=== PATIENT | female | born 1955 | race Caucasian/White ===

== ENCOUNTER → 2021-12-11 10:19 | Outpatient (CLI) | payer OTHER, SELFPAY ==
[2021-12-11 11:05] LABS: Hematocrit 38.5 % (36-46); Hemoglobin 13.2 g/dL (12.0-16.0); Mean Corpuscular HGB Conc 34.4 % (30-36); Mean Corpuscular Hemoglobin 27.2 PG (26-34); Mean Corpuscular Volume 79.2 fL (80-100); Platelet Count 220 X10^3/uL (150-400); Red Blood Cell Count 4.85 X10^6/uL (4.0-5.2); Red Cell Distribution Width 14.5 % (11.6-14.8); White Blood Cell Count 5.6 X10^3/uL (4.5-11.0)
[2021-12-11 11:22] LABS: Erythrocyte Sedimentation Rate 13 MM/HR (0-20)
[2021-12-11 11:47] LABS: Alanine Aminotransferase 16 IU/L (<35); Albumin 4.8 g/dL (3.5-5.0); Albumin Globulin Ratio 1.7 (1.0-2.8); Alkaline Phosphatase 93 U/L (38-126); Aspartate Aminotransferase 23 IU/L (14-36); BUN Creatinine Ratio 25.8 (6-22); Bilirubin Total 0.6 mg/dL (0.2-1.3); Blood Urea Nitrogen 17 mg/dL (7-17); C-Reactive Protein Quant < 0.5 mg/dL (<1.0); Calcium 9.4 mg/dL (8.4-10.2); Carbon Dioxide 24 mmol/L (22-32); Chloride 107 mmol/L (98-107); Cholesterol 285 mg/dL (140-199); Estimated Glomerular Filt Rate > 60 mL/min (>60); Globulin 2.9 g/dL (1.7-4.1); Glucose 119 mg/dL (80-110); HDL Cholesterol 71 mg/dL (40-60); HEMOLYSIS < 15 (0-50); LDL Cholesterol Calculated 194 mg/dL (<100); Sodium 141 mmol/L (137-145); Total Protein 7.7 g/dL (6.3-8.2); Triglycerides 100 mg/dL (35-150)
[2021-12-11 12:17] LABS: TSH w/ Reflex to FT4 1.55 uIU/mL (0.47-4.68)
== END ==
PROVIDERS: PCP Internal Medicine; Referring Provider Internal Medicine; Visit Provider Internal Medicine
DX: I10 Essential (primary) hypertension (principal); M79.7 Fibromyalgia
CPT/HCPCS: 36415; 80053; 80061; 84443; 85027; 85651; 86140

== ENCOUNTER → 2022-05-08 09:54 | Outpatient (CLI) | payer MEDICARE, SELFPAY ==
--- NOTE | 2022-05-08 09:58 | DI.RAD.S_ITS ---
PROCEDURE: XR HIP W PEL IF DONE RT 2V INDICATIONS: right hip pain TECHNIQUE: 2 views of the hip were acquired. COMPARISON: None. FINDINGS: Bones: Severe right and moderate left arthrosis. Lumbosacral spondylosis. There is flattening of the right femoral head. Soft tissues: No suspicious soft tissue calcifications or masses. IMPRESSION: Severe right and moderate left hip arthrosis. Flattening of the femoral head can be seen with degeneration and/or osteonecrosis. Lumbosacral degenerative changes are present. Dictated by: Mark Brower M.D. on 05/08/2022 at 16:57 Approved by: Mark Brower M.D. on 05/08/2022 at 16:57
== END ==
PROVIDERS: PCP Internal Medicine; Referring Provider Internal Medicine; Visit Provider Internal Medicine
DX: M76.30 Iliotibial band syndrome, unspecified leg; M16.0 Bilateral primary osteoarthritis of hip; M47.817 Spondylosis without myelopathy or radiculopathy, lumbosacral region; M25.551 Pain in right hip
CPT/HCPCS: 73502

== ENCOUNTER → 2022-06-20 12:02 | Outpatient (CLI) | payer OTHER, SELFPAY ==
[2022-06-20 12:46] LABS: Appearance Urine UA CLEAR; Bilirubin Urine UA NEGATIVE (NEGATIVE); Color Urine UA YELLOW; Glucose Urine UA NEGATIVE (Negative); Ketones Urine UA TRACE (NEGATIVE); Leukocyte Esterase Urine UA NEGATIVE (NEGATIVE); Nitrite Urine UA NEGATIVE (Negative); Occult Blood Urine UA 3+ (Negative); Protein Urine UA 2+ (Negative); Specific Gravity Urine UA 1.025 (1.000-1.035); Urobilinogen Urine UA 0.2 E.U./dL (0.2)
[2022-06-20 13:04] LABS: RBC Urine 10-30/HPF (0-5/HPF); WBC Urine 5-10/HPF (0-5/HPF)
[2022-06-20 13:05] LABS: Bacteria Urine None Seen; Culture Indicated Urine Cult Not Indicated; Mucus Urine 1+ (Negative); Squamous Epithelial Cell Urine 1-5 /HPF (0-5/HPF)
[2022-06-20 13:34] LABS: Add Manual Diff / Slide Review NO; Basophils Absolute Auto 100 /uL (0-100); Basophils Percent Auto 0.7 % (0-2); Eosinophils Absolute Auto 100 /uL (0-450); Hematocrit 41.9 % (36-46); Hemoglobin 14.5 g/dL (12.0-16.0); Lymphocytes Absolute Auto 1800 /uL (1100-4500); Lymphocytes Percent Auto 22.9 % (25-40); Mean Corpuscular HGB Conc 34.7 % (30-36); Mean Corpuscular Hemoglobin 28.3 PG (26-34); Mean Corpuscular Volume 81.5 fL (80-100); Monocytes Absolute Auto 800 /uL (0-900); Monocytes Percent Auto 9.4 % (3-14); Neutrophils Absolute Auto 5300 /uL (1500-7000); Platelet Count 257 X10^3/uL (150-400); Red Blood Cell Count 5.13 X10^6/uL (4.0-5.2); Red Cell Distribution Width 13.9 % (11.6-14.8)
[2022-06-20 14:04] LABS: Prothrombin Time 11.2 SECONDS (10.1-12.7)
[2022-06-20 14:06] LABS: PTT Partial Thromboplastin Tim 48 SECONDS (26-36)
[2022-06-20 14:14] LABS: BUN Creatinine Ratio 27.7 (6-22); Blood Urea Nitrogen 18 mg/dL (7-17); Calcium 9.5 mg/dL (8.4-10.2); Carbon Dioxide 18 mmol/L (22-32); Chloride 105 mmol/L (98-107); Estimated Glomerular Filt Rate > 60 mL/min (>60); Glucose 137 mg/dL (80-110); HEMOLYSIS < 15 (0-50); Potassium 3.8 mmol/L (3.4-5.1); Sodium 140 mmol/L (137-145)
== END ==
PROVIDERS: PCP Internal Medicine; Referring Provider Internal Medicine; Visit Provider Internal Medicine
DX: Z01.812 Encounter for preprocedural laboratory examination (principal); Z51.81 Encounter for therapeutic drug level monitoring; R73.9 Hyperglycemia, unspecified; N39.0 Urinary tract infection, site not specified
CPT/HCPCS: 36415; 80048; 81001; 83036; 85025; 85610; 85730

== ENCOUNTER → 2022-07-02 11:37 | Outpatient (CLI) | payer OTHER, SELFPAY ==
[2022-07-02 12:23] LABS: Appearance Urine UA CLEAR; Bilirubin Urine UA NEGATIVE (NEGATIVE); Color Urine UA YELLOW; Glucose Urine UA NEGATIVE (Negative); Ketones Urine UA NEGATIVE (NEGATIVE); Leukocyte Esterase Urine UA TRACE (NEGATIVE); Nitrite Urine UA NEGATIVE (Negative); Occult Blood Urine UA 3+ (Negative); Protein Urine UA TRACE (Negative); Specific Gravity Urine UA <=1.005 (1.000-1.035); Urobilinogen Urine UA 0.2 E.U./dL (0.2)
[2022-07-02 12:40] LABS: Bacteria Urine Moderate (10-30); Culture Indicated Urine Specimen Cultured; RBC Urine 10-30/HPF (0-5/HPF); Squamous Epithelial Cell Urine 1-5 /HPF (0-5/HPF); WBC Urine 5-10/HPF (0-5/HPF)
== END ==
PROVIDERS: PCP Internal Medicine; Referring Provider Internal Medicine; Visit Provider Internal Medicine
DX: R30.0 Dysuria (principal); R31.9 Hematuria, unspecified
CPT/HCPCS: 81001; 87086

== ENCOUNTER → 2022-09-11 08:42 | Outpatient (CLI) | payer OTHER, SELFPAY ==
--- NOTE | 2022-09-11 08:43 | DI.US.S_ITS ---
PROCEDURE: US PELVIC COMPLETE INDICATIONS: POSTMENOPAUSAL BLEEDING TECHNIQUE: Real-time scanning was performed of the pelvic organs, with image documentation. Additional endovaginal scanning was necessary due to incomplete visualization of the adnexal and endometrial structures by transabdominal scanning. COMPARISON: None. FINDINGS: Uterus: Uterus is anteverted and enlarged measuring 11.5 x 8.9 x 8.5 cm. Morphology is globular. The myometrium is slightly heterogeneous. The myometrium is thinned and the endometrium is diffusely thickened secondary to heterogeneous mildly hyperechoic masslike lesion measuring about 7.8 x 7.6 x 6.7 cm. There is increased vascular flow in this mass. The cervix is closed and there are tiny nabothian cysts present. Ovaries: The right ovary is not well seen. The left ovary measures 2.3 x 1.5 x 0.9 cm, with a calculated ovarian volume of 1.6 cc. There are few follicles in the left ovary. Other: There is a small amount of complex fluid layering dependently in the right adnexa. IMPRESSION: 1. Enlarged uterus with probable endometrial mass. Tissue sampling versus further imaging with pelvic MRI is recommended. 2. Nonvisualization of the right ovary. 3. Small amount of complex free fluid. We strive to produce accurate, complete, and clear reports of imaging services. To assist us in improving patient care, this report was composed using standard report templates and voice recognition software. Therefore, it may contain abnormal punctuation, insertions and/or omissions. Occasional wrong-word or sound-alike substitutions may occur. Though we review the report and make efforts to correct it, we do recommend that the report be read carefully in proper context to recognize any text inaccuracies. Dictated by: Madina Post M.D. on 09/11/2022 at 16:27 Approved by: Madina Post M.D. on 09/11/2022 at 16:34
== END ==
PROVIDERS: PCP Internal Medicine; Referring Provider Internal Medicine; Visit Provider Internal Medicine
DX: N93.9 Abnormal uterine and vaginal bleeding, unspecified (principal); N85.2 Hypertrophy of uterus
CPT/HCPCS: 76830; 76856

== ENCOUNTER → 2022-10-16 09:21 | Outpatient (CLI) | payer OTHER, SELFPAY ==
--- NOTE | 2022-10-16 | DI.CT.S_ITS ---
PROCEDURE: CT CHEST ABD PEL W CON INDICATIONS: Malignant neoplasm of endometrium TECHNIQUE: After the administration of oral and intravenous contrast, axial sections acquired from the supraclavicular neck to the pubic symphysis. Coronal and sagittal reformats were performed. For radiation dose reduction, the following was used: automated exposure control, adjustment of mA and/or kV according to patient size. COMPARISON: [facility], , US PELVIC COMPLETE, 09/11/2022, 9:10. FINDINGS: Image quality: Excellent. CHEST: Lower Neck: No enlarged lymph nodes. Thyroid: Within normal limits. Axillae: No enlarged lymph nodes. Chest Wall: Unremarkable. Lungs and Airways: No consolidation or suspicious nodules. Bibasilar atelectasis. Pleura: No pneumothorax or pleural effusions. Heart: Heart size is normal. No pericardial effusion. Thoracic Vessels: The aorta and pulmonary arteries demonstrate normal size. Mediastinum and Kendra: No enlarged lymph nodes. Esophagus: No wall thickening. Small hiatal hernia. ABDOMEN: Liver: Normal size. Mild hepatic steatosis. There is a vague hypodense area in the left hepatic lobe (segment 4) near the falciform ligament measuring 1.6 cm, most likely secondary to focal fat. Gallbladder: There are multiple gallstones. No gallbladder wall thickening or pericholecystic fluid. Biliary ducts: Unremarkable. Pancreas: Unremarkable. Spleen: Unremarkable. Adrenal Glands: Unremarkable. Kidneys and Ureters: There is a 1.3 cm left adrenal nodule. Stomach and Bowel: There is mild gastric wall thickening. The small bowel loops and colon are unremarkable. Peritoneum: Small omental nodules are present. For example, there is a 0.5 cm omental nodule in the left anterior abdomen (series 2, image 67). Small free intraperitoneal fluid is present. There are small foci of free air in the peritoneal cavity. Ventral Wall: No hernia. Abdominal Nodes: No retroperitoneal or mesenteric adenopathy by size criteria. Vessels: Aorta and inferior vena cava are normal in size. PELVIS: Pelvic Organs: Uterus is absent. There is a fluid collection in pelvis extending to the left adnexa measuring 5.7 x 4.8 x 9.0 cm, containing small foci of gas. There is a cystic structure in the right pelvic sidewall, measuring 3.3 x 2.2 cm, probably the right ovary. There is a trace amount of free fluid in pelvis. Bladder: Unremarkable. Pelvic Nodes: No enlarged lymph nodes. Miscellaneous: No inguinal hernias are seen. Bones: Moderate degenerative changes in thoracic and lumbar spine. IMPRESSION: 1. Postsurgical changes in pelvis consistent with hysterectomy. There is a 5.7 x 4.8 x 9.0 cm fluid collection in pelvis extending to the left adnexa, suspicious for developing abscess. A differential diagnosis is postoperative seroma. Recommend clinical correlation and imaging follow-up. 2. Pneumoperitoneum with small foci of free air, presumably related to recent surgery. 3. Small omental nodules are present. Recommend close imaging follow-up. 4. No CT findings to suggest lashon metastasis. 5. Cholelithiasis. 6. Mild gastric wall thickening suggesting gastritis. Recommend clinical correlation. 7. A 1.3 cm left adrenal nodule. Recommend adrenal protocol MRI or CT for follow-up evaluation. Dictated by: Darline Beard M.D. on 10/17/2022 at 9:50 Approved by: Darline Beard M.D. on 10/17/2022 at 10:05
== END ==
PROVIDERS: PCP Internal Medicine; Referring Provider Obstetrics & Gynecology; Visit Provider Obstetrics & Gynecology
DX: C54.1 Malignant neoplasm of endometrium (principal); K80.20 Calculus of gallbladder without cholecystitis without obstruction; E27.9 Disorder of adrenal gland, unspecified; K44.9 Diaphragmatic hernia without obstruction or gangrene; K76.0 Fatty (change of) liver, not elsewhere classified; Z90.710 Acquired absence of both cervix and uterus
CPT/HCPCS: 71260; 74177; Q9967

== ENCOUNTER 2022-11-18 09:28 | Day surgery (SDC) | payer OTHER, SELFPAY ==
[2022-11-14 13:06] VITALS: BMI 36.1
--- NOTE | 2022-11-18 | DI.RAD.S_ITS ---
PROCEDURE: XR CHEST 1V INDICATIONS: left SCV power port TECHNIQUE: One view of the chest was acquired. COMPARISON: None. FINDINGS: Surgical changes and devices: Status post left chest wall port placement Lungs and pleura: Lungs are clear. No pleural effusions or pneumothorax. Mediastinum: Mediastinal contours appear normal. Heart size is normal. Bones and chest wall: No suspicious bony lesions. Overlying soft tissues appear unremarkable. IMPRESSION: No acute cardiopulmonary abnormality. Dictated by: London Chacko M.D. on 11/18/2022 at 12:44 Approved by: London Chacko M.D. on 11/18/2022 at 12:44
[2022-11-18 10:18] VITALS: BMI 36.1
[2022-11-18 10:29] VITALS: BP 171/102; PULSE 112; RESP 24; TEMP 37.4; O2SAT 98
[2022-11-18] MEDS: LACTATED RINGERS 1,000 ML 42 ML IV (10:43)
--- NOTE | 2022-11-18 11:12 | PM.HP.1 ---
History of Present Illness History of Present Illness Date Patient Seen: 11/18/22 Time Patient Seen: 11:12 Chief complaint: Port-A-Cath Insertion Narrative: Endometrial cancer Power port needed. [facility] Medical History Chicken pox Chronic back pain Chronic, continuous use of opioids Endometrial mass Essential hypertension Fibroids Fibromyalgia IT band syndrome Measles Migraines Mumps Osteoarthritis of right hip Painful menstrual periods Vaginal bleeding Surgical History Anesthesia H/O total hysterectomy with bilateral salpingo-oophorectomy (BSO) (10/04/22) History of foot surgery (~2000) History of laparoscopy (~1991) History of neck surgery (~1997) Family History Father Cancer Family/Other No problems noted. 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 household members: family Smoking Status: Never smoker alcohol intake: current Meds Home Medications and Allergies Home Medications Medication Instructions Recorded Confirmed Type [id number] 250 2 tab PO Q4-6H PRN Headache, pain 12/10/21 11/18/22 History mg-250 mg-65 mg tablet (Excedrin Extra Strength) cimetidine 200 mg tablet 200 mg PO DAILY 12/10/21 11/18/22 History dimenhydrinate 25 mg chewable 50 mg PO DAILY PRN As directed 12/10/21 11/18/22 History tablet (Dramamine) loperamide 2 mg capsule 2 mg PO DAILY PRN As directed 12/10/21 11/18/22 History amlodipine 5 mg tablet 5 mg PO DAILY #90 tabs 04/24/22 11/18/22 Rx duloxetine 20 mg capsule,delayed 40 mg PO DAILY #60 caps 04/24/22 11/18/22 Rx release methocarbamol 500 mg tablet 500 mg PO TID #120 tabs 10/16/22 11/18/22 Rx ondansetron HCl 8 mg tablet 8 mg PO Q6HR PRN Nausea #30 tabs 11/12/22 11/18/22 Rx prochlorperazine maleate 10 mg 10 mg PO Q6H PRN Nausea #30 tabs 11/12/22 11/18/22 Rx tablet (Compazine) promethazine 25 mg tablet 25 mg PO Q4-6H PRN Nausea #30 tabs 11/12/22 11/18/22 Rx oxycodone 10 mg tablet 10 mg PO PRN PRN Pain, Moderate 11/18/22 11/18/22 History Allergies Allergy/AdvReac Type Severity Reaction Status Date / Time No Known Drug Allergies Allergy Verified 11/18/22 10:10 Review of Systems Review of Systems Narrative: hard knot in abd port site. Tender ROS: Yes All systems reviewed with the patient and are negative except as otherwise documented Exam Vital Signs (past 8 hours): - 11/18/22 10:29 Temperature 99.4 F Pulse Rate 112 H Respiratory Rate 24 Blood Pressure 171/102 H Pulse Oximetry 98 Oxygen Delivery Method Room Air Oxygen Delivery Method Room Air Const General: cooperative and comfortable Nutritional Appearance: average body habitus HENMT Head: normocephalic and atraumatic Ears: hearing grossly normal bilaterally Eyes Sclera: sclerae normal Neck Neck: trachea midline Resp Effort & Inspection: normal respiratory effort and able to speak in complete sentences Cardio Rate: tachycardic Rhythm: regular rhythm GI Palpation: soft Other: Possible incisional hernia supraumbilical, no infection. Could also be healing ridge. Skin General: turgor normal Neuro General: patient alert, patient awake and patient oriented x3 Cognition: normal cognition Psych Judgment: judgment good Assessment & Plan Assessment & Plan narrative: Power port placement left subclavian vein, possible right for chemo COVID-19 COVID-19 status: Negative Time Spent With Patient Time with patient: less than 30 minutes
[2022-11-18] MEDS: CEFAZOLIN 2 GM/100 ML PREMIX 100 ML IV (11:37)
--- NOTE | 2022-11-18 11:54 | SUR.OPER ---
Supine on padded OR bed, head on pillow, arms padded and tucked at sides, legs uncrossed, safety belt at thigh, tape over blanket over lower legs .
[2022-11-18] MEDS: BUPIVACAINE 0.25% (PF) 60 ML, EPINEPHrine 0.3 MG INJ (11:59)
[2022-11-18] MEDS: HEPARIN 5,000 UNIT, SODIUM CHLORIDE 0.9% 50 ML IV (12:00)
--- NOTE | 2022-11-18 12:15 | P.OP_ITS ---
Operative Date/Time/Diagnoses Date of procedure: 11/18/22 Time of procedure: 12:15 Pre-op diagnosis: Endometrial cancer Post-op diagnosis: same Procedure & Clinicians Procedure: PowerPort placement Same procedure as scheduled: Yes Indications: Endometrial cancer Surgeon: Ivanna Portillo Click Yes if Unassisted: Yes Anesthesia Type: General and Local Operative Notes Findings: Normal-appearing anatomy. Closure Type: primary Specimen(s): none sent Applied: implant(s) (Power port) Estimated Blood Loss (mL): 5 Blood products transfused: none Procedure in detail: Preop diagnosis: Endometrial cancer Postop diagnosis: Same Operative procedure: PowerPort placement left subclavian vein Surgeon: Lilia Portillo MD Findings: Normal-appearing anatomy. Good venous return. Procedure: Patient placed in a Trendelenburg position. Prepped and draped in a sterile fashion. Left subclavian vein was accessed and a J-wire was placed. Confirmation using fluoroscopy. I then created a small port site beneath the access point and installed a regular size port tunneling it briefly to the access point through which the pre cut catheter was placed. Postplacement fluoro confirmed ultimate placement in good position. No evidence of pneumothorax. Port was aspirated with good venous return and flushed with heparin solution. I then began closure with tacking the port to the chest wall in 2 positions using 2-0 Ethibond. Subcutaneous tissue was reapproximated with interrupted 3-0 Vicryl. Skin was closed with a running 3-0 absorbable barbed suture. Steri- Strips and sterile dressings were placed. Patient was awakened, extubated, taken to recovery room in stable condition. Needle, instrument, sponge counts were correct. Blood loss: 5 mL Specimen: None Complications: none Post-operative Condition: stable Disposition: PACU
[2022-11-18 12:19] VITALS: BP 116/77; PULSE 86; RESP 12; TEMP 36.8; O2SAT 93
[2022-11-18 12:24] VITALS: BP 140/93; PULSE 114; RESP 13; O2SAT 94
[2022-11-18 12:29] VITALS: BP 142/94; PULSE 109; RESP 14; O2SAT 96
[2022-11-18 12:52] VITALS: BP 141/91; PULSE 109; RESP 22; O2SAT 98
== END 2022-11-18 13:04 | disposition home or self-care (01) ==
PROVIDERS: PCP Internal Medicine; Referring Provider Surgery; Visit Provider Surgery
PROC: (CPT 36561; principal; 2022-11-18 10:45)
DX: C54.1 Malignant neoplasm of endometrium (principal)
CPT/HCPCS: 36561; 71045; 76000; C1788; J0171; J0690; J1100; J1170; J1644; J2250; J2405; J2704; J3010

== ENCOUNTER → 2022-12-18 09:59 | Outpatient (CLI) | payer OTHER, SELFPAY ==
--- NOTE | 2022-12-18 10:00 | DI.RAD.S_ITS ---
PROCEDURE: XR HIP W PEL IF DONE RT 2V INDICATIONS: hip pain TECHNIQUE: AP pelvis with lateral view(s) of the right hip(s). COMPARISON: [facility], CR, XR HIP W PEL IF DONE RT 2V, 05/08/2022, 10:10. FINDINGS: Bones: There are severe hypertrophic ossification involving the right femoroacetabular joint as seen previously. The femoral head is aspherical. There is been acetabular remodeling, subcortical sclerosis and cystic change. There is complete joint space loss and mild superior migration of the femoral head. Moderate diffuse joint space loss and subcortical lucency superiorly at the left femoroacetabular joint. Small left hip marginal spurs. Incidental note made of sclerotic bone lesions in the left iliac wing and right ilium above the acetabulum. Soft tissues: The visualized bowel gas pattern is normal. No suspicious soft tissue calcifications. IMPRESSION: 1. Advanced arthritic changes in both hips, quite severe in the right and moderate on the left, similar compared to prior radiograph. 2. Sclerotic bilateral iliac lesions, nonspecific and may be benign bone islands versus metastatic disease. Correlate clinically. Dictated by: Madina Post M.D. on 12/18/2022 at 13:02 Approved by: Madina Post M.D. on 12/18/2022 at 13:10
== END ==
PROVIDERS: PCP Internal Medicine; Referring Provider Internal Medicine; Visit Provider Internal Medicine
DX: C54.1 Malignant neoplasm of endometrium (principal); M16.51 Unilateral post-traumatic osteoarthritis, right hip; M89.9 Disorder of bone, unspecified
CPT/HCPCS: 73502

== ENCOUNTER 2023-03-05 11:34 | Emergency (ER) | payer OTHER, SELFPAY ==
[2023-03-05] VITALS (98 sets, daily range): BP systolic 105–198; BP diastolic 72–122; PULSE 83–127; RESP 12–46; TEMP 36.5; O2SAT 94–100; BMI 33.3
--- NOTE | 2023-03-05 11:49 | DI.RAD.S_ITS ---
PROCEDURE: XR CHEST 1V INDICATIONS: chest pain TECHNIQUE: One view of the chest was acquired. COMPARISON: [facility], CR, XR CHEST 1V, 11/18/2022, 12:26. FINDINGS: Surgical changes and devices: Left chest Port-A-Cath is seen with tip projecting over the superior vena cava. Lungs and pleura: Lungs are clear. No pleural effusions or pneumothorax. Mediastinum: Mediastinal contours appear normal. Heart size is normal. Bones and chest wall: No suspicious bony lesions. Overlying soft tissues appear unremarkable. IMPRESSION: No acute cardiopulmonary abnormality. Approved by: Alvarez Rubio M.D. on 03/05/2023 at 12:46
[2023-03-05 12:25] LABS: Alanine Aminotransferase 28 IU/L (<35); Albumin 4.4 g/dL (3.5-5.0); Albumin Globulin Ratio 1.5 (1.0-2.8); Alkaline Phosphatase 89 U/L (38-126); Aspartate Aminotransferase 49 IU/L (14-36); BUN Creatinine Ratio 23.9 (6-22); Bilirubin Total 0.4 mg/dL (0.2-1.3); Blood Urea Nitrogen 17 mg/dL (7-17); Carbon Dioxide 23 mmol/L (22-32); Chloride 97 mmol/L (98-107); Creatine Kinase 43 U/L (30-135); Estimated Glomerular Filt Rate > 60 mL/min (>60); Globulin 2.9 g/dL (1.7-4.1); Glucose 189 mg/dL (80-110); HEMOLYSIS < 15 (0-50); Lipase 228 U/L (23-300); Magnesium 1.9 mg/dL (1.6-2.3); Potassium 3.4 mmol/L (3.4-5.1); Sodium 133 mmol/L (137-145); Total Protein 7.3 g/dL (6.3-8.2)
[2023-03-05 12:37] LABS: Troponin I 0.051 ng/mL (0.01-0.034)
--- NOTE | 2023-03-05 13:39 | DI.CT.S_ITS ---
PROCEDURE: CT ABDOMEN PELVIS W CON INDICATIONS: IV contrast only/vomiting TECHNIQUE: After the administration of intravenous contrast, axial sections acquired from the lung bases to the pubic symphysis. Coronal and sagittal reformats were performed. For radiation dose reduction, the following was used: automated exposure control, adjustment of mA and/or kV according to patient size. COMPARISON: [facility], CT, CT CHEST ABD PEL W CON, 10/16/2022, 10:51. FINDINGS: Image quality: Excellent. Lung bases: Unremarkable. Heart: No significant findings. Miscellaneous: Small hiatal hernia. Distal esophageal wall thickening and edema suggests distal esophagitis. ABDOMEN: Liver: Very mild diffuse hepatic steatosis. No focal liver mass. Gallbladder: Multiple gallstones. Mildly prominent gallbladder wall. Gallbladder appearance is similar to the previous study. Biliary ducts: Unremarkable. Pancreas: Unremarkable. Spleen: Unremarkable. Adrenal Glands: Unremarkable. Kidneys and Ureters: Unremarkable. Stomach and Bowel: Duodenal C-loop edema suggest duodenitis. Stomach, small bowel loops, and colon are unremarkable. Peritoneum: No abnormal intraperitoneal fluid. No free air. Ventral Wall: No hernias. Abdominal Nodes: No retroperitoneal or mesenteric adenopathy by size criteria. Vessels: Aorta and inferior vena cava are normal in size. PELVIS: Uterus is surgically absent. Bladder: Unremarkable. Pelvic Nodes: No enlarged lymph nodes. Miscellaneous: No hernias are seen. Bones: Old mild compressions of T10, T11, and T12. End-stage degenerative arthritis of the right hip. IMPRESSION: 1. Small sliding hiatal hernia. Distal esophageal wall thickening and edema suggest distal esophagitis. 2. Duodenitis. 3. Gallstones. Question chronic cholecystitis. 4. No evidence of metastatic disease. 5. Chronic osteoporotic compressions. 6. End-stage degenerative arthritis of the right hip. Dictated by: Koffi Coleman M.D. on 03/05/2023 at 15:16 Approved by: Koffi Coleman M.D. on 03/05/2023 at 15:24
--- NOTE | 2023-03-05 13:39 | DI.CT.S_ITS ---
P the ROCEDURE: CT ANGIO CHEST PE PROTOCOL INDICATIONS: chest pain TECHNIQUE: After the administration of intravenous contrast, 2 mm thick sections acquired from the pulmonary apices to the posterior costophrenic angles. 3-dimensional maximum intensity projection (MIP) coronal and sagittal reformats were then acquired through the thorax. For radiation dose reduction, the following was used: automated exposure control, adjustment of mA and/or kV according to patient size. COMPARISON: None. FINDINGS: Image quality: Excellent. Pulmonary arteries: Pulmonary arteries are normal in size, and demonstrate no intraluminal filling defects to suggest central pulmonary embolism. Lungs and pleura: Lungs are clear. No pleural effusions or pneumothorax. Central and peripheral airways are patent. Mediastinum: Heart size is normal, without pericardial effusion. No mediastinal or hilar adenopathy. Mild aneurysmal dilatation of the ascending aorta, measuring 4.2 cm. Bovine arch anatomy incidentally noted. Esophagus is normal in caliber, with small hiatal hernia. Bones and chest wall: No suspicious bony lesions. Ribs and thoracic spine appear intact throughout. Thyroid gland is unremarkable. No axillary or supraclavicular adenopathy. Abdomen: Visualized upper abdominal solid organs appear normal in the early arterial phase of enhancement. IMPRESSION: 1. No acute pulmonary emboli. 2. No evidence acute pulmonary process. 3. Mild aneurysmal dilatation of the ascending aorta, measuring 4.2 cm. Dictated by: Koffi Coleman M.D. on 03/05/2023 at 14:59 Approved by: Koffi Coleman M.D. on 03/05/2023 at 15:09
--- NOTE | 2023-03-05 13:46 | ED.GENADULT ---
HPI - General Adult <Clarence Mitchell MD - Last Filed: 03/11/23 12:43> General Chief complaint: Hypertension Stated complaint: high BP/Cancer Care PT Time Seen by Provider: 03/05/23 13:24 Source: patient Mode of arrival: Wheelchair History of Present Illness HPI narrative: Patient is sent here from oncology office with Dr. Rodney, patient being treated for endometriosis cancer. Patient last chemotherapy was February 12 2023. Patient could not get her treatment this week. Blood pressure has been elevated however patient has not been able to eat or drink very much or take her medications because of vomiting. Denies any chest pain. Denies any sick contacts. Patient states still able to urinate. Not as much as she usually would. Patient is in no distress. Treatment for cancer started this year. Oncology office did give her lisinopril and Norvasc in the office. Today she is had a total of 10 mg of each. Patient states has had a lot of vomiting in the past 3 days. Related Data Home Medications Medication Instructions Recorded Confirmed arpscqp-vtajaacsxlavb-xehakofl 250 2 tab PO Q4-6H PRN Headache, pain 12/10/21 03/10/23 mg-250 mg-65 mg tablet (Excedrin Extra Strength) cimetidine 200 mg tablet 200 mg PO DAILY 12/10/21 03/10/23 dimenhydrinate 25 mg chewable 50 mg PO DAILY PRN As directed 12/10/21 03/10/23 tablet (Dramamine) loperamide 2 mg capsule 2 mg PO DAILY PRN As directed 12/10/21 03/10/23 amlodipine 5 mg tablet 10 mg PO DAILY 03/10/23 03/10/23 lisinopril 10 mg tablet 10 mg PO DAILY 03/10/23 03/10/23 Previous Rx's Medication Instructions Recorded ondansetron HCl 8 mg tablet 8 mg PO Q6HR PRN Nausea #30 tabs 11/19/22 promethazine 25 mg tablet 25 mg PO Q4-6H PRN Nausea #30 tabs 11/19/22 lidocaine-prilocaine 2.5 %-2.5 % 1 applic topical PRN PRN 11/21/22 topical cream Port/Catheter Care #30 grams duloxetine 20 mg capsule,delayed 40 mg PO DAILY #60 caps 11/26/22 release famotidine 20 mg tablet 20 mg PO BID PRN Heartburn #60 tabs 01/22/23 olanzapine 5 mg tablet 5 mg PO BEDTIME #30 tabs 01/22/23 prochlorperazine maleate 10 mg 10 mg PO Q6H PRN Nausea #30 tabs 02/03/23 tablet (Compazine) potassium chloride 10 mEq 40 meq PO DAILY hypokalemia #28 02/06/23 tablet,extended release (Klor-Con) tabs methocarbamol 500 mg tablet 500 mg PO TID #120 tabs 02/19/23 morphine 30 mg tablet,extended 30 mg PO BID #60 tabs 02/20/23 release morphine 30 mg tablet,extended 30 mg PO BID #60 tabs 02/20/23 release morphine 30 mg tablet,extended 30 mg PO BID #60 tabs 02/20/23 release oxycodone 20 mg tablet 20 mg PO BID PRN pain #60 tabs 02/20/23 oxycodone 20 mg tablet 20 mg PO BID PRN pain #60 tabs 02/20/23 oxycodone 20 mg tablet 20 mg PO BID PRN pain #60 tabs 02/20/23 ondansetron 4 mg disintegrating 4 mg PO Q6H PRN Nausea #30 tabs 03/04/23 tablet morphine 30 mg tablet,extended 30 mg PO Q8H PRN pain #15 tabs 03/06/23 release Allergies Allergy/AdvReac Type Severity Reaction Status Date / Time No Known Drug Allergies Allergy Verified 03/05/23 11:46 Review of Systems <Clarence Mitchell MD - Last Filed: 03/11/23 12:43> Review of Systems Narrative: GENERAL: negative chills, fatigue, malaise, fever, sweats. HEENT: negative sinus pain, ear pain, sore throat RESPIRATORY: negative dyspnea, cough CARDIOVASCULAR: negative chest pain, palpitations GASTROINTESTINAL: Positive nausea, vomiting, abdominal pain : negative dysuria, frequency, hematuria MUSCULOSKELETAL: negative muscle or bony pain SKIN: negative rash, skin lesions NEUROLOGIC: negative weakness, numbness ROS Unobtainable: All systems reviewed & are unremarkable except as noted in HPI and below Patient History <Clarence Mitchell MD - Last Filed: 03/11/23 12:43> Medical History Chicken pox Chronic back pain Chronic, continuous use of opioids Essential hypertension Fibroids Fibromyalgia GERD without esophagitis IT band syndrome Measles Migraines Mumps Osteoarthritis of right hip Painful menstrual periods Surgical History Anesthesia H/O total hysterectomy with bilateral salpingo-oophorectomy (BSO) (10/04/22) History of foot surgery (~2000) History of laparoscopy (~1991) History of neck surgery (~1997) Family History Father Cancer Family/Other No problems noted. 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 EYES: Pupils equal round ENT: Mucous membranes moist. NECK: Trachea midline. CARDIOVASCULAR: Tachycardia with Regular rate and rhythm without murmurs RESPIRATORY: Clear to auscultation. Breath sounds equal bilaterally. No wheezes, rales, or rhonchi. GASTROINTESTINAL: Abdomen soft, non-tender EXTREMITIES: No gross deformities. BACK: No flank tenderness. NEURO: AOx4. SKIN: Warm and dry PSYCH: Not anxious, is cooperative Initial Vital Signs Initial Vital Signs: Vital Signs Temperature 97.7 F 03/05/23 11:40 Pulse Rate 116 H 03/05/23 11:40 Respiratory Rate 16 03/05/23 11:40 Blood Pressure 181/117 H 03/05/23 11:40 Pulse Oximetry 98 03/05/23 11:40 Oxygen Delivery Method Room Air 03/05/23 11:40 <Kristal Horvath DO - Last Filed: 03/06/23 01:59> Initial Vital Signs Initial Vital Signs: Vital Signs Temperature 97.7 F 03/05/23 11:40 Pulse Rate 116 H 03/05/23 11:40 Respiratory Rate 16 03/05/23 11:40 Blood Pressure 181/117 H 03/05/23 11:40 Pulse Oximetry 98 03/05/23 11:40 Oxygen Delivery Method Room Air 03/05/23 11:40 Course <Clarence Mitchell MD - Last Filed: 03/11/23 12:43> Orders Ordered: Discontinued Medications Al Hydrox/Mg Hydrox/Simethicone (Mag Hydrox/Alum/Simeth 30 Ml Udc) 30 ml PO NOW ONE Stop: 03/05/23 16:24 Last Admin: 03/05/23 16:28 Dose: 30 ml Documented By: JOSE Amlodipine Besylate (Amlodipine 5 Mg Tablet) 10 mg PO NOW ONE Stop: 03/05/23 18:50 Last Admin: 03/05/23 18:55 Dose: 10 mg Documented By: JOSE Al Hydrox/Mg Hydrox/Simethicone 20 ml/ Lidocaine HCl 15 ml 0 ml PO NOW ONE Stop: 03/05/23 15:49 Last Admin: 03/05/23 16:30 Dose: Not Given Documented By: JOSE Heparin Sodium (Porcine) (Heparin 500 Unit/5 Ml Port Flush) 500 unit IV NOW ONE Stop: 03/06/23 00:06 Last Admin: 03/06/23 00:14 Dose: 500 unit Documented By: Hydralazine HCl (Hydralazine 20 Mg/Ml Vial) 10 mg IV NOW ONE Stop: 03/05/23 17:29 Last Admin: 03/05/23 17:31 Dose: 10 mg Documented By: JOSE Hydromorphone HCl (Hydromorphone 0.5 Mg Inj) 0.5 mg IV NOW ONE Stop: 03/05/23 19:58 Last Admin: 03/05/23 20:03 Dose: 0.5 mg Documented By: Hydromorphone HCl (Hydromorphone 0.5 Mg Inj) 0.5 mg IV NOW ONE Stop: 03/06/23 00:02 Last Admin: 03/06/23 00:07 Dose: 0.5 mg Documented By: Sodium Chloride (Normal Saline 0.9%) 1,000 mls @ 1,000 mls/hr IV BOLUS ONE Stop: 03/05/23 14:35 Last Infusion: 03/05/23 15:05 Dose: 0 mls/hr Documented By: Admin: 03/05/23 14:02 Dose: 1,000 mls/hr Documented By: JOSE(2) Sodium Chloride (Normal Saline 0.9%) 1,000 mls @ 1,000 mls/hr IV BOLUS ONE Stop: 03/05/23 17:34 Last Infusion: 03/05/23 18:58 Dose: 0 mls/hr Documented By: Admin: 03/05/23 17:12 Dose: 1,000 mls/hr Documented By: JOSE Labetalol HCl (Labetalol 20 Mg/4 Ml Syringe) 10 mg IV NOW ONE Stop: 03/05/23 16:40 Last Admin: 03/05/23 17:11 Dose: 10 mg Documented By: JOSE Lisinopril (Lisinopril 20 Mg Tablet) 20 mg PO NOW ONE Stop: 03/05/23 18:50 Last Admin: 03/05/23 18:55 Dose: 20 mg Documented By: JOSE Morphine Sulfate (Morphine Er 30 Mg Tablet) 30 mg PO BID KYREE Last Admin: 03/05/23 20:52 Dose: 30 mg Documented By: Admin: 03/05/23 14:45 Dose: 30 mg Documented By: JOSE Morphine Sulfate (Morphine 4 Mg/Ml Inj) 4 mg IV NOW ONE Stop: 03/05/23 15:52 Last Admin: 03/05/23 16:06 Dose: 4 mg Documented By: JOSE Ondansetron HCl (Ondansetron 4 Mg/2 Ml Inj) 4 mg IV NOW ONE Stop: 03/05/23 13:39 Last Admin: 03/05/23 14:02 Dose: 4 mg Documented By: JOSE(2) Ondansetron HCl (Ondansetron 4 Mg/2 Ml Inj) 4 mg IV NOW ONE Stop: 03/05/23 19:58 Last Admin: 03/05/23 20:03 Dose: 4 mg Documented By: Pantoprazole Sodium (Pantoprazole 40 Mg Vial) 40 mg IV NOW ONE Stop: 03/05/23 19:58 Last Admin: 03/05/23 20:03 Dose: 40 mg Documented By: Vital Signs Vital signs: Vital Signs - 8 hr 03/05/23 17:54 03/05/23 17:54 03/05/23 17:57 Pulse Rate 87 90 Respiratory Rate 18 20 Blood Pressure 169/101 H Pulse Oximetry 97 97 03/05/23 17:57 03/05/23 18:00 03/05/23 18:00 Pulse Rate 91 H Respiratory Rate 21 Blood Pressure 167/99 H 164/98 H Pulse Oximetry 97 03/05/23 18:03 03/05/23 18:03 03/05/23 18:06 Pulse Rate 90 90 Respiratory Rate 23 Blood Pressure 165/98 H Pulse Oximetry 97 97 03/05/23 18:06 03/05/23 18:09 03/05/23 18:09 Pulse Rate 91 H Respiratory Rate 23 Blood Pressure 166/102 H 170/101 H Pulse Oximetry 97 03/05/23 18:12 03/05/23 18:12 03/05/23 18:15 Pulse Rate 92 H 93 H Respiratory Rate 21 22 Blood Pressure 166/100 H Pulse Oximetry 96 96 03/05/23 18:15 03/05/23 18:18 03/05/23 18:18 Pulse Rate 93 H Respiratory Rate 23 Blood Pressure 165/96 H 160/95 H Pulse Oximetry 97 03/05/23 18:21 03/05/23 18:21 03/05/23 18:24 Pulse Rate 97 H 99 H Respiratory Rate 22 20 Blood Pressure 152/94 H Pulse Oximetry 96 96 03/05/23 18:24 03/05/23 18:27 03/05/23 18:27 Pulse Rate 97 H Respiratory Rate 18 Blood Pressure 171/103 H 170/107 H Pulse Oximetry 97 03/05/23 18:30 03/05/23 18:30 03/05/23 18:33 Pulse Rate 96 H 97 H Respiratory Rate 24 26 H Blood Pressure 165/99 H Pulse Oximetry 97 98 03/05/23 18:33 03/05/23 18:36 03/05/23 18:36 Pulse Rate 97 H Respiratory Rate 25 H Blood Pressure 162/103 H 157/99 H Pulse Oximetry 97 03/05/23 18:39 03/05/23 18:39 03/05/23 18:42 Pulse Rate 97 H Respiratory Rate 22 Blood Pressure 164/101 H 161/96 H Pulse Oximetry 98 03/05/23 18:42 03/05/23 18:49 03/05/23 18:50 Pulse Rate 99 H 99 H 99 H Respiratory Rate 24 Blood Pressure 167/101 H 167/100 H Pulse Oximetry 98 03/05/23 18:55 03/05/23 18:45 03/05/23 18:45 Pulse Rate 99 H 98 H Respiratory Rate 21 Blood Pressure 156/87 H 167/100 H Pulse Oximetry 97 03/05/23 18:53 03/05/23 18:53 03/05/23 18:55 Pulse Rate 104 H 105 H Respiratory Rate 24 22 Blood Pressure 163/99 H Pulse Oximetry 99 100 03/05/23 18:55 03/05/23 18:58 03/05/23 18:58 Pulse Rate 101 H Respiratory Rate Blood Pressure 146/87 H 167/97 H Pulse Oximetry 99 03/05/23 19:00 03/05/23 19:00 03/05/23 19:04 Pulse Rate 97 H 100 H Respiratory Rate 23 20 Blood Pressure 171/102 H Pulse Oximetry 99 99 03/05/23 19:04 03/05/23 19:06 03/05/23 19:06 Pulse Rate 97 H Respiratory Rate Blood Pressure 164/100 H 173/105 H Pulse Oximetry 99 03/05/23 19:09 03/05/23 19:09 03/05/23 19:12 Pulse Rate 96 H Respiratory Rate Blood Pressure 168/97 H 169/100 H Pulse Oximetry 99 03/05/23 19:12 03/05/23 19:15 03/05/23 19:15 Pulse Rate 96 H 98 H Respiratory Rate 20 Blood Pressure 154/98 H Pulse Oximetry 99 99 03/05/23 19:21 03/05/23 19:21 03/05/23 19:24 Pulse Rate 97 H 99 H Respiratory Rate 22 Blood Pressure 166/102 H Pulse Oximetry 99 98 03/05/23 19:24 03/05/23 19:27 03/05/23 19:27 Pulse Rate 99 H Respiratory Rate Blood Pressure 169/91 H 175/101 H Pulse Oximetry 99 03/05/23 19:30 03/05/23 19:30 03/05/23 19:33 Pulse Rate 98 H 99 H Respiratory Rate 29 H Blood Pressure 181/108 H Pulse Oximetry 99 100 03/05/23 19:33 03/05/23 19:36 03/05/23 19:36 Pulse Rate 100 H Respiratory Rate 26 H Blood Pressure 175/107 H 185/109 H Pulse Oximetry 99 03/05/23 19:39 03/05/23 19:39 03/05/23 19:42 Pulse Rate 101 H Respiratory Rate 33 H Blood Pressure 169/98 H 164/100 H Pulse Oximetry 98 03/05/23 19:42 03/05/23 19:45 03/05/23 19:45 Pulse Rate 101 H 102 H Respiratory Rate 31 H 24 Blood Pressure 174/103 H Pulse Oximetry 99 99 03/05/23 19:48 03/05/23 19:48 03/05/23 19:52 Pulse Rate 104 H 113 H Respiratory Rate 25 H 46 H Blood Pressure 170/100 H Pulse Oximetry 100 99 03/05/23 19:52 03/05/23 19:55 03/05/23 19:55 Pulse Rate 105 H Respiratory Rate 32 H Blood Pressure 153/92 H 158/97 H Pulse Oximetry 98 03/05/23 19:58 03/05/23 19:58 03/05/23 20:00 Pulse Rate 106 H Respiratory Rate 27 H Blood Pressure 181/106 H 181/110 H Pulse Oximetry 98 03/05/23 20:00 03/05/23 20:03 03/05/23 20:03 Pulse Rate 105 H 107 H Respiratory Rate 36 H 25 H Blood Pressure 195/112 H Pulse Oximetry 98 99 03/05/23 20:17 03/05/23 20:17 03/05/23 20:18 Pulse Rate 111 H 106 H Respiratory Rate 19 19 Blood Pressure 198/102 H Pulse Oximetry 98 97 03/05/23 20:18 03/05/23 20:24 03/05/23 20:24 Pulse Rate 110 H Respiratory Rate Blood Pressure 193/98 H 168/99 H Pulse Oximetry 98 03/05/23 20:27 03/05/23 20:27 03/05/23 20:30 Pulse Rate 108 H 108 H Respiratory Rate Blood Pressure 175/97 H Pulse Oximetry 98 98 03/05/23 20:31 03/05/23 20:31 03/05/23 20:33 Pulse Rate 109 H 107 H Respiratory Rate 21 Blood Pressure 154/99 H Pulse Oximetry 98 98 03/05/23 20:33 03/05/23 20:36 03/05/23 20:36 Pulse Rate 108 H Respiratory Rate Blood Pressure 153/94 H 163/99 H Pulse Oximetry 98 03/05/23 20:39 03/05/23 20:39 03/05/23 20:42 Pulse Rate 106 H 105 H Respiratory Rate 22 24 Blood Pressure 158/96 H Pulse Oximetry 98 98 03/05/23 20:42 03/05/23 20:45 03/05/23 20:45 Pulse Rate 102 H Respiratory Rate 18 Blood Pressure 159/97 H 154/96 H Pulse Oximetry 96 03/05/23 20:48 03/05/23 20:48 03/05/23 20:54 Pulse Rate 102 H 104 H Respiratory Rate 20 17 Blood Pressure 165/92 H Pulse Oximetry 97 97 03/05/23 20:54 03/05/23 21:00 03/05/23 21:00 Pulse Rate 104 H Respiratory Rate 18 Blood Pressure 159/95 H 161/96 H Pulse Oximetry 96 03/05/23 21:30 03/05/23 21:30 03/05/23 21:57 Pulse Rate 107 H Respiratory Rate 19 Blood Pressure 136/83 Pulse Oximetry 96 98 03/05/23 21:57 03/05/23 22:00 03/05/23 22:00 Pulse Rate 111 H Respiratory Rate Blood Pressure 138/81 133/79 Pulse Oximetry 96 03/05/23 22:30 03/05/23 22:30 03/05/23 23:00 Pulse Rate Respiratory Rate 20 Blood Pressure 145/85 H 120/74 Pulse Oximetry 97 03/05/23 23:00 03/05/23 23:28 03/05/23 23:28 Pulse Rate 115 H 116 H Respiratory Rate Blood Pressure 132/81 Pulse Oximetry 98 98 03/05/23 23:30 03/05/23 23:30 03/06/23 00:00 Pulse Rate 112 H 111 H Respiratory Rate 18 19 Blood Pressure 127/77 Pulse Oximetry 98 96 03/06/23 00:01 03/06/23 00:01 Pulse Rate 109 H Respiratory Rate 20 Blood Pressure 123/83 Pulse Oximetry 97 <Kristal Horvath, - Last Filed: 03/06/23 01:59> Orders Ordered: Discontinued Medications Al Hydrox/Mg Hydrox/Simethicone (Mag Hydrox/Alum/Simeth 30 Ml Udc) 30 ml PO NOW ONE Stop: 03/05/23 16:24 Last Admin: 03/05/23 16:28 Dose: 30 ml Documented By: JOSE Amlodipine Besylate (Amlodipine 5 Mg Tablet) 10 mg PO NOW ONE Stop: 03/05/23 18:50 Last Admin: 03/05/23 18:55 Dose: 10 mg Documented By: JOSE Al Hydrox/Mg Hydrox/Simethicone 20 ml/ Lidocaine HCl 15 ml 0 ml PO NOW ONE Stop: 03/05/23 15:49 Last Admin: 03/05/23 16:30 Dose: Not Given Documented By: JOSE Heparin Sodium (Porcine) (Heparin 500 Unit/5 Ml Port Flush) 500 unit IV NOW ONE Stop: 03/06/23 00:06 Last Admin: 03/06/23 00:14 Dose: 500 unit Documented By: Hydralazine HCl (Hydralazine 20 Mg/Ml Vial) 10 mg IV NOW ONE Stop: 03/05/23 17:29 Last Admin: 03/05/23 17:31 Dose: 10 mg Documented By: JOSE Hydromorphone HCl (Hydromorphone 0.5 Mg Inj) 0.5 mg IV NOW ONE Stop: 03/05/23 19:58 Last Admin: 03/05/23 20:03 Dose: 0.5 mg Documented By: Hydromorphone HCl (Hydromorphone 0.5 Mg Inj) 0.5 mg IV NOW ONE Stop: 03/06/23 00:02 Last Admin: 03/06/23 00:07 Dose: 0.5 mg Documented By: Sodium Chloride (Normal Saline 0.9%) 1,000 mls @ 1,000 mls/hr IV BOLUS ONE Stop: 03/05/23 14:35 Last Infusion: 03/05/23 15:05 Dose: 0 mls/hr Documented By: Admin: 03/05/23 14:02 Dose: 1,000 mls/hr Documented By: JOSE(2) Sodium Chloride (Normal Saline 0.9%) 1,000 mls @ 1,000 mls/hr IV BOLUS ONE Stop: 03/05/23 17:34 Last Infusion: 03/05/23 18:58 Dose: 0 mls/hr Documented By: Admin: 03/05/23 17:12 Dose: 1,000 mls/hr Documented By: JOSE Labetalol HCl (Labetalol 20 Mg/4 Ml Syringe) 10 mg IV NOW ONE Stop: 03/05/23 16:40 Last Admin: 03/05/23 17:11 Dose: 10 mg Documented By: JOSE Lisinopril (Lisinopril 20 Mg Tablet) 20 mg PO NOW ONE Stop: 03/05/23 18:50 Last Admin: 03/05/23 18:55 Dose: 20 mg Documented By: JOSE Morphine Sulfate (Morphine Er 30 Mg Tablet) 30 mg PO BID KYREE Last Admin: 03/05/23 20:52 Dose: 30 mg Documented By: Admin: 03/05/23 14:45 Dose: 30 mg Documented By: JOSE Morphine Sulfate (Morphine 4 Mg/Ml Inj) 4 mg IV NOW ONE Stop: 03/05/23 15:52 Last Admin: 03/05/23 16:06 Dose: 4 mg Documented By: JOSE Ondansetron HCl (Ondansetron 4 Mg/2 Ml Inj) 4 mg IV NOW ONE Stop: 03/05/23 13:39 Last Admin: 03/05/23 14:02 Dose: 4 mg Documented By: JOSE(2) Ondansetron HCl (Ondansetron 4 Mg/2 Ml Inj) 4 mg IV NOW ONE Stop: 03/05/23 19:58 Last Admin: 03/05/23 20:03 Dose: 4 mg Documented By: Pantoprazole Sodium (Pantoprazole 40 Mg Vial) 40 mg IV NOW ONE Stop: 03/05/23 19:58 Last Admin: 03/05/23 20:03 Dose: 40 mg Documented By: Vital Signs Vital signs: Vital Signs - 8 hr 03/05/23 17:54 03/05/23 17:54 03/05/23 17:57 Pulse Rate 87 90 Respiratory Rate 18 20 Blood Pressure 169/101 H Pulse Oximetry 97 97 03/05/23 17:57 03/05/23 18:00 03/05/23 18:00 Pulse Rate 91 H Respiratory Rate 21 Blood Pressure 167/99 H 164/98 H Pulse Oximetry 97 03/05/23 18:03 03/05/23 18:03 03/05/23 18:06 Pulse Rate 90 90 Respiratory Rate 21 23 Blood Pressure 165/98 H Pulse Oximetry 97 97 03/05/23 18:06 03/05/23 18:09 03/05/23 18:09 Pulse Rate 91 H Respiratory Rate 23 Blood Pressure 166/102 H 170/101 H Pulse Oximetry 97 03/05/23 18:12 03/05/23 18:12 03/05/23 18:15 Pulse Rate 92 H 93 H Respiratory Rate 21 22 Blood Pressure 166/100 H Pulse Oximetry 96 96 03/05/23 18:15 03/05/23 18:18 03/05/23 18:18 Pulse Rate 93 H Respiratory Rate 23 Blood Pressure 165/96 H 160/95 H Pulse Oximetry 97 03/05/23 18:21 03/05/23 18:21 03/05/23 18:24 Pulse Rate 97 H 99 H Respiratory Rate 22 20 Blood Pressure 152/94 H Pulse Oximetry 96 96 03/05/23 18:24 03/05/23 18:27 03/05/23 18:27 Pulse Rate 97 H Respiratory Rate 18 Blood Pressure 171/103 H 170/107 H Pulse Oximetry 97 03/05/23 18:30 03/05/23 18:30 03/05/23 18:33 Pulse Rate 96 H 97 H Respiratory Rate 24 26 H Blood Pressure 165/99 H Pulse Oximetry 97 98 03/05/23 18:33 03/05/23 18:36 03/05/23 18:36 Pulse Rate 97 H Respiratory Rate 25 H Blood Pressure 162/103 H 157/99 H Pulse Oximetry 97 03/05/23 18:39 03/05/23 18:39 03/05/23 18:42 Pulse Rate 97 H Respiratory Rate 22 Blood Pressure 164/101 H 161/96 H Pulse Oximetry 98 03/05/23 18:42 03/05/23 18:49 03/05/23 18:50 Pulse Rate 99 H 99 H 99 H Respiratory Rate 24 Blood Pressure 167/101 H 167/100 H Pulse Oximetry 98 03/05/23 18:55 03/05/23 18:45 03/05/23 18:45 Pulse Rate 99 H 98 H Respiratory Rate 21 Blood Pressure 156/87 H 167/100 H Pulse Oximetry 97 03/05/23 18:53 03/05/23 18:53 03/05/23 18:55 Pulse Rate 104 H 105 H Respiratory Rate 24 22 Blood Pressure 163/99 H Pulse Oximetry 99 100 03/05/23 18:55 03/05/23 18:58 03/05/23 18:58 Pulse Rate 101 H Respiratory Rate Blood Pressure 146/87 H 167/97 H Pulse Oximetry 99 03/05/23 19:00 03/05/23 19:00 03/05/23 19:04 Pulse Rate 97 H 100 H Respiratory Rate 23 20 Blood Pressure 171/102 H Pulse Oximetry 99 99 03/05/23 19:04 03/05/23 19:06 03/05/23 19:06 Pulse Rate 97 H Respiratory Rate Blood Pressure 164/100 H 173/105 H Pulse Oximetry 99 03/05/23 19:09 03/05/23 19:09 03/05/23 19:12 Pulse Rate 96 H Respiratory Rate Blood Pressure 168/97 H 169/100 H Pulse Oximetry 99 03/05/23 19:12 03/05/23 19:15 03/05/23 19:15 Pulse Rate 96 H 98 H Respiratory Rate 20 Blood Pressure 154/98 H Pulse Oximetry 99 99 03/05/23 19:21 03/05/23 19:21 03/05/23 19:24 Pulse Rate 97 H 99 H Respiratory Rate 22 Blood Pressure 166/102 H Pulse Oximetry 99 98 03/05/23 19:24 03/05/23 19:27 03/05/23 19:27 Pulse Rate 99 H Respiratory Rate Blood Pressure 169/91 H 175/101 H Pulse Oximetry 99 03/05/23 19:30 03/05/23 19:30 03/05/23 19:33 Pulse Rate 98 H 99 H Respiratory Rate 29 H Blood Pressure 181/108 H Pulse Oximetry 99 100 03/05/23 19:33 03/05/23 19:36 03/05/23 19:36 Pulse Rate 100 H Respiratory Rate 26 H Blood Pressure 175/107 H 185/109 H Pulse Oximetry 99 03/05/23 19:39 03/05/23 19:39 03/05/23 19:42 Pulse Rate 101 H Respiratory Rate 33 H Blood Pressure 169/98 H 164/100 H Pulse Oximetry 98 03/05/23 19:42 03/05/23 19:45 03/05/23 19:45 Pulse Rate 101 H 102 H Respiratory Rate 31 H 24 Blood Pressure 174/103 H Pulse Oximetry 99 99 03/05/23 19:48 03/05/23 19:48 03/05/23 19:52 Pulse Rate 104 H 113 H Respiratory Rate 25 H 46 H Blood Pressure 170/100 H Pulse Oximetry 100 99 03/05/23 19:52 03/05/23 19:55 03/05/23 19:55 Pulse Rate 105 H Respiratory Rate 32 H Blood Pressure 153/92 H 158/97 H Pulse Oximetry 98 03/05/23 19:58 03/05/23 19:58 03/05/23 20:00 Pulse Rate 106 H Respiratory Rate 27 H Blood Pressure 181/106 H 181/110 H Pulse Oximetry 98 03/05/23 20:00 03/05/23 20:03 03/05/23 20:03 Pulse Rate 105 H 107 H Respiratory Rate 36 H 25 H Blood Pressure 195/112 H Pulse Oximetry 98 99 03/05/23 20:17 03/05/23 20:17 03/05/23 20:18 Pulse Rate 111 H 106 H Respiratory Rate 19 19 Blood Pressure 198/102 H Pulse Oximetry 98 97 03/05/23 20:18 03/05/23 20:24 03/05/23 20:24 Pulse Rate 110 H Respiratory Rate Blood Pressure 193/98 H 168/99 H Pulse Oximetry 98 03/05/23 20:27 03/05/23 20:27 03/05/23 20:30 Pulse Rate 108 H 108 H Respiratory Rate Blood Pressure 175/97 H Pulse Oximetry 98 98 03/05/23 20:31 03/05/23 20:31 03/05/23 20:33 Pulse Rate 109 H 107 H Respiratory Rate 21 Blood Pressure 154/99 H Pulse Oximetry 98 98 03/05/23 20:33 03/05/23 20:36 03/05/23 20:36 Pulse Rate 108 H Respiratory Rate Blood Pressure 153/94 H 163/99 H Pulse Oximetry 98 03/05/23 20:39 03/05/23 20:39 03/05/23 20:42 Pulse Rate 106 H 105 H Respiratory Rate 22 24 Blood Pressure 158/96 H Pulse Oximetry 98 98 03/05/23 20:42 03/05/23 20:45 03/05/23 20:45 Pulse Rate 102 H Respiratory Rate 18 Blood Pressure 159/97 H 154/96 H Pulse Oximetry 96 03/05/23 20:48 03/05/23 20:48 03/05/23 20:54 Pulse Rate 102 H 104 H Respiratory Rate 20 17 Blood Pressure 165/92 H Pulse Oximetry 97 97 03/05/23 20:54 03/05/23 21:00 03/05/23 21:00 Pulse Rate 104 H Respiratory Rate 18 Blood Pressure 159/95 H 161/96 H Pulse Oximetry 96 03/05/23 21:30 03/05/23 21:30 03/05/23 21:57 Pulse Rate 107 H Respiratory Rate 19 Blood Pressure 136/83 Pulse Oximetry 96 98 03/05/23 21:57 03/05/23 22:00 03/05/23 22:00 Pulse Rate 111 H Respiratory Rate Blood Pressure 138/81 133/79 Pulse Oximetry 96 03/05/23 22:30 03/05/23 22:30 03/05/23 23:00 Pulse Rate Respiratory Rate 20 Blood Pressure 145/85 H 120/74 Pulse Oximetry 97 03/05/23 23:00 03/05/23 23:28 03/05/23 23:28 Pulse Rate 115 H 116 H Respiratory Rate Blood Pressure 132/81 Pulse Oximetry 98 98 03/05/23 23:30 03/05/23 23:30 03/06/23 00:00 Pulse Rate 112 H 111 H Respiratory Rate 18 19 Blood Pressure 127/77 Pulse Oximetry 98 96 03/06/23 00:01 03/06/23 00:01 Pulse Rate 109 H Respiratory Rate 20 Blood Pressure 123/83 Pulse Oximetry 97 Medical Decision Making <Clarence Mitchell MD - Last Filed: 03/11/23 12:43> Lab Data 03/05/23 08:30 Labs: Lab Results 03/05/23 03/05/23 03/05/23 Range/Units 08:30 14:06 14:21 Sodium 133 L (137-145) mmol/L Potassium 3.4 (3.4-5.1) mmol/L Chloride 97 L (98-107) mmol/L Carbon Dioxide 23 (22-32) mmol/L BUN 17 (7-17) mg/dL Creatinine 0.71 (0.52-1.04) mg/dL Estimated GFR > 60 (>60) mL/min BUN/Creatinine Ratio 23.9 H (6-22) Glucose 189 H (80-110) mg/dL Calcium 9.0 (8.4-10.2) mg/dL Magnesium 1.9 (1.6-2.3) mg/dL Total Bilirubin 0.4 (0.2-1.3) mg/dL AST 49 H (14-36) IU/L ALT 28 (<35) IU/L Alkaline Phosphatase 89 (38-126) U/L Total Creatine Kinase 43 (30-135) U/L Troponin I 0.051 H (0.01-0.034) ng/mL Total Protein 7.3 (6.3-8.2) g/dL Albumin 4.4 (3.5-5.0) g/dL Globulin 2.9 (1.7-4.1) g/dL Albumin/Globulin Ratio 1.5 (1.0-2.8) Lipase 228 (23-300) U/L Urine Color Yellow Urine Appearance Clear Urine pH 5.5 (4.5-8.0) Ur Specific [place] >=1.030 H (1.000-1.035) Urine Protein 3+ H (Negative) Urine Glucose (UA) Negative (Negative) g/dL Urine Ketones Negative (NEGATIVE) Urine Occult Blood Negative (Negative) Urine Nitrate Negative (Negative) Urine Bilirubin Negative (NEGATIVE) Urine Urobilinogen 1.0 (0.2) E.U./dL Ur Leukocyte Esterase Negative (NEGATIVE) Urine RBC 0-1/hpf (0-5/HPF) Urine WBC 0-1/hpf (0-5/HPF) Ur Squamous Epith Cells 0-1 /hpf (0-5/HPF) Urine Bacteria None seen (None) Hyaline Casts 0-1/lpf (None) Ur Culture Indicated? Cult not indicated Chlamy pneumoniae PCR Not detected (Not Detect) Adenovirus (PCR) Not detected (Not Detect) B. pertussis DNA (PCR) Not detected (Not Detecte) B.parapertussis DNA PCR Not detected (Not Detecte) Coronavirus OC43 (PCR) Not detected (Not Detect) Coronavirus HKU1 (PCR) Not detected (Not Detect) Coronavirus 229E (PCR) Not detected (Not Detect) SARS-CoV-2 (PCR) Not detected (Not Detecte) Coronavirus NL63 (PCR) Not detected (Not Detect) Human Metapneumovir PCR Not detected (Not Detect) Influenza Type A (PCR) Not detected (Not Detect) Influenza Type B (PCR) Not detected (Not Detect) M. pneumoniae (PCR) Not detected (Not Detect) Parainfluenza 1 (PCR) Not detected (Not Detect) Parainfluenza 2 (PCR) Not detected (Not Detect) Parainfluenza 3 (PCR) Not detected (Not Detect) Parainfluenza 4 (PCR) Not detected (Not Detect) RSV (PCR) Not detected (Not Detect) Entero/Rhino (PCR) Not detected (Not Detect) 03/05/23 03/05/23 03/05/23 Range/Units 16:53 20:12 22:55 Sodium (137-145) mmol/L Potassium (3.4-5.1) mmol/L Chloride (98-107) mmol/L Carbon Dioxide (22-32) mmol/L BUN (7-17) mg/dL Creatinine (0.52-1.04) mg/dL Estimated GFR (>60) mL/min BUN/Creatinine Ratio (6-22) Glucose (80-110) mg/dL Calcium (8.4-10.2) mg/dL Magnesium (1.6-2.3) mg/dL Total Bilirubin (0.2-1.3) mg/dL AST (14-36) IU/L ALT (<35) IU/L Alkaline Phosphatase (38-126) U/L Total Creatine Kinase 39 (30-135) U/L Troponin I 0.059 H 0.065 H 0.062 H (0.01-0.034) ng/mL Total Protein (6.3-8.2) g/dL Albumin (3.5-5.0) g/dL Globulin (1.7-4.1) g/dL Albumin/Globulin Ratio (1.0-2.8) Lipase (23-300) U/L Urine Color Urine Appearance Urine pH (4.5-8.0) Ur Specific Purdum (1.000-1.035) Urine Protein (Negative) Urine Glucose (UA) (Negative) g/dL Urine Ketones (NEGATIVE) Urine Occult Blood (Negative) Urine Nitrate (Negative) Urine Bilirubin (NEGATIVE) Urine Urobilinogen (0.2) E.U./dL Ur Leukocyte Esterase (NEGATIVE) Urine RBC (0-5/HPF) Urine WBC (0-5/HPF) Ur Squamous Epith Cells (0-5/HPF) Urine Bacteria (None) Hyaline Casts (None) Ur Culture Indicated? Chlamy pneumoniae PCR (Not Detect) Adenovirus (PCR) (Not Detect) B. pertussis DNA (PCR) (Not Detecte) B.parapertussis DNA PCR (Not Detecte) Coronavirus OC43 (PCR) (Not Detect) Coronavirus HKU1 (PCR) (Not Detect) Coronavirus 229E (PCR) (Not Detect) SARS-CoV-2 (PCR) (Not Detecte) Coronavirus NL63 (PCR) (Not Detect) Human Metapneumovir PCR (Not Detect) Influenza Type A (PCR) (Not Detect) Influenza Type B (PCR) (Not Detect) M. pneumoniae (PCR) (Not Detect) Parainfluenza 1 (PCR) (Not Detect) Parainfluenza 2 (PCR) (Not Detect) Parainfluenza 3 (PCR) (Not Detect) Parainfluenza 4 (PCR) (Not Detect) RSV (PCR) (Not Detect) Entero/Rhino (PCR) (Not Detect) Imaging Data Chest x-ray: Radiologist's Impression: [address] [address] XRay Report Signed Patient: Sheldon Duran MR#: [id number] : 1955 Acct:[id number] Age/Sex: 67 / F Date of Service: 03/05/23 Loc: ED Accession Number: [id number] ?? Procedure: XR chest 1V Ordering Provider: Clarence Mitchell MD PROCEDURE:? XR CHEST 1V ? INDICATIONS:? chest pain ? TECHNIQUE:? One view of the chest was acquired.? ? COMPARISON:? [facility], , XR CHEST 1V, 11/18/2022, 12:26. ? FINDINGS:? ? Surgical changes and devices:? Left chest Port-A-Cath is seen with tip projecting over the superior vena cava. ? Lungs and pleura:? Lungs are clear.? No pleural effusions or pneumothorax.? ? Mediastinum:? Mediastinal contours appear normal.? Heart size is normal.? ? Bones and chest wall:? No suspicious bony lesions.? Overlying soft tissues appear unremarkable.? ? IMPRESSION:? No acute cardiopulmonary abnormality. ? ? ? Approved by: Alvarez Rubio M.D. on 03/05/2023 at 12:46? CT chest: Radiologist's Impression: [address] [address] [address] Scan Report Addendum Patient: Sheldon Duran MR#: [id number] : 1955 Acct:[id number] Age/Sex: 67 / F Date of Service: 03/05/23 Loc: ED Accession Number: [id number] ?? Procedure: CT angio chest PE protocol Ordering Provider: Clarence Mitchell MD ADDENDUMCORRECTION Corrected on: 03/05/2023; ? ? P ROCEDURE:? CT ANGIO CHEST PE PROTOCOL ? INDICATIONS:? chest pain ? TECHNIQUE:? After the administration of intravenous contrast, 2 mm thick sections acquired from the pulmonary apices to the posterior costophrenic angles.? 3-dimensional maximum intensity projection (MIP) coronal and sagittal reformats were then acquired through the thorax.? For radiation dose reduction, the following was used:? automated exposure control, adjustment of mA and/or kV according to patient size.? ? COMPARISON:? [facility], CT, CT ABDOMEN PELVIS W CON, 03/05/2023, 14:09. ? FINDINGS:? Image quality:? Excellent.? ? Pulmonary arteries:? Pulmonary arteries are normal in size, and demonstrate no intraluminal filling defects to suggest central pulmonary embolism.? ? Lungs and pleura:? Lungs are clear.? No pleural effusions or pneumothorax.? Central and peripheral airways are patent.? ? Mediastinum:? Heart size is normal, without pericardial effusion.? No mediastinal or hilar adenopathy.? Mild aneurysmal dilatation of the ascending aorta, measuring 4.2 cm.? Bovine arch anatomy incidentally noted.? There is a small hiatal hernia.? There is thickening of the distal esophagus with question of wall edema, suggesting distal esophagitis. ? Bones and chest wall:? No suspicious bony lesions.? Ribs and thoracic spine appear intact throughout.? Thyroid gland is unremarkable.? No axillary or supraclavicular adenopathy.? ? Abdomen:? Visualized upper abdominal solid organs appear normal in the early arterial phase of enhancement.? ? IMPRESSION:? ? 1. No acute pulmonary emboli. ? 2. No evidence acute pulmonary process. ? 3. Mild aneurysmal dilatation of the ascending aorta, measuring 4.2 cm. ? 4. Small hiatal hernia. ? 5. Question distal esophagitis.? ? ? Dictated by: Koffi Coleman M.D. on 03/05/2023 at 14:59 ? ? Approved by: Koffi Coleman M.D. on 03/05/2023 at 15:09 ? ?Dictated by: Koffi Coleman M.D. on 03/05/2023 at 15:15 ? ? Approved by: Koffi Coleman M.D. on 03/05/2023 at 15:15 ? Addendum Dictated By: Koffi Coleman MD Addendum Signed By: Addendum Cosigned By: DD/ TD/TT: 03/05/23 P the ROCEDURE:? CT ANGIO CHEST PE PROTOCOL ? INDICATIONS:? chest pain ? TECHNIQUE:? After the administration of intravenous contrast, 2 mm thick sections acquired from the pulmonary apices to the posterior costophrenic angles.? 3-dimensional maximum intensity projection (MIP) coronal and sagittal reformats were then acquired through the thorax.? For radiation dose reduction, the following was used:? automated exposure control, adjustment of mA and/or kV according to patient size.? ? COMPARISON:? None. ? FINDINGS:? Image quality:? Excellent.? ? Pulmonary arteries:? Pulmonary arteries are normal in size, and demonstrate no intraluminal filling defects to suggest central pulmonary embolism.? ? Lungs and pleura:? Lungs are clear.? No pleural effusions or pneumothorax.? Central and peripheral airways are patent.? ? Mediastinum:? Heart size is normal, without pericardial effusion.? No mediastinal or hilar adenopathy.? Mild aneurysmal dilatation of the ascending aorta, measuring 4.2 cm.? Bovine arch anatomy incidentally noted.? Esophagus is normal in caliber, with small hiatal hernia.? ? Bones and chest wall:? No suspicious bony lesions.? Ribs and thoracic spine appear intact throughout.? Thyroid gland is unremarkable.? No axillary or supraclavicular adenopathy.? ? Abdomen:? Visualized upper abdominal solid organs appear normal in the early arterial phase of enhancement.? ? IMPRESSION:? ? 1. No acute pulmonary emboli. ? 2. No evidence acute pulmonary process. ? 3. Mild aneurysmal dilatation of the ascending aorta, measuring 4.2 cm. ? ? Dictated by: Koffi Coleman M.D. on 03/05/2023 at 14:59 ? ? Approved by: Koffi Coleman M.D. on 03/05/2023 at 15:09 ? CT scan - abdomen/pelvis: Radiologist's Impression: [address] [address] [address] Scan Report Signed Patient: Sheldon Duran MR#: [id number] : 1955 Acct:[id number] Age/Sex: 67 / F Date of Service: 03/05/23 Loc: ED Accession Number: [id number] ?? Procedure: CT abdomen pelvis w con Ordering Provider: Clarence Mitchell MD PROCEDURE:? CT ABDOMEN PELVIS W CON ? INDICATIONS:? IV contrast only/vomiting ? TECHNIQUE:? After the administration of intravenous contrast, axial sections acquired from the lung bases to the pubic symphysis.? Coronal and sagittal reformats were performed.? For radiation dose reduction, the following was used:? automated exposure control, adjustment of mA and/or kV according to patient size.? ? COMPARISON:? [facility], CT, CT CHEST ABD PEL W CON, 10/16/2022, 10:51. ? FINDINGS:? Image quality:? Excellent.? ? Lung bases:? Unremarkable. Heart:? No significant findings. Miscellaneous:? Small hiatal hernia.? Distal esophageal wall thickening and edema suggests distal esophagitis. ? ABDOMEN: Liver:? Very mild diffuse hepatic steatosis.? No focal liver mass. Gallbladder:? Multiple gallstones.? Mildly prominent gallbladder wall.? Gallbladder appearance is similar to the previous study.? ? Biliary ducts:? Unremarkable.? ? Pancreas:? Unremarkable.? ? Spleen:? Unremarkable.? ? Adrenal Glands:? Unremarkable.? ? Kidneys and Ureters:? Unremarkable.? ? ? Stomach and Bowel:? Duodenal C-loop edema suggest duodenitis.? Stomach, small bowel loops, and colon are unremarkable.? Peritoneum:? No abnormal intraperitoneal fluid.? No free air.? ? Ventral Wall: ? No hernias.? Abdominal Nodes:? No retroperitoneal or mesenteric adenopathy by size criteria.? Vessels:? Aorta and inferior vena cava are normal in size.? ? PELVIS: Uterus is surgically absent.? Bladder:? Unremarkable.? ? Pelvic Nodes: No enlarged lymph nodes.? Miscellaneous: No hernias are seen. ? ? ? Bones:? Old mild compressions of T10, T11, and T12.? End-stage degenerative arthritis of the right hip. ? ? IMPRESSION:? ? 1. Small sliding hiatal hernia.? Distal esophageal wall thickening and edema suggest distal esophagitis. ? 2. Duodenitis. ? 3. Gallstones.? Question chronic cholecystitis. ? 4. No evidence of metastatic disease. ? 5. Chronic osteoporotic compressions. ? 6. End-stage degenerative arthritis of the right hip.? ? ? Dictated by: Koffi Coleman M.D. on 03/05/2023 at 15:16 ? ? Approved by: Koffi Coleman M.D. on 03/05/2023 at 15:24 ? [facility] Narrative Medical decision making narrative: Patient is sent here from oncology office with Dr. Rodney, patient being treated for endometriosis cancer. Patient last chemotherapy was February 12 2023. Patient could not get her treatment this week. Blood pressure has been elevated however patient has not been able to eat or drink very much or take her medications because of vomiting. Denies any chest pain. Denies any sick contacts. Patient states still able to urinate. Not as much as she usually would. Patient is in no distress. Treatment for cancer started this year. Oncology office did give her lisinopril and Norvasc in the office. Today she is had a total of 10 mg of each. Patient states has had a lot of vomiting in the past 3 days. After history and exam CBC CMP viral swab EKG troponin CT chest abdomen pelvis [facility] CC: Complicating co-morbidities: Endometrial cancer Data collected from: Patient and oncology office staff Differential considered: Includes but not limited to sepsis viral syndrome PE gastroenteritis pneumonia UTI Exam documented above, pertinent findings include: Nontender abdomen blood pressure has improved Lab Test results independently reviewed as above. Pertinent findings: WBC 11.9 hemoglobin 12.5 sodium 133 potassium 3.4 chloride 97 bicarb 23 GFR greater than 60, troponin 0.051 , specific gravity greater than 1.030 Viral swab negative Independently reviewed EKG sinus tachycardia rate [address] elevation or depression Imaging studies independently reviewed: Chest x-ray no acute finding CT chest CT abdomen pelvis no acute finding Consultations: 6:[address] Lemus, cardiology, he does not recommend nicardipine drip. He recommends lisinopril to go up to 20 mg, Norvasc up to 10 mg, consider nitro paste for admission 1 in every 8 hours. 6:[address] Melendez, hospitalist, he would like to try blood pressure medication here before admitting. It is possible patient could be discharged home on new regimen as suggested by Cardiology. However, if blood pressure maintains above 180 then hospitalist group will admit Treatments: Normal saline Zofran labetalol hydralazine Re-evaluations: Updated patient results. She understands she may need to be admitted for blood pressure control. Discussion: Patient has had rebound hypertension with labetalol. Hydralazine does seem to work for a little while. But will rebound back up. Diagnosis: Hypertensive urgency March 05, 2023 at 6:50 p.m.. Svetlanannick: Sign out to Dr Horvath, may need to admit if blood pressure goes above 180. I have spoken with Dr. Melendez hospitalist, <Kristal Horvath DO - Last Filed: 03/06/23 01:59> Lab Data Labs: Lab Results 03/05/23 03/05/23 03/05/23 Range/Units 08:30 14:06 14:21 Sodium 133 L (137-145) mmol/L Potassium 3.4 (3.4-5.1) mmol/L Chloride 97 L (98-107) mmol/L Carbon Dioxide 23 (22-32) mmol/L BUN 17 (7-17) mg/dL Creatinine 0.71 (0.52-1.04) mg/dL Estimated GFR > 60 (>60) mL/min BUN/Creatinine Ratio 23.9 H (6-22) Glucose 189 H (80-110) mg/dL Calcium 9.0 (8.4-10.2) mg/dL Magnesium 1.9 (1.6-2.3) mg/dL Total Bilirubin 0.4 (0.2-1.3) mg/dL AST 49 H (14-36) IU/L ALT 28 (<35) IU/L Alkaline Phosphatase 89 (38-126) U/L Total Creatine Kinase 43 (30-135) U/L Troponin I 0.051 H (0.01-0.034) ng/mL Total Protein 7.3 (6.3-8.2) g/dL Albumin 4.4 (3.5-5.0) g/dL Globulin 2.9 (1.7-4.1) g/dL Albumin/Globulin Ratio 1.5 (1.0-2.8) Lipase 228 (23-300) U/L Urine Color Yellow Urine Appearance Clear Urine pH 5.5 (4.5-8.0) Ur Specific Purdum >=1.030 H (1.000-1.035) Urine Protein 3+ H (Negative) Urine Glucose (UA) Negative (Negative) g/dL Urine Ketones Negative (NEGATIVE) Urine Occult Blood Negative (Negative) Urine Nitrate Negative (Negative) Urine Bilirubin Negative (NEGATIVE) Urine Urobilinogen 1.0 (0.2) E.U./dL Ur Leukocyte Esterase Negative (NEGATIVE) Urine RBC 0-1/hpf (0-5/HPF) Urine WBC 0-1/hpf (0-5/HPF) Ur Squamous Epith Cells 0-1 /hpf (0-5/HPF) Urine Bacteria None seen (None) Hyaline Casts 0-1/lpf (None) Ur Culture Indicated? Cult not indicated Chlamy pneumoniae PCR Not detected (Not Detect) Adenovirus (PCR) Not detected (Not Detect) B. pertussis DNA (PCR) Not detected (Not Detecte) B.parapertussis DNA PCR Not detected (Not Detecte) Coronavirus OC43 (PCR) Not detected (Not Detect) Coronavirus HKU1 (PCR) Not detected (Not Detect) Coronavirus 229E (PCR) Not detected (Not Detect) SARS-CoV-2 (PCR) Not detected (Not Detecte) Coronavirus NL63 (PCR) Not detected (Not Detect) Human Metapneumovir PCR Not detected (Not Detect) Influenza Type A (PCR) Not detected (Not Detect) Influenza Type B (PCR) Not detected (Not Detect) M. pneumoniae (PCR) Not detected (Not Detect) Parainfluenza 1 (PCR) Not detected (Not Detect) Parainfluenza 2 (PCR) Not detected (Not Detect) Parainfluenza 3 (PCR) Not detected (Not Detect) Parainfluenza 4 (PCR) Not detected (Not Detect) RSV (PCR) Not detected (Not Detect) Entero/Rhino (PCR) Not detected (Not Detect) 03/05/23 03/05/23 03/05/23 Range/Units 16:53 20:12 22:55 Sodium (137-145) mmol/L Potassium (3.4-5.1) mmol/L Chloride (98-107) mmol/L Carbon Dioxide (22-32) mmol/L BUN (7-17) mg/dL Creatinine (0.52-1.04) mg/dL Estimated GFR (>60) mL/min BUN/Creatinine Ratio (6-22) Glucose (80-110) mg/dL Calcium (8.4-10.2) mg/dL Magnesium (1.6-2.3) mg/dL Total Bilirubin (0.2-1.3) mg/dL AST (14-36) IU/L ALT (<35) IU/L Alkaline Phosphatase (38-126) U/L Total Creatine Kinase 39 (30-135) U/L Troponin I 0.059 H 0.065 H 0.062 H (0.01-0.034) ng/mL Total Protein (6.3-8.2) g/dL Albumin (3.5-5.0) g/dL Globulin (1.7-4.1) g/dL Albumin/Globulin Ratio (1.0-2.8) Lipase (23-300) U/L Urine Color Urine Appearance Urine pH (4.5-8.0) Ur Specific Purdum (1.000-1.035) Urine Protein (Negative) Urine Glucose (UA) (Negative) g/dL Urine Ketones (NEGATIVE) Urine Occult Blood (Negative) Urine Nitrate (Negative) Urine Bilirubin (NEGATIVE) Urine Urobilinogen (0.2) E.U./dL Ur Leukocyte Esterase (NEGATIVE) Urine RBC (0-5/HPF) Urine WBC (0-5/HPF) Ur Squamous Epith Cells (0-5/HPF) Urine Bacteria (None) Hyaline Casts (None) Ur Culture Indicated? Chlamy pneumoniae PCR (Not Detect) Adenovirus (PCR) (Not Detect) B. pertussis DNA (PCR) (Not Detecte) B.parapertussis DNA PCR (Not Detecte) Coronavirus OC43 (PCR) (Not Detect) Coronavirus HKU1 (PCR) (Not Detect) Coronavirus 229E (PCR) (Not Detect) SARS-CoV-2 (PCR) (Not Detecte) Coronavirus NL63 (PCR) (Not Detect) Human Metapneumovir PCR (Not Detect) Influenza Type A (PCR) (Not Detect) Influenza Type B (PCR) (Not Detect) M. pneumoniae (PCR) (Not Detect) Parainfluenza 1 (PCR) (Not Detect) Parainfluenza 2 (PCR) (Not Detect) Parainfluenza 3 (PCR) (Not Detect) Parainfluenza 4 (PCR) (Not Detect) RSV (PCR) (Not Detect) Entero/Rhino (PCR) (Not Detect) MDM Narrative Medical decision making narrative: Patient is sent here from oncology office with Dr. Rodney, patient being treated for endometriosis cancer. Patient last chemotherapy was February 12 2023. Patient could not get her treatment this week. Blood pressure has been elevated however patient has not been able to eat or drink very much or take her medications because of vomiting. Denies any chest pain. Denies any sick contacts. Patient states still able to urinate. Not as much as she usually would. Patient is in no distress. Treatment for cancer started this year. Oncology office did give her lisinopril and Norvasc in the office. Today she is had a total of 10 mg of each. Patient states has had a lot of vomiting in the past 3 days. After history and exam CBC CMP viral swab EKG troponin CT chest abdomen pelvis [facility] CC: Complicating co-morbidities: Endometrial cancer Data collected from: Patient and oncology office staff Differential considered: Includes but not limited to sepsis viral syndrome PE gastroenteritis pneumonia UTI Exam documented above, pertinent findings include: Nontender abdomen blood pressure has improved Lab Test results independently reviewed as above. Pertinent findings: WBC 11.9 hemoglobin 12.5 sodium 133 potassium 3.4 chloride 97 bicarb 23 GFR greater than 60, troponin 0.051 , specific gravity greater than 1.030 Viral swab negative Independently reviewed EKG sinus tachycardia rate [address] elevation or depression Imaging studies independently reviewed: Chest x-ray no acute finding CT chest CT abdomen pelvis no acute finding Consultations: 6:[address] Lemus, cardiology, he does not recommend nicardipine drip. He recommends lisinopril to go up to 20 mg, Norvasc up to 10 mg, consider nitro paste for admission 1 in every 8 hours. 6:[address] Melendez, hospitalist, he would like to try blood pressure medication here before admitting. It is possible patient could be discharged home on new regimen as suggested by Cardiology. However, if blood pressure maintains above 180 then hospitalist group will admit Treatments: Normal saline Zofran labetalol hydralazine Re-evaluations: Updated patient results. She understands she may need to be admitted for blood pressure control. Discussion: Patient has had rebound hypertension with labetalol. Hydralazine does seem to work for a little while. But will rebound back up. Diagnosis: Hypertensive urgency March 05, 2023 at 6:50 p.m.. Meirick: Sign out to Dr Horvath, may need to admit if blood pressure goes above 180. I have spoken with Dr. Melendez hospitalist, -I have seen evaluated patient myself. Initially had elevated blood pressure with indeterminate troponin. Cardiology was previously consulted recommend no nicardipine drip just p.o. meds and possibly nitro paste. I have consulted the night hospitalist who states does not recommend admission, recommends going home. Stating that her blood pressure will be elevated while she is on Avastin and it needs to be controlled. Patient likely has hypertension secondary to Avastin and inability to take her blood pressure meds due to nausea vomiting. She is now been able to take her medication. Troponin actually increased to 0.065 and then decreased to 0.062. Thought to be due to high blood pressure. She is feeling better she is gotten her pain medication. Blood pressure has been very stable since about 2100. Blood pressure has been 30s to 140s. She did get some pain medication for her chronic ongoing back pain. She really isn't having symptoms although she did have a little bit of chest pain but quickly went away. No headache or shortness of breath. She was sent here from Oncology for an elevated blood pressure. At this time patient would like to go home I think this is reasonable home. I discussed with her that she probably does need an outpatient echocardiogram. And I strongly encouraged her that if she should have any symptoms at all then she is return to the ED. suggested that she monitor her blood pressure at home and return if it is persistently elevated. She is been up to the restroom multiple times she is not having any symptoms. She does not see Oncology and till Friday which is 4 days away she is almost out of her morphine. Definitely reasonable to refill it so she does not go through withdrawal and kit pain can be controlled. She also had a CT angio of her chest which did not show any pulmonary emboli or dissection. Discharge Plan Departure Patient Disposition: Home Clinical Impression: Hypertensive urgency Instructions: DI for High Blood Pressure Activity Restrictions/Additional Instructions: *You have been diagnosed with hypertension *What to do: Please monitor your blood pressure twice a day record it and discuss with your doctors. I think this is related to your medication. You may still require an echocardiogram of your heart. If you are having any chest pain shortness of breath or any symptoms please return to the ER *Continue to take medications as directed Morphine 30 mg 3 times a day *Follow up with your primary care provider in 2-3 days or call [phone] Follow-up with oncology *Return to ER if you should have headache chest pain shortness of breath blood pressure greater than 190/105 for longer than 2 hours or any new, worsening or concerning symptoms CONTROLLED SUBSTANCE DISCHARGE (Narcotoic/benzodiazepine/Flexeril/Phenergan) 1. You have been prescribed narcotic medications, it does have acetaminophen/Tylenol/paracetamol in it, DO NOT TAKE MORE THAN 4,00mg in 24 hours of Tylenol. TRAMADOL DOES NOT CONTAIN TYLENOL 2. Please understand that we cannot provide further refills of narcotics, benzodiazepines or controlled substances through the ED and her pain management will need to be through your provider. 3. While on these medications you cannot drive or operate heavy machinery. 4. You cannot sign legal documents or perform any duties such as this. 5. As long as you're taking opiate pain medications he should also be taking a stool softener such as Colace, Dulcolax, MiraLAX or prune juice, to help avoid constipation. Prescriptions: New morphine 30 mg tablet extended release 30 mg PO Q8H PRN (Reason: pain) Qty: 15 0RF No Action promethazine 25 mg tablet 25 mg PO Q4-6H PRN (Reason: Nausea) Qty: 30 1RF ondansetron HCl 8 mg tablet 8 mg PO Q6HR PRN (Reason: Nausea) Qty: 30 1RF duloxetine 20 mg capsule,delayed release(DR/EC) 40 mg PO DAILY Qty: 60 5RF prochlorperazine maleate [Compazine] 10 mg tablet 10 mg PO Q6H PRN (Reason: Nausea) Qty: 30 1RF methocarbamol 500 mg tablet 500 mg PO TID Qty: 120 3RF Rx Instructions: 1-2 tablets three times daily as needed for spasms/pain cimetidine 200 mg tablet 200 mg PO DAILY Excedrin Extra Strength 250-250-65 mg tablet 2 tab PO Q4-6H PRN (Reason: Headache, pain) loperamide 2 mg capsule 2 mg PO DAILY PRN (Reason: As directed) Dramamine 25 mg tablet,chewable 50 mg PO DAILY PRN (Reason: As directed) morphine 30 mg tablet extended release 30 mg PO BID Qty: 60 0RF morphine 30 mg tablet extended release 30 mg PO BID Qty: 60 0RF morphine 30 mg tablet extended release 30 mg PO BID Qty: 60 0RF oxycodone 20 mg tablet 20 mg PO BID PRN (Reason: pain) Qty: 60 0RF oxycodone 20 mg tablet 20 mg PO BID PRN (Reason: pain) Qty: 60 0RF oxycodone 20 mg tablet 20 mg PO BID PRN (Reason: pain) Qty: 60 0RF lidocaine-prilocaine 2.5-2.5 % Cream 1 applic topical PRN PRN (Reason: Port/Catheter Care) Qty: 30 1RF Rx Instructions: apply to the skin over the port at least 2 hours before planned use of the port. Cover the cream with a small piece of plastic wrap and leave in place until the port is accessed famotidine 20 mg Tablet 20 mg PO BID PRN (Reason: Heartburn) Qty: 60 5RF olanzapine 5 mg Tablet 5 mg PO BEDTIME Qty: 30 5RF potassium chloride [Klor-Con 10] 10 mEq Tablet Extended Release 40 meq PO DAILY Qty: 28 0RF ondansetron 4 mg Tablet,Disintegrating 4 mg PO Q6H PRN (Reason: Nausea) Qty: 30 3RF lisinopril 10 mg Tablet 10 mg PO DAILY amlodipine 5 mg tablet 10 mg PO DAILY Referrals: Jose G Medina MD [Physician] - Mo Moseley MD [Primary Care Provider] - Stand Alone Forms: Patient Portal/API
[2023-03-05] MEDS: SODIUM CHLORIDE 0.9% 1,000 ML 1000 ML IV ×2 (14:02→17:12)
[2023-03-05] MEDS: ONDANSETRON 4 MG/2 ML INJ IV ×2 (14:02→20:03)
[2023-03-05 14:26] LABS: Appearance Urine UA CLEAR; Bilirubin Urine UA NEGATIVE (NEGATIVE); Color Urine UA YELLOW; Glucose Urine UA NEGATIVE (Negative); Ketones Urine UA NEGATIVE (NEGATIVE); Leukocyte Esterase Urine UA NEGATIVE (NEGATIVE); Nitrite Urine UA NEGATIVE (Negative); Occult Blood Urine UA NEGATIVE (Negative); Protein Urine UA 3+ (Negative); Specific Gravity Urine UA >=1.030 (1.000-1.035)
[2023-03-05 14:33] LABS: pH Urine UA 5.5 (4.5-8.0)
[2023-03-05 14:34] LABS: Bacteria Urine None Seen; Culture Indicated Urine Cult Not Indicated; Hyaline Casts Urine 0-1/LPF; RBC Urine 0-1/HPF (0-5/HPF); Squamous Epithelial Cell Urine 0-1 /HPF (0-5/HPF); WBC Urine 0-1/HPF (0-5/HPF)
[2023-03-05] MEDS: MORPHINE ER 30 MG TABLET PO ×2 (14:45→20:52)
[2023-03-05 16:02] LABS: Adenovirus Not Detected (Not Detect); B. parapertussis Not Detected (Not Detecte); Bordetella pertussis Not Detected (Not Detecte); Chlamydophila pneumoniae Not Detected (Not Detect); Coronavirus 229E Not Detected (Not Detect); Coronavirus HKU1 Not Detected (Not Detect); Coronavirus NL 63 Not Detected (Not Detect); Coronavirus OC43 Not Detected (Not Detect); Human Metapneumovirus Not Detected (Not Detect); Human Rhinovirus/Enterovirus Not Detected (Not Detect); Influenza A Not Detected (Not Detect); Influenza B Not Detected (Not Detect); Mycoplasma pneumoniae Not Detected (Not Detect); Parainfluenza Virus 1 Not Detected (Not Detect); Parainfluenza Virus 2 Not Detected (Not Detect); Parainfluenza Virus 3 Not Detected (Not Detect); Parainfluenza Virus 4 Not Detected (Not Detect); Respiratory Syncytial Virus Not Detected (Not Detect); SARS- CoV-2 Not Detected (Not Detecte)
[2023-03-05] MEDS: MORPHINE 4 MG/ML INJ IV (16:06)
[2023-03-05] MEDS: MAG HYDROX/ALUM/SIMETH 30 ML UDC PO (16:28)
[2023-03-05] MEDS: LABETALOL 20 MG/4 ML SYRINGE 10 MG IV (17:11)
[2023-03-05 17:17] LABS: Creatine Kinase 39 U/L (30-135)
[2023-03-05 17:30] LABS: Troponin I 0.059 ng/mL (0.01-0.034)
[2023-03-05] MEDS: HYDRALAZINE 20 MG/ML VIAL 10 MG IV (17:31)
[2023-03-05] MEDS: AMLODIPINE 5 MG TABLET 10 MG PO (18:55)
[2023-03-05] MEDS: lisinopriL 20 MG TABLET PO (18:55)
--- NOTE | 2023-03-05 19:16 | PC.NURSE ---
Friend at the bedside. Offered a meal to the patient and she stated her appetite in minimal. She prefers applesauce and Popsicles at this time. Pt struggles with appetite due to chemo tx.
[2023-03-05] MEDS: PANTOPRAZOLE 40 MG VIAL IV (20:03)
[2023-03-05] MEDS: HYDROMORPHONE 0.5 MG INJ IV (20:03)
[2023-03-05 21:00] LABS: Troponin I 0.065 ng/mL (0.01-0.034)
[2023-03-05 23:25] LABS: Troponin I 0.062 ng/mL (0.01-0.034)
[2023-03-06] VITALS: PULSE 111; RESP 19; O2SAT 96
[2023-03-06 00:01] VITALS: BP 123/83; PULSE 109; RESP 20; O2SAT 97
[2023-03-06] MEDS: HYDROMORPHONE 0.5 MG INJ IV (00:07)
== END 2023-03-06 00:18 | disposition home or self-care (01) ==
PROVIDERS: Emergency Medicine; Emergency Provider Emergency Medicine; PCP Internal Medicine
DX: I16.0 Hypertensive urgency (principal); R07.9 Chest pain, unspecified; Z20.822 Contact with and (suspected) exposure to COVID-19; C54.1 Malignant neoplasm of endometrium; C78.6 Secondary malignant neoplasm of retroperitoneum and peritoneum
CPT/HCPCS: 36415; 36591; 71045; 71275; 74177; 80053; 81001; 82550; 83690; 83735; 84484; 85007; 85025; 87633; 93005; 96361; 96374; 96375; 96376; 99284; C9113; J0360; J1170; J1642; J2270; J2405; Q9967

== ENCOUNTER 2023-08-06 15:31 | Emergency (ER) | payer OTHER, SELFPAY ==
[2023-08-06] VITALS (13 sets, daily range): BP systolic 106–134; BP diastolic 57–70; PULSE 74–103; RESP 15–24; TEMP 36.7; O2SAT 91–96; BMI 33.3
[2023-08-06 16:02] LABS: Add Manual Diff / Slide Review NO; Basophils Absolute Auto 100 /uL (0-100); Basophils Percent Auto 0.7 % (0-2); Eosinophils Absolute Auto 500 /uL (0-450); Eosinophils Percent Auto 6.3 % (2-4); Hemoglobin 11.2 g/dL (12.0-16.0); Lymphocytes Absolute Auto 1900 /uL (1100-4500); Lymphocytes Percent Auto 22.7 % (25-40); Mean Corpuscular HGB Conc 33.8 % (30-36); Mean Corpuscular Hemoglobin 28.5 PG (26-34); Mean Corpuscular Volume 84.1 fL (80-100); Monocytes Absolute Auto 1200 /uL (0-900); Monocytes Percent Auto 14.4 % (3-14); Neutrophils Absolute Auto 4800 /uL (1500-7000); Neutrophils Percent Auto 55.9 % (50-75); Platelet Count 197 X10^3/uL (150-400); Red Blood Cell Count 3.93 X10^6/uL (4.0-5.2); White Blood Cell Count 8.6 X10^3/uL (4.5-11.0)
[2023-08-06 16:09] LABS: Prothrombin Time 11.7 SECONDS (9.4-12.5)
[2023-08-06 16:13] LABS: Lactate (Lactic Acid) 0.9 mmol/L (0.7-2.1)
[2023-08-06 16:14] LABS: Alanine Aminotransferase 15 IU/L (<35); Albumin 4.3 g/dL (3.5-5.0); Albumin Globulin Ratio 1.5 (1.0-2.8); Alkaline Phosphatase 91 U/L (38-126); Aspartate Aminotransferase 22 IU/L (14-36); BUN Creatinine Ratio 27.2 (6-22); Bilirubin Total 0.8 mg/dL (0.2-1.3); Blood Urea Nitrogen 41 mg/dL (7-17); Calcium 9.6 mg/dL (8.4-10.2); Carbon Dioxide 26 mmol/L (22-32); Chloride 101 mmol/L (98-107); Creatine Kinase 21 U/L (30-135); Estimated Glomerular Filt Rate 38 mL/min (>60); Globulin 2.9 g/dL (1.7-4.1); Glucose 123 mg/dL (80-110); HEMOLYSIS < 15 (0-50); Potassium 5.2 mmol/L (3.4-5.1); Sodium 137 mmol/L (137-145); Total Protein 7.2 g/dL (6.3-8.2)
[2023-08-06 16:26] LABS: NT-proBNP (BNP-Adult 18+) 46 pg/mL (<125); Troponin I < 0.012 ng/mL (0.01-0.034)
[2023-08-06 16:31] LABS: Procalcitonin 0.09 ng/mL (<0.5)
[2023-08-06 16:52] LABS: Adenovirus Not Detected (Not Detect); B. parapertussis Not Detected (Not Detecte); Bordetella pertussis Not Detected (Not Detect); Chlamydophila pneumoniae Not Detected (Not Detect); Coronavirus 229E Not Detected (Not Detect); Coronavirus HKU1 Not Detected (Not Detect); Coronavirus NL 63 Not Detected (Not Detect); Coronavirus OC43 Not Detected (Not Detect); Human Metapneumovirus Not Detected (Not Detect); Human Rhinovirus/Enterovirus Not Detected (Not Detect); Influenza A Not Detected (Not Detect); Influenza B Not Detected (Not Detect); Mycoplasma pneumoniae Not Detected (Not Detect); Parainfluenza Virus 1 Not Detected (Not Detect); Parainfluenza Virus 2 Not Detected (Not Detect); Parainfluenza Virus 3 Not Detected (Not Detect); Parainfluenza Virus 4 Not Detected (Not Detect); Respiratory Syncytial Virus Not Detected (Not Detect); SARS- CoV-2 Not Detected (Not Detecte)
--- NOTE | 2023-08-06 18:40 | ED.GENADULT ---
HPI - General Adult General Chief complaint: Weakness Stated complaint: Generalized Weakness Time Seen by Provider: 08/06/23 15:38 Source: patient and family Mode of arrival: Wheelchair Limitations: no limitations History of Present Illness HPI narrative: Patient is a 68-year-old female. Does have history of endometrial cancer. She has no longer receiving chemotherapy but does get ?infusions? every 3 weeks. Her last infusion was approximately 2 weeks ago. Her next infusion is actually delayed somewhat until the middle of August. Over the past several weeks she has had intermittent episodes which she describes as ?shaking? this causes her to become somewhat weak. She is generalized fatigue. She denies chest pain, shortness of breath, fevers, abdominal pain, urinary symptoms or change in any nausea. No change in bowel habits. Skin rashes. She talked with her primary doctor about the symptoms and was advised to come to the emergency department for further evaluation. Related Data Home Medications Medication Instructions Recorded Confirmed [id number] 250 2 tab PO Q4-6H PRN Headache, pain 12/10/21 07/30/23 mg-250 mg-65 mg tablet (Excedrin Extra Strength) cimetidine 200 mg tablet 200 mg PO DAILY 12/10/21 07/30/23 dimenhydrinate 25 mg chewable 50 mg PO DAILY PRN As directed 12/10/21 07/30/23 tablet (Dramamine) loperamide 2 mg capsule 2 mg PO DAILY PRN As directed 12/10/21 07/30/23 omeprazole 40 mg capsule,delayed 40 mg PO DAILY 07/08/23 07/30/23 release Previous Rx's Medication Instructions Recorded promethazine 25 mg tablet 25 mg PO Q4-6H PRN Nausea #30 tabs 11/19/22 lidocaine-prilocaine 2.5 %-2.5 % 1 applic topical PRN PRN 11/21/22 topical cream Port/Catheter Care #30 grams famotidine 20 mg tablet 20 mg PO BID PRN Heartburn #60 tabs 01/22/23 prochlorperazine maleate 10 mg 10 mg PO Q6H PRN Nausea #30 tabs 02/03/23 tablet (Compazine) potassium chloride 10 mEq 40 meq (4 x 10 mEq) PO DAILY 02/06/23 tablet,extended release (Klor-Con) hypokalemia #28 tabs amlodipine 10 mg tablet 10 mg PO DAILY #90 tabs 03/17/23 lisinopril 10 mg tablet 10 mg PO DAILY #90 tabs 03/17/23 gabapentin 600 mg tablet 900 mg (1.5 x 600 mg) PO TID #135 05/06/23 tabs morphine 30 mg tablet,extended 30 mg PO Q8H #90 tabs 05/06/23 release olanzapine 5 mg tablet 5 mg PO BEDTIME #30 tabs 05/06/23 oxycodone 20 mg tablet 20 mg PO TID PRN pain #90 tabs 05/06/23 duloxetine 20 mg capsule,delayed 40 mg (2 x 20 mg) PO DAILY #60 caps 06/24/23 release morphine 30 mg tablet,extended 30 mg PO TID #90 tabs 07/08/23 release morphine 30 mg tablet,extended 30 mg PO TID #90 tabs 07/08/23 release oxycodone 20 mg tablet 20 mg PO TID PRN pain #90 tabs 07/08/23 oxycodone 20 mg tablet 20 mg PO TID PRN pain #90 tabs 07/08/23 baclofen 10 mg tablet 10 mg PO TID PRN muscle spasm #90 07/30/23 tabs Allergies Allergy/AdvReac Type Severity Reaction Status Date / Time No Known Drug Allergies Allergy Verified 07/30/23 08:13 Review of Systems Review of Systems ROS Unobtainable: All systems reviewed & are unremarkable except as noted in HPI and below Patient History Medical History GERD without esophagitis Chronic, continuous use of opioids Osteoarthritis of right hip Essential hypertension IT band syndrome Painful menstrual periods Fibroids Migraines Fibromyalgia Chronic back pain Mumps Measles Chicken pox Surgical History H/O total hysterectomy with bilateral salpingo-oophorectomy (BSO) (10/04/22) Anesthesia History of laparoscopy (~1991) History of foot surgery (~2000) History of neck surgery (~1997) Family History Father Cancer Family/Other No problems noted. 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 household members: family Smoking Status: Never smoker alcohol intake: current Smoking Status: Never smoker alcohol intake frequency: holidays/special occasions only Substance Use Type: marijuana Exam Initial Vital Signs Initial Vital Signs: Vital Signs Pulse Rate 103 H 08/06/23 15:34 Pulse Oximetry 93 08/06/23 15:34 Const General: cooperative, comfortable and No ill appearing HENMT Head: normal to inspection and normocephalic Resp Effort & Inspection: normal respiratory effort Auscultation: clear to auscultation bilaterally Cardio Rate: regular rate Rhythm: regular rhythm GI Inspection: normal to inspection and non-distended Palpation: soft Skin General: no rashes or lesions noted Neuro General: patient alert, patient awake and moves all extremities Extrem General: normal to inspection and capillary refill normal Course Orders Ordered: ED Orders 08/06/23 15:38 EKG-12 Lead Stat 08/06/23 15:45 Complete Blood Count AUTO DIFF Stat Comprehensive Metabolic Panel Stat Lactate (Lactic Acid) Stat NT-proBNP (BNP-Adult 18+) Stat Procalcitonin Stat Prothrombin Time INR Stat Respiratory Panel (Film Array) Stat Troponin & CK Cardiac Panel Stat 08/06/23 16:25 Blood Culture Stat 08/06/23 18:26 Troponin & CK Cardiac Panel Stat 08/06/23 20:10 Urinalysis and Microscopic Stat Urine Culture Stat Vital Signs Vital signs: Vital Signs - 8 hr 08/06/23 15:34 08/06/23 15:36 08/06/23 15:36 Temperature Pulse Rate 103 H 98 H Respiratory Rate 15 Blood Pressure 134/62 Pulse Oximetry 93 92 Oxygen Delivery Method 08/06/23 15:38 08/06/23 16:00 08/06/23 16:30 Temperature 98.1 F Pulse Rate 98 H 87 83 Respiratory Rate 16 17 Blood Pressure 134/62 Pulse Oximetry 94 92 92 Oxygen Delivery Method Room Air 08/06/23 17:00 08/06/23 17:30 08/06/23 18:00 Temperature Pulse Rate 77 75 75 Respiratory Rate 24 15 15 Blood Pressure Pulse Oximetry 92 96 Oxygen Delivery Method 08/06/23 18:30 08/06/23 18:49 08/06/23 18:49 Temperature Pulse Rate 74 93 H Respiratory Rate 18 23 Blood Pressure 120/70 Pulse Oximetry 91 95 Oxygen Delivery Method 08/06/23 19:00 08/06/23 19:00 08/06/23 19:30 Temperature Pulse Rate 79 76 Respiratory Rate 16 18 Blood Pressure 109/62 Pulse Oximetry 95 93 Oxygen Delivery Method 08/06/23 19:30 08/06/23 20:00 08/06/23 20:00 Temperature Pulse Rate 79 75 Respiratory Rate 18 18 Blood Pressure 125/69 106/57 L Pulse Oximetry 93 95 Oxygen Delivery Method Medical Decision Making Medical Records Medical records reviewed: Yes I reviewed the patient's medical records. Lab Data Lab results reviewed: Yes I reviewed the patient's lab results. 08/06/23 15:45 08/06/23 15:45 Labs: Lab Results 08/06/23 08/06/23 08/06/23 Range/Units 15:45 18:26 20:10 WBC 8.6 (4.5-11.0) X10^3/uL RBC 3.93 L (4.0-5.2) X10^6/uL Hgb 11.2 L (12.0-16.0) g/dL Hct 33.0 L (36-46) % MCV 84.1 (80-100) fL MCH 28.5 (26-34) PG MCHC 33.8 (30-36) % RDW 16.0 H (11.6-14.8) % Plt Count 197 (150-400) X10^3/uL Neut % (Auto) 55.9 (50-75) % Lymph % (Auto) 22.7 L (25-40) % [place] % (Auto) 14.4 H (3-14) % Eos % (Auto) 6.3 H (2-4) % Baso % (Auto) 0.7 (0-2) % Neut # (Auto) 4800 (7560-7074) /uL Lymph # (Auto) 1900 (5634-2235) /uL [place] # (Auto) 1200 H (0-900) /uL Eos # (Auto) 500 H (0-450) /uL Baso # (Auto) 100 (0-100) /uL PT 11.7 (9.4-12.5) SECONDS INR 1.0 (0.9-1.3) Sodium 137 (137-145) mmol/L Potassium 5.2 H (3.4-5.1) mmol/L Chloride 101 (98-107) mmol/L Carbon Dioxide 26 (22-32) mmol/L BUN 41 H (7-17) mg/dL Creatinine 1.51 H (0.52-1.04) mg/dL Estimated GFR 38 L (>60) mL/min BUN/Creatinine Ratio 27.2 H (6-22) Glucose 123 H (80-110) mg/dL Lactate 0.9 (0.7-2.1) mmol/L Calcium 9.6 (8.4-10.2) mg/dL Total Bilirubin 0.8 (0.2-1.3) mg/dL AST 22 (14-36) IU/L ALT 15 (<35) IU/L Alkaline Phosphatase 91 (38-126) U/L Total Creatine Kinase 21 L < 20 L (30-135) U/L Troponin I < 0.012 < 0.012 (0.01-0.034) ng/mL NT-Pro-B Natriuret Pep 46 (<125) pg/mL Total Protein 7.2 (6.3-8.2) g/dL Albumin 4.3 (3.5-5.0) g/dL Globulin 2.9 (1.7-4.1) g/dL Albumin/Globulin Ratio 1.5 (1.0-2.8) Procalcitonin 0.09 (<0.5) ng/mL Urine Color Yellow Urine Appearance Clear Urine pH 5.0 (4.5-8.0) Ur Specific [place] 1.025 (1.000-1.035) Urine Protein Negative (Negative) Urine Glucose (UA) Negative (Negative) g/dL Urine Ketones Negative (NEGATIVE) Urine Occult Blood Negative (Negative) Urine Nitrate Negative (Negative) Urine Bilirubin Negative (NEGATIVE) Urine Urobilinogen 0.2 (0.2) E.U./dL Ur Leukocyte Esterase 2+ H (NEGATIVE) Urine RBC 0-1/hpf (0-5/HPF) Urine WBC 10-30/hpf H (0-5/HPF) Ur Squamous Epith Cells 1-5 /hpf (0-5/HPF) Urine Bacteria Few (2-10) H (None) Ur Culture Indicated? Specimen cultured Chlamy pneumoniae PCR Not detected (Not Detect) Adenovirus (PCR) Not detected (Not Detect) B.parapertussis DNA PCR Not detected (Not Detecte) Coronavirus OC43 (PCR) Not detected (Not Detect) Coronavirus HKU1 (PCR) Not detected (Not Detect) Coronavirus 229E (PCR) Not detected (Not Detect) SARS-CoV-2 (PCR) Not detected (Not Detecte) Coronavirus NL63 (PCR) Not detected (Not Detect) Human Metapneumovir PCR Not detected (Not Detect) Influenza Type A (PCR) Not detected (Not Detect) Influenza Type B (PCR) Not detected (Not Detect) M. pneumoniae (PCR) Not detected (Not Detect) Parainfluenza 1 (PCR) Not detected (Not Detect) Parainfluenza 2 (PCR) Not detected (Not Detect) Parainfluenza 3 (PCR) Not detected (Not Detect) Parainfluenza 4 (PCR) Not detected (Not Detect) RSV (PCR) Not detected (Not Detect) Entero/Rhino (PCR) Not detected (Not Detect) Urine Dip Bedside Urine Glucose Negative Bedside Urine Bilirubin - Negative Bedside Urine Ketone - Negative Urine Specific [place] 1.03 Bedside Urine Occult Blood - Negative Bedside Urine pH 5.5 Bedside Urine Protein - Negative Bedside Urine Urobilinogen - Negative Bedside Urine Nitrite - Negative Bedside Urine Leukocytes + 70 Esterase Point of care testing: Urine Dip Bedside Urine Glucose Negative Bedside Urine Bilirubin - Negative Bedside Urine Ketone - Negative Urine Specific [place] 1.03 Bedside Urine Occult Blood - Negative Bedside Urine pH 5.5 Bedside Urine Protein - Negative Bedside Urine Urobilinogen - Negative Bedside Urine Nitrite - Negative Bedside Urine Leukocytes + 70 Esterase ECG Data Attestation: I personally reviewed and interpreted this ECG as follows: Interpretation: Sinus rhythm Ventricular rate 91 Normal axis Normal QRS Normal QTC No ST T wave changes MDM Narrative Medical decision making narrative: Patient does not have a source of infection. She is afebrile. Not tachycardic. Labs unremarkable. EKGs unremarkable. Clinically does not have pneumonia. Does not have a cough. Clear lung exam. Patient is not neutropenic. Skin rashes. No abdominal pain. I do not have a specific etiology for the patient's occasional shaking. Obviously there is concern in someone who has an oncologic process about an infection although I do not see any source of that today. There was no indication for broad-spectrum antibiotics. No indication for admission to the hospital. Will discharge patient home with instructions to contact both her primary doctor and also her oncologist tomorrow for a follow-up. She was given return precautions. She expressed understanding and agreement. Discharge Plan Departure Patient Disposition: Home Clinical Impression: Shakes Activity Restrictions/Additional Instructions: Be sure that you continue to take all of your medications as directed. I would recommend that tomorrow you contact your oncology office for a follow-up. Return to the emergency department for new symptoms. Prescriptions: No Action promethazine 25 mg tablet 25 mg PO Q4-6H PRN (Reason: Nausea) Qty: 30 1RF prochlorperazine maleate [Compazine] 10 mg tablet 10 mg PO Q6H PRN (Reason: Nausea) Qty: 30 1RF duloxetine 20 mg capsule,delayed release(DR/EC) 40 mg PO DAILY Qty: 60 5RF lisinopril 10 mg tablet 10 mg PO DAILY Qty: 90 3RF amlodipine 10 mg tablet 10 mg PO DAILY Qty: 90 3RF gabapentin 600 mg tablet 900 mg PO TID Qty: 135 5RF olanzapine 5 mg tablet 5 mg PO BEDTIME Qty: 30 5RF morphine 30 mg tablet extended release 30 mg PO Q8H Qty: 90 0RF oxycodone 20 mg tablet 20 mg PO TID PRN (Reason: pain) Qty: 90 0RF cimetidine 200 mg tablet 200 mg PO DAILY Excedrin Extra Strength 250-250-65 mg tablet 2 tab PO Q4-6H PRN (Reason: Headache, pain) loperamide 2 mg capsule 2 mg PO DAILY PRN (Reason: As directed) Dramamine 25 mg tablet,chewable 50 mg PO DAILY PRN (Reason: As directed) omeprazole 40 mg capsule,delayed release(DR/EC) 40 mg PO DAILY morphine 30 mg tablet extended release 30 mg PO TID Qty: 90 0RF morphine 30 mg tablet extended release 30 mg PO TID Qty: 90 0RF oxycodone 20 mg tablet 20 mg PO TID PRN (Reason: pain) Qty: 90 0RF oxycodone 20 mg tablet 20 mg PO TID PRN (Reason: pain) Qty: 90 0RF baclofen 10 mg tablet 10 mg PO TID PRN (Reason: muscle spasm) Qty: 90 5RF lidocaine-prilocaine 2.5-2.5 % Cream 1 applic topical PRN PRN (Reason: Port/Catheter Care) Qty: 30 1RF Rx Instructions: apply to the skin over the port at least 2 hours before planned use of the port. Cover the cream with a small piece of plastic wrap and leave in place until the port is accessed famotidine 20 mg Tablet 20 mg PO BID PRN (Reason: Heartburn) Qty: 60 5RF potassium chloride [Klor-Con 10] 10 mEq Tablet Extended Release 40 meq PO DAILY Qty: 28 0RF Referrals: Mo Moseley MD [Primary Care Provider] - Stand Alone Forms: Patient Portal/API
[2023-08-06 18:46] LABS: Creatine Kinase < 20 U/L (30-135)
[2023-08-06 18:59] LABS: Troponin I < 0.012 ng/mL (0.01-0.034)
[2023-08-06 20:14] LABS: Appearance Urine UA CLEAR; Bilirubin Urine UA NEGATIVE (NEGATIVE); Color Urine UA YELLOW; Glucose Urine UA NEGATIVE (Negative); Ketones Urine UA NEGATIVE (NEGATIVE); Leukocyte Esterase Urine UA 2+ (NEGATIVE); Nitrite Urine UA NEGATIVE (Negative); Occult Blood Urine UA NEGATIVE (Negative); Protein Urine UA NEGATIVE (Negative); Specific Gravity Urine UA 1.025 (1.000-1.035); Urobilinogen Urine UA 0.2 E.U./dL (0.2)
[2023-08-06 20:21] LABS: RBC Urine 0-1/HPF (0-5/HPF); WBC Urine 10-30/HPF (0-5/HPF)
[2023-08-06 20:22] LABS: Bacteria Urine Few (2-10); Culture Indicated Urine Specimen Cultured; Squamous Epithelial Cell Urine 1-5 /HPF (0-5/HPF)
== END 2023-08-06 20:33 | disposition home or self-care (01) ==
PROVIDERS: Emergency Medicine; Emergency Provider Emergency Medicine; PCP Internal Medicine
DX: R25.1 Tremor, unspecified (principal); R07.9 Chest pain, unspecified; Z79.899 Other long term (current) drug therapy; Z20.822 Contact with and (suspected) exposure to COVID-19
CPT/HCPCS: 36415; 80053; 81001; 81003; 82550; 83605; 83880; 84145; 84484; 85025; 85610; 87040; 87086; 87633; 93005; 99283; 99284

== ENCOUNTER 2023-08-08 18:43 | Emergency (ER) | payer OTHER, SELFPAY ==
[2023-08-08] VITALS (13 sets, daily range): BP systolic 88–132; BP diastolic 50–80; PULSE 62–88; RESP 18; TEMP 36.6; O2SAT 92–98; BMI 33.3
--- NOTE | 2023-08-08 19:10 | PC.NURSE ---
patient to have hip surgery, dx with cancer and no surgery done. she cannot get out of bed and son is unable to help her at home. possible [employer] consult.
--- NOTE | 2023-08-08 20:32 | ED.EXTPRO ---
HPI - Extremity Problem <Hung Gupta DO - Last Filed: 08/13/23 07:07> General Chief complaint: Extremity Problem,Nontraumatic Stated complaint: leg pain Time Seen by Provider: 08/08/23 20:23 Source: patient and family Mode of arrival: EMS Limitations: no limitations History of Present Illness HPI Narrative: Patient is a 68-year-old female. She is a active history of endometrial cancer. She is getting immunotherapy. She is being followed by Oncology. I evaluated her here in the emergency department several days ago for some twitching/tremors that she was having. She was sent from her primary doctor's office for evaluation of this. Her subsequent evaluation during that time revealed no specific abnormality. No signs of fevers. No signs of infection. Patient was discharged home. She returns to the emergency department today with her son who is her oracle software engineer. Her tremors have worsened. It has gotten to the point now where she can barely lift her arms without them shaking. She can not stand because of weakness, fatigue, pain and tremors in her legs. She uses a cane at home. Sometimes uses a walker but the house a small and it was difficult to get around. She has having a difficult time even getting up to go the bathroom or feeding herself. She denies any fevers. No chest pain. No shortness of breath. No abdominal pain. No change in her medications. No headache. No vision changes. Related Data Home Medications Medication Instructions Recorded Confirmed piezntv-ypkiiggoenade-kvxddvim 250 2 tab PO Q4-6H PRN Headache, pain 12/10/21 07/30/23 mg-250 mg-65 mg tablet (Excedrin Extra Strength) cimetidine 200 mg tablet 200 mg PO DAILY 12/10/21 08/08/23 (Heartburn Relief (cimetidine)) loperamide 2 mg capsule 2 mg PO DAILY PRN As directed 12/10/21 08/08/23 omeprazole 40 mg capsule,delayed 40 mg PO DAILY 07/08/23 07/30/23 release Previous Rx's Medication Instructions Recorded promethazine 25 mg tablet 25 mg PO Q4-6H PRN Nausea #30 tabs 11/19/22 lidocaine-prilocaine 2.5 %-2.5 % 1 applic topical PRN PRN 11/21/22 topical cream Port/Catheter Care #30 grams prochlorperazine maleate 10 mg 10 mg PO Q6H PRN Nausea #30 tabs 02/03/23 tablet (Compazine) amlodipine 10 mg tablet 10 mg PO DAILY #90 tabs 03/17/23 lisinopril 10 mg tablet 10 mg PO DAILY #90 tabs 03/17/23 gabapentin 600 mg tablet 900 mg (1.5 x 600 mg) PO TID #135 05/06/23 tabs olanzapine 5 mg tablet 5 mg PO BEDTIME #30 tabs 05/06/23 duloxetine 20 mg capsule,delayed 40 mg (2 x 20 mg) PO DAILY #60 caps 06/24/23 release morphine 30 mg tablet,extended 30 mg PO TID #90 tabs 07/08/23 release oxycodone 20 mg tablet 20 mg PO TID PRN pain #90 tabs 07/08/23 baclofen 10 mg tablet 10 mg PO TID PRN muscle spasm #90 07/30/23 tabs ondansetron 4 mg disintegrating 4 mg PO Q8H PRN nausea and 08/09/23 tablet vomiting #10 tabs sulfamethoxazole 800 1 tab PO BID #14 tabs 08/09/23 mg-trimethoprim 160 mg tablet (Bactrim DS) Allergies Allergy/AdvReac Type Severity Reaction Status Date / Time No Known Drug Allergies Allergy Verified 08/08/23 19:02 Review of Systems <Hung Gupta DO - Last Filed: 08/13/23 07:07> Review of Systems ROS Unobtainable: All systems reviewed & are unremarkable except as noted in HPI and below Patient History <Hung Gupta DO - Last Filed: 08/13/23 07:07> Medical History GERD without esophagitis Chronic, continuous use of opioids Osteoarthritis of right hip Essential hypertension IT band syndrome Painful menstrual periods Fibroids Migraines Fibromyalgia Chronic back pain Mumps Measles Chicken pox Surgical History H/O total hysterectomy with bilateral salpingo-oophorectomy (BSO) (10/04/22) Anesthesia History of laparoscopy (~1991) History of foot surgery (~2000) History of neck surgery (~1997) Family History Father Cancer Family/Other No problems noted. 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 household members: children Smoking Status: Never smoker alcohol intake: current Smoking Status: Never smoker alcohol intake frequency: holidays/special occasions only Substance Use Type: marijuana Exam <Hung Gupta DO - Last Filed: 08/13/23 07:07> Initial Vital Signs Initial Vital Signs: Vital Signs Temperature 97.8 F 08/08/23 18:58 Pulse Rate 88 08/08/23 18:58 Respiratory Rate 18 08/08/23 18:58 Blood Pressure 132/80 08/08/23 18:58 Oxygen Delivery Method Room Air 08/08/23 18:58 Const General: cooperative, comfortable and No ill appearing HENMT Head: normal to inspection and normocephalic Resp Effort & Inspection: normal respiratory effort Auscultation: clear to auscultation bilaterally Cardio Rate: regular rate Rhythm: regular rhythm GI Inspection: normal to inspection and non-distended Skin General: no rashes or lesions noted Neuro Other: She was alert and oriented x3. GCS of 15. Speech is unremarkable. Sensory is unremarkable. When she lifts her hands she has tremors to the point where she can hardly keep them still. Potentially the right is worse than the left but it is on both sides. Patient has a very difficult time even lifting her legs up off the bed but she can do it and just like her arms the shake. Extrem General: normal to inspection <Raul Turner MD - Last Filed: 08/09/23 16:09> Initial Vital Signs Initial Vital Signs: Vital Signs Temperature 97.8 F 08/08/23 18:58 Pulse Rate 88 08/08/23 18:58 Respiratory Rate 18 08/08/23 18:58 Blood Pressure 132/80 08/08/23 18:58 Oxygen Delivery Method Room Air 08/08/23 18:58 Scores <Hung Gupta DO - Last Filed: 08/13/23 07:07> GCS Isaura coma scale eye opening: Spontaneous Isaura coma scale verbal response: Orientated Isaura coma scale motor response: Obey commands Isaura coma scale total score: 15 <Raul Turner MD - Last Filed: 08/09/23 16:09> GCS Isaura coma scale total score: 15 Course <Hung Gupta DO - Last Filed: 08/13/23 07:07> Orders Ordered: Discontinued Medications Baclofen (Baclofen 10 Mg Tablet) 10 mg PO NOW ONE Stop: 08/08/23 23:27 Last Admin: 08/08/23 23:41 Dose: 10 mg Documented By: TC Baclofen (Baclofen 10 Mg Tablet) 10 mg PO TID PRN PRN Reason: muscle spasms Last Admin: 08/09/23 15:23 Dose: 10 mg Documented By: ES Gabapentin (Gabapentin 300 Mg Capsule) 900 mg PO NOW ONE Stop: 08/08/23 23:27 Last Admin: 08/08/23 23:41 Dose: 900 mg Documented By: TC Gabapentin (Gabapentin 300 Mg Capsule) 900 mg PO NOW ONE Stop: 08/09/23 14:59 Last Admin: 08/09/23 15:23 Dose: 900 mg Documented By: ES Sodium Chloride (Normal Saline 0.9%) 1,000 mls @ 125 mls/hr IV CONT [facility] Last Infusion: 08/09/23 15:47 Dose: Infused Documented By: Admin: 08/09/23 07:40 Dose: 125 mls/hr Documented By: Infusion: 08/09/23 05:32 Dose: Infused Documented By: Admin: 08/08/23 21:32 Dose: 125 mls/hr Documented By: ANUEL Morphine Sulfate (Morphine Er 30 Mg Tablet) 30 mg PO Q8HR [facility] Last Admin: 08/09/23 07:40 Dose: Not Given Documented By: AMV Morphine Sulfate (Morphine Er 15 Mg Tablet) 30 mg PO Q8H [facility] Last Admin: 08/09/23 07:39 Dose: 30 mg Documented By: Admin: 08/09/23 00:15 Dose: Not Given Documented By: SUNNY Morphine Sulfate (Morphine Er 15 Mg Tablet) 30 mg PO 0700,1500,2300 [facility] Last Admin: 08/09/23 14:42 Dose: 30 mg Documented By: ES Ondansetron HCl (Ondansetron 4 Mg/2 Ml Inj) 4 mg IV NOW ONE Stop: 08/09/23 11:12 Last Admin: 08/09/23 11:16 Dose: 4 mg Documented By: AMV Oxycodone HCl (Oxycodone Er 20 Mg Tab) 20 mg PO 0300,1100,1900 [facility] Last Admin: 08/09/23 11:17 Dose: 20 mg Documented By: AMV Trimethoprim/Sulfamethoxazole (Trimeth/Sulfa 160/800 (Ds) Tablet) 1 tab PO NOW ONE Stop: 08/09/23 16:04 Last Admin: 08/09/23 16:13 Dose: 1 tab Documented By: ES Vital Signs Vital signs: Vital Signs - 8 hr 08/09/23 15:09 08/09/23 15:09 Pulse Rate 80 Blood Pressure 127/67 Pulse Oximetry 94 <Raul Turner MD - Last Filed: 08/09/23 16:09> Orders Ordered: Discontinued Medications Baclofen (Baclofen 10 Mg Tablet) 10 mg PO NOW ONE Stop: 08/08/23 23:27 Last Admin: 08/08/23 23:41 Dose: 10 mg Documented By: TC Baclofen (Baclofen 10 Mg Tablet) 10 mg PO TID PRN PRN Reason: muscle spasms Last Admin: 08/09/23 15:23 Dose: 10 mg Documented By: ES Gabapentin (Gabapentin 300 Mg Capsule) 900 mg PO NOW ONE Stop: 08/08/23 23:27 Last Admin: 08/08/23 23:41 Dose: 900 mg Documented By: TC Gabapentin (Gabapentin 300 Mg Capsule) 900 mg PO NOW ONE Stop: 08/09/23 14:59 Last Admin: 08/09/23 15:23 Dose: 900 mg Documented By: ES Sodium Chloride (Normal Saline 0.9%) 1,000 mls @ 125 mls/hr IV CONT [facility] Last Infusion: 08/09/23 15:47 Dose: Infused Documented By: Admin: 08/09/23 07:40 Dose: 125 mls/hr Documented By: Infusion: 08/09/23 05:32 Dose: Infused Documented By: Admin: 08/08/23 21:32 Dose: 125 mls/hr Documented By: TC Morphine Sulfate (Morphine Er 30 Mg Tablet) 30 mg PO Q8HR [facility] Last Admin: 08/09/23 07:40 Dose: Not Given Documented By: AMV Morphine Sulfate (Morphine Er 15 Mg Tablet) 30 mg PO Q8H [facility] Last Admin: 08/09/23 07:39 Dose: 30 mg Documented By: Admin: 08/09/23 00:15 Dose: Not Given Documented By: SUNNY Morphine Sulfate (Morphine Er 15 Mg Tablet) 30 mg PO 0700,1500,2300 [facility] Last Admin: 08/09/23 14:42 Dose: 30 mg Documented By: MAGDALENA Ondansetron HCl (Ondansetron 4 Mg/2 Ml Inj) 4 mg IV NOW ONE Stop: 08/09/23 11:12 Last Admin: 08/09/23 11:16 Dose: 4 mg Documented By: AMV Oxycodone HCl (Oxycodone Er 20 Mg Tab) 20 mg PO 0300,1100,1900 [facility] Last Admin: 08/09/23 11:17 Dose: 20 mg Documented By: AMV Trimethoprim/Sulfamethoxazole (Trimeth/Sulfa 160/800 (Ds) Tablet) 1 tab PO NOW ONE Stop: 08/09/23 16:04 Last Admin: 08/09/23 16:13 Dose: 1 tab Documented By: MAGDALENA Vital Signs Vital signs: Vital Signs - 8 hr 08/09/23 15:09 08/09/23 15:09 Pulse Rate 80 Blood Pressure 127/67 Pulse Oximetry 94 MDM - Extremity (Nontraumatic) <Hung Gupta, - Last Filed: 08/13/23 07:07> Lab Data 08/08/23 21:25 08/09/23 15:14 Labs: Lab Results 08/08/23 08/09/23 Range/Units 21:25 15:14 WBC 7.5 (4.5-11.0) X10^3/uL RBC 3.61 L (4.0-5.2) X10^6/uL Hgb 10.4 L (12.0-16.0) g/dL Hct 30.3 L (36-46) % MCV 83.7 (80-100) fL MCH 28.7 (26-34) PG MCHC 34.3 (30-36) % RDW 15.4 H (11.6-14.8) % Plt Count 179 (150-400) X10^3/uL Neut % (Auto) 71.1 (50-75) % Lymph % (Auto) 14.5 L (25-40) % Norton % (Auto) 8.3 (3-14) % Eos % (Auto) 5.5 H (2-4) % Baso % (Auto) 0.6 (0-2) % Neut # (Auto) 5300 (4803-9691) /uL Lymph # (Auto) 1100 (3092-0021) /uL Norton # (Auto) 600 (0-900) /uL Eos # (Auto) 400 (0-450) /uL Baso # (Auto) 0 (0-100) /uL Sodium 137 139 (137-145) mmol/L Potassium 5.4 H 5.2 H (3.4-5.1) mmol/L Chloride 104 108 H (98-107) mmol/L Carbon Dioxide 24 25 (22-32) mmol/L BUN 43 H 23 H (7-17) mg/dL Creatinine 1.22 H 0.84 (0.52-1.04) mg/dL Estimated GFR 49 L > 60 (>60) mL/min BUN/Creatinine Ratio 35.2 H 27.4 H (6-22) Glucose 122 H 112 H (80-110) mg/dL Calcium 9.4 9.1 (8.4-10.2) mg/dL Urine Dip Bedside Urine Glucose Negative Bedside Urine Bilirubin - Negative Bedside Urine Ketone - Negative Urine Specific Willcox 1.015 Bedside Urine Occult Blood - Negative Bedside Urine pH 6.0 Bedside Urine Protein - Negative Bedside Urine Urobilinogen - Negative Bedside Urine Nitrite - Negative Bedside Urine Leukocytes ++ [address] scan - head: Radiologist's Impression: PROCEDURE: CT HEAD/BRAIN W CON INDICATIONS: hx of endometrial CA with uncontrolled tremors TECHNIQUE: 4.5 mm thick angled axial sections acquired from the foramen magnum to the vertex after the administration of intravenous contrast, with coronal and sagittal reformats. For radiation dose reduction, the following was used: automated exposure control, adjustment of mA and/or kV according to patient size. COMPARISON: None available at time of dictation. FINDINGS: Image quality: Diagnostic CSF Spaces: Basal cisterns are patent. No extra-axial fluid collections. Ventricles are normal in size and shape. Brain: No midline shift. No intracranial bleeds or masses. No abnormal intracranial enhancement. Melo-white interface appears normal. Skull and face: Calvarium and visualized facial bones appear intact, without suspicious lesions. Sinuses: Visualized sinuses and mastoids are clear. IMPRESSION: No acute intracranial abnormality. MDM Narrative Medical decision making narrative: Patient appears well today however she obviously is having worsening tremors since she was here a couple days ago. No changes in her medications. No fevers. Her labs are unremarkable. I do not feel that these tremors are rigors. I did discuss the case with her oncologist. She is getting Avastin infusions. He stated that I have asked and can cause issues with tremors but that is when the patient has elevated blood pressure. He states that you treat the blood pressure normally the symptoms go away. Today she has not hypertensive. He felt that the tremors from I have asked in his probably unlikely. He did recommend a CT scan with contrast of her head to evaluate for potential metastasis. She has no known brain metastasis. He stated that if the CT scan was unremarkable she most likely would benefit from an MRI. I also broached the subject with the family about what we would do with the MRI was unremarkable. They do not have home health set up. Social work consult placed. Physical therapy consult placed. Care turned over to day provider to follow-up on MRI and disposition. <Raul Turner MD - Last Filed: 08/09/23 16:09> Lab Data Labs: Lab Results 08/08/23 08/09/23 Range/Units 21:25 15:14 WBC 7.5 (4.5-11.0) X10^3/uL RBC 3.61 L (4.0-5.2) X10^6/uL Hgb 10.4 L (12.0-16.0) g/dL Hct 30.3 L (36-46) % MCV 83.7 (80-100) fL MCH 28.7 (26-34) PG MCHC 34.3 (30-36) % RDW 15.4 H (11.6-14.8) % Plt Count 179 (150-400) X10^3/uL Neut % (Auto) 71.1 (50-75) % Lymph % (Auto) 14.5 L (25-40) % Norton % (Auto) 8.3 (3-14) % Eos % (Auto) 5.5 H (2-4) % Baso % (Auto) 0.6 (0-2) % Neut # (Auto) 5300 (8922-8470) /uL Lymph # (Auto) 1100 (7640-8199) /uL Norton # (Auto) 600 (0-900) /uL Eos # (Auto) 400 (0-450) /uL Baso # (Auto) 0 (0-100) /uL Sodium 137 139 (137-145) mmol/L Potassium 5.4 H 5.2 H (3.4-5.1) mmol/L Chloride 104 108 H (98-107) mmol/L Carbon Dioxide 24 25 (22-32) mmol/L BUN 43 H 23 H (7-17) mg/dL Creatinine 1.22 H 0.84 (0.52-1.04) mg/dL Estimated GFR 49 L > 60 (>60) mL/min BUN/Creatinine Ratio 35.2 H 27.4 H (6-22) Glucose 122 H 112 H (80-110) mg/dL Calcium 9.4 9.1 (8.4-10.2) mg/dL Urine Dip Bedside Urine Glucose Negative Bedside Urine Bilirubin - Negative Bedside Urine Ketone - Negative Urine Specific Willcox 1.015 Bedside Urine Occult Blood - Negative Bedside Urine pH 6.0 Bedside Urine Protein - Negative Bedside Urine Urobilinogen - Negative Bedside Urine Nitrite - Negative Bedside Urine Leukocytes ++ 125 Esterase MDM Narrative Medical decision making narrative: Patient appears well today however she obviously is having worsening tremors since she was here a couple days ago. No changes in her medications. No fevers. Her labs are unremarkable. I do not feel that these tremors are rigors. I did discuss the case with her oncologist. She is getting Avastin infusions. He stated that I have asked and can cause issues with tremors but that is when the patient has elevated blood pressure. He states that you treat the blood pressure normally the symptoms go away. Today she has not hypertensive. He felt that the tremors from I have asked in his probably unlikely. He did recommend a CT scan with contrast of her head to evaluate for potential metastasis. She has no known brain metastasis. He stated that if the CT scan was unremarkable she most likely would benefit from an MRI. I also broached the subject with the family about what we would do with the MRI was unremarkable. They do not have home health set up. Social work consult placed. Physical therapy consult placed. Care turned over to day provider to follow-up on MRI and disposition. Dr. Turner dictation, care is transferred to tn at 7:30 a.m. pending MRI study. I reviewed the chart reviewed vitals reviewed lab results reviewed the CT scan, my finding is consistent. Throughout the day patient has been uneventful, tremulous since improved, DC finally reported around 3:00 p.m., I was able to reassess the patient at 3:50 p.m., I have disclosed to her that MRI of the brain is negative, there is no evidence of metastasis. Patient does see Dr. Medina every 3 weeks. I have asked her to interact with her oncologist or primary care doctor for a referral to Neurology for this tremulous that has been recurring. The doctor reviewed the chart including CT scan of the brain MRA of the brain, and potential to recommendation. She describes that her son is ill with viral illness at home, unfortunately is no indication to admit her for at this time, we will try to arrange transportation to send her home and ask her to follow with her primary care doctor. General wire precaution and prevention of fall disclosed and discussed She is otherwise stable at time of discharge, Discharge Plan Departure Patient Disposition: Home Clinical Impression: Tremor, History of endometrial cancer, Acute UTI, Nausea & vomiting Instructions: DI for Urinary Tract Infection (UTI), DI for Nausea -- Adult, DI for Benign Essential Tremor Prescriptions: New sulfamethoxazole-trimethoprim [Bactrim DS] 800-160 mg tablet 1 tab PO BID Qty: 14 0RF ondansetron 4 mg tablet,disintegrating 4 mg PO Q8H PRN (Reason: nausea and vomiting) Qty: 10 0RF No Action promethazine 25 mg tablet 25 mg PO Q4-6H PRN (Reason: Nausea) Qty: 30 1RF prochlorperazine maleate [Compazine] 10 mg tablet 10 mg PO Q6H PRN (Reason: Nausea) Qty: 30 1RF duloxetine 20 mg capsule,delayed release(DR/EC) 40 mg PO DAILY Qty: 60 5RF lisinopril 10 mg tablet 10 mg PO DAILY Qty: 90 3RF amlodipine 10 mg tablet 10 mg PO DAILY Qty: 90 3RF gabapentin 600 mg tablet 900 mg PO TID Qty: 135 5RF Rx Instructions: take with 1 300 mg tab olanzapine 5 mg tablet 5 mg PO BEDTIME Qty: 30 5RF cimetidine [Heartburn Relief (cimetidine)] 200 mg tablet 200 mg PO DAILY Excedrin Extra Strength 250-250-65 mg tablet 2 tab PO Q4-6H PRN (Reason: Headache, pain) loperamide 2 mg capsule 2 mg PO DAILY PRN (Reason: As directed) omeprazole 40 mg capsule,delayed release(DR/EC) 40 mg PO DAILY morphine 30 mg tablet extended release 30 mg PO TID Qty: 90 0RF oxycodone 20 mg tablet 20 mg PO TID PRN (Reason: pain) Qty: 90 0RF baclofen 10 mg tablet 10 mg PO TID PRN (Reason: muscle spasm) Qty: 90 5RF lidocaine-prilocaine 2.5-2.5 % Cream 1 applic topical PRN PRN (Reason: Port/Catheter Care) Qty: 30 1RF Rx Instructions: apply to the skin over the port at least 2 hours before planned use of the port. Cover the cream with a small piece of plastic wrap and leave in place until the port is accessed Referrals: Mo Moseley MD [Primary Care Provider] - Stand Alone Forms: Patient Portal/API
--- NOTE | 2023-08-08 21:07 | DI.CT.S_ITS ---
PROCEDURE: CT HEAD/BRAIN W CON INDICATIONS: hx of endometrial CA with uncontrolled tremors TECHNIQUE: 4.5 mm thick angled axial sections acquired from the foramen magnum to the vertex after the administration of intravenous contrast, with coronal and sagittal reformats. For radiation dose reduction, the following was used: automated exposure control, adjustment of mA and/or kV according to patient size. COMPARISON: None available at time of dictation. FINDINGS: Image quality: Diagnostic CSF Spaces: Basal cisterns are patent. No extra-axial fluid collections. Ventricles are normal in size and shape. Brain: No midline shift. No intracranial bleeds or masses. No abnormal intracranial enhancement. Melo-white interface appears normal. Skull and face: Calvarium and visualized facial bones appear intact, without suspicious lesions. Sinuses: Visualized sinuses and mastoids are clear. IMPRESSION: No acute intracranial abnormality. Approved by: Cinthya Jose M.D. on 08/08/2023 at 22:22
[2023-08-08] MEDS: SODIUM CHLORIDE 0.9% 1,000 ML 125 ML IV (21:32)
[2023-08-08 21:33] LABS: Add Manual Diff / Slide Review NO; Basophils Absolute Auto 0 /uL (0-100); Basophils Percent Auto 0.6 % (0-2); Eosinophils Absolute Auto 400 /uL (0-450); Eosinophils Percent Auto 5.5 % (2-4); Hematocrit 30.3 % (36-46); Hemoglobin 10.4 g/dL (12.0-16.0); Lymphocytes Absolute Auto 1100 /uL (1100-4500); Lymphocytes Percent Auto 14.5 % (25-40); Mean Corpuscular HGB Conc 34.3 % (30-36); Mean Corpuscular Hemoglobin 28.7 PG (26-34); Mean Corpuscular Volume 83.7 fL (80-100); Monocytes Absolute Auto 600 /uL (0-900); Monocytes Percent Auto 8.3 % (3-14); Neutrophils Absolute Auto 5300 /uL (1500-7000); Neutrophils Percent Auto 71.1 % (50-75); Platelet Count 179 X10^3/uL (150-400); Red Blood Cell Count 3.61 X10^6/uL (4.0-5.2); Red Cell Distribution Width 15.4 % (11.6-14.8); White Blood Cell Count 7.5 X10^3/uL (4.5-11.0)
[2023-08-08 21:44] LABS: BUN Creatinine Ratio 35.2 (6-22); Blood Urea Nitrogen 43 mg/dL (7-17); Calcium 9.4 mg/dL (8.4-10.2); Carbon Dioxide 24 mmol/L (22-32); Chloride 104 mmol/L (98-107); Estimated Glomerular Filt Rate 49 mL/min (>60); Glucose 122 mg/dL (80-110); HEMOLYSIS < 15 (0-50); Potassium 5.4 mmol/L (3.4-5.1); Sodium 137 mmol/L (137-145)
[2023-08-08] MEDS: GABAPENTIN 300 MG CAPSULE 900 MG PO (23:41)
[2023-08-08] MEDS: BACLOFEN 10 MG TABLET PO (23:41)
--- NOTE | 2023-08-08 23:52 | DI.MRI.S_ITS ---
PROCEDURE: MR HEAD/BRAIN WO/W CON INDICATIONS: History of endometrial cancer with uncontrolled tremors TECHNIQUE: Noncontrast axial T1 spin echo, axial T2 fast spin echo, sagittal and axial FLAIR, coronal T2 fast spin echo, axial gradient echo, axial diffusion and ADC through the brain. After the administration of contrast, axial and coronal and sagittal 3D VIBE or T1 spin echo with fat saturation through the brain. COMPARISON: None. FINDINGS: Image quality: Excellent. CSF Spaces: Basal cisterns are patent. No extra-axial fluid collections. Ventricles are normal in size and shape. Brain: No midline shift. No intracranial bleeds or masses. No abnormal intracranial enhancement. The brainstem appears normal. Diffusion-weighted images demonstrate no acute infarct. No chronic ischemic insults. Normal intravascular flow voids are present. Skull and face: Calvarial marrow is normal in signal. Orbits appear normal. Sinuses: Sinuses and mastoids appear clear. IMPRESSION: Normal MRI of the brain. No evidence of intracranial metastasis. Dictated by: London Chacko M.D. on 08/09/2023 at 9:10 Approved by: London Chacko M.D. on 08/09/2023 at 9:14
[2023-08-09] VITALS (19 sets, daily range): BP systolic 85–127; BP diastolic 50–67; PULSE 57–91; O2SAT 90–97
--- NOTE | 2023-08-09 02:51 | PC.NURSE ---
TRANSPORTATION EQUIPMENT PAINTER note: [id number] Patient was moved to a hospital bed for comfort during overnight stay.
--- NOTE | 2023-08-09 05:15 | PC.NURSE ---
BEHAVIOR INTERVENTIONIST note: 0513 Placed Purewick with continuous suctioning on patient. Patient was provided with bill care. Patient refused to change unsoiled briefs states she doesn't feel like it needs to be changed at the moment.
[2023-08-09] MEDS: MORPHINE ER 15 MG TABLET 30 MG PO ×2 (07:39→14:42)
[2023-08-09] MEDS: SODIUM CHLORIDE 0.9% 1,000 ML 125 ML IV (07:40)
--- NOTE | 2023-08-09 07:45 | PT.IIE ---
Surgical History (Last Reviewed 07/30/23 @ 05:41 by Mo Moseley MD) Anesthesia H/O total hysterectomy with bilateral salpingo-oophorectomy (BSO) (10/04/22) History of foot surgery (~2000) History of laparoscopy (~1991) History of neck surgery (~1997) Medical History (Last Reviewed 08/09/23 @ 03:01 by Hung Gupta DO) Chicken pox Chronic back pain Chronic, continuous use of opioids Essential hypertension Fibroids Fibromyalgia GERD without esophagitis IT band syndrome Measles Migraines Mumps Osteoarthritis of right hip Painful menstrual periods Physical Therapy Inpatient Evaluation/Re-Eval M1 PT/OT-IP Prior Functional Status Start: 08/09/23 06:59 Freq: Status: Active Protocol: Document 08/09/23 07:00 MB (Rec: 08/09/23 07:44 MB [id number]) Medical Review Prior Functional Status Medical History Reviewed Yes Communication Unsure baseline diet. Pt states she has trouble talking . She does answer questions and has some delayed verbalizations/word processing /finding challenge on eval Mobility and Gait Pt states she gait trains with a cane with her son's assistance. Activities of Daily Living and IADL's Cannot get into her tub and has been performing sponge baths. It appears that her son must be with her when she gait trains Social History Household Members children Living Arrangements House Number of Floors (Floors) One Floor Number of Stairs To Enter/Railing? 18 steps with left rail to enter Home Environment Standard Height Toilet Home Equipment Front Wheel Walker,Four Wheel Walker,Straight Cane,Grab Bars Near Toilet Employment Status Unknown M2 PT-IP Current Condition Start: 08/09/23 06:59 Freq: Status: Active Protocol: Document 08/09/23 07:00 MB (Rec: 08/09/23 07:44 MB [id number]) Physical Therapy Current Condition Current Condition Evaluation Date 08/09/23 Treatment Diagnosis Weakness in setting of endometrial CA and need for right hip replacement M3 PT-IP Subjective Start: 08/09/23 06:59 Freq: Status: Active Protocol: Document 08/09/23 07:00 MB (Rec: 08/09/23 07:44 MB [id number]) Subjective Physical Therapy Visit Type Type Initial Evaluation Visit Start Time 07:00 Visit Stop Time 07:25 Total Visit Minutes 25 Number of 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 Pt with concerns about urinary continence throughout PT assessment. Pt with wicking stick. Therapy Pain Assessment Location Right hip Intensity 5 Scale Used Zhu-Gallo (Faces) Description Chronic Pain Behaviors Crying,Facial Grimacing, Guarding,Holding Area,Moaning, Restlessness Pain Management Techniques Distraction,Modification of Treatment,Re-positioning M4 PT-IP Mobility and Gait Start: 08/09/23 06:59 Freq: Status: Active Protocol: Document 08/09/23 07:00 MB (Rec: 08/09/23 07:44 MB [id number]) PT-Bed Mobility Assessment Rolling Level of Assist Maximal Assistance,1 Person Assistance Supine to Sit Supine to Sit Total Assistance,1 Person Assistance,Head of Bed Elevated,Bedrails Sit to Supine Sit to Supine Total Assistance,1 Person Assistance Scooting Scooting to Edge of Bed Dependent PT-Transfer Assessment Comments Mobility Comments Pt with globalized shaking that is more noticeable with movement and is in all limbs. She remains conscious and has has delayed verbalizations and does not appear to be having a seizure cognitively but that is the way her limbs appear to be moving: seizure-like. Pt with dysmetria most noted in left hand with finger to nose testing, left pronator drift with B shoulder flexion and elbow extension and both LEs have dysmetric movement when asked to perform DF and toe extension for MMT. No spontaneous nystagmus. Pt cannot clearly report if she has vision changes and she does report some dizziness with opening her eyes (no head movement). Returned to supine d/t inability to tolerate sitting/profoundly weak and requiring heavy assistance. PT-Balance Assessment Sitting Balance and Reactions Static Sitting Balance Ability Poor Dynamic Sitting Balance Ability Poor M5 PT-IP Objective Assessments Start: 08/09/23 06:59 Freq: Status: Active Protocol: Document 08/09/23 07:00 MB (Rec: 08/09/23 07:44 MB [id number]) Orientation Orientation/Cognition Level of Alertness Confusional State Orientation Name,Age,Birthday,Year,Place, Situation Language Function Ability Word Finding Difficulties Safety Awareness Decreased Safety Awareness Memory Description No Deficits Noted Gross Range of Motion Upper Extremity ROM Assessment Within Functional Limits Lower Extremity ROM Assessment Right Impaired Impairments Limited right hip movement in the bed and pt reports right hip pain Strength Lower Extremity Strength Assessment Bilaterally Impaired Comments Strength Comments Pt is unable to follow commands well for MMT any limb and this is partially d/t shaking of limbs and with LEs, she reports pain in the right hip. B DF and great toe extension is weak Coordination Assessment Gross Coordination Gross Coordination Impaired Assessment Finger to Nose Test Moderate Impairment Sensation Assessment Sensation Gross Sensation Right LE Impaired,Left LE Impaired Sensation Description Tingling Comments Sensation Comments Pt reports tingling in B toes M7 PT-IP Assessment and Plan Start: 08/09/23 06:59 Freq: Status: Active Protocol: Document 08/09/23 07:00 MB (Rec: 08/09/23 07:44 MB [id number]) PT Summary Assessment and Plan Potential Rehabilitation Potential Poor Status of Condition at Evaluation Unstable Summary Impairments Pain,ROM,Strength,Balance, Coordination,Cognition,Bed Mobility,Transfers,Gait, Activity Tolerance Progress Towards Goals Slow Progress due to Medical Issues,Slow Progress due to Activity Tolerance Assessment Summary Pt is a pleasant 68 y/o female who has been progressively weak in setting of endometrial CA and need for right hip replacement. This is a second ED visit recently d/t similar issues. She is profoundly weak on the PT assessment in all limbs and core and given global presentation, PT is concerned about metabolic or central involvement of brain or spinal cord. She is unable to assist with or tolerate full sitting position with PT and requires extensive assistance. She has left pronator drift and dysmetria LUE with testing and B LEs are also dysmetric in movement. If a central involvement is occurring, it is likely brain and/or cervical area per functional assessment today. Nsg reports pt to have a brain MRI and that will be helpful to determine her plan. At this time, she is total lift for mobility and will not be able to be managed in her home by son unless with 24 hour care and mechanical lift. She has 18 steps to enter home. Goals Bed Mobility Goal Contact Guard Assistance Transfer Goal Contact Guard Assistance,Front Wheeled Walker Gait Goal Contact Guard Assistance,Front Wheel Walker Gait Distance 50 Other Goals If appropriate, pt will ascend and descend 18 steps with rail and no more than CGA to allow home entrance. Advanced to LRAD Days to Meet Goals 10 Frequency of Treatment Frequency Of Treatment Once a Day Treatment Plan Physical Therapy Treatment Plan Bed Mobility Training,Transfer Training,Gait Training, Therapeutic Exercise,Balance Retraining,Post Op Education Weight Bearing Status Weight Bearing Status Weight Bear as Tolerated Recommendations To Nursing Amount of Assist Needed Mechanical Lift Discharge Recommendations Other Discharge Recommendations SNF vs hospice consult Transportation Needs at Discharge Stretcher/Ambulance
[2023-08-09] MEDS: ONDANSETRON 4 MG/2 ML INJ IV (11:16)
[2023-08-09] MEDS: OXYCODONE ER 20 MG TAB PO (11:17)
--- NOTE | 2023-08-09 12:43 | PC.NURSE ---
LD TEACHER visited patient; she will contact the patient's son to discuss signing up for Medicaid
--- NOTE | 2023-08-09 14:19 | CM.SWNOTE ---
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 Hx of endometrial cancer w/ mets in active tx with immunotherapy. Precipitating Event(s) Last few weeks of progressively worsening tremors/weakness with no known etiology despite this being her second visit to the ED for same issues. Her son is primary cg and is expressing feeling overwhelmed and burning out in providing for her care needs. Patient Strengths Very positive-focused, self- aware, loving family and friends. Current Behavioral Health Provider(s) N/A Include Facility, Provider, Ph. # Psych. Hx Mental Health and Chemical N/A Dependency Family Hx of Behavioral Abuse N/A Psychiatric Hospitalizations (date(s)/ N/A location) Psychosocial information & Support Pt's son Mickey lives with her Systems in an apartment here in [place]. She has a female friend who provides a lot of support, errands, and transportation to medical appointments. Orientation (Person/Place/Time) Oriented but confusional. Stated Mood Calm Affect (Congruent with Mood?) yes Thought Content - Specify/Describe Normal Obsessions, Delusions, Hallucinations Thought Processes (Ahrgqrx-Thbzsiwl-Ango Difficult to track in Bnnyhmis-Kntfkbmj-Zrwbxkykta- conversation, delayed mental Ujfqhboheayakp-Yojsdgl-Ksvfmyowycnz- processing. Thought Blocking) Speech (Bbmqqo-Wtuk-Xbnbeok-Rapid-Soft- normal Loud-Pressured) Motor (Inojbv-Pqfgoarxy-Xphf-Other) normal Insight (Padw-Ryss-Kzxf/Limited) Fair Judgement (Uykw-Usyz-Jgsb/Limited) Good Impulse Control (Adequate-Impaired) adequate Memory (Mhqcrjmev-Zobyuy-Ehkicr, Deficits Impaired-Intact) Concentration (Intact-Impaired) Impaired Attention (Intact-Impaired) Intact Behavior (Appropriate-Inappropriate) Appropriate Suicidal Ideation (Plan) No Homicidal Ideation (Plan) No Intervention This PRODUCTION LINE WELDER completed a Medicaid and [employer] application and faxed to [facility] to initiate the process of obtaining a [facility] cg for additional hours in the home in order to provide pt's son more respite time away from pt. Called her son and explained the process, and left the original application in her room with her for her records. RA Plan Pt/son will follow-up with required documents in order to complete the process for Medicaid in-home care.
[2023-08-09] MEDS: BACLOFEN 10 MG TABLET PO (15:23)
[2023-08-09] MEDS: GABAPENTIN 300 MG CAPSULE 900 MG PO (15:23)
[2023-08-09 15:36] LABS: BUN Creatinine Ratio 27.4 (6-22); Blood Urea Nitrogen 23 mg/dL (7-17); Calcium 9.1 mg/dL (8.4-10.2); Carbon Dioxide 25 mmol/L (22-32); Chloride 108 mmol/L (98-107); Estimated Glomerular Filt Rate > 60 mL/min (>60); Glucose 112 mg/dL (80-110); HEMOLYSIS < 15 (0-50); Potassium 5.2 mmol/L (3.4-5.1); Sodium 139 mmol/L (137-145)
[2023-08-09] MEDS: TRIMETH/SULFA 160/800 (DS) TABLET 1 TAB PO (16:13)
== END 2023-08-09 16:49 | disposition home or self-care (01) ==
PROVIDERS: Emergency Medicine; Emergency Provider Emergency Medicine Emergency Medical Services; PCP Internal Medicine
DX: R25.1 Tremor, unspecified (principal); N39.0 Urinary tract infection, site not specified; R11.2 Nausea with vomiting, unspecified; C54.1 Malignant neoplasm of endometrium
CPT/HCPCS: 70460; 70553; 80048; 81003; 85025; 96361; 96374; 97163; 99284; J2405; Q9967

== ENCOUNTER → 2023-08-19 11:21 | Outpatient (CLI) | payer OTHER, SELFPAY ==
--- NOTE | 2023-08-19 11:25 | DI.CT.S_ITS ---
PROCEDURE: CT CHEST ABD PEL W CON INDICATIONS: Malignant neoplasm of corpus uteri TECHNIQUE: After the administration of intravenous contrast, 5 mm thick sections acquired from the lung apices to the symphysis. 5 mm coronal and sagittal reformats were performed, with additional 7 mm MIP reformats through the lungs. For radiation dose reduction, the following was used: automated exposure control, adjustment of mA and/or kV according to patient size. COMPARISON: [facility], CT, CT CHEST ABD PEL W CON, 10/16/2022, 10:51. FINDINGS: Image quality: Excellent. CHEST: Lower Neck: No enlarged lymph nodes. Thyroid: No thyroid nodules which require sonographic follow up, per consensus guidelines. Axillae: No enlarged lymph nodes. Chest Wall: Left chest wall port tip terminates in the low SVC. Lungs and Pleura: No pneumothorax or pleural effusions. Stable 3-4 mm triangular shaped nodule in the right middle lobe (series 5, image 178). Heart: Heart size is normal. No pericardial effusion. Thoracic Vessels: The aorta and pulmonary arteries demonstrate normal size. Mediastinum and Kendra: No enlarged lymph nodes. Esophagus: No wall thickening. Small hiatal hernia. Intraluminal contrast within the distal esophagus, suggestive of reflux. ABDOMEN: Liver: No solid mass. Gallbladder: Cholelithiasis without wall thickening. Biliary ducts: No biliary dilation. Pancreas: No ductal dilation. Spleen: Size is within normal limits. Adrenal Glands: No adrenal nodules. Kidneys and Ureters: No hydronephrosis. No solid mass. No complex renal cystic lesion which requires follow up. lobulation. Stomach and Bowel: Normal colonic caliber, without significant wall thickening. Peritoneum: Small volume ascites.. A few sub 4 mm solid nodules within the omentum. Ventral Wall: No hernia. Abdominal Nodes: No retroperitoneal or mesenteric adenopathy by size criteria. Vessels: Aorta and inferior vena cava are normal in size. PELVIS: Pelvic Organs: Hysterectomy and bilateral salpingo oophorectomy. No evidence of local recurrence in the surgical bed. Bladder: Unremarkable. Pelvic Nodes: Borderline enlarged right common iliac chain node measures 9 mm short axis, unchanged from prior (series 2, image 87). Miscellaneous: No inguinal hernias are seen. Bones: Severe right hip osteoarthritis, with bony deformity. Degenerative disc disease. IMPRESSION: Hysterectomy and bilateral salpingo oophorectomy, without evidence of local recurrence in the surgical bed. Similar sub 4 mm omental nodularity. Given lack of interval growth, findings could represent small vessels. Close attention on follow-up. Stable prominent right common iliac chain node measuring 9 mm short axis, unchanged from prior. Dictated by: Jaskaran Cheney M.D. on 08/19/2023 at 15:37 Approved by: Jaskaran Cheney M.D. on 08/19/2023 at 15:48
== END ==
PROVIDERS: PCP Internal Medicine; Referring Provider Internal Medicine Hematology & Oncology; Visit Provider Internal Medicine Hematology & Oncology
DX: C54.9 Malignant neoplasm of corpus uteri, unspecified (principal); Z90.710 Acquired absence of both cervix and uterus; Z90.722 Acquired absence of ovaries, bilateral
CPT/HCPCS: 71260; 74177

== ENCOUNTER 2023-10-02 22:49 | Inpatient (IN) | payer OTHER, SELFPAY ==
[2023-10-02 22:54] VITALS: BP 143/76; PULSE 111; PULSE 113; RESP 22; RESP 23; TEMP 36.9; O2SAT 94; BMI 33.3
[2023-10-02 23:00] VITALS: BP 124/78; PULSE 108; RESP 23; O2SAT 93
--- NOTE | 2023-10-02 23:27 | ED.WEAKNESS ---
HPI - Weakness General Chief complaint: Weakness Stated complaint: gen weak, concerns UTI Time Seen by Provider: 10/02/23 23:04 Source: EMS Mode of arrival: EMS History of Present Illness HPI Narrative: 68-year-old female with history of endometrial cancer on try weekly chemotherapy presents by EMS from home for 2-3 days of generalized weakness and shakes. Patient states that she gets the shakes when she gets a urinary tract infection. Tonight her son became concerned and decided to call 911. Patient reports a burning with urination and urinary frequency. She also states that it seems to be harder than usual to produce urine. Patient also reports right hip pain, but states that this is chronic pain. She had a planned hip replacement, however it was canceled when her cancer was found. Related Data Home Medications Medication Instructions Recorded Confirmed hpyblnz-ecgolfpcmrnop-hohkulhk 250 2 tab PO Q4-6H PRN Headache, pain 12/10/21 10/02/23 mg-250 mg-65 mg tablet (Excedrin Extra Strength) cimetidine 200 mg tablet 200 mg PO DAILY 12/10/21 10/02/23 (Heartburn Relief (cimetidine)) loperamide 2 mg capsule 2 mg PO DAILY PRN As directed 12/10/21 10/02/23 omeprazole 40 mg capsule,delayed 40 mg PO DAILY 07/08/23 10/02/23 release Previous Rx's Medication Instructions Recorded promethazine 25 mg tablet 25 mg PO Q4-6H PRN Nausea #30 tabs 11/19/22 lidocaine-prilocaine 2.5 %-2.5 % 1 applic topical PRN PRN 11/21/22 topical cream Port/Catheter Care #30 grams prochlorperazine maleate 10 mg 10 mg PO Q6H PRN Nausea #30 tabs 02/03/23 tablet (Compazine) amlodipine 10 mg tablet 10 mg PO DAILY #90 tabs 03/17/23 lisinopril 10 mg tablet 10 mg PO DAILY #90 tabs 03/17/23 gabapentin 600 mg tablet 900 mg (1.5 x 600 mg) PO TID #135 05/06/23 tabs baclofen 10 mg tablet 10 mg PO TID PRN muscle spasm #90 07/30/23 tabs ondansetron 4 mg disintegrating 4 mg PO Q8H PRN nausea and 08/09/23 tablet vomiting #10 tabs morphine 30 mg tablet,extended 30 mg PO TID #90 tabs 08/29/23 release oxycodone 20 mg tablet 20 mg PO TID PRN pain #90 tabs 08/29/23 duloxetine 60 mg capsule,delayed 60 mg PO DAILY #90 caps 09/19/23 release (Cymbalta) olanzapine 5 mg tablet 5 mg PO BEDTIME #30 tabs 09/29/23 sulfamethoxazole 800 1 tab PO Q12H #14 tabs 10/03/23 mg-trimethoprim 160 mg tablet Allergies Allergy/AdvReac Type Severity Reaction Status Date / Time No Known Drug Allergies Allergy Verified 10/02/23 22:56 Review of Systems Review of Systems Narrative: Negative except as noted above Patient History Medical History GERD without esophagitis Chronic, continuous use of opioids Osteoarthritis of right hip Essential hypertension IT band syndrome Painful menstrual periods Fibroids Migraines Fibromyalgia Chronic back pain Mumps Measles Chicken pox Surgical History H/O total hysterectomy with bilateral salpingo-oophorectomy (BSO) (10/04/22) Anesthesia History of laparoscopy (~1991) History of foot surgery (~2000) History of neck surgery (~1997) Family History Father Cancer Family/Other No problems noted. 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 household members: children Smoking Status: Never smoker alcohol intake: current Smoking Status: Never smoker alcohol intake frequency: holidays/special occasions only Substance Use Type: marijuana Exam Initial Vital Signs Initial Vital Signs: Vital Signs Temperature 98.4 F 10/02/23 22:54 Pulse Rate 111 H 10/02/23 22:54 Respiratory Rate 22 10/02/23 22:54 Blood Pressure 143/76 H 10/02/23 22:54 Pulse Oximetry 94 10/02/23 22:54 Oxygen Delivery Method Room Air 10/02/23 22:54 Const: Awake, alert, appears chronically unwell Cardiac: regular rate, regular rhythm RESP: unlabored, clear bilaterally, no wheezing GI: Atraumatic, soft, nontender Skin: Warm, Dry, intact, no rashes Neuro: AO x3, CN II-XII grossly intact, moves all extremities, generalized coarse tremor of upper and lower extremities Course Orders Ordered: ED Orders 10/02/23 23:00 CBC Auto Diff [Complete Blood Count AUTO DIFF] Stat CMP [Comprehensive Metabolic Panel] Stat 10/02/23 23:22 UA Complete [Urinalysis and Microscopic] Stat 10/02/23 23:55 CT abdomen pelvis wo con Stat 10/03/23 00:30 Urinalysis and Microscopic Stat Urine Culture Stat 10/03/23 01:55 BMP [Basic Metabolic Panel] Stat 10/03/23 02:27 CT head/brain wo con Stat Chest [XR chest 1V] Stat 10/03/23 02:40 Ammonia (NH3) Stat 10/03/23 03:57 BNP [NT-proBNP (BNP-Adult 18+)] Stat Troponin & CK Cardiac Panel Stat 10/03/23 04:00 Respiratory Panel (Film Array) Stat Discontinued Medications Albuterol/Ipratropium (Albuterol/Ipratropium 3 Ml Ampul) 9 ml INH NOW ONE Stop: 10/03/23 03:58 Last Admin: 10/03/23 04:18 Dose: 9 ml Sodium Chloride (Normal Saline 0.9%) 1,000 mls @ 1,000 mls/hr IV BOLUS ONE Stop: 10/03/23 00:54 Last Infusion: 10/03/23 01:05 Dose: Infused Documented By: Admin: 10/03/23 00:17 Dose: 1,000 mls/hr Documented By: CHERELLE Sodium Chloride (Normal Saline 0.9%) 1,000 mls @ 1,000 mls/hr IV BOLUS ONE Stop: 10/03/23 01:58 Last Infusion: 10/03/23 01:59 Dose: Infused Documented By: Admin: 10/03/23 01:05 Dose: 1,000 mls/hr Documented By: CHERELLE Sodium Chloride (Normal Saline 0.9%) 1,000 mls @ 1,000 mls/hr IV BOLUS ONE Stop: 10/03/23 03:26 Last Admin: 10/03/23 02:30 Dose: 1,000 mls/hr Documented By: CHERELLE Oxycodone HCl (Oxycodone Ir 5 Mg Tablet) 20 mg PO NOW ONE Stop: 10/03/23 01:59 Last Admin: 10/03/23 02:03 Dose: 20 mg Documented By: CHERELLE Vital Signs Vital signs: Vital Signs - 8 hr 10/02/23 22:54 10/02/23 22:54 10/02/23 23:00 Temperature 98.4 F Pulse Rate 111 H 113 H Respiratory Rate 22 23 Blood Pressure 143/76 H 124/78 Pulse Oximetry 94 94 Oxygen Delivery Method Room Air Oxygen Flow Rate 10/02/23 23:00 10/02/23 23:30 10/03/23 00:00 Temperature Pulse Rate 108 H 107 H 100 H Respiratory Rate 23 22 26 H Blood Pressure Pulse Oximetry 93 94 91 Oxygen Delivery Method Room Air Room Air Oxygen Flow Rate 10/03/23 00:16 10/03/23 00:16 10/03/23 00:30 Temperature Pulse Rate 102 H Respiratory Rate 22 Blood Pressure 142/70 H 124/60 Pulse Oximetry 93 Oxygen Delivery Method Room Air Oxygen Flow Rate 10/03/23 00:30 10/03/23 01:00 10/03/23 01:00 Temperature Pulse Rate 101 H 89 Respiratory Rate 29 H 17 Blood Pressure 121/65 Pulse Oximetry 93 96 Oxygen Delivery Method Room Air Oxygen Flow Rate 10/03/23 01:30 10/03/23 01:30 10/03/23 02:00 Temperature Pulse Rate 86 85 Respiratory Rate 25 H 23 Blood Pressure 125/70 Pulse Oximetry 93 92 Oxygen Delivery Method Room Air Room Air Oxygen Flow Rate 10/03/23 02:00 10/03/23 02:30 10/03/23 02:30 Temperature Pulse Rate 88 Respiratory Rate 27 H Blood Pressure 135/84 135/73 Pulse Oximetry 90 L Oxygen Delivery Method Room Air Oxygen Flow Rate 10/03/23 03:04 10/03/23 03:07 10/03/23 03:09 Temperature Pulse Rate 109 H 102 H 101 H Respiratory Rate 20 21 Blood Pressure Pulse Oximetry 94 94 92 Oxygen Delivery Method Room Air Oxygen Flow Rate 10/03/23 03:09 10/03/23 03:30 10/03/23 03:30 Temperature Pulse Rate 92 H Respiratory Rate 19 Blood Pressure 127/71 113/60 Pulse Oximetry 90 L Oxygen Delivery Method Oxygen Flow Rate 10/03/23 04:00 10/03/23 04:00 10/03/23 04:00 Temperature Pulse Rate 92 H Respiratory Rate 20 Blood Pressure 118/65 Pulse Oximetry 90 L 88 L Oxygen Delivery Method Room Air Room Air Oxygen Flow Rate 10/03/23 04:30 10/03/23 04:30 10/03/23 05:00 Temperature Pulse Rate 93 H Respiratory Rate 21 Blood Pressure 121/64 109/57 L Pulse Oximetry 99 Oxygen Delivery Method Aerosol Mask Oxygen Flow Rate 10/03/23 05:00 10/03/23 05:16 10/03/23 05:19 Temperature Pulse Rate 93 H Respiratory Rate 15 Blood Pressure Pulse Oximetry 91 88 L 88 L Oxygen Delivery Method Room Air Room Air Room Air Oxygen Flow Rate 10/03/23 05:19 Temperature Pulse Rate Respiratory Rate Blood Pressure Pulse Oximetry 94 Oxygen Delivery Method Nasal Cannula Oxygen Flow Rate 2 MDM - Weakness Differential Diagnosis Differential diagnosis: Likely anemia, hypoglycemia and hypothyroidism Lab Data 10/02/23 23:00 10/03/23 01:55 Labs: Lab Results 10/02/23 10/02/23 10/03/23 Range/Units 23:00 23:22 00:30 WBC 11.4 H (4.5-11.0) X10^3/uL RBC 4.00 (4.0-5.2) X10^6/uL Hgb 11.0 L (12.0-16.0) g/dL Hct 33.7 L (36-46) % MCV 84.2 (80-100) fL MCH 27.5 (26-34) PG MCHC 32.7 (30-36) % RDW 14.9 H (11.6-14.8) % Plt Count 274 (150-400) X10^3/uL Neut % (Auto) 63.0 (50-75) % Lymph % (Auto) 19.2 L (25-40) % [place] % (Auto) 11.4 (3-14) % Eos % (Auto) 6.0 H (2-4) % Baso % (Auto) 0.4 (0-2) % Neut # (Auto) 7200 H (2570-6448) /uL Lymph # (Auto) 2200 (6198-2784) /uL [place] # (Auto) 1300 H (0-900) /uL Eos # (Auto) 700 H (0-450) /uL Baso # (Auto) 0 (0-100) /uL Sodium 137 (137-145) mmol/L Potassium 4.7 (3.4-5.1) mmol/L Chloride 100 (98-107) mmol/L Carbon Dioxide 22 (22-32) mmol/L BUN 49 H (7-17) mg/dL Creatinine 2.27 H (0.52-1.04) mg/dL Estimated GFR 23 L (>60) mL/min BUN/Creatinine Ratio 21.6 (6-22) Glucose 130 H (80-110) mg/dL Calcium 9.2 (8.4-10.2) mg/dL Total Bilirubin 0.6 (0.2-1.3) mg/dL AST 29 (14-36) IU/L ALT 16 (<35) IU/L Alkaline Phosphatase 78 (38-126) U/L Ammonia (9-30) umol/L Total Creatine Kinase (30-135) U/L Troponin I (0.01-0.034) ng/mL NT-Pro-B Natriuret Pep (<125) pg/mL Total Protein 7.3 (6.3-8.2) g/dL Albumin 4.2 (3.5-5.0) g/dL Globulin 3.1 (1.7-4.1) g/dL Albumin/Globulin Ratio 1.4 (1.0-2.8) Urine Color Yellow Yellow Urine Appearance Slightly cloudy Sl cloudy Urine pH 5.0 5.0 (4.5-8.0) Ur Specific [place] 1.015 1.025 (1.000-1.035) Urine Protein Negative Negative (Negative) Urine Glucose (UA) Negative Negative (Negative) g/dL Urine Ketones Negative Negative (NEGATIVE) Urine Occult Blood Negative Negative (Negative) Urine Nitrate Negative Negative (Negative) Urine Bilirubin Negative Negative (NEGATIVE) Urine Urobilinogen 0.2 0.2 (0.2) E.U./dL Ur Leukocyte Esterase Negative Trace H (NEGATIVE) Urine RBC None seen None seen (0-5/HPF) Urine WBC None seen 0-1/hpf (0-5/HPF) Ur Squamous Epith Cells 5-10 /hpf H 0-1 /hpf (0-5/HPF) Amorphous Sediment 1+ Urine Bacteria Occasional (0-1) Occasional (0-1) (None) Ur Culture Indicated? Cult not indicated Specimen cultured Vol Urine Centrifuged 10ml (spun) 10ml (spun) Chlamy pneumoniae PCR (Not Detect) Adenovirus (PCR) (Not Detect) B.parapertussis DNA PCR (Not Detecte) Coronavirus OC43 (PCR) (Not Detect) Coronavirus HKU1 (PCR) (Not Detect) Coronavirus 229E (PCR) (Not Detect) SARS-CoV-2 (PCR) (Not Detecte) Coronavirus NL63 (PCR) (Not Detect) Human Metapneumovir PCR (Not Detect) Influenza Type A (PCR) (Not Detect) Influenza Type B (PCR) (Not Detect) M. pneumoniae (PCR) (Not Detect) Parainfluenza 1 (PCR) (Not Detect) Parainfluenza 2 (PCR) (Not Detect) Parainfluenza 3 (PCR) (Not Detect) Parainfluenza 4 (PCR) (Not Detect) RSV (PCR) (Not Detect) Entero/Rhino (PCR) (Not Detect) 10/03/23 10/03/23 10/03/23 Range/Units 01:29 01:55 02:40 WBC (4.5-11.0) X10^3/uL RBC (4.0-5.2) X10^6/uL Hgb (12.0-16.0) g/dL Hct (36-46) % MCV (80-100) fL MCH (26-34) PG MCHC (30-36) % RDW (11.6-14.8) % Plt Count (150-400) X10^3/uL Neut % (Auto) (50-75) % Lymph % (Auto) (25-40) % [place] % (Auto) (3-14) % Eos % (Auto) (2-4) % Baso % (Auto) (0-2) % Neut # (Auto) (5163-2208) /uL Lymph # (Auto) (5156-5012) /uL [place] # (Auto) (0-900) /uL Eos # (Auto) (0-450) /uL Baso # (Auto) (0-100) /uL Sodium 136 L (137-145) mmol/L Potassium 4.8 (3.4-5.1) mmol/L Chloride 104 (98-107) mmol/L Carbon Dioxide 23 (22-32) mmol/L BUN 45 H (7-17) mg/dL Creatinine 1.85 H (0.52-1.04) mg/dL Estimated GFR 30 L (>60) mL/min BUN/Creatinine Ratio 24.3 H (6-22) Glucose 113 H (80-110) mg/dL Calcium 8.1 L (8.4-10.2) mg/dL Total Bilirubin (0.2-1.3) mg/dL AST (14-36) IU/L ALT (<35) IU/L Alkaline Phosphatase (38-126) U/L Ammonia < 9 L (9-30) umol/L Total Creatine Kinase 29 L (30-135) U/L Troponin I < 0.012 (0.01-0.034) ng/mL NT-Pro-B Natriuret Pep 106 (<125) pg/mL Total Protein (6.3-8.2) g/dL Albumin (3.5-5.0) g/dL Globulin (1.7-4.1) g/dL Albumin/Globulin Ratio (1.0-2.8) Urine Color Urine Appearance Urine pH (4.5-8.0) Ur Specific [place] (1.000-1.035) Urine Protein (Negative) Urine Glucose (UA) (Negative) g/dL Urine Ketones (NEGATIVE) Urine Occult Blood (Negative) Urine Nitrate (Negative) Urine Bilirubin (NEGATIVE) Urine Urobilinogen (0.2) E.U./dL Ur Leukocyte Esterase (NEGATIVE) Urine RBC (0-5/HPF) Urine WBC (0-5/HPF) Ur Squamous Epith Cells (0-5/HPF) Amorphous Sediment Urine Bacteria (None) Ur Culture Indicated? Vol Urine Centrifuged Chlamy pneumoniae PCR (Not Detect) Adenovirus (PCR) (Not Detect) B.parapertussis DNA PCR (Not Detecte) Coronavirus OC43 (PCR) (Not Detect) Coronavirus HKU1 (PCR) (Not Detect) Coronavirus 229E (PCR) (Not Detect) SARS-CoV-2 (PCR) (Not Detecte) Coronavirus NL63 (PCR) (Not Detect) Human Metapneumovir PCR (Not Detect) Influenza Type A (PCR) (Not Detect) Influenza Type B (PCR) (Not Detect) M. pneumoniae (PCR) (Not Detect) Parainfluenza 1 (PCR) (Not Detect) Parainfluenza 2 (PCR) (Not Detect) Parainfluenza 3 (PCR) (Not Detect) Parainfluenza 4 (PCR) (Not Detect) RSV (PCR) (Not Detect) Entero/Rhino (PCR) (Not Detect) 10/03/23 Range/Units 04:20 WBC (4.5-11.0) X10^3/uL RBC (4.0-5.2) X10^6/uL Hgb (12.0-16.0) g/dL Hct (36-46) % MCV (80-100) fL MCH (26-34) PG MCHC (30-36) % RDW (11.6-14.8) % Plt Count (150-400) X10^3/uL Neut % (Auto) (50-75) % Lymph % (Auto) (25-40) % [place] % (Auto) (3-14) % Eos % (Auto) (2-4) % Baso % (Auto) (0-2) % Neut # (Auto) (5849-2660) /uL Lymph # (Auto) (0162-9033) /uL [place] # (Auto) (0-900) /uL Eos # (Auto) (0-450) /uL Baso # (Auto) (0-100) /uL Sodium (137-145) mmol/L Potassium (3.4-5.1) mmol/L Chloride (98-107) mmol/L Carbon Dioxide (22-32) mmol/L BUN (7-17) mg/dL Creatinine (0.52-1.04) mg/dL Estimated GFR (>60) mL/min BUN/Creatinine Ratio (6-22) Glucose (80-110) mg/dL Calcium (8.4-10.2) mg/dL Total Bilirubin (0.2-1.3) mg/dL AST (14-36) IU/L ALT (<35) IU/L Alkaline Phosphatase (38-126) U/L Ammonia (9-30) umol/L Total Creatine Kinase (30-135) U/L Troponin I (0.01-0.034) ng/mL NT-Pro-B Natriuret Pep (<125) pg/mL Total Protein (6.3-8.2) g/dL Albumin (3.5-5.0) g/dL Globulin (1.7-4.1) g/dL Albumin/Globulin Ratio (1.0-2.8) Urine Color Urine Appearance Urine pH (4.5-8.0) Ur Specific [place] (1.000-1.035) Urine Protein (Negative) Urine Glucose (UA) (Negative) g/dL Urine Ketones (NEGATIVE) Urine Occult Blood (Negative) Urine Nitrate (Negative) Urine Bilirubin (NEGATIVE) Urine Urobilinogen (0.2) E.U./dL Ur Leukocyte Esterase (NEGATIVE) Urine RBC (0-5/HPF) Urine WBC (0-5/HPF) Ur Squamous Epith Cells (0-5/HPF) Amorphous Sediment Urine Bacteria (None) Ur Culture Indicated? Vol Urine Centrifuged Chlamy pneumoniae PCR Not detected (Not Detect) Adenovirus (PCR) Not detected (Not Detect) B.parapertussis DNA PCR Not detected (Not Detecte) Coronavirus OC43 (PCR) Not detected (Not Detect) Coronavirus HKU1 (PCR) Not detected (Not Detect) Coronavirus 229E (PCR) Not detected (Not Detect) SARS-CoV-2 (PCR) Not detected (Not Detecte) Coronavirus NL63 (PCR) Not detected (Not Detect) Human Metapneumovir PCR Not detected (Not Detect) Influenza Type A (PCR) Not detected (Not Detect) Influenza Type B (PCR) Not detected (Not Detect) M. pneumoniae (PCR) Not detected (Not Detect) Parainfluenza 1 (PCR) Not detected (Not Detect) Parainfluenza 2 (PCR) Not detected (Not Detect) Parainfluenza 3 (PCR) Not detected (Not Detect) Parainfluenza 4 (PCR) Not detected (Not Detect) RSV (PCR) Not detected (Not Detect) Entero/Rhino (PCR) Not detected (Not Detect) Urine Dip Bedside Urine Glucose Negative Bedside Urine Bilirubin - Negative Bedside Urine Ketone - Negative Urine Specific [place] 1.015 Bedside Urine Occult Blood - Negative Bedside Urine pH 5.0 Bedside Urine Protein - Negative Bedside Urine Urobilinogen - Negative Bedside Urine Nitrite - Negative Bedside Urine Leukocytes +++ 500 Esterase MDM Narrative Medical decision making narrative: Patient with known history endometrial cancer presenting with generalized weakness, dysuria, urinary frequency. Patient states she feels it is ?harder? for her to urinate than usual and these are symptoms of a urinary tract infection. She does appear to have coarse tremor in all extremities, but no focal neurologic deficit. Laboratory work shows WBCs 11.4, sodium 137, potassium 4.7, BUN 49, creatinine 2.27. Patient does appear to have issues with her creatinine in the past, however in July of 2023 patient's creatinine was 1-1.5. Dip of urine was positive for leukocyte esterase, however when sent to lab the sample showed only trace leukocyte esterase and occasional bacteria. Negative for nitrate or leukocyte esterase. Since patient has history of endometrial cancer and is stating that it was harder for her to urinate more frequently we will order a CT of the abdomen and pelvis to assess for any obstructive causes of HAL. CT of the abdomen and pelvis negative for obstructive findings. She appears to have worsening peritoneal carcinomatosis and ascites, worse from previous CT. No obstructive lesions or hydronephrosis to explain patient's symptoms. Patient reassessed, resting comfortably. She now is stating that she is hallucinating and has been hallucinating since she arrived to the emergency department, which she never previously told either myself or any nursing staff. Also now reporting a nonproductive cough for weeks, worse now. Creatinine improved after IV fluids. CT noncontrast of the brain negative for acute findings. Chest x-ray report read as possible linear opacities in the left lung base that could be atelectasis or scarring versus developing infiltrate. Previous CT of the abdomen and pelvis visualized the lower lung bases and they were clear. Patient reassessed, while sitting upright in bed with good waveform patient's saturations 88%. She states she is now wheezing and there is a wheeze present on the posterior aspects of her chest. She denies history of COPD or congestive heart failure. She does not appear to be grossly volume overloaded. Troponin, BNP, respiratory panel ordered along with DuoNebs. Respiratory panel negative. Troponin undetectable, BNP 106, ammonia undetectable. Respiratory panel negative for common viruses. Patient reassessed, she was sleeping, but when she awakes she still has coughing, wheezing, shakiness. Oxygen saturations remained between 88-90% on room air. We will admit for further treatment. Discharge Plan Departure Patient Disposition: Admitted As Inpatient Clinical Impression: Benykiness, Endometrial cancer, FIGO stage IVB, Generalized weakness Activity Restrictions/Additional Instructions: Your kidney function today was elevated, however it began to go back to normal after rehydrating you with IV fluids. Your urine today was cloudy, and there is some bacteria, making this indeterminate for infection. With your past medical history as a precaution I will send a prescription for antibiotics to your pharmacy. Please follow up with your oncologist concerning your kidney function and your further chemotherapy treatments. Prescriptions: New sulfamethoxazole-trimethoprim 800-160 mg tablet 1 tab PO Q12H Qty: 14 0RF No Action promethazine 25 mg tablet 25 mg PO Q4-6H PRN (Reason: Nausea) Qty: 30 1RF prochlorperazine maleate [Compazine] 10 mg tablet 10 mg PO Q6H PRN (Reason: Nausea) Qty: 30 1RF morphine 30 mg tablet extended release 30 mg PO TID Qty: 90 0RF oxycodone 20 mg tablet 20 mg PO TID PRN (Reason: pain) Qty: 90 0RF duloxetine [Cymbalta] 60 mg capsule,delayed release(DR/EC) 60 mg PO DAILY Qty: 90 1RF olanzapine 5 mg tablet 5 mg PO BEDTIME Qty: 30 5RF lisinopril 10 mg tablet 10 mg PO DAILY Qty: 90 3RF amlodipine 10 mg tablet 10 mg PO DAILY Qty: 90 3RF gabapentin 600 mg tablet 900 mg PO TID Qty: 135 5RF Rx Instructions: take with 1 300 mg tab cimetidine [Heartburn Relief (cimetidine)] 200 mg tablet 200 mg PO DAILY Excedrin Extra Strength 250-250-65 mg tablet 2 tab PO Q4-6H PRN (Reason: Headache, pain) loperamide 2 mg capsule 2 mg PO DAILY PRN (Reason: As directed) omeprazole 40 mg capsule,delayed release(DR/EC) 40 mg PO DAILY baclofen 10 mg tablet 10 mg PO TID PRN (Reason: muscle spasm) Qty: 90 5RF lidocaine-prilocaine 2.5-2.5 % Cream 1 applic topical PRN PRN (Reason: Port/Catheter Care) Qty: 30 1RF Rx Instructions: apply to the skin over the port at least 2 hours before planned use of the port. Cover the cream with a small piece of plastic wrap and leave in place until the port is accessed ondansetron 4 mg tablet,disintegrating 4 mg PO Q8H PRN (Reason: nausea and vomiting) Qty: 10 0RF Referrals: Mo Moseley MD [Primary Care Provider] - Admit Date/Time: 10/03/23 05:30 Admit Provider: Nolan Villarreal
[2023-10-02 23:30] VITALS: PULSE 107; RESP 22; O2SAT 94
[2023-10-02 23:30] LABS: Add Manual Diff / Slide Review NO; Basophils Absolute Auto 0 /uL (0-100); Basophils Percent Auto 0.4 % (0-2); Eosinophils Absolute Auto 700 /uL (0-450); Hematocrit 33.7 % (36-46); Lymphocytes Absolute Auto 2200 /uL (1100-4500); Lymphocytes Percent Auto 19.2 % (25-40); Mean Corpuscular HGB Conc 32.7 % (30-36); Mean Corpuscular Hemoglobin 27.5 PG (26-34); Mean Corpuscular Volume 84.2 fL (80-100); Monocytes Absolute Auto 1300 /uL (0-900); Monocytes Percent Auto 11.4 % (3-14); Neutrophils Absolute Auto 7200 /uL (1500-7000); Platelet Count 274 X10^3/uL (150-400); Red Cell Distribution Width 14.9 % (11.6-14.8); White Blood Cell Count 11.4 X10^3/uL (4.5-11.0)
[2023-10-02 23:42] LABS: Alanine Aminotransferase 16 IU/L (<35); Albumin 4.2 g/dL (3.5-5.0); Albumin Globulin Ratio 1.4 (1.0-2.8); Alkaline Phosphatase 78 U/L (38-126); Aspartate Aminotransferase 29 IU/L (14-36); BUN Creatinine Ratio 21.6 (6-22); Bilirubin Total 0.6 mg/dL (0.2-1.3); Blood Urea Nitrogen 49 mg/dL (7-17); Calcium 9.2 mg/dL (8.4-10.2); Carbon Dioxide 22 mmol/L (22-32); Chloride 100 mmol/L (98-107); Estimated Glomerular Filt Rate 23 mL/min (>60); Globulin 3.1 g/dL (1.7-4.1); Glucose 130 mg/dL (80-110); HEMOLYSIS 18 (0-50); Potassium 4.7 mmol/L (3.4-5.1); Sodium 137 mmol/L (137-145); Total Protein 7.3 g/dL (6.3-8.2)
[2023-10-02 23:45] LABS: Appearance Urine UA Slightly Cloudy; Color Urine UA Yellow; Glucose Urine UA NEGATIVE (Negative); Protein Urine UA NEGATIVE (Negative); Specific Gravity Urine UA 1.015 (1.000-1.035)
[2023-10-02 23:46] LABS: Bilirubin Urine UA NEGATIVE (NEGATIVE); Ketones Urine UA NEGATIVE (NEGATIVE); Leukocyte Esterase Urine UA NEGATIVE (NEGATIVE); Nitrite Urine UA NEGATIVE (Negative); Occult Blood Urine UA NEGATIVE (Negative); Urine Volume 10mL (spun); Urobilinogen Urine UA 0.2 E.U./dL (0.2)
[2023-10-02 23:48] LABS: Amorphous Sediment Urine 1+; Bacteria Urine Occasional (0-1); Culture Indicated Urine Cult Not Indicated; RBC Urine None Seen (0-5/HPF); Squamous Epithelial Cell Urine 5-10 /HPF (0-5/HPF); WBC Urine None Seen (0-5/HPF)
--- NOTE | 2023-10-02 23:55 | DI.CT.S_ITS ---
PROCEDURE: CT ABDOMEN PELVIS WO CON INDICATIONS: PELVIC PAIN, NEW RENAL FAILURE TECHNIQUE: Axial sections were acquired from the lung bases to the pubic symphysis. Coronal and sagittal reformats were performed. For radiation dose reduction, the following was used: automated exposure control, adjustment of mA and/or kV according to patient size. COMPARISON: [facility], CT, CT CHEST ABD PEL W CON, 08/19/2023, 12:39. FINDINGS: Image quality: Diagnostic. Lower Chest: Lung bases are clear. Small hiatal hernia. Heart size is normal. URINARY: Right Kidney: No stones or hydronephrosis. Right Ureter: No hydroureter. Left Kidney: No stones or hydronephrosis. Left Ureter: No hydroureter. Bladder: Normal wall thickness. No stones. ABDOMEN: Liver: No contour-deforming solid mass. Gallbladder: Redemonstration of cholelithiasis without wall thickening. Biliary ducts: No biliary dilation. Pancreas: No ductal dilation. Spleen: Size is within normal limits. Adrenal Glands: No adrenal nodules. Stomach and Bowel: Normal colonic caliber, without significant wall thickening. Mild gastric distension. No evidence for bowel obstruction. Peritoneum: Interval development of moderate amount of scattered ascites predominantly in the perihepatic and lower pelvic regions. There are faint, subtle slightly hyperdense nodular densities projecting over the posterior aspect of the peritoneum of the right lower pelvis. Interval development of omental nodularity/omental caking. Ventral Wall: No hernia. Abdominal Nodes: No enlarged retroperitoneal or mesenteric lymph nodes. Vessels: Aorta and inferior vena cava are normal in size. Atherosclerosis PELVIS: Pelvic Organs: Status post hysterectomy and bilateral oophorectomy. Pelvic Nodes: Stable right common iliac chain node (56/series 2). Miscellaneous: No inguinal hernias are seen. Bones: No aggressive osseous lesions. Stable appearance of severe right hip osteoarthritis. Multilevel spondylosis of the imaged spine. No acute compression fractures. IMPRESSION: 1. Interval development of peritoneal carcinomatosis of the lower abdomen and pelvis with new scattered ascites concerning for metastatic disease. There also subtle nodular densities involving the posterior peritoneum of the right lower pelvis. 2. Otherwise, no acute abnormalities identified in the abdomen or pelvis. No evidence for urolithiasis or obstructive uropathy. 3. Redemonstration of cholelithiasis without wall thickening. Recommend clinical correlation. Consider further evaluation with right upper quadrant ultrasound. 4. Status post hysterectomy and bilateral oophorectomy. Stable right common iliac chain lymph node. Dictated by: Richard Mojica M.D. on 10/03/2023 at 0:26 Approved by: Richard Mojica M.D. on 10/03/2023 at 0:40
[2023-10-03] VITALS (23 sets, daily range): BP systolic 108–143; BP diastolic 57–84; PULSE 83–109; RESP 14–29; TEMP 36.5–37.4; O2SAT 88–99; BMI 33.3
[2023-10-03] MEDS: SODIUM CHLORIDE 0.9% 1,000 ML 1000 ML IV ×3 (00:17→02:30)
[2023-10-03 00:40] LABS: Appearance Urine UA SL CLOUDY; Bilirubin Urine UA NEGATIVE (NEGATIVE); Color Urine UA YELLOW; Glucose Urine UA NEGATIVE (Negative); Ketones Urine UA NEGATIVE (NEGATIVE); Leukocyte Esterase Urine UA TRACE (NEGATIVE); Nitrite Urine UA NEGATIVE (Negative); Occult Blood Urine UA NEGATIVE (Negative); Protein Urine UA NEGATIVE (Negative); Specific Gravity Urine UA 1.025 (1.000-1.035); Urobilinogen Urine UA 0.2 E.U./dL (0.2)
[2023-10-03 00:47] LABS: Bacteria Urine Occasional (0-1); RBC Urine None Seen (0-5/HPF); Squamous Epithelial Cell Urine 0-1 /HPF (0-5/HPF); Urine Volume 10mL (spun); WBC Urine 0-1/HPF (0-5/HPF)
[2023-10-03 00:48] LABS: Culture Indicated Urine Specimen Cultured
[2023-10-03] MEDS: OXYCODONE IR 5 MG TABLET 20 MG PO (02:03)
[2023-10-03 02:18] LABS: BUN Creatinine Ratio 24.3 (6-22); Blood Urea Nitrogen 45 mg/dL (7-17); Calcium 8.1 mg/dL (8.4-10.2); Carbon Dioxide 23 mmol/L (22-32); Chloride 104 mmol/L (98-107); Estimated Glomerular Filt Rate 30 mL/min (>60); Glucose 113 mg/dL (80-110); HEMOLYSIS < 15 (0-50); Potassium 4.8 mmol/L (3.4-5.1); Sodium 136 mmol/L (137-145)
--- NOTE | 2023-10-03 02:27 | DI.RAD.S_ITS ---
PROCEDURE: XR CHEST 1V INDICATIONS: GEN WEAKNESS, HALLUCINATING TECHNIQUE: One view of the chest was acquired. COMPARISON: [facility], CR, XR CHEST 1V, 03/05/2023, 12:06. FINDINGS: Surgical changes and devices: A Port-A-Cath is noted with the tip projecting to the area of SVC.. Lungs and pleura: There is left hemidiaphragm elevation. Left basilar infiltrate or atelectasis. No pleural effusions or pneumothorax. Mediastinum: Mediastinal contours appear normal. Heart size is normal. Bones and chest wall: No suspicious bony lesions. Overlying soft tissues appear unremarkable. IMPRESSION: Left basilar infiltrate or atelectasis. Dictated by: Darline Beard M.D. on 10/03/2023 at 7:48 Approved by: Darline Beard M.D. on 10/03/2023 at 7:49
--- NOTE | 2023-10-03 02:27 | DI.CT.S_ITS ---
PROCEDURE: CT HEAD/BRAIN WO CON INDICATIONS: GEN WEAKNESS, HALLUCINATING TECHNIQUE: Noncontrast 4.5 mm thick angled axial sections acquired from the foramen magnum to the vertex, with coronal and sagittal reformats. For radiation dose reduction, the following was used: automated exposure control, adjustment of mA and/or kV according to patient size. COMPARISON: [facility], CT, CT HEAD/BRAIN W CON, 08/08/2023, 21:14. [facility], MR, MR HEAD/BRAIN WO/W CON, 08/09/2023, 7:42. FINDINGS: Image quality: Diagnostic. CSF spaces: Basal cisterns are patent. No extra-axial fluid collections. Ventricles are normal in size and shape. Brain: No midline shift. No intracranial masses or hemorrhage. Melo-white matter interface is normal. Skull and face: Calvarium and visualized facial bones are intact, without suspicious lesions. Sinuses: Visualized sinuses and mastoids are clear. IMPRESSION: No acute intracranial pathology. No significant discrepancy with the digital account coordinator radiology preliminary report. Dictated by: Darline Beard M.D. on 10/03/2023 at 7:30 Approved by: Darline Beard M.D. on 10/03/2023 at 7:31
[2023-10-03 03:01] LABS: Ammonia (NH3) < 9 umol/L (9-30)
[2023-10-03 04:13] LABS: Creatine Kinase 29 U/L (30-135)
[2023-10-03] MEDS: ALBUTEROL/IPRATROPIUM 3 ML AMPUL 9 ML INH (04:18)
[2023-10-03 04:25] LABS: NT-proBNP (BNP-Adult 18+) 106 pg/mL (<125); Troponin I < 0.012 ng/mL (0.01-0.034)
[2023-10-03 05:23] LABS: Adenovirus Not Detected (Not Detect); B. parapertussis Not Detected (Not Detecte); Bordetella pertussis Not Detected (Not Detect); Chlamydophila pneumoniae Not Detected (Not Detect); Coronavirus 229E Not Detected (Not Detect); Coronavirus HKU1 Not Detected (Not Detect); Coronavirus NL 63 Not Detected (Not Detect); Coronavirus OC43 Not Detected (Not Detect); Human Metapneumovirus Not Detected (Not Detect); Human Rhinovirus/Enterovirus Not Detected (Not Detect); Influenza A Not Detected (Not Detect); Influenza B Not Detected (Not Detect); Mycoplasma pneumoniae Not Detected (Not Detect); Parainfluenza Virus 1 Not Detected (Not Detect); Parainfluenza Virus 2 Not Detected (Not Detect); Parainfluenza Virus 3 Not Detected (Not Detect); Parainfluenza Virus 4 Not Detected (Not Detect); Respiratory Syncytial Virus Not Detected (Not Detect); SARS- CoV-2 Not Detected (Not Detecte)
--- NOTE | 2023-10-03 06:47 | P.HP_ITS ---
History of Present Illness History of Present Illness Date Patient Seen: 10/03/23 Time Patient Seen: 08:40 Chief complaint: gen weak, concerns UTI Narrative: 68 years old female with a past medical history of endometrial cancer stage IVb status post surgery currently on chemotherapy, hypertension, GERD, depression, anxiety and multiple other medical issues presented to emergency room for progressive weakness with generalized body shake. Initially son was concerned the patient had urinary infection since she had a similar symptoms previously. Patient did not report a burning sensation with urinary urgency and was harder than usual to produce urine. Also had active wheezing with shortness of breath and cough that is usually nonproductive but chronic. Not sure if she had a fever. Has a history of chronic nausea with vomiting especially worse with the chemotherapy and also has had episodes of diarrhea nonbloody. Denies any chest pain palpitation dizziness or loss of consciousness. On arrival in the ED, was noted to be tachycardic with a heart rate rate in the 110s and blood pressure was on the low normal side. Labs showed a creatinine of 2.27 initially with a BUN of 49 following which patient received fluid boluses and subsequent labs showed a creatinine of 1.85 with a BUN of 45, WBC of 11.4 with. Virus panel was negative. Urine analysis was negative for leukocyte esterase and nitrites. CT abdomen and pelvis showed worsening peritoneal carcinomatosis with ascites. Chest x-ray shows possible atelectasis versus scarring or developing infiltrate. BNP was 106. Patient was saturating persistently at 88 to 90% on room air following which nebulizers were initiated in addition to the IV fluids and patient was admitted for further evaluation FORMERLY [facility], [facility] Medical History GERD without esophagitis Chronic, continuous use of opioids Osteoarthritis of right hip Essential hypertension IT band syndrome Painful menstrual periods Fibroids Migraines Fibromyalgia Chronic back pain Mumps Measles Chicken pox Surgical History H/O total hysterectomy with bilateral salpingo-oophorectomy (BSO) (10/04/22) Anesthesia History of laparoscopy (~1991) History of foot surgery (~2000) History of neck surgery (~1997) Family History Father Cancer Family/Other No problems noted. 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 household members: children Smoking Status: Never smoker alcohol intake: current Meds Home Medications and Allergies Home Medications Medication Instructions Recorded Confirmed Type nppafab-qphjnpeokgdpt-yonjrxya 250 2 tab PO Q4-6H PRN Headache, pain 12/10/21 10/03/23 History mg-250 mg-65 mg tablet (Excedrin Extra Strength) cimetidine 200 mg tablet 200 mg PO DAILY 12/10/21 10/03/23 History (Heartburn Relief (cimetidine)) loperamide 2 mg capsule 2 mg PO DAILY PRN As directed 12/10/21 10/03/23 History promethazine 25 mg tablet 25 mg PO Q4-6H PRN Nausea #30 tabs 11/19/22 10/03/23 Rx lidocaine-prilocaine 2.5 %-2.5 % 1 applic topical PRN PRN 11/21/22 10/03/23 Rx topical cream Port/Catheter Care #30 grams prochlorperazine maleate 10 mg 10 mg PO Q6H PRN Nausea #30 tabs 02/03/23 10/03/23 Rx tablet (Compazine) amlodipine 10 mg tablet 10 mg PO DAILY #90 tabs 03/17/23 10/03/23 Rx lisinopril 10 mg tablet 10 mg PO DAILY #90 tabs 03/17/23 10/03/23 Rx gabapentin 600 mg tablet 900 mg (1.5 x 600 mg) PO TID #135 05/06/23 10/03/23 Rx tabs omeprazole 40 mg capsule,delayed 40 mg PO DAILY 07/08/23 10/03/23 History release baclofen 10 mg tablet 10 mg PO TID PRN muscle spasm #90 07/30/23 10/03/23 Rx tabs ondansetron 4 mg disintegrating 4 mg PO Q8H PRN nausea and 08/09/23 10/03/23 Rx tablet vomiting #10 tabs morphine 30 mg tablet,extended 30 mg PO TID #90 tabs 08/29/23 10/03/23 Rx release oxycodone 20 mg tablet 20 mg PO TID PRN pain #90 tabs 08/29/23 10/03/23 Rx duloxetine 60 mg capsule,delayed 60 mg PO DAILY #90 caps 09/19/23 10/03/23 Rx release (Cymbalta) olanzapine 5 mg tablet 5 mg PO BEDTIME #30 tabs 09/29/23 10/03/23 Rx Allergies Allergy/AdvReac Type Severity Reaction Status Date / Time No Known Drug Allergies Allergy Verified 10/02/23 22:56 Review of Systems Review of Systems Narrative: A 12 point review of system is negative unless otherwise stated in the history of present illness Exam Vital Signs (past 8 hours): - 10/02/23 22:54 10/02/23 22:54 10/02/23 23:00 Temperature 98.4 F Pulse Rate 111 H 113 H Respiratory Rate 22 23 Blood Pressure 143/76 H 124/78 Pulse Oximetry 94 94 Oxygen Delivery Method Room Air Oxygen Flow Rate 10/02/23 23:00 10/02/23 23:30 10/03/23 00:00 Temperature Pulse Rate 108 H 107 H 100 H Respiratory Rate 23 22 26 H Blood Pressure Pulse Oximetry 93 94 91 Oxygen Delivery Method Room Air Room Air Oxygen Flow Rate 10/03/23 00:16 10/03/23 00:16 10/03/23 00:30 Temperature Pulse Rate 102 H Respiratory Rate 22 Blood Pressure 142/70 H 124/60 Pulse Oximetry 93 Oxygen Delivery Method Room Air Oxygen Flow Rate 10/03/23 00:30 10/03/23 01:00 10/03/23 01:00 Temperature Pulse Rate 101 H 89 Respiratory Rate 29 H 17 Blood Pressure 121/65 Pulse Oximetry 93 96 Oxygen Delivery Method Room Air Oxygen Flow Rate 10/03/23 01:30 10/03/23 01:30 10/03/23 02:00 Temperature Pulse Rate 86 85 Respiratory Rate 25 H 23 Blood Pressure 125/70 Pulse Oximetry 93 92 Oxygen Delivery Method Room Air Room Air Oxygen Flow Rate 10/03/23 02:00 10/03/23 02:30 10/03/23 02:30 Temperature Pulse Rate 88 Respiratory Rate 27 H Blood Pressure 135/84 135/73 Pulse Oximetry 90 L Oxygen Delivery Method Room Air Oxygen Flow Rate 10/03/23 03:04 10/03/23 03:07 10/03/23 03:09 Temperature Pulse Rate 109 H 102 H 101 H Respiratory Rate 20 21 Blood Pressure Pulse Oximetry 94 94 92 Oxygen Delivery Method Room Air Oxygen Flow Rate 10/03/23 03:09 10/03/23 03:30 10/03/23 03:30 Temperature Pulse Rate 92 H Respiratory Rate 19 Blood Pressure 127/71 113/60 Pulse Oximetry 90 L Oxygen Delivery Method Oxygen Flow Rate 10/03/23 04:00 10/03/23 04:00 10/03/23 04:00 Temperature Pulse Rate 92 H Respiratory Rate 20 Blood Pressure 118/65 Pulse Oximetry 90 L 88 L Oxygen Delivery Method Room Air Room Air Oxygen Flow Rate 10/03/23 04:30 10/03/23 04:30 10/03/23 05:00 Temperature Pulse Rate 93 H Respiratory Rate 21 Blood Pressure 121/64 109/57 L Pulse Oximetry 99 Oxygen Delivery Method Aerosol Mask Oxygen Flow Rate 10/03/23 05:00 10/03/23 05:16 10/03/23 05:19 Temperature Pulse Rate 93 H Respiratory Rate 15 Blood Pressure Pulse Oximetry 91 88 L 88 L Oxygen Delivery Method Room Air Room Air Room Air Oxygen Flow Rate 10/03/23 05:19 10/03/23 05:30 10/03/23 05:30 Temperature Pulse Rate 94 H Respiratory Rate 27 H Blood Pressure 108/58 L Pulse Oximetry 94 95 Oxygen Delivery Method Nasal Cannula Nasal Cannula Oxygen Flow Rate 2 2 10/03/23 06:15 Temperature 99.3 F Pulse Rate 107 H Respiratory Rate 18 Blood Pressure 143/77 H Pulse Oximetry 95 Oxygen Delivery Method Oxygen Flow Rate 2 Oxygen Delivery Method Nasal Cannula Oxygen Flow Rate 2 Narrative Exam Narrative: Patient is awake alert and does appear to be anxious. Air entry decreased at the right lung base Abdomen is slightly distended and firm but not tender Objective Labs 10/02/23 23:00 10/03/23 01:55 Labs: Laboratory Results - last 24 hr 10/02/23 10/02/23 10/03/23 23:00 23:22 00:30 WBC 11.4 H RBC 4.00 Hgb 11.0 L Hct 33.7 L MCV 84.2 MCH 27.5 MCHC 32.7 RDW 14.9 H Plt Count 274 Neut % (Auto) 63.0 Lymph % (Auto) 19.2 L [place] % (Auto) 11.4 Eos % (Auto) 6.0 H Baso % (Auto) 0.4 Neut # (Auto) 7200 H Lymph # (Auto) 2200 [place] # (Auto) 1300 H Eos # (Auto) 700 H Baso # (Auto) 0 Sodium 137 Potassium 4.7 Chloride 100 Carbon Dioxide 22 BUN 49 H Creatinine 2.27 H Estimated GFR 23 L BUN/Creatinine Ratio 21.6 Glucose 130 H Calcium 9.2 Total Bilirubin 0.6 AST 29 ALT 16 Alkaline Phosphatase 78 Ammonia Total Creatine Kinase Troponin I NT-Pro-B Natriuret Pep Total Protein 7.3 Albumin 4.2 Globulin 3.1 Albumin/Globulin Ratio 1.4 Urine Color Yellow Yellow Urine Appearance Slightly cloudy Sl cloudy Urine pH 5.0 5.0 Ur Specific [place] 1.015 1.025 Urine Protein Negative Negative Urine Glucose (UA) Negative Negative Urine Ketones Negative Negative Urine Occult Blood Negative Negative Urine Nitrate Negative Negative Urine Bilirubin Negative Negative Urine Urobilinogen 0.2 0.2 Ur Leukocyte Esterase Negative Trace H Urine RBC None seen None seen Urine WBC None seen 0-1/hpf Ur Squamous Epith Cells 5-10 /hpf H 0-1 /hpf Amorphous Sediment 1+ Urine Bacteria Occasional (0-1) Occasional (0-1) Ur Culture Indicated? Cult not indicated Specimen cultured Vol Urine Centrifuged 10ml (spun) 10ml (spun) Chlamy pneumoniae PCR Adenovirus (PCR) B.parapertussis DNA PCR Coronavirus OC43 (PCR) Coronavirus HKU1 (PCR) Coronavirus 229E (PCR) SARS-CoV-2 (PCR) Coronavirus NL63 (PCR) Human Metapneumovir PCR Influenza Type A (PCR) Influenza Type B (PCR) M. pneumoniae (PCR) Parainfluenza 1 (PCR) Parainfluenza 2 (PCR) Parainfluenza 3 (PCR) Parainfluenza 4 (PCR) RSV (PCR) Entero/Rhino (PCR) 10/03/23 10/03/23 10/03/23 01:29 01:55 02:40 WBC RBC Hgb Hct MCV MCH MCHC RDW Plt Count Neut % (Auto) Lymph % (Auto) [place] % (Auto) Eos % (Auto) Baso % (Auto) Neut # (Auto) Lymph # (Auto) [place] # (Auto) Eos # (Auto) Baso # (Auto) Sodium 136 L Potassium 4.8 Chloride 104 Carbon Dioxide 23 BUN 45 H Creatinine 1.85 H Estimated GFR 30 L BUN/Creatinine Ratio 24.3 H Glucose 113 H Calcium 8.1 L Total Bilirubin AST ALT Alkaline Phosphatase Ammonia < 9 L Total Creatine Kinase 29 L Troponin I < 0.012 NT-Pro-B Natriuret Pep 106 Total Protein Albumin Globulin Albumin/Globulin Ratio Urine Color Urine Appearance Urine pH Ur Specific [place] Urine Protein Urine Glucose (UA) Urine Ketones Urine Occult Blood Urine Nitrate Urine Bilirubin Urine Urobilinogen Ur Leukocyte Esterase Urine RBC Urine WBC Ur Squamous Epith Cells Amorphous Sediment Urine Bacteria Ur Culture Indicated? Vol Urine Centrifuged Chlamy pneumoniae PCR Adenovirus (PCR) B.parapertussis DNA PCR Coronavirus OC43 (PCR) Coronavirus HKU1 (PCR) Coronavirus 229E (PCR) SARS-CoV-2 (PCR) Coronavirus NL63 (PCR) Human Metapneumovir PCR Influenza Type A (PCR) Influenza Type B (PCR) M. pneumoniae (PCR) Parainfluenza 1 (PCR) Parainfluenza 2 (PCR) Parainfluenza 3 (PCR) Parainfluenza 4 (PCR) RSV (PCR) Entero/Rhino (PCR) 10/03/23 04:20 WBC RBC Hgb Hct MCV MCH MCHC RDW Plt Count Neut % (Auto) Lymph % (Auto) [place] % (Auto) Eos % (Auto) Baso % (Auto) Neut # (Auto) Lymph # (Auto) [place] # (Auto) Eos # (Auto) Baso # (Auto) Sodium Potassium Chloride Carbon Dioxide BUN Creatinine Estimated GFR BUN/Creatinine Ratio Glucose Calcium Total Bilirubin AST ALT Alkaline Phosphatase Ammonia Total Creatine Kinase Troponin I NT-Pro-B Natriuret Pep Total Protein Albumin Globulin Albumin/Globulin Ratio Urine Color Urine Appearance Urine pH Ur Specific [place] Urine Protein Urine Glucose (UA) Urine Ketones Urine Occult Blood Urine Nitrate Urine Bilirubin Urine Urobilinogen Ur Leukocyte Esterase Urine RBC Urine WBC Ur Squamous Epith Cells Amorphous Sediment Urine Bacteria Ur Culture Indicated? Vol Urine Centrifuged Chlamy pneumoniae PCR Not detected Adenovirus (PCR) Not detected B.parapertussis DNA PCR Not detected Coronavirus OC43 (PCR) Not detected Coronavirus HKU1 (PCR) Not detected Coronavirus 229E (PCR) Not detected SARS-CoV-2 (PCR) Not detected Coronavirus NL63 (PCR) Not detected Human Metapneumovir PCR Not detected Influenza Type A (PCR) Not detected Influenza Type B (PCR) Not detected M. pneumoniae (PCR) Not detected Parainfluenza 1 (PCR) Not detected Parainfluenza 2 (PCR) Not detected Parainfluenza 3 (PCR) Not detected Parainfluenza 4 (PCR) Not detected RSV (PCR) Not detected Entero/Rhino (PCR) Not detected Assessment & Plan Assessment & Plan narrative: 68 years old female with a past medical history of endometrial cancer stage IVb status post surgery currently on chemotherapy, hypertension, GERD, depression, anxiety and multiple other medical issues presented to emergency room for progressive weakness with generalized body shake. Initially son was concerned the patient had urinary infection since she had a similar symptoms previously. Patient did not report a burning sensation with urinary urgency and was harder than usual to produce urine. Also had active wheezing with shortness of breath and cough that is usually nonproductive but chronic. Not sure if she had a fever. Has a history of chronic nausea with vomiting especially worse with the chemotherapy and also has had episodes of diarrhea nonbloody. Denies any chest pain palpitation dizziness or loss of consciousness. On arrival in the ED, was noted to be tachycardic with a heart rate rate in the 110s and blood pressure was on the low normal side. Labs showed a creatinine of 2.27 initially with a BUN of 49 following which patient received fluid boluses and subsequent labs showed a creatinine of 1.85 with a BUN of 45, WBC of 11.4 with. Virus panel was negative. Urine analysis was negative for leukocyte esterase and nitrites. CT abdomen and pelvis showed worsening peritoneal carcinomatosis with ascites. Chest x-ray shows possible atelectasis versus scarring or developing infiltrate. BNP was 106. Patient was saturating persistently at 88 to 90% on room air following which nebulizers were initiated in addition to the IV fluids and patient was admitted for further evaluation 1. Acute kidney injury likely appears more of a volume depletion/prerenal in the setting of poor p.o. intake/nausea vomiting and intermittent episodes of diarrhea with the chemo and the use of RUTHIE inhibitors/NSAIDs in the home medication list. For now IV normal saline to continue at 100 mL/h while watching the renal function closely. Hold home RUTHIE inhibitors and avoid hypotension/NSAIDs. Trend renal function closely 2. Shortness of breath with wheezing. Appears more of an acute bronchitis and will treat conservatively with oxygen supplementation and nebulizers. No history of smoking but she did grow up family with her dad and siblings smoking and she had exposure as secondhand smoking 3. Endometrial cancer stage IVb with cancer pain. Resume the home morphine/oxycodone/baclofen 4. GERD resume the home cimetidine 5. Depression resume the home Cymbalta 6. Neuropathy resume the home Neurontin 7. DVT prophylaxis will be with renally adjusted Lovenox 8 nausea with vomiting Zofran as needed 9. Chronic arthritis of the hip. Continue the home pain medications and consult physical therapy Plan of care discussed with the patient and the care team at the bedside CODE STATUS discussed and she has requested full code Patient will be admitted under inpatient status. Given the acute renal failure with chronic kidney disease/hypoxemia needing oxygen supplementation/IV fluids and other intervention, patient meets criteria for inpatient with expected length of stay greater than 2 midnights Patient was evaluated with the help of video communication device. Time spent is 20 minutes. Location of the provider is [facility]
--- NOTE | 2023-10-03 07:28 | PM.HP.1 ---
History of Present Illness History of Present Illness Chief complaint: gen weak, concerns UTI Narrative: From Night Doctor: 68 years old female with a past medical history of endometrial cancer stage IVb status post surgery currently on chemotherapy, hypertension, GERD, depression, anxiety and multiple other medical issues presented to emergency room for progressive weakness with generalized body shake. Initially son was concerned the patient had urinary infection since she had a similar symptoms previously. Patient did not report a burning sensation with urinary urgency and was harder than usual to produce urine. Also had active wheezing with shortness of breath and cough that is usually nonproductive but chronic. Not sure if she had a fever. Has a history of chronic nausea with vomiting especially worse with the chemotherapy and also has had episodes of diarrhea nonbloody. Denies any chest pain palpitation dizziness or loss of consciousness. On arrival in the ED, was noted to be tachycardic with a heart rate rate in the 110s and blood pressure was on the low normal side. Labs showed a creatinine of 2.27 initially with a BUN of 49 following which patient received fluid boluses and subsequent labs showed a creatinine of 1.85 with a BUN of 45, WBC of 11.4 with. Virus panel was negative. Urine analysis was negative for leukocyte esterase and nitrites. CT abdomen and pelvis showed worsening peritoneal carcinomatosis with ascites. Chest x-ray shows possible atelectasis versus scarring or developing infiltrate. BNP was 106. Patient was saturating persistently at 88 to 90% on room air following which nebulizers were initiated in addition to the IV fluids and patient was admitted for further evaluation [facility] Medical History GERD without esophagitis Chronic, continuous use of opioids Osteoarthritis of right hip Essential hypertension IT band syndrome Painful menstrual periods Fibroids Migraines Fibromyalgia Chronic back pain Mumps Measles Chicken pox Surgical History H/O total hysterectomy with bilateral salpingo-oophorectomy (BSO) (10/04/22) Anesthesia History of laparoscopy (~1991) History of foot surgery (~2000) History of neck surgery (~1997) Family History Father Cancer Family/Other No problems noted. 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 household members: children Smoking Status: Never smoker alcohol intake: current Meds Home Medications and Allergies Home Medications Medication Instructions Recorded Confirmed Type hocmcyo-vocjplwdjecnz-[id number] 250 2 tab PO Q4-6H PRN Headache, pain 12/10/21 10/03/23 History mg-250 mg-65 mg tablet (Excedrin Extra Strength) cimetidine 200 mg tablet 200 mg PO DAILY 12/10/21 10/03/23 History (Heartburn Relief (cimetidine)) loperamide 2 mg capsule 2 mg PO DAILY PRN As directed 12/10/21 10/03/23 History promethazine 25 mg tablet 25 mg PO Q4-6H PRN Nausea #30 tabs 11/19/22 10/03/23 Rx lidocaine-prilocaine 2.5 %-2.5 % 1 applic topical PRN PRN 11/21/22 10/03/23 Rx topical cream Port/Catheter Care #30 grams prochlorperazine maleate 10 mg 10 mg PO Q6H PRN Nausea #30 tabs 02/03/23 10/03/23 Rx tablet (Compazine) amlodipine 10 mg tablet 10 mg PO DAILY #90 tabs 03/17/23 10/03/23 Rx lisinopril 10 mg tablet 10 mg PO DAILY #90 tabs 03/17/23 10/03/23 Rx gabapentin 600 mg tablet 900 mg (1.5 x 600 mg) PO TID #135 05/06/23 10/03/23 Rx tabs omeprazole 40 mg capsule,delayed 40 mg PO DAILY 07/08/23 10/03/23 History release baclofen 10 mg tablet 10 mg PO TID PRN muscle spasm #90 07/30/23 10/03/23 Rx tabs ondansetron 4 mg disintegrating 4 mg PO Q8H PRN nausea and 08/09/23 10/03/23 Rx tablet vomiting #10 tabs morphine 30 mg tablet,extended 30 mg PO TID #90 tabs 08/29/23 10/03/23 Rx release oxycodone 20 mg tablet 20 mg PO TID PRN pain #90 tabs 08/29/23 10/03/23 Rx duloxetine 60 mg capsule,delayed 60 mg PO DAILY #90 caps 09/19/23 10/03/23 Rx release (Cymbalta) olanzapine 5 mg tablet 5 mg PO BEDTIME #30 tabs 09/29/23 10/03/23 Rx Allergies Allergy/AdvReac Type Severity Reaction Status Date / Time No Known Drug Allergies Allergy Verified 10/02/23 22:56 Review of Systems Review of Systems Narrative: All else reviewed and otherwise unremarkable except as noted in the history and physical. Exam Vital Signs (past 8 hours): - 10/02/23 23:30 10/03/23 00:00 10/03/23 00:16 Temperature Pulse Rate 107 H 100 H 102 H Respiratory Rate 22 26 H 22 Blood Pressure Pulse Oximetry 94 91 93 Oxygen Delivery Method Room Air Room Air Oxygen Flow Rate 10/03/23 00:16 10/03/23 00:30 10/03/23 00:30 Temperature Pulse Rate 101 H Respiratory Rate 29 H Blood Pressure 142/70 H 124/60 Pulse Oximetry 93 Oxygen Delivery Method Oxygen Flow Rate 10/03/23 01:00 10/03/23 01:00 10/03/23 01:30 Temperature Pulse Rate 89 86 Respiratory Rate 17 25 H Blood Pressure 121/65 Pulse Oximetry 96 93 Oxygen Delivery Method Room Air Room Air Oxygen Flow Rate 10/03/23 01:30 10/03/23 02:00 10/03/23 02:00 Temperature Pulse Rate 85 Respiratory Rate 23 Blood Pressure 125/70 135/84 Pulse Oximetry 92 Oxygen Delivery Method Room Air Oxygen Flow Rate 10/03/23 02:30 10/03/23 02:30 10/03/23 03:04 Temperature Pulse Rate 88 109 H Respiratory Rate 27 H Blood Pressure 135/73 Pulse Oximetry 90 L 94 Oxygen Delivery Method Room Air Oxygen Flow Rate 10/03/23 03:07 10/03/23 03:09 10/03/23 03:09 Temperature Pulse Rate 102 H 101 H Respiratory Rate 20 21 Blood Pressure 127/71 Pulse Oximetry 94 92 Oxygen Delivery Method Room Air Oxygen Flow Rate 10/03/23 03:30 10/03/23 03:30 10/03/23 04:00 Temperature Pulse Rate 92 H Respiratory Rate 19 Blood Pressure 113/60 118/65 Pulse Oximetry 90 L Oxygen Delivery Method Oxygen Flow Rate 10/03/23 04:00 10/03/23 04:00 10/03/23 04:30 Temperature Pulse Rate 92 H Respiratory Rate 20 Blood Pressure 121/64 Pulse Oximetry 90 L 88 L Oxygen Delivery Method Room Air Room Air Oxygen Flow Rate 10/03/23 04:30 10/03/23 05:00 10/03/23 05:00 Temperature Pulse Rate 93 H 93 H Respiratory Rate 21 15 Blood Pressure 109/57 L Pulse Oximetry 99 91 Oxygen Delivery Method Aerosol Mask Room Air Oxygen Flow Rate 10/03/23 05:16 10/03/23 05:19 10/03/23 05:19 Temperature Pulse Rate Respiratory Rate Blood Pressure Pulse Oximetry 88 L 88 L 94 Oxygen Delivery Method Room Air Room Air Nasal Cannula Oxygen Flow Rate 2 10/03/23 05:30 10/03/23 05:30 10/03/23 06:15 Temperature 99.3 F Pulse Rate 94 H 107 H Respiratory Rate 27 H 18 Blood Pressure 108/58 L 143/77 H Pulse Oximetry 95 95 Oxygen Delivery Method Nasal Cannula Oxygen Flow Rate 2 2 Oxygen Delivery Method Nasal Cannula Oxygen Flow Rate 2 Narrative Exam Narrative: Somnolent, no distress. Normocephalic skull, no facial droop. Neck is supple, midline trachea. Lungs are clear, no wheezing. Heart is regular. Abdomen is soft, nontender. Extremities are free of edema. No skin rash or lesions. No joint defromities Objective Imaging Chest x-ray: My impression: Chest x-ray appears to be consistent with pulmonary edema by my read. CT scan - head: Radiologist's impression: Labs 10/02/23 23:00 10/03/23 01:55 Labs: Laboratory Results - last 24 hr 10/02/23 10/02/23 10/03/23 23:00 23:22 00:30 WBC 11.4 H RBC 4.00 Hgb 11.0 L Hct 33.7 L MCV 84.2 MCH 27.5 MCHC 32.7 RDW 14.9 H Plt Count 274 Neut % (Auto) 63.0 Lymph % (Auto) 19.2 L Cecil % (Auto) 11.4 Eos % (Auto) 6.0 H Baso % (Auto) 0.4 Neut # (Auto) 7200 H Lymph # (Auto) 2200 Cecil # (Auto) 1300 H Eos # (Auto) 700 H Baso # (Auto) 0 Sodium 137 Potassium 4.7 Chloride 100 Carbon Dioxide 22 BUN 49 H Creatinine 2.27 H Estimated GFR 23 L BUN/Creatinine Ratio 21.6 Glucose 130 H Calcium 9.2 Total Bilirubin 0.6 AST 29 ALT 16 Alkaline Phosphatase 78 Ammonia Total Creatine Kinase Troponin I NT-Pro-B Natriuret Pep Total Protein 7.3 Albumin 4.2 Globulin 3.1 Albumin/Globulin Ratio 1.4 Urine Color Yellow Yellow Urine Appearance Slightly cloudy Sl cloudy Urine pH 5.0 5.0 Ur Specific Issue 1.015 1.025 Urine Protein Negative Negative Urine Glucose (UA) Negative Negative Urine Ketones Negative Negative Urine Occult Blood Negative Negative Urine Nitrate Negative Negative Urine Bilirubin Negative Negative Urine Urobilinogen 0.2 0.2 Ur Leukocyte Esterase Negative Trace H Urine RBC None seen None seen Urine WBC None seen 0-1/hpf Ur Squamous Epith Cells 5-10 /hpf H 0-1 /hpf Amorphous Sediment 1+ Urine Bacteria Occasional (0-1) Occasional (0-1) Ur Culture Indicated? Cult not indicated Specimen cultured Vol Urine Centrifuged 10ml (spun) 10ml (spun) Chlamy pneumoniae PCR Adenovirus (PCR) B.parapertussis DNA PCR Coronavirus OC43 (PCR) Coronavirus HKU1 (PCR) Coronavirus 229E (PCR) SARS-CoV-2 (PCR) Coronavirus NL63 (PCR) Human Metapneumovir PCR Influenza Type A (PCR) Influenza Type B (PCR) M. pneumoniae (PCR) Parainfluenza 1 (PCR) Parainfluenza 2 (PCR) Parainfluenza 3 (PCR) Parainfluenza 4 (PCR) RSV (PCR) Entero/Rhino (PCR) 10/03/23 10/03/23 10/03/23 01:29 01:55 02:40 WBC RBC Hgb Hct MCV MCH MCHC RDW Plt Count Neut % (Auto) Lymph % (Auto) Cecil % (Auto) Eos % (Auto) Baso % (Auto) Neut # (Auto) Lymph # (Auto) Cecil # (Auto) Eos # (Auto) Baso # (Auto) Sodium 136 L Potassium 4.8 Chloride 104 Carbon Dioxide 23 BUN 45 H Creatinine 1.85 H Estimated GFR 30 L BUN/Creatinine Ratio 24.3 H Glucose 113 H Calcium 8.1 L Total Bilirubin AST ALT Alkaline Phosphatase Ammonia < 9 L Total Creatine Kinase 29 L Troponin I < 0.012 NT-Pro-B Natriuret Pep 106 Total Protein Albumin Globulin Albumin/Globulin Ratio Urine Color Urine Appearance Urine pH Ur Specific Issue Urine Protein Urine Glucose (UA) Urine Ketones Urine Occult Blood Urine Nitrate Urine Bilirubin Urine Urobilinogen Ur Leukocyte Esterase Urine RBC Urine WBC Ur Squamous Epith Cells Amorphous Sediment Urine Bacteria Ur Culture Indicated? Vol Urine Centrifuged Chlamy pneumoniae PCR Adenovirus (PCR) B.parapertussis DNA PCR Coronavirus OC43 (PCR) Coronavirus HKU1 (PCR) Coronavirus 229E (PCR) SARS-CoV-2 (PCR) Coronavirus NL63 (PCR) Human Metapneumovir PCR Influenza Type A (PCR) Influenza Type B (PCR) M. pneumoniae (PCR) Parainfluenza 1 (PCR) Parainfluenza 2 (PCR) Parainfluenza 3 (PCR) Parainfluenza 4 (PCR) RSV (PCR) Entero/Rhino (PCR) 10/03/23 04:20 WBC RBC Hgb Hct MCV MCH MCHC RDW Plt Count Neut % (Auto) Lymph % (Auto) Cecil % (Auto) Eos % (Auto) Baso % (Auto) Neut # (Auto) Lymph # (Auto) Cecil # (Auto) Eos # (Auto) Baso # (Auto) Sodium Potassium Chloride Carbon Dioxide BUN Creatinine Estimated GFR BUN/Creatinine Ratio Glucose Calcium Total Bilirubin AST ALT Alkaline Phosphatase Ammonia Total Creatine Kinase Troponin I NT-Pro-B Natriuret Pep Total Protein Albumin Globulin Albumin/Globulin Ratio Urine Color Urine Appearance Urine pH Ur Specific Issue Urine Protein Urine Glucose (UA) Urine Ketones Urine Occult Blood Urine Nitrate Urine Bilirubin Urine Urobilinogen Ur Leukocyte Esterase Urine RBC Urine WBC Ur Squamous Epith Cells Amorphous Sediment Urine Bacteria Ur Culture Indicated? Vol Urine Centrifuged Chlamy pneumoniae PCR Not detected Adenovirus (PCR) Not detected B.parapertussis DNA PCR Not detected Coronavirus OC43 (PCR) Not detected Coronavirus HKU1 (PCR) Not detected Coronavirus 229E (PCR) Not detected SARS-CoV-2 (PCR) Not detected Coronavirus NL63 (PCR) Not detected Human Metapneumovir PCR Not detected Influenza Type A (PCR) Not detected Influenza Type B (PCR) Not detected M. pneumoniae (PCR) Not detected Parainfluenza 1 (PCR) Not detected Parainfluenza 2 (PCR) Not detected Parainfluenza 3 (PCR) Not detected Parainfluenza 4 (PCR) Not detected RSV (PCR) Not detected Entero/Rhino (PCR) Not detected Assessment & Plan Assessment & Plan narrative: 1. Acute kidney injury, present on admission and active. - appears more of a volume depletion/prerenal in the setting of poor p.o. intake/nausea vomiting and intermittent episodes of diarrhea with the chemo and the use of RUTHIE inhibitors/NSAIDs in the home medication list. - continue IV normal saline to continue at 100 mL/h and monitor the renal function closely. Hold home RUTHIE inhibitors and avoid hypotension/NSAIDs. 2. Dyspnea with wheezing. Appears more of an acute bronchitis and will treat conservatively with oxygen supplementation and nebulizers. No history of smoking but she did grow up family with her dad and siblings smoking and she had exposure as secondhand smoking -ECHO to assess LVEF (chemotherapy). 3. Endometrial cancer stage IVb with cancer pain. Present on admission and active. - Resume the home morphine/oxycodone/baclofen 4. GERD, present on admission and stable. - resume the home cimetidine 5. Depression, present on admission and stable. - resume the home Cymbalta 6. Neuropathy, present on admission and stable. - resume the home Neurontin 7. Nausea with vomiting, present on admission and active. - Zofran as needed 8. Chronic arthritis of the hip. present on admission and stable. - Continue the home pain medications and consult physical therapy Plan of care discussed with the patient and the care team at the bedside CODE STATUS discussed and she has requested full code Patient will be admitted under inpatient status. Given the acute renal failure with chronic kidney disease/hypoxemia needing oxygen supplementation/IV fluids and other intervention, patient meets criteria for inpatient with expected length of stay greater than 2 midnights Time Spent With Patient Time with patient: 30 to 49 minutes with 50% spent counseling/coordinating care Quality MIPS - Admit I confirm the patient?s Advance Care Plan is present, Code status is documented, Surrogate decision maker is in patient?s record [If Yes, STOP here]: Yes MIPS - Meds 'Current medications' to include all prescriptions, [id number] products, herbals, cannabis/cannabidiol products, and vitamin/mineral/dietary (nutritional) supplements. I have utilized all available resources to obtain, update, or review the patient?s current medications. [If Yes, STOP here]: Yes
[2023-10-03] MEDS: ONDANSETRON 4 MG/2 ML INJ IV (07:42)
[2023-10-03] MEDS: PANTOPRAZOLE DR 40 MG TABLET PO (07:42)
[2023-10-03] MEDS: BACLOFEN 10 MG TABLET PO ×2 (07:42→14:28)
[2023-10-03] MEDS: OXYCODONE IR 10 MG TABLET 20 MG PO ×3 (07:42→22:45)
[2023-10-03] MEDS: GABAPENTIN 300 MG CAPSULE 900 MG PO ×3 (08:19→20:11)
[2023-10-03] MEDS: DULOXETINE 30 MG CAPSULE 60 MG PO (08:19)
[2023-10-03] MEDS: FAMOTIDINE 20 MG TABLET PO (08:20)
[2023-10-03] MEDS: ENOXAPARIN 40 MG/0.4 ML SYRINGE 30 MG SUBCUT (08:20)
[2023-10-03] MEDS: MORPHINE ER 15 MG TABLET 30 MG PO ×3 (08:20→20:11)
--- NOTE | 2023-10-03 12:36 | CM.DANOTE ---
Initial DCP Assessment Note Pt is a 68 yo female, resident of [place], PMH includes endometrial cancer stage IVb status post surgery currently on chemotherapy, presents with weakness and body shakes, admitted for management of HAL - suspected to be related to volume depletion/poor intake w/N/V etc due to chemo PCP: Mo Moseley Payer: Darrel CASTLE Reviewed chart, met w/patient, introduced self and role. Patient lives in an apt in [place] with her son Mickey. Son provides assist with all higher ADLs including cooking, cleaning, chores and provides SBA when patient walks to the BR w/walker. Patient does not have home oxygen. Son available 03/03 to patient. Patient reports not having a car currently as the battery just went . Patient denies hx of HH or SNF. Patient plans to return home w/son to assist. Discussed DPOA and patient requests ppk in order to designate her son. Plan: Discharge home w/son anticipated. Returning to room to provide DPOA ppk, will ask patient if she would consider HH services. Also curious where patient has her cancer care. CLAY Ordoñez Discharge Planning/Care Management CM Discharge Assessment Start: 10/03/23 12:30 Freq: Status: Active Protocol: Document 10/03/23 12:30 AGUSTIN (Rec: 10/03/23 12:36 AGUSTIN [id number]) Discharge Planning Assessment Assigned Launch Leader CLAY Yin DPJOSEY/Assigned Designee Name gibran Schuster Contact Information [phone] Advance Directives? No History Provided By Patient,Medical Record Prior Living Arrangements Apartment/Condo Comment Prior note states: 18 stairs to get into apartment, stays all the time unless going to appointments and then needs lot of help Household Members children Type of transporation used prior to Relies on Others admit Comment Patient and son do not have a car available, battery is Independent with ADL's No Is patient alert and oriented? Yes Needs Assistance With Grooming,Meal Prep,Managing Medications,Home Chores / Shopping Patient/Family Preference Home with Home Health Barriers to Discharge No Comment Son provides all assist and can resume care once patient is discharged home. patient may be a good candidate for HH if agreeable and HH agency will accept her Darrel CASTLE Discharge Plan Home with Home Health Transportation Arrangement Son Referrals Initiated Other Additional Comment Will plan to discuss HH with patient Whiteboard Updated in Patient Room with Yes name and ext. # of Launch Leader
[2023-10-03] MEDS: cefTRIAXone 1,000 MG in SODIUM CHLORIDE 0.9% 100 ML 200 MG IV (18:34)
[2023-10-03] MEDS: OLANZapine 2.5 MG TABLET 5 MG PO (20:11)
[2023-10-04] VITALS (7 sets, daily range): BP systolic 109–139; BP diastolic 69–85; PULSE 75–86; RESP 16–20; TEMP 36.2–36.8; O2SAT 94–98
[2023-10-04] MEDS: OXYCODONE IR 10 MG TABLET 20 MG PO ×2 (04:42→20:52)
[2023-10-04] MEDS: PANTOPRAZOLE DR 40 MG TABLET PO (05:13)
[2023-10-04] MEDS: ONDANSETRON 4 MG ODT PO (06:02)
--- NOTE | 2023-10-04 07:26 | PM.PN.1 ---
Subjective Subjective Interval history: She feels better today, less tremor. Her abdomen is feeling full and distended. No dyspnea. Exam Vital Signs (past 8 hours): - 10/04/23 00:05 10/04/23 04:50 Temperature 97.1 F L 97.9 F Pulse Rate 77 77 Respiratory Rate 20 20 Blood Pressure 117/71 139/76 Pulse Oximetry 95 95 Oxygen Flow Rate 1 1 Fraction of Inspired Oxygen 24 Oxygen Delivery Method Nasal Cannula Oxygen Flow Rate 1 Narrative Exam Narrative: NAD, fluent speech. Lungs are clear, normal effort. Heart is regular with a systolic murmur 3/6. Abdomen is distended and somewhat full, ascites. Extremities are free of edema. Objective Imaging CT scan - abdomen: Radiologist's impression: 1. Interval development of peritoneal carcinomatosis of the lower abdomen and pelvis with new scattered ascites concerning for metastatic disease. There also subtle nodular densities involving the posterior peritoneum of the right lower pelvis. 2. Otherwise, no acute abnormalities identified in the abdomen or pelvis. No evidence for urolithiasis or obstructive uropathy. 3. Redemonstration of cholelithiasis without wall thickening. Recommend clinical correlation. Consider further evaluation with right upper quadrant ultrasound. 4. Status post hysterectomy and bilateral oophorectomy. Stable right common iliac chain lymph node. Labs 10/02/23 23:00 10/03/23 01:55 PFSH Medical History GERD without esophagitis Chronic, continuous use of opioids Osteoarthritis of right hip Essential hypertension IT band syndrome Painful menstrual periods Fibroids Migraines Fibromyalgia Chronic back pain Mumps Measles Chicken pox Surgical History H/O total hysterectomy with bilateral salpingo-oophorectomy (BSO) (10/04/22) Anesthesia History of laparoscopy (~1991) History of foot surgery (~2000) History of neck surgery (~1997) Family History Father Cancer Family/Other No problems noted. 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 Acute kidney injury, present on admission and active, slight improvement. - appears more of a volume depletion/prerenal in the setting of poor p.o. intake/nausea vomiting and intermittent episodes of diarrhea with the chemo and the use of RUTHIE inhibitors/NSAIDs in the home medication list. - continue IV normal saline to continue at 100 mL/h and monitor the renal function closely. Hold home RUTHIE inhibitors and avoid hypotension/NSAIDs. - stopped Bactrim, will check Urine eos. 2. Dyspnea with wheezing. Present on admission and improving. -Appears more of an acute bronchitis and will treat conservatively with oxygen supplementation and nebulizers. No history of smoking but she did grow up family with her dad and siblings smoking and she had exposure as secondhand smoking -ECHO to assess LVEF (chemotherapy). 3. Endometrial cancer stage IVb with cancer painand peritoneal carcinomatosis and ascites. Present on admission and active. - Resume the home morphine/oxycodone/baclofen - Sent electronic message to her oncologist, Dr. Medina to have him review CT and get his recs. 4. GERD, present on admission and stable. - resume the home cimetidine 5. Depression, present on admission and stable. - resume the home Cymbalta 6. Neuropathy, present on admission and stable. - resume the home Neurontin 7. Nausea with vomiting, present on admission and active. - Zofran as needed 8. Chronic arthritis of the hip. present on admission and stable. - Continue the home pain medications and consult physical therapy 9. Probable malignant ascites, present on admission and active. 10. UTI, present on admission and active. - continue Ceftriaxone IV. Time Spent With Patient Time with patient: 30 to 49 minutes with 50% spent counseling/coordinating care
[2023-10-04] MEDS: GABAPENTIN 300 MG CAPSULE 900 MG PO ×3 (08:23→20:15)
[2023-10-04] MEDS: MORPHINE ER 15 MG TABLET 30 MG PO ×3 (08:24→20:15)
[2023-10-04] MEDS: DOCUSATE 100 MG CAPSULE PO (08:24)
[2023-10-04] MEDS: FAMOTIDINE 20 MG TABLET PO (08:24)
[2023-10-04] MEDS: DULOXETINE 30 MG CAPSULE 60 MG PO (08:24)
[2023-10-04] MEDS: ENOXAPARIN 40 MG/0.4 ML SYRINGE SUBCUT (08:25)
[2023-10-04] MEDS: guaiFENesin Solution 100 MG/5 ML UDC PO ×3 (11:07→20:14)
--- NOTE | 2023-10-04 12:06 | CM.DPC ---
DCP Cont: Per MD, pt making some progress but CT scan showed signs of recurrent or worsening CA and send imaging to pt's Oncologist Dr. Medina for review towards recommendations for the patient. Pt also has scheduled infusion for early this coming week and will determine Oncologist's recommendations for that as well. Plan: SW to follow closely for Oncologist recommendations from CT scan and scheduled infusion towards determining any discharge planning needs besides pt's preference of d/c home with son assist and support. SW to r/o any HH needs. CLAY Landis
[2023-10-04] MEDS: POLYVINYL ALCOHOL DROPS 1 DROPS EYE-BOTH (13:26)
[2023-10-04] MEDS: BENZONATATE 100 MG CAPSULE PO ×2 (13:27→22:01)
[2023-10-04] MEDS: cefTRIAXone 1,000 MG in SODIUM CHLORIDE 0.9% 100 ML 200 MG IV (18:30)
[2023-10-04] MEDS: OLANZapine 2.5 MG TABLET 5 MG PO (20:15)
[2023-10-05 00:14] VITALS: BP 112/76; PULSE 82; RESP 22; TEMP 36.4; O2SAT 96
[2023-10-05] MEDS: guaiFENesin Solution 100 MG/5 ML UDC PO ×2 (00:14→08:42)
[2023-10-05 04:35] VITALS: BP 107/67; PULSE 77; RESP 20; TEMP 36.8; O2SAT 94
[2023-10-05] MEDS: OXYCODONE IR 10 MG TABLET 20 MG PO ×2 (05:02→13:16)
[2023-10-05] MEDS: PANTOPRAZOLE DR 40 MG TABLET PO (05:02)
[2023-10-05 08:00] VITALS: BP 118/68; PULSE 80; RESP 16; TEMP 36.3; O2SAT 97
[2023-10-05] MEDS: FAMOTIDINE 20 MG TABLET PO (08:41)
[2023-10-05] MEDS: DOCUSATE 100 MG CAPSULE PO (08:41)
[2023-10-05] MEDS: GABAPENTIN 300 MG CAPSULE 900 MG PO (08:41)
[2023-10-05] MEDS: DULOXETINE 30 MG CAPSULE 60 MG PO (08:41)
[2023-10-05] MEDS: MORPHINE ER 15 MG TABLET 30 MG PO (08:41)
[2023-10-05] MEDS: ENOXAPARIN 40 MG/0.4 ML SYRINGE SUBCUT (08:42)
[2023-10-05] MEDS: ONDANSETRON 4 MG ODT PO (09:19)
--- NOTE | 2023-10-05 09:28 | PT.OIE ---
Current Diagnoses Acute kidney failure, unspecified (10/03/23) Past Medical History (Last Reviewed 10/03/23 @ 15:44 by Zurdo Mcknight MD) Chicken pox Chronic back pain Chronic, continuous use of opioids Essential hypertension Fibroids Fibromyalgia GERD without esophagitis IT band syndrome Measles Migraines Mumps Osteoarthritis of right hip Painful menstrual periods Past Surgical History (Last Reviewed 10/03/23 @ 15:44 by Zurdo Mcknight MD) Anesthesia H/O total hysterectomy with bilateral salpingo-oophorectomy (BSO) (10/04/22) History of foot surgery (~2000) History of laparoscopy (~1991) History of neck surgery (~1997) Visit Care Team Role Provider Type Mo Moseley MD Primary Care Provider Physician Specialty: Internal Medicine Address: [address] [place] [address] Email: [email or web address] Helen Calhoun MD Emergency Provider Physician Referring Provider Specialty: Emergency Medicine Address: [address] [place] [address], [facility] Email: [email or web address] Nolan Villarreal MD Admit Provider Physician Attending Provider Specialty: Internal Medicine Address: [address] [place] [address], [facility] Fax: Email:
[2023-10-05] MEDS: polyethylene glycoL 3350 17 GM POWD.PACK PO (11:43)
[2023-10-05] MEDS: SENNOSIDES 8.6 MG TABLET PO (11:43)
[2023-10-05] MEDS: BACLOFEN 10 MG TABLET PO (11:45)
[2023-10-05 12:00] VITALS: BP 103/56; PULSE 85; RESP 16; TEMP 36.1; O2SAT 95
--- NOTE | 2023-10-05 13:12 | P.DS_ITS ---
History of Present Illness History of Present Illness Chief complaint: gen weak, concerns UTI Narrative: From Night Doctor: 68 years old female with a past medical history of endometrial cancer stage IVb status post surgery currently on chemotherapy, hypertension, GERD, depression, anxiety and multiple other medical issues presented to emergency room for progressive weakness with generalized body shake. Initially son was concerned the patient had urinary infection since she had a similar symptoms previously. Patient did not report a burning sensation with urinary urgency and was harder than usual to produce urine. Also had active wheezing with shortness of breath and cough that is usually nonproductive but chronic. Not sure if she had a fever. Has a history of chronic nausea with vomiting especially worse with the chemotherapy and also has had episodes of diarrhea nonbloody. Denies any chest pain palpitation dizziness or loss of consciousness. On arrival in the ED, was noted to be tachycardic with a heart rate rate in the 110s and blood pressure was on the low normal side. Labs showed a creatinine of 2.27 initially with a BUN of 49 following which patient received fluid boluses and subsequent labs showed a creatinine of 1.85 with a BUN of 45, WBC of 11.4 with. Virus panel was negative. Urine analysis was negative for leukocyte esterase and nitrites. CT abdomen and pelvis showed worsening peritoneal carcinomatosis with ascites. Chest x-ray shows possible atelectasis versus scarring or developing infiltrate. BNP was 106. Patient was saturating persistently at 88 to 90% on room air following which nebulizers were initiated in addition to the IV fluids and patient was admitted for further evaluation Discharge Providers Provider Date of admission: 10/03/23 05:30 Discharge Date: 10/05/23 Primary care physician: Mo Moseley MD Consults: 10/04/23 13:12 Consult to Physical Therapy Evaluate & Treat Comment: Physician Instructions: Evaluate and Treat Discharge provider: Zurdo Mcknight MD Summary Hospital Course Discharge Diagnosis: 1. Acute kidney injury, present on admission and active, slight improvement. - appears more of a volume depletion/prerenal in the setting of poor p.o. intake/nausea vomiting and intermittent episodes of diarrhea with the chemo and the use of RUTHIE inhibitors/NSAIDs in the home medication list. - continue IV normal saline to continue at 100 mL/h and monitor the renal function closely. Hold home RUTHIE inhibitors and avoid hypotension/NSAIDs. - stopped Bactrim, will check Urine eos. 2. Dyspnea with wheezing. Present on admission and improving. -Appears more of an acute bronchitis and will treat conservatively with oxygen supplementation and nebulizers. No history of smoking but she did grow up family with her dad and siblings smoking and she had exposure as secondhand smoking -ECHO to assess LVEF (chemotherapy). 3. Endometrial cancer stage IVb with cancer painand peritoneal carcinomatosis and ascites. Present on admission and active. - Resume the home morphine/oxycodone/baclofen - Sent electronic message to her oncologist, Dr. Medina to have him review CT and get his recs. 4. GERD, present on admission and stable. - resume the home cimetidine 5. Depression, present on admission and stable. - resume the home Cymbalta 6. Neuropathy, present on admission and stable. - resume the home Neurontin 7. Nausea with vomiting, present on admission and active. - Zofran as needed 8. Chronic arthritis of the hip. present on admission and stable. - Continue the home pain medications and consult physical therapy 9. Probable malignant ascites, present on admission and active. 10. UTI, present on admission and active. - continue Ceftriaxone IV. Hospital Course: She was admitted with abdominal pain and possible UTI. Her Bactrim was stopped because of possible HAL. She was treated with ceftriaxone and did improve. Her tremors resolved. She did have abdominal distention and CT indicated ascites which might be malignant, as well as peritoneal carcinomatosis. This information was shared with Oncology at [facility], she has an appointment with him on the morning following discharge. Images will be sent to the [facility] PACs. The patient will be discharged with cephalexin q.i.d. for 4 additional days. She lives with her son, they were both comfortable with her discharge home with her current physical capacity. They feel she is improved with resolution of her tremors and weakness. She was also constipated with no bowel movement for about 1 week was given a bowel program prior to discharge. Status at Discharge Cognitive/behavioral status at discharge: oriented Functional status at discharge: independent ambulation Time Spent with Patient Time spent: Greater than 30 minutes Exam Vital Signs (past 8 hours): - 10/05/23 08:00 10/05/23 08:45 Temperature 97.3 F L Pulse Rate 80 Respiratory Rate 16 Blood Pressure 118/68 Pulse Oximetry 97 Oxygen Delivery Method Nasal Cannula Oxygen Flow Rate 0 Fraction of Inspired Oxygen 24 SaO2/FiO2 Ratio 391 Oxygen Delivery Method Nasal Cannula Oxygen Flow Rate 0 Narrative Exam Narrative: NAD, alert and oriented. Fluent speech. Lungs are clear, normal rate and effort. Heart is regular, no murmur gallop or rub. Abdomen is soft, distended. Some tenderness. Extremities are free of edema. Objective Labs 10/02/23 23:00 10/03/23 01:55 [facility] Medical History GERD without esophagitis Chronic, continuous use of opioids Osteoarthritis of right hip Essential hypertension IT band syndrome Painful menstrual periods Fibroids Migraines Fibromyalgia Chronic back pain Mumps Measles Chicken pox Surgical History H/O total hysterectomy with bilateral salpingo-oophorectomy (BSO) (10/04/22) Anesthesia History of laparoscopy (~1991) History of foot surgery (~2000) History of neck surgery (~1997) Family History Father Cancer Family/Other No problems noted. 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 Acute kidney injury, present on admission and active, slight improvement. - appeared more of a volume depletion/prerenal in the setting of poor p.o. intake/nausea vomiting and intermittent episodes of diarrhea with the chemo and the use of RUTHIE inhibitors/NSAIDs in the home medication list. - continued IV normal saline to continue at 100 mL/h and monitor the renal function closely. Hold home RUTHIE inhibitors and avoid hypotension/NSAIDs. - stopped Bactrim 2. Dyspnea with wheezing. Present on admission and improving. -Appears more of an acute bronchitis and will treat conservatively with oxygen supplementation and nebulizers. No history of smoking but she did grow up family with her dad and siblings smoking and she had exposure as secondhand smoking. [place] with antitussives. 3. Endometrial cancer stage IVb with cancer painand peritoneal carcinomatosis and ascites. Present on admission and active. - Resume the home morphine/oxycodone/baclofen - Sent electronic message to her oncologist, Dr. Medina to have him review CT and get his recs. 4. GERD, present on admission and stable. - resumed the home cimetidine 5. Depression, present on admission and stable. - resumed the home Cymbalta 6. Neuropathy, present on admission and stable. - resumed the home Neurontin 7. Nausea with vomiting, present on admission and active. - Zofran as needed 8. Chronic arthritis of the hip. present on admission and stable. - Continue the home pain medications and consult physical therapy 9. Probable malignant ascites, present on admission and active. 10. UTI, present on admission and active. - given Ceftriaxone IV. Plan of Treatment: The patient was discharged with cephalexin to start tomorrow for several more days. Bactrim was stopped because of possible HAL. Electronic communication with shared with oncologist, she will see Dr. Medina tomorrow. We will push CT 2 [facility] PACs. The concern is that the CT shows evidence of malignant ascites and peritoneal carcinomatosis. Discharge Plan Discharge Plan Patient Disposition: Home Provider Discharge Comment: Stable for discharge. Will see her oncologist tomorrow AM (Dr. Medina, [facility]). Discharge orders & Medications Prescriptions: New benzonatate 100 mg Capsule 100 mg PO TID PRN (Reason: Cough) Qty: 20 0RF cephalexin 500 mg capsule 500 mg PO QID Qty: 20 0RF Continued promethazine 25 mg tablet 25 mg PO Q4-6H PRN (Reason: Nausea) Qty: 30 1RF prochlorperazine maleate [Compazine] 10 mg tablet 10 mg PO Q6H PRN (Reason: Nausea) Qty: 30 1RF morphine 30 mg tablet extended release 30 mg PO TID Qty: 90 0RF oxycodone 20 mg tablet 20 mg PO TID PRN (Reason: pain) Qty: 90 0RF duloxetine [Cymbalta] 60 mg capsule,delayed release(DR/EC) 60 mg PO DAILY Qty: 90 1RF olanzapine 5 mg tablet 5 mg PO BEDTIME Qty: 30 5RF lisinopril 10 mg tablet 10 mg PO DAILY Qty: 90 3RF amlodipine 10 mg tablet 10 mg PO DAILY Qty: 90 3RF gabapentin 600 mg tablet 900 mg PO TID Qty: 135 5RF Rx Instructions: take with 1 300 mg tab cimetidine [Heartburn Relief (cimetidine)] 200 mg tablet 200 mg PO DAILY Excedrin Extra Strength 250-250-65 mg tablet 2 tab PO Q4-6H PRN (Reason: Headache, pain) loperamide 2 mg capsule 2 mg PO DAILY PRN (Reason: As directed) omeprazole 40 mg capsule,delayed release(DR/EC) 40 mg PO DAILY baclofen 10 mg tablet 10 mg PO TID PRN (Reason: muscle spasm) Qty: 90 5RF lidocaine-prilocaine 2.5-2.5 % Cream 1 applic topical PRN PRN (Reason: Port/Catheter Care) Qty: 30 1RF Rx Instructions: apply to the skin over the port at least 2 hours before planned use of the port. Cover the cream with a small piece of plastic wrap and leave in place until the port is accessed ondansetron 4 mg tablet,disintegrating 4 mg PO Q8H PRN (Reason: nausea and vomiting) Qty: 10 0RF Medication counseling provided by Pharmacist: No Follow up/Referrals: Mo Moseley MD [Primary Care Provider] - Activity Restrictions/Additional Instructions: Your kidney function today was elevated, however it began to go back to normal after rehydrating you with IV fluids. Your urine today was cloudy, and there is some bacteria, making this indeterminate for infection. With your past medical history as a precaution I will send a prescription for antibiotics to your pharmacy. Please follow up with your oncologist concerning your kidney function and your further chemotherapy treatments. Discharge Health Status Multidrug resistant organism: No MDRO Diet/Activity/Treatments Diet: Diet as Tolerated Skin/Wound/Dressing Care Report to your healthcare provider any signs of infection, such as:: chills, fever, night sweats and increased pain Visit Report/Discharge Packet Stand Alone Forms: Patient Portal/API Discharge Data Primary Care Provider: Mo Moseley V Quality MIPS - DC The patient has a history of heart transplant or Left Ventricular Assist Device (LVAD). If yes, STOP here.: No The patient has current or prior documentation of left ventricular ejection fraction (LVEF) less than or equal to 40%, or moderate or severely depressed left ventricular systolic function.: No
[2023-10-05] MEDS: BISACODYL 10 MG SUPP PR (13:16)
--- NOTE | 2023-10-05 13:41 | CM.DPC ---
DCP Discharge Home Per MD, pt medically stable to d/c home today after consulting with pt's Oncologist Dr. Medina and deemed improved and pt preference is to d/c today and to make her already scheduled Onc appointment tomorrow with Dr. Medina. Per PT, pt was able to ambulate and recommending home with outpt PT as pt declines HH and not homebound but still too fatigued to practice stairs as pt has 18 steps to enter but discussion about possible options at d/c of staying with a friend/family or hotel etc.. and pt confirms she is agreeable with d/c home today with her supportive son and to complete her Onc appointment tomorrow. Plan: Patient to d/c home today via son POV and outpt f/u tomorrow with her Oncologist Dr. Medina as planned. CLAY Landis
--- NOTE | 2023-10-05 15:22 | PC.NURSE ---
Pt discharged home at 1500, escorted off floor in wheelchair accompanied by son and hospital staff. IV removed, tele d/c'd, discharge teaching completed including new medications, follow up appointments and worsening symptoms. Questions answered and concerns addressed. Patient left the floor with all belongings.
== END 2023-10-05 15:15 | disposition home or self-care (01) | DRG 683 ==
LOC: ED 10-03 04:17 → AC 10-03 05:30
PROVIDERS: Admitting Provider Internal Medicine; Emergency Provider Emergency Medicine; PCP Internal Medicine; Referring Provider Emergency Medicine; Visit Provider Internal Medicine
DX: N17.9 Acute kidney failure, unspecified (principal); C78.6 Secondary malignant neoplasm of retroperitoneum and peritoneum; N39.0 Urinary tract infection, site not specified; R18.0 Malignant ascites; C54.1 Malignant neoplasm of endometrium; G89.3 Neoplasm related pain (acute) (chronic); K21.9 Gastro-esophageal reflux disease without esophagitis; F32.A Depression, unspecified; G62.9 Polyneuropathy, unspecified; R11.2 Nausea with vomiting, unspecified; J20.9 Acute bronchitis, unspecified; M16.11 Unilateral primary osteoarthritis, right hip; Z77.22 Contact with and (suspected) exposure to environmental tobacco smoke (acute) (chronic)
CPT/HCPCS: 36415; 70450; 71045; 74176; 80048; 80053; 81001; 81003; 82140; 82550; 83880; 84484; 85025; 87086; 87633; 94640; 94762; 97161; 99285; A9270; J0696; J1650; J2405

== ENCOUNTER 2023-10-12 10:50 | Inpatient (IN) | payer OTHER, SELFPAY ==
[2023-10-03 06:36] VITALS: BMI 33.3
[2023-10-12] VITALS (45 sets, daily range): BP systolic 99–163; BP diastolic 55–86; PULSE 66–115; RESP 15–27; TEMP 36.8–37.4; O2SAT 89–98; BMI 33.3
--- NOTE | 2023-10-12 10:58 | ED.GENADULT ---
HPI - General Adult General Chief complaint: Weakness Stated complaint: Weakness Time Seen by Provider: 10/12/23 10:58 History of Present Illness HPI narrative: 68-year-old female with history of endometrial cancer with malignant ascites, chronic opiate use, hypertension, fibromyalgia, migraines presents with weakness. Patient and her son report that since discharge from the hospital she has been doing overall okay, though still intermittently weak. Today, she had an episode of generalized weakness and some was having difficulty getting her to stand. This is improving, though she still feels tired and shaky. She feels like her heart rate is fast. No head or neck or chest or flank pain. She has generalized abdominal discomfort that she states is overall unchanged in the last few days, with gradually worsening distention in the setting of report of malignant ascites. She has not currently on chemotherapy but she states since her cancer is worsening, further treatment is being discussed. She denies any fevers or chills. No shortness of breath. No cough, rhinorrhea. She has myalgias. No dysuria, hematuria, urinary frequency. She has nausea without vomiting. She is having bowel movements but reduced, with no red or black. No trauma or falls or loss of consciousness. She finished her Keflex that was recently prescribed yesterday. Per chart review, she was recently admitted with weakness, body shakes, diagnosed with HAL, possible bronchitis, following outpatient with Dr. Medina for her cancer. She also had UTI treated with ceftriaxone, initially with Bactrim though after HAL this was stopped. CT was concerning for peritoneal carcinomatosis per notes. Oncology at [facility] was updated with this. She was given Keflex q.i.d. on discharge for 4 further days. Per review, recent urine culture with mixed Gram-positive cristobal. Related Data Home Medications Medication Instructions Recorded Confirmed [id number] 250 2 tab PO Q4-6H PRN Headache, pain 12/10/21 10/09/23 mg-250 mg-65 mg tablet (Excedrin Extra Strength) cimetidine 200 mg tablet 200 mg PO DAILY 12/10/21 10/09/23 (Heartburn Relief (cimetidine)) loperamide 2 mg capsule 2 mg PO DAILY PRN As directed 12/10/21 10/09/23 omeprazole 40 mg capsule,delayed 40 mg PO DAILY 07/08/23 10/09/23 release Previous Rx's Medication Instructions Recorded promethazine 25 mg tablet 25 mg PO Q4-6H PRN Nausea #30 tabs 11/19/22 lidocaine-prilocaine 2.5 %-2.5 % 1 applic topical PRN PRN 11/21/22 topical cream Port/Catheter Care #30 grams prochlorperazine maleate 10 mg 10 mg PO Q6H PRN Nausea #30 tabs 02/03/23 tablet (Compazine) amlodipine 10 mg tablet 10 mg PO DAILY #90 tabs 03/17/23 lisinopril 10 mg tablet 10 mg PO DAILY #90 tabs 03/17/23 gabapentin 600 mg tablet 900 mg (1.5 x 600 mg) PO TID #135 05/06/23 tabs baclofen 10 mg tablet 10 mg PO TID PRN muscle spasm #90 07/30/23 tabs ondansetron 4 mg disintegrating 4 mg PO Q8H PRN nausea and 08/09/23 tablet vomiting #10 tabs duloxetine 60 mg capsule,delayed 60 mg PO DAILY #90 caps 09/19/23 release (Cymbalta) olanzapine 5 mg tablet 5 mg PO BEDTIME #30 tabs 09/29/23 benzonatate 100 mg capsule 100 mg PO TID PRN Cough #20 caps 10/05/23 cephalexin 500 mg capsule 500 mg PO QID #20 caps 10/05/23 morphine 30 mg tablet,extended 30 mg PO TID #90 tabs 10/09/23 release oxycodone 20 mg tablet 20 mg PO TID PRN pain #90 tabs 10/09/23 Allergies Allergy/AdvReac Type Severity Reaction Status Date / Time No Known Drug Allergies Allergy Verified 10/09/23 11:21 Review of Systems Review of Systems Narrative: Constitutional: no fever, no chills Eyes: no visual disturbance, no discharge Ears, Nose, Mouth, Throat: no rhinorrhea, no sore throat Cardiovascular: no chest pain, +feels heart beating fast Respiratory: no cough, no shortness of breath Gastrointestinal: + abdominal pain, no vomiting, no diarrhea Genitourinary: no dysuria, no hematuria Musculoskeletal: no back pain, no neck stiffness Skin: no rash, no wound Neurological: no focal weakness, no focal numbness Patient History Medical History (Updated 10/12/23 @ 19:15 by Kenneth Martinez MD) Malignant ascites GERD without esophagitis Chronic, continuous use of opioids Osteoarthritis of right hip Essential hypertension IT band syndrome Painful menstrual periods Fibroids Migraines Fibromyalgia Chronic back pain Mumps Measles Chicken pox Surgical History H/O total hysterectomy with bilateral salpingo-oophorectomy (BSO) (10/04/22) Anesthesia History of laparoscopy (~1991) History of foot surgery (~2000) History of neck surgery (~1997) Family History Father Cancer Family/Other No problems noted. 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 household members: children Smoking Status: Never smoker alcohol intake: current Smoking Status: Never smoker alcohol intake frequency: holidays/special occasions only Substance Use Type: marijuana Exam Narrative Exam Narrative: Const: no acute distress, non toxic though chronically ill appearing; calm, conversant, pleasant Eyes: PERRLA, EOMI ENT: mucous membranes moist Neck: supple, non-tender Resp: no respiratory distress, clear to auscultation bilaterally Card: regular tachycardia to 110s, no murmurs Abd: distended and mildly tender diffusely, without focality, with negative Teran's sign, no rigidity or rebound or guarding Back: no T or L spine tenderness, no CVA tenderness bilaterally Extrem: no deformities, 1+ pitting edema bilateral lower niece, 2+ distal pulses all extremities Neuro: ANOx4, climbing guide grossly intact, grossly intact sensation and strength all extremities Skin: no rash, warm and dry POCUS by myself of abdomen shows possible trace ascites, nowhere near sufficient for diagnostic or therapeutic paracentesis. Initial Vital Signs Initial Vital Signs: Vital Signs Pulse Rate 113 H 10/12/23 10:57 Respiratory Rate 20 10/12/23 10:57 Pulse Oximetry 95 10/12/23 10:57 Course Course Course Narrative: This patient with known underlying malignancy and suspected malignant ascites presents with weakness, tachycardia, in the setting of recent admission with possible bronchitis, antibiotic treatment. I have considered a very broad differential including but not limited to sepsis, pneumonia, UTI, intra-abdominal infection such as diverticulitis, abscess, appendicitis, bowel obstruction, intravascular volume depletion, electrolyte derangements, deconditioning, medication side effect, among others. My bedside ultrasound as above would argue against SBP, with minimal ascites at most. I am obtaining blood cultures, CBC, CMP, lactate, EKG, troponin, urinalysis, viral swab, chest x-ray, CT abdomen and pelvis with contrast. I am giving fluids, oxycodone, Zofran and will closely reassess. Son and patient agree with plan. EKG shows sinus tachycardia without acute ischemia or immediately concerning interval prolongation. Note morphology overall similar to August 06, 2023 EKG. CBC with neutrophilic leukocytosis mildly increased from prior, anemia mildly worsened from though overall similar to prior, no thrombocytopenia. Troponin reassuring. Chemistry with worsening hyponatremia now 128, renal function improved from prior, no LFT elevation. Lactate reassuring. I am giving additional 500 mL normal saline for total 1 L then will repeat chemistry. This may be due to poor p.o. intake. INR reassuring. Viral swab negative. CXR radiology read below, which I agree with on my independent review: FINDINGS: Surgical changes and devices: Left-sided Port-A-Cath in place. Lungs and pleura: Lungs are clear. No pleural effusions or pneumothorax. Mediastinum: Mediastinal contours appear normal. Heart size is normal. Bones and chest wall: No suspicious bony lesions. Overlying soft tissues appear unremarkable. IMPRESSION: No acute cardiopulmonary abnormality is seen. Approved by: Neil Harris M.D. on 10/12/2023 at 13:[address] below, which I agree with on my independent review: FINDINGS: Lower thorax: The lung bases are clear. Heart size normal. Small hiatal hernia. Liver: Normal in size and attenuation. No contour deformity present. Biliary system: No calcified cholelithiasis or pericholecystic inflammation. No intra or extrahepatic bile duct dilatation. Pancreas: Unremarkable without mass or inflammation evident. Spleen: Normal in size and density. Adrenals: Normal morphology and density. Reproductive system: Hysterectomy. Urinary system: Normal renal size and attenuation. No renal calculi, hydronephrosis, or solid mass present. Urinary bladder unremarkable. Gastrointestinal system: Moderate fecal debris in the right colon without obstruction. Appendix: No findings to suggest acute appendicitis. Peritoneal spaces: Increasing peritoneal nodularity, omental caking and ascites compared to the most recent CT 10/03/2023. Vasculature: The IVC, aorta and iliac vasculature are unremarkable. Abdominal wall: Minimal nodularity in a small periumbilical ventral hernia measures to 1.2 cm, similar to the prior Musculoskeletal: Normal bone mineralization. Degenerative disc disease and arthropathy noted in lower lumbar spine. No lytic or blastic lesion. Stable T12 compression fracture No acute fractures. IMPRESSION: 1. Worsening peritoneal carcinomatosis shows increasing peritoneal/omental nodular studding and ascites 2. Moderate fecal debris in the right colon. No obstruction Approved by: Neil Harris M.D. on 10/12/2023 at 13:04 GI cocktail given for mild epigastric burning; no other new symptoms. This does not appear cardiac in nature. Probable ulcer to L buttock present, does not appear acutely infected; it is about the size of a susana, stage 2 to 3, without acute surrounding erythema. Repeat BMP: Mild improvement in hyponatremia; mild hyperkalemia now present; creatinine stable. Jain placed with 1400mL urine removed. UA sent. Urine retention present. Urine without clear infection. However patient increasingly hypoxic, requiring HFNC now. She does appear stable on this, not in respiratory distress. Due to unclear etiology of this, I have pain D-dimer which was very elevated. This may be from her underlying malignancy, but PE needs to be ruled out as this is a life-threatening diagnosis. I am obtaining CT angio chest to further assess. This is a 2nd contrast load, however I feel importance of accurate diagnostics outweighs risk of contrast associated nephropathy. I spoke with patient and son who consents to this. Study ordered. Radiology review of CTA below, which I agree with on my independent review: FINDINGS: Cardiovascular and Mediastinum: Heart size is normal. No evidence of thoracic aortic aneurysm. Pulmonary vasculature is unremarkable without filling defect. Moderate hiatal hernia with wall thickening, slightly increased from the prior exam Thyroid gland unremarkable. Lungs and Pleural Spaces: The lung cheung are clear without nodule, infiltrate or interstitial prominence. Pleural spaces show no effusion or pneumothorax. Lymph Nodes: No mediastinal, hilar or axillary adenopathy. Musculoskeletal: No evidence of rib fracture. Thoracic spine unremarkable. Chest wall and sternum intact. No lytic or blastic lesions. Left-sided Port-A-Cath in place Upper abdomen: Moderate abdominal ascites and peritoneal studding IMPRESSION: 1. No evidence of pulmonary embolism, aortic dissection or aneurysm. 2. Moderate hiatal hernia with wall thickening may reflect distal esophagitis/gastritis 3. Upper abdominal ascites and peritoneal/omental studding. Please refer to concurrent CT abdomen and pelvis report Approved by: Neil Harris M.D. on 10/12/2023 at 17:38 Patient is too weak to ambulate. I suspect this may be from deconditioning, hyponatremia. Requesting hospitalist consult for admission. Patient remains stable on HFNC. Signed out to Dr. Gupta awaiting hospital admit. Broad spectrum abx added. Orders Ordered: ED Orders 10/12/23 11:17 CT abdomen pelvis w con Stat XR chest 1V Stat 10/12/23 11:40 CBC Auto Diff [Complete Blood Count AUTO DIFF] Stat CMP [Comprehensive Metabolic Panel] Stat Lactate (Lactic Acid) Stat Prothrombin Time INR Stat Troponin I Stat 10/12/23 12:04 EKG-12 Lead Stat 10/12/23 12:07 Covid-19 + FLU A/B + RSV - PCR Stat 10/12/23 12:13 Blood Culture Stat 10/12/23 15:05 BMP [Basic Metabolic Panel] Stat 10/12/23 15:12 Consult to [employer] - [employer] Stat 10/12/23 15:56 Urinalysis and Microscopic Stat 10/12/23 16:08 Consult to Home Health Stat 10/12/23 16:31 D Dimer Stat 10/12/23 17:30 CT angio chest PE protocol Stat Sodium Chloride (Normal Saline 0.9%) 1,000 mls @ 1,000 mls/hr IV BOLUS PRN PRN Reason: Fluid replacement Last Infusion: 10/12/23 14:42 Dose: Infused Documented By: Admin: 10/12/23 11:57 Dose: 1,000 mls/hr Documented By: JOSE Ondansetron HCl (Ondansetron 4 Mg/2 Ml Inj) 4 mg IV Q2HR PRN PRN Reason: Nausea And Vomiting Last Admin: 10/12/23 11:57 Dose: 4 mg Documented By: JOSE Discontinued Medications Al Hydrox/Mg Hydrox/Simethicone 20 ml/ Lidocaine HCl 15 ml 0 ml PO NOW ONE Stop: 10/12/23 14:40 Last Admin: 10/12/23 14:55 Dose: 35 ml Documented By: JOSE Oxycodone HCl (Oxycodone Ir 5 Mg Tablet) 5 mg PO NOW ONE Stop: 10/12/23 11:18 Last Admin: 10/12/23 11:56 Dose: 5 mg Documented By: JOSE Oxycodone HCl (Oxycodone Ir 5 Mg Tablet) 15 mg PO NOW ONE Stop: 10/12/23 12:22 Last Admin: 10/12/23 12:40 Dose: 15 mg Documented By: JOSE Vital Signs Vital signs: Vital Signs - 8 hr 10/12/23 11:30 10/12/23 11:30 10/12/23 12:00 Temperature Pulse Rate 101 H Respiratory Rate 24 Blood Pressure 131/74 125/72 Pulse Oximetry 94 Oxygen Delivery Method Oxygen Flow Rate 10/12/23 12:00 10/12/23 12:35 10/12/23 12:36 Temperature Pulse Rate 104 H 103 H Respiratory Rate 26 H 16 Blood Pressure 127/78 Pulse Oximetry 93 91 Oxygen Delivery Method Oxygen Flow Rate 10/12/23 12:36 10/12/23 13:00 10/12/23 13:17 Temperature Pulse Rate 102 H 95 H 93 H Respiratory Rate 20 16 17 Blood Pressure Pulse Oximetry 94 91 89 L Oxygen Delivery Method Oxygen Flow Rate 10/12/23 13:17 10/12/23 13:30 10/12/23 13:30 Temperature Pulse Rate 90 Respiratory Rate 18 Blood Pressure 117/68 119/68 Pulse Oximetry 92 91 Oxygen Delivery Method Nasal Cannula Nasal Cannula Oxygen Flow Rate 2 2 10/12/23 14:00 10/12/23 14:00 10/12/23 14:30 Temperature Pulse Rate 92 H Respiratory Rate 21 Blood Pressure 109/63 138/83 Pulse Oximetry 91 Oxygen Delivery Method Nasal Cannula Oxygen Flow Rate 2 10/12/23 14:30 10/12/23 15:00 10/12/23 15:00 Temperature Pulse Rate 115 H 105 H Respiratory Rate 27 H Blood Pressure 131/72 Pulse Oximetry 95 94 Oxygen Delivery Method Nasal Cannula Oximask Oxygen Flow Rate 3 4 10/12/23 15:19 10/12/23 15:30 10/12/23 15:30 Temperature 99.3 F Pulse Rate 88 Respiratory Rate Blood Pressure 111/59 L Pulse Oximetry 94 Oxygen Delivery Method Oximask Oxygen Flow Rate 4 10/12/23 15:57 10/12/23 15:57 10/12/23 16:00 Temperature Pulse Rate 100 H Respiratory Rate Blood Pressure 123/63 129/63 Pulse Oximetry 94 Oxygen Delivery Method Oximask Oxygen Flow Rate 4 10/12/23 16:00 10/12/23 16:10 10/12/23 16:10 Temperature Pulse Rate 95 H 98 H Respiratory Rate Blood Pressure 118/67 Pulse Oximetry 94 89 L Oxygen Delivery Method Oximask Oximask Oxygen Flow Rate 6 6 10/12/23 16:15 10/12/23 16:20 10/12/23 16:20 Temperature Pulse Rate 98 H Respiratory Rate Blood Pressure 120/69 Pulse Oximetry 90 L 93 Oxygen Delivery Method Oximask Oximask Oxygen Flow Rate 7 7 10/12/23 16:30 10/12/23 16:30 10/12/23 16:40 Temperature Pulse Rate 92 H 103 H Respiratory Rate Blood Pressure 117/68 Pulse Oximetry 91 91 Oxygen Delivery Method Heated High Flow Heated High Flow Oxygen Flow Rate 10/12/23 16:40 10/12/23 16:43 10/12/23 16:50 Temperature Pulse Rate 100 H 99 H Respiratory Rate 20 Blood Pressure 150/72 H 117/68 Pulse Oximetry 93 92 Oxygen Delivery Method Heated High Flow Oxygen Flow Rate 10/12/23 16:50 10/12/23 17:00 10/12/23 17:00 Temperature Pulse Rate 97 H Respiratory Rate Blood Pressure 144/73 H 134/66 Pulse Oximetry 91 Oxygen Delivery Method Oxygen Flow Rate 10/12/23 17:10 10/12/23 17:10 10/12/23 17:20 Temperature Pulse Rate 94 H 96 H Respiratory Rate Blood Pressure 139/66 Pulse Oximetry 92 91 Oxygen Delivery Method Oxygen Flow Rate 10/12/23 17:20 10/12/23 17:30 10/12/23 17:30 Temperature Pulse Rate 97 H Respiratory Rate Blood Pressure 121/69 126/69 Pulse Oximetry 92 Oxygen Delivery Method Heated High Flow Oxygen Flow Rate 10/12/23 17:55 10/12/23 17:55 10/12/23 18:00 Temperature Pulse Rate 99 H 93 H Respiratory Rate 15 19 Blood Pressure 117/64 Pulse Oximetry 98 94 Oxygen Delivery Method Heated High Flow Heated High Flow Oxygen Flow Rate 10/12/23 18:00 10/12/23 18:10 10/12/23 18:10 Temperature Pulse Rate 95 H Respiratory Rate 20 Blood Pressure 106/61 112/71 Pulse Oximetry 93 Oxygen Delivery Method Heated High Flow Oxygen Flow Rate 10/12/23 18:30 10/12/23 18:30 10/12/23 18:45 Temperature Pulse Rate 96 H 88 Respiratory Rate 24 18 Blood Pressure 124/69 Pulse Oximetry 92 94 Oxygen Delivery Method Heated High Flow Heated High Flow Oxygen Flow Rate 10/12/23 18:45 10/12/23 18:50 10/12/23 19:00 Temperature Pulse Rate 96 H Respiratory Rate 24 Blood Pressure 114/64 124/69 110/59 L Pulse Oximetry 92 Oxygen Delivery Method Oxygen Flow Rate 10/12/23 19:00 Temperature Pulse Rate 85 Respiratory Rate 21 Blood Pressure Pulse Oximetry 94 Oxygen Delivery Method Heated High Flow Oxygen Flow Rate Medical Decision Making Lab Data 10/12/23 11:40 10/12/23 15:05 Labs: Lab Results 10/12/23 10/12/23 10/12/23 Range/Units 11:40 12:07 15:05 WBC 12.3 H (4.5-11.0) X10^3/uL RBC 3.80 L (4.0-5.2) X10^6/uL Hgb 10.2 L (12.0-16.0) g/dL Hct 30.6 L (36-46) % MCV 80.7 D (80-100) fL MCH 26.8 (26-34) PG MCHC 33.2 (30-36) % RDW 14.6 (11.6-14.8) % Plt Count 253 (150-400) X10^3/uL Neut % (Auto) 71.7 (50-75) % Lymph % (Auto) 11.0 L (25-40) % Rice % (Auto) 13.9 (3-14) % Eos % (Auto) 3.0 (2-4) % Baso % (Auto) 0.4 (0-2) % Neut # (Auto) 8800 H (3335-8852) /uL Lymph # (Auto) 1400 (1456-4743) /uL Rice # (Auto) 1700 H (0-900) /uL Eos # (Auto) 400 (0-450) /uL Baso # (Auto) 100 (0-100) /uL PT 11.7 (9.4-12.5) SECONDS INR 1.0 (0.9-1.3) D-Dimer (<500) ng/ml Sodium 128 L 129 L (137-145) mmol/L Potassium 4.9 5.2 H (3.4-5.1) mmol/L Chloride 98 99 (98-107) mmol/L Carbon Dioxide 20 L 20 L (22-32) mmol/L BUN 26 H 24 H (7-17) mg/dL Creatinine 1.48 H 1.42 H (0.52-1.04) mg/dL Estimated GFR 39 L 41 L (>60) mL/min BUN/Creatinine Ratio 17.6 16.9 (6-22) Glucose 135 H 108 (80-110) mg/dL Lactate 1.0 (0.7-2.1) mmol/L Calcium 9.4 9.2 (8.4-10.2) mg/dL Total Bilirubin 0.6 (0.2-1.3) mg/dL AST 29 (14-36) IU/L ALT 14 (<35) IU/L Alkaline Phosphatase 86 (38-126) U/L Troponin I < 0.012 (0.01-0.034) ng/mL Total Protein 7.1 (6.3-8.2) g/dL Albumin 3.8 (3.5-5.0) g/dL Globulin 3.3 (1.7-4.1) g/dL Albumin/Globulin Ratio 1.2 (1.0-2.8) Urine Color Urine Appearance Urine pH (4.5-8.0) Ur Specific [place] (1.000-1.035) Urine Protein (Negative) Urine Glucose (UA) (Negative) g/dL Urine Ketones (NEGATIVE) Urine Occult Blood (Negative) Urine Nitrate (Negative) Urine Bilirubin (NEGATIVE) Urine Urobilinogen (0.2) E.U./dL Ur Leukocyte Esterase (NEGATIVE) Urine RBC (0-5/HPF) Urine WBC (0-5/HPF) Ur Squamous Epith Cells (0-5/HPF) Urine Bacteria (None) Ur Culture Indicated? Vol Urine Centrifuged SARS-CoV-2 (PCR) Negative (Negative) Influenza A (RT-PCR) Flu a negative (NEGATIVE) Influenza B (RT-PCR) Flu b negative (NEGATIVE) RSV (PCR) Negative (Negative) 10/12/23 10/12/23 Range/Units 15:56 16:31 WBC (4.5-11.0) X10^3/uL RBC (4.0-5.2) X10^6/uL Hgb (12.0-16.0) g/dL Hct (36-46) % MCV (80-100) fL MCH (26-34) PG MCHC (30-36) % RDW (11.6-14.8) % Plt Count (150-400) X10^3/uL Neut % (Auto) (50-75) % Lymph % (Auto) (25-40) % Rice % (Auto) (3-14) % Eos % (Auto) (2-4) % Baso % (Auto) (0-2) % Neut # (Auto) (0296-9473) /uL Lymph # (Auto) (8160-2224) /uL Rice # (Auto) (0-900) /uL Eos # (Auto) (0-450) /uL Baso # (Auto) (0-100) /uL PT (9.4-12.5) SECONDS INR (0.9-1.3) D-Dimer 34927 H (<500) ng/ml Sodium (137-145) mmol/L Potassium (3.4-5.1) mmol/L Chloride (98-107) mmol/L Carbon Dioxide (22-32) mmol/L BUN (7-17) mg/dL Creatinine (0.52-1.04) mg/dL Estimated GFR (>60) mL/min BUN/Creatinine Ratio (6-22) Glucose (80-110) mg/dL Lactate (0.7-2.1) mmol/L Calcium (8.4-10.2) mg/dL Total Bilirubin (0.2-1.3) mg/dL AST (14-36) IU/L ALT (<35) IU/L Alkaline Phosphatase (38-126) U/L Troponin I (0.01-0.034) ng/mL Total Protein (6.3-8.2) g/dL Albumin (3.5-5.0) g/dL Globulin (1.7-4.1) g/dL Albumin/Globulin Ratio (1.0-2.8) Urine Color Yellow Urine Appearance Clear Urine pH 5.5 (4.5-8.0) Ur Specific [place] 1.015 (1.000-1.035) Urine Protein Negative (Negative) Urine Glucose (UA) Negative (Negative) g/dL Urine Ketones Negative (NEGATIVE) Urine Occult Blood Negative (Negative) Urine Nitrate Negative (Negative) Urine Bilirubin Negative (NEGATIVE) Urine Urobilinogen 0.2 (0.2) E.U./dL Ur Leukocyte Esterase Negative (NEGATIVE) Urine RBC None seen (0-5/HPF) Urine WBC None seen (0-5/HPF) Ur Squamous Epith Cells None seen (0-5/HPF) Urine Bacteria None seen (None) Ur Culture Indicated? Cult not indicated Vol Urine Centrifuged 10ml (spun) SARS-CoV-2 (PCR) (Negative) Influenza A (RT-PCR) (NEGATIVE) Influenza B (RT-PCR) (NEGATIVE) RSV (PCR) (Negative) Discharge Plan Departure Clinical Impression: Weakness, Acute hyponatremia, Breath shortness Prescriptions: No Action promethazine 25 mg tablet 25 mg PO Q4-6H PRN (Reason: Nausea) Qty: 30 1RF prochlorperazine maleate [Compazine] 10 mg tablet 10 mg PO Q6H PRN (Reason: Nausea) Qty: 30 1RF duloxetine [Cymbalta] 60 mg capsule,delayed release(DR/EC) 60 mg PO DAILY Qty: 90 1RF olanzapine 5 mg tablet 5 mg PO BEDTIME Qty: 30 5RF lisinopril 10 mg tablet 10 mg PO DAILY Qty: 90 3RF amlodipine 10 mg tablet 10 mg PO DAILY Qty: 90 3RF gabapentin 600 mg tablet 900 mg PO TID Qty: 135 5RF Rx Instructions: take with 1 300 mg tab oxycodone 20 mg tablet 20 mg PO TID PRN (Reason: pain) Qty: 90 0RF morphine 30 mg tablet extended release 30 mg PO TID Qty: 90 0RF cimetidine [Heartburn Relief (cimetidine)] 200 mg tablet 200 mg PO DAILY Excedrin Extra Strength 250-250-65 mg tablet 2 tab PO Q4-6H PRN (Reason: Headache, pain) loperamide 2 mg capsule 2 mg PO DAILY PRN (Reason: As directed) omeprazole 40 mg capsule,delayed release(DR/EC) 40 mg PO DAILY baclofen 10 mg tablet 10 mg PO TID PRN (Reason: muscle spasm) Qty: 90 5RF lidocaine-prilocaine 2.5-2.5 % Cream 1 applic topical PRN PRN (Reason: Port/Catheter Care) Qty: 30 1RF Rx Instructions: apply to the skin over the port at least 2 hours before planned use of the port. Cover the cream with a small piece of plastic wrap and leave in place until the port is accessed ondansetron 4 mg tablet,disintegrating 4 mg PO Q8H PRN (Reason: nausea and vomiting) Qty: 10 0RF benzonatate 100 mg Capsule 100 mg PO TID PRN (Reason: Cough) Qty: 20 0RF cephalexin 500 mg capsule 500 mg PO QID Qty: 20 0RF Referrals: Mo Moseley MD [Primary Care Provider] -
--- NOTE | 2023-10-12 11:17 | DI.CT.S_ITS ---
PROCEDURE: CT ABDOMEN PELVIS W CON INDICATIONS: 68-year-old female with abdominal pain, primary endometrial carcinoma, and peritoneal carcinomatosis TECHNIQUE: After the administration of intravenous contrast, axial sections acquired from the lung bases to the pubic symphysis. Coronal and sagittal reformats were performed. For radiation dose reduction, the following was used: automated exposure control, adjustment of mA and/or kV according to patient size. COMPARISON: [facility], CT, CT ABDOMEN PELVIS WO CON, 10/03/2023, 0:07. [facility], CT, CT CHEST ABD PEL W CON, 08/19/2023, 12:39. [facility], CT, CT ABDOMEN PELVIS W CON, 03/05/2023, 14:09. FINDINGS: Lower thorax: The lung bases are clear. Heart size normal. Small hiatal hernia. Liver: Normal in size and attenuation. No contour deformity present. Biliary system: No calcified cholelithiasis or pericholecystic inflammation. No intra or extrahepatic bile duct dilatation. Pancreas: Unremarkable without mass or inflammation evident. Spleen: Normal in size and density. Adrenals: Normal morphology and density. Reproductive system: Hysterectomy. Urinary system: Normal renal size and attenuation. No renal calculi, hydronephrosis, or solid mass present. Urinary bladder unremarkable. Gastrointestinal system: Moderate fecal debris in the right colon without obstruction. Appendix: No findings to suggest acute appendicitis. Peritoneal spaces: Increasing peritoneal nodularity, omental caking and ascites compared to the most recent CT 10/03/2023. Vasculature: The IVC, aorta and iliac vasculature are unremarkable. Abdominal wall: Minimal nodularity in a small periumbilical ventral hernia measures to 1.2 cm, similar to the prior Musculoskeletal: Normal bone mineralization. Degenerative disc disease and arthropathy noted in lower lumbar spine. No lytic or blastic lesion. Stable T12 compression fracture No acute fractures. IMPRESSION: 1. Worsening peritoneal carcinomatosis shows increasing peritoneal/omental nodular studding and ascites 2. Moderate fecal debris in the right colon. No obstruction Approved by: Neil Harris M.D. on 10/12/2023 at 13:04
--- NOTE | 2023-10-12 11:17 | DI.RAD.S_ITS ---
PROCEDURE: XR CHEST 1V INDICATIONS: weakness TECHNIQUE: One view of the chest was acquired. COMPARISON: [facility], CR, XR CHEST 1V, 10/03/2023, 2:30. FINDINGS: Surgical changes and devices: Left-sided Port-A-Cath in place. Lungs and pleura: Lungs are clear. No pleural effusions or pneumothorax. Mediastinum: Mediastinal contours appear normal. Heart size is normal. Bones and chest wall: No suspicious bony lesions. Overlying soft tissues appear unremarkable. IMPRESSION: No acute cardiopulmonary abnormality is seen. Approved by: Neil Harris M.D. on 10/12/2023 at 13:32
[2023-10-12] MEDS: OXYCODONE IR 5 MG TABLET PO (11:56)
[2023-10-12] MEDS: SODIUM CHLORIDE 0.9% 1,000 ML 1000 ML IV (11:57)
[2023-10-12] MEDS: ONDANSETRON 4 MG/2 ML INJ IV (11:57)
[2023-10-12 11:58] LABS: Add Manual Diff / Slide Review NO; Basophils Absolute Auto 100 /uL (0-100); Basophils Percent Auto 0.4 % (0-2); Eosinophils Absolute Auto 400 /uL (0-450); Hematocrit 30.6 % (36-46); Hemoglobin 10.2 g/dL (12.0-16.0); Lymphocytes Absolute Auto 1400 /uL (1100-4500); Mean Corpuscular HGB Conc 33.2 % (30-36); Mean Corpuscular Hemoglobin 26.8 PG (26-34); Mean Corpuscular Volume 80.7 fL (80-100); Monocytes Absolute Auto 1700 /uL (0-900); Monocytes Percent Auto 13.9 % (3-14); Neutrophils Absolute Auto 8800 /uL (1500-7000); Neutrophils Percent Auto 71.7 % (50-75); Platelet Count 253 X10^3/uL (150-400); Red Cell Distribution Width 14.6 % (11.6-14.8); White Blood Cell Count 12.3 X10^3/uL (4.5-11.0)
[2023-10-12 12:00] LABS: Alanine Aminotransferase 14 IU/L (<35); Albumin 3.8 g/dL (3.5-5.0); Albumin Globulin Ratio 1.2 (1.0-2.8); Alkaline Phosphatase 86 U/L (38-126); Aspartate Aminotransferase 29 IU/L (14-36); BUN Creatinine Ratio 17.6 (6-22); Bilirubin Total 0.6 mg/dL (0.2-1.3); Blood Urea Nitrogen 26 mg/dL (7-17); Calcium 9.4 mg/dL (8.4-10.2); Carbon Dioxide 20 mmol/L (22-32); Chloride 98 mmol/L (98-107); Estimated Glomerular Filt Rate 39 mL/min (>60); Globulin 3.3 g/dL (1.7-4.1); Glucose 135 mg/dL (80-110); HEMOLYSIS < 15 (0-50); Potassium 4.9 mmol/L (3.4-5.1); Sodium 128 mmol/L (137-145); Total Protein 7.1 g/dL (6.3-8.2)
[2023-10-12 12:11] LABS: Troponin I < 0.012 ng/mL (0.01-0.034)
[2023-10-12 12:22] LABS: Prothrombin Time 11.7 SECONDS (9.4-12.5)
[2023-10-12] MEDS: OXYCODONE IR 5 MG TABLET 15 MG PO (12:40)
[2023-10-12 13:02] LABS: Influenza A - CEPHEID Flu A NEGATIVE (NEGATIVE); Influenza B - CEPHEID Flu B NEGATIVE (NEGATIVE); Respiratory Syncytial Virus Negative (Negative)
[2023-10-12 13:03] LABS: COVID-19 CEPHEID 4-PLEX PCR Negative (Negative)
--- NOTE | 2023-10-12 13:27 | PC.NURSE ---
Pt placed on 2L, O2 sat 88-89 RA. Currently 92% on 2L with ear probe. Physician advised.
--- NOTE | 2023-10-12 14:12 | PC.NURSE ---
This RN attempted to place an in and out cath for this patient urinary sample and was unsuccessful due to material. This RN stopped and had care staff perform modified bed bath and will reattempt.
--- NOTE | 2023-10-12 14:46 | PC.NURSE ---
During Marielena-care there was a noted pressure injury just outside the cleft of the left buttock. It is the circumference of a nickel with scant drainage and with some slough noted. Depth of 0.5cm. Provider notified. Area irrigated with normal saline and then dried. Afterwards area covered with adhesive foam dressing.
[2023-10-12] MEDS: MAG HYDROX/ALUMINUM/SIMETH SUS 20 ML, LIDOCAINE VISCOUS 2% 15 ML PO (14:55)
[2023-10-12 15:28] LABS: BUN Creatinine Ratio 16.9 (6-22); Blood Urea Nitrogen 24 mg/dL (7-17); Calcium 9.2 mg/dL (8.4-10.2); Carbon Dioxide 20 mmol/L (22-32); Chloride 99 mmol/L (98-107); Estimated Glomerular Filt Rate 41 mL/min (>60); Glucose 108 mg/dL (80-110); HEMOLYSIS < 15 (0-50); Potassium 5.2 mmol/L (3.4-5.1); Sodium 129 mmol/L (137-145)
[2023-10-12 16:03] LABS: Appearance Urine UA CLEAR; Bilirubin Urine UA NEGATIVE (NEGATIVE); Color Urine UA YELLOW; Glucose Urine UA NEGATIVE (Negative); Ketones Urine UA NEGATIVE (NEGATIVE); Leukocyte Esterase Urine UA NEGATIVE (NEGATIVE); Nitrite Urine UA NEGATIVE (Negative); Occult Blood Urine UA NEGATIVE (Negative); Protein Urine UA NEGATIVE (Negative); Specific Gravity Urine UA 1.015 (1.000-1.035); Urobilinogen Urine UA 0.2 E.U./dL (0.2)
[2023-10-12 16:13] LABS: pH Urine UA 5.5 (4.5-8.0)
[2023-10-12 16:15] LABS: Bacteria Urine None Seen; Culture Indicated Urine Cult Not Indicated; RBC Urine None Seen (0-5/HPF); Squamous Epithelial Cell Urine None Seen (0-5/HPF); Urine Volume 10mL (spun); WBC Urine None Seen (0-5/HPF)
--- NOTE | 2023-10-12 16:25 | CM.DPNOTE ---
DCP Note BOATSWAINS MATE received call from ED RN asking for assistance arranging HH for pt. BOATSWAINS MATE reviewed EMR. INS: [employer]. Pt here for weakness/body shakes. PMH of cancer that has been progressing in making her weaker overtime. Per chart review, pt was admitted here 10/03/23-10/05/23, pt was talked to about HH and denied HH at the time. Per previous DCP assessment, son assists with all highter ADLs (cooking, cleaning, chores, and ambulation assistance). Pt does not use oxygen at baseline. Pt lives in [place] with son Mickey (p [phone]). Pt may or may not be admitted- POC unclear at this time. BOATSWAINS MATE met briefly with pt and son in room/outside of room. Confirms interested in HH. Preference is [facility]. Preference is for RN/PT/OT/ALUMINIZER/BOATSWAINS MATE. They both report understanding that if unable to arrange HH during this admission, can arrange HH with PCP. Pt reports [facility]/any HH agency can call son for scheduling. BOATSWAINS MATE gave pt son a copy of [facility] brochure. Report understanding that potential barrier could be pt's insurance. ED doc signed f2f, BOATSWAINS MATE placed HH consult order. BOATSWAINS MATE advised RN on specific language that is helpful for the ED doc to include in DC information for wound care HH to follow pt. BOATSWAINS MATE called [facility] intake- no answer. BOATSWAINS MATE emailed Aziza at [facility] and asked her to please review pt, attached F2F and facesheet in email. Acceptance pending. Plan: either dc home with [facility] to follow pending acceptance for RN/PT/OT/ALUMINIZER/BOATSWAINS MATE or pt will be admitted to the floor and CM team will follow tomorrow. CM team will continue to follow as needed. CLAY Godinez
--- NOTE | 2023-10-12 16:45 | PC.NURSE ---
Pt O2 drops quickly to 87-88%, slow to return to 90%+ with increased O2 flow. RN monitoring/managing O2 sats continuously for past 2 hrs. RT called at 1500 for oximask, RT called at 1615 for eval and treat, placed on high flow for O2 stabilization and comfort. Physician aware. D-dimer ordered.
[2023-10-12 16:53] LABS: D Dimer 15938 ng/ml (<500)
--- NOTE | 2023-10-12 17:30 | DI.CT.S_ITS ---
PROCEDURE: CT ANGIO CHEST PE PROTOCOL INDICATIONS: rule out PE; hypoxia, cancer, elevated d-dimer TECHNIQUE: After the administration of intravenous contrast, 2 mm thick sections acquired from the pulmonary apices to the posterior costophrenic angles. MIP reformats of the arterial vasculature were utilized. For radiation dose reduction, the following was used: automated exposure control, adjustment of mA and/or kV according to patient size. COMPARISON: [facility], CT, CT ANGIO CHEST PE PROTOCOL, 03/05/2023, 14:09. FINDINGS: Cardiovascular and Mediastinum: Heart size is normal. No evidence of thoracic aortic aneurysm. Pulmonary vasculature is unremarkable without filling defect. Moderate hiatal hernia with wall thickening, slightly increased from the prior exam Thyroid gland unremarkable. Lungs and Pleural Spaces: The lung cheung are clear without nodule, infiltrate or interstitial prominence. Pleural spaces show no effusion or pneumothorax. Lymph Nodes: No mediastinal, hilar or axillary adenopathy. Musculoskeletal: No evidence of rib fracture. Thoracic spine unremarkable. Chest wall and sternum intact. No lytic or blastic lesions. Left-sided Port-A-Cath in place Upper abdomen: Moderate abdominal ascites and peritoneal studding IMPRESSION: 1. No evidence of pulmonary embolism, aortic dissection or aneurysm. 2. Moderate hiatal hernia with wall thickening may reflect distal esophagitis/gastritis 3. Upper abdominal ascites and peritoneal/omental studding. Please refer to concurrent CT abdomen and pelvis report Approved by: Neil Harris M.D. on 10/12/2023 at 17:38
--- NOTE | 2023-10-12 18:45 | PC.NURSE ---
Note for CLAY Jackson: family friend daja here in ED today to support pt and son. Daja states pt's apartment is filthy and the pt's hygiene is very poor. Family lives on 2nd floor of apartment building with stairs, no elevator. Pt is unable to navigate the staircase due to weakness and therefore she is missing her doctors appointments and oncology infusion appointments. The son does not drive and the pt can no longer drive. Daja is the only person in the local area that is able to assist them with driving to and from appointments, grocery shopping, running errands, etc. Daja has a sick and is having less time available to support the patient and the patient's son. Daja would like to be included in the CLAIMS TECHNICIAN conversion with patient and son tomorrow (Friday) as she is their only support person. Daja can be reached at [phone]. Daja drove the son home tonight and is driving the son back to the hospital tomorrow morning.
[2023-10-12] MEDS: OXYCODONE ER 20 MG TAB PO (19:25)
[2023-10-12] MEDS: PIPERACILLIN/TAZO 4.5 GM in SODIUM CHLORIDE 0.9% 100 ML IV (19:26)
--- NOTE | 2023-10-12 19:26 | PC.NURSE ---
pt awake and alert moved to hospital bed for comfort, c/o pain in hip pt medicated as ordered SR up and call light in reach
[2023-10-12 20:00] LABS: NT-proBNP (BNP-Adult 18+) 167 pg/mL (<125)
[2023-10-13] VITALS (8 sets, daily range): BP systolic 108–125; BP diastolic 63–82; PULSE 77–107; RESP 17–24; TEMP 36.4–37.1; O2SAT 92–99
--- NOTE | 2023-10-13 03:19 | P.HP_ITS ---
History of Present Illness History of Present Illness Date Patient Seen: 10/12/23 Time Patient Seen: 21:30 Chief complaint: Weakness Narrative: 68 years old female with a past medical history of endometrial cancer stage IVb status post surgery currently on chemotherapy, hypertension, depression, anxiety, GERD, chronic opiate use, fibromyalgia, migraine, recent hospitalization for acute kidney injury/dehydration with UTI and multiple other medical issues now was brought to the emergency room for generalized weakness and feeling shaky with dyspnea on exertion. Also has generalized abdominal discomfort with a slightly worsening distention in the setting of malignant ascites. Denies any shortness of breath cough wheezing headache but does have generalized body ache. Has had constipation episodes. No dysuria. She had recently completed antibiotic course for urinary tract infection. In the ED, noted to be tachycardic with a heart rate in the 100s and respiration in the mid 20s at times. Patient was noted to be persistently hypoxemic and also noted to be hyponatremic. Chest x-ray shows no acute process. Abdominal CT shows worsening peritoneal carcinomatosis with moderate fecal debris's in the right colon. CT angio of the chest shows no evidence of pulmonary embolism dissection. Urine analysis is negative for leukocyte esterase. Patient was admitted for persistent hypoxemia with generalized weakness [facility] Medical History (Updated 10/12/23 @ 19:36 by Hung Gupta DO) Malignant ascites GERD without esophagitis Chronic, continuous use of opioids Osteoarthritis of right hip Essential hypertension IT band syndrome Painful menstrual periods Fibroids Migraines Fibromyalgia Chronic back pain Mumps Measles Chicken pox Surgical History H/O total hysterectomy with bilateral salpingo-oophorectomy (BSO) (10/04/22) Anesthesia History of laparoscopy (~1991) History of foot surgery (~2000) History of neck surgery (~1997) Family History Father Cancer Family/Other No problems noted. 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 household members: children Smoking Status: Never smoker alcohol intake: current Meds Home Medications and Allergies Home Medications Medication Instructions Recorded Confirmed Type lhomuyw-[id number]-[id number] 250 2 tab PO Q4-6H PRN Headache, pain 12/10/21 10/12/23 History mg-250 mg-65 mg tablet (Excedrin Extra Strength) loperamide 2 mg capsule 2 mg PO DAILY PRN As directed 12/10/21 10/12/23 History promethazine 25 mg tablet 25 mg PO Q4-6H PRN Nausea #30 tabs 11/19/22 10/12/23 Rx lidocaine-prilocaine 2.5 %-2.5 % 1 applic topical PRN PRN 11/21/22 10/12/23 Rx topical cream Port/Catheter Care #30 grams prochlorperazine maleate 10 mg 10 mg PO Q6H PRN Nausea #30 tabs 02/03/23 10/12/23 Rx tablet (Compazine) amlodipine 10 mg tablet 10 mg PO DAILY #90 tabs 03/17/23 10/12/23 Rx lisinopril 10 mg tablet 10 mg PO DAILY #90 tabs 03/17/23 10/12/23 Rx gabapentin 600 mg tablet 900 mg (1.5 x 600 mg) PO TID #135 05/06/23 10/12/23 Rx tabs baclofen 10 mg tablet 10 mg PO TID PRN muscle spasm #90 07/30/23 10/12/23 Rx tabs ondansetron 4 mg disintegrating 4 mg PO Q8H PRN nausea and 08/09/23 10/12/23 Rx tablet vomiting #10 tabs duloxetine 60 mg capsule,delayed 60 mg PO DAILY #90 caps 09/19/23 10/12/23 Rx release (Cymbalta) olanzapine 5 mg tablet 5 mg PO BEDTIME #30 tabs 09/29/23 10/12/23 Rx benzonatate 100 mg capsule 100 mg PO TID PRN Cough #20 caps 10/05/23 10/12/23 Rx cephalexin 500 mg capsule 500 mg PO QID #20 caps 10/05/23 10/12/23 Rx morphine 30 mg tablet,extended 30 mg PO TID #90 tabs 10/09/23 10/12/23 Rx release omeprazole 40 mg capsule,delayed 40 mg PO DAILY 10/12/23 10/12/23 History release oxycodone 20 mg tablet 20 mg PO 3XD PRN pain 10/13/23 10/13/23 History Allergies Allergy/AdvReac Type Severity Reaction Status Date / Time No Known Drug Allergies Allergy Verified 10/09/23 11:21 Review of Systems Review of Systems Narrative: A 12 point review of system is negative unless otherwise stated in the history of present illness Exam Vital Signs (past 8 hours): - 10/12/23 19:30 10/12/23 19:30 10/12/23 19:43 Temperature 99 F Pulse Rate 78 Respiratory Rate Blood Pressure 129/84 Pulse Oximetry 91 Oxygen Delivery Method Heated High Flow Oxygen Flow Rate Fraction of Inspired Oxygen 10/12/23 19:46 10/12/23 19:46 10/12/23 20:00 Temperature Pulse Rate 81 Respiratory Rate Blood Pressure 117/56 L 103/62 Pulse Oximetry 95 Oxygen Delivery Method Oxygen Flow Rate Fraction of Inspired Oxygen 10/12/23 20:00 10/12/23 20:15 10/12/23 20:15 Temperature Pulse Rate 83 84 Respiratory Rate Blood Pressure 99/57 L Pulse Oximetry 95 94 Oxygen Delivery Method Oxygen Flow Rate Fraction of Inspired Oxygen 10/12/23 20:15 10/12/23 20:30 10/12/23 20:30 Temperature Pulse Rate 78 Respiratory Rate Blood Pressure 100/55 L Pulse Oximetry 95 Oxygen Delivery Method High Flow Nasal Cannula Oxygen Flow Rate Fraction of Inspired Oxygen 10/12/23 21:08 10/12/23 21:09 10/12/23 22:21 Temperature 98.2 F 98.2 F Pulse Rate 91 H 89 91 H Respiratory Rate 20 20 16 Blood Pressure 125/64 125/64 Pulse Oximetry 98 97 98 Oxygen Delivery Method High Flow Nasal Cannula Oxygen Flow Rate 35 35 35 Fraction of Inspired Oxygen 48 48 Fraction of Inspired Oxygen 48 SaO2/FiO2 Ratio 202 Oxygen Delivery Method High Flow Nasal Cannula Oxygen Flow Rate 35 Narrative Exam Narrative: Air entry equal bilaterally no wheezes no crackles Soft minimal tenderness in the epigastric region Objective Labs 10/12/23 11:40 10/12/23 15:05 Labs: Laboratory Results - last 24 hr 10/12/23 10/12/23 10/12/23 11:40 12:07 15:05 WBC 12.3 H RBC 3.80 L Hgb 10.2 L Hct 30.6 L MCV 80.7 D MCH 26.8 MCHC 33.2 RDW 14.6 Plt Count 253 Neut % (Auto) 71.7 Lymph % (Auto) 11.0 L Wheeler % (Auto) 13.9 Eos % (Auto) 3.0 Baso % (Auto) 0.4 Neut # (Auto) 8800 H Lymph # (Auto) 1400 Wheeler # (Auto) 1700 H Eos # (Auto) 400 Baso # (Auto) 100 PT 11.7 INR 1.0 D-Dimer Sodium 128 L 129 L Potassium 4.9 5.2 H Chloride 98 99 Carbon Dioxide 20 L 20 L BUN 26 H 24 H Creatinine 1.48 H 1.42 H Estimated GFR 39 L 41 L BUN/Creatinine Ratio 17.6 16.9 Glucose 135 H 108 Lactate 1.0 Calcium 9.4 9.2 Total Bilirubin 0.6 AST 29 ALT 14 Alkaline Phosphatase 86 Troponin I < 0.012 NT-Pro-B Natriuret Pep 167 H Total Protein 7.1 Albumin 3.8 Globulin 3.3 Albumin/Globulin Ratio 1.2 Urine Color Urine Appearance Urine pH Ur Specific [place] Urine Protein Urine Glucose (UA) Urine Ketones Urine Occult Blood Urine Nitrate Urine Bilirubin Urine Urobilinogen Ur Leukocyte Esterase Urine RBC Urine WBC Ur Squamous Epith Cells Urine Bacteria Ur Culture Indicated? Vol Urine Centrifuged SARS-CoV-2 (PCR) Negative Influenza A (RT-PCR) Flu a negative Influenza B (RT-PCR) Flu b negative RSV (PCR) Negative 10/12/23 10/12/23 15:56 16:31 WBC RBC Hgb Hct MCV MCH MCHC RDW Plt Count Neut % (Auto) Lymph % (Auto) Wheeler % (Auto) Eos % (Auto) Baso % (Auto) Neut # (Auto) Lymph # (Auto) Wheeler # (Auto) Eos # (Auto) Baso # (Auto) PT INR D-Dimer 84309 H Sodium Potassium Chloride Carbon Dioxide BUN Creatinine Estimated GFR BUN/Creatinine Ratio Glucose Lactate Calcium Total Bilirubin AST ALT Alkaline Phosphatase Troponin I NT-Pro-B Natriuret Pep Total Protein Albumin Globulin Albumin/Globulin Ratio Urine Color Yellow Urine Appearance Clear Urine pH 5.5 Ur Specific [place] 1.015 Urine Protein Negative Urine Glucose (UA) Negative Urine Ketones Negative Urine Occult Blood Negative Urine Nitrate Negative Urine Bilirubin Negative Urine Urobilinogen 0.2 Ur Leukocyte Esterase Negative Urine RBC None seen Urine WBC None seen Ur Squamous Epith Cells None seen Urine Bacteria None seen Ur Culture Indicated? Cult not indicated Vol Urine Centrifuged 10ml (spun) SARS-CoV-2 (PCR) Influenza A (RT-PCR) Influenza B (RT-PCR) RSV (PCR) Assessment & Plan Assessment & Plan narrative: 68 years old female with a past medical history of endometrial cancer stage IVb status post surgery currently on chemotherapy, hypertension, depression, anxiety, GERD, chronic opiate use, fibromyalgia, migraine, recent hospitalization for acute kidney injury/dehydration with UTI and multiple other medical issues now was brought to the emergency room for generalized weakness and feeling shaky with dyspnea on exertion. Also has generalized abdominal discomfort with a slightly worsening distention in the setting of malignant ascites. Denies any shortness of breath cough wheezing headache but does have generalized body ache. Has had constipation episodes. No dysuria. She had recently completed antibiotic course for urinary tract infection. In the ED, noted to be tachycardic with a heart rate in the 100s and respiration in the mid 20s at times. Patient was noted to be persistently hypoxemic and also noted to be hyponatremic. Chest x-ray shows no acute process. Abdominal CT shows worsening peritoneal carcinomatosis with moderate fecal debris's in the right colon. CT angio of the chest shows no evidence of pulmonary embolism dissection. Urine analysis is negative for leukocyte esterase. Patient was admitted for persistent hypoxemia with generalized weakness 1 hypoxemia persistent. Patient during recent hospitalization had acute bronchitis with wheezing and I am not sure if there was an element of acute bronchitis with exposure to secondhand smoking while growing up. Oxygen supplementation with nebulizers for now. CT chest is negative for pulm embolism. Treatment is conservative and monitor closely. 2. Generalized weakness with gait instability and the patient with endometrial cancer that appears to be progressing. Likely multifactorial due to an underlying cancer etiology that is progressive 3. Endometrial cancer stage IVb with cancer pain. Resume the home morphine/oxycodone and baclofen 4 GERD resume the home medication 5 neuropathy resume the home Neurontin 6 abdominal discomfort likely secondary to underlying constipation. Initiate a bowel regimen especially while on narcotic pain medications 7 tachycardia sinus. Treat the reversible factors including hypoxemia and trend for now DVT prophylaxis will be with Lovenox For now patient is a full code. She will be admitted under observation status Plan of care discussed with the care team. Patient was evaluated with the help of video communication device and time spent is 15 minutes. Location of provider is [facility]
[2023-10-13] MEDS: OXYCODONE IR 10 MG TABLET 20 MG PO ×2 (03:33→11:04)
[2023-10-13] MEDS: BACLOFEN 10 MG TABLET PO (03:39)
[2023-10-13 05:27] LABS: Add Manual Diff / Slide Review NO; Basophils Absolute Auto 100 /uL (0-100); Basophils Percent Auto 0.6 % (0-2); Eosinophils Absolute Auto 200 /uL (0-450); Eosinophils Percent Auto 2.2 % (2-4); Hematocrit 27.9 % (36-46); Hemoglobin 9.5 g/dL (12.0-16.0); Lymphocytes Absolute Auto 700 /uL (1100-4500); Lymphocytes Percent Auto 7.5 % (25-40); Mean Corpuscular HGB Conc 34.1 % (30-36); Mean Corpuscular Hemoglobin 27.4 PG (26-34); Mean Corpuscular Volume 80.4 fL (80-100); Monocytes Absolute Auto 1500 /uL (0-900); Monocytes Percent Auto 15.6 % (3-14); Neutrophils Absolute Auto 7300 /uL (1500-7000); Neutrophils Percent Auto 74.1 % (50-75); Platelet Count 240 X10^3/uL (150-400); Red Blood Cell Count 3.47 X10^6/uL (4.0-5.2); Red Cell Distribution Width 14.6 % (11.6-14.8); White Blood Cell Count 9.8 X10^3/uL (4.5-11.0)
[2023-10-13] MEDS: ONDANSETRON 4 MG ODT PO (05:28)
[2023-10-13 05:30] LABS: Alanine Aminotransferase 13 IU/L (<35); Albumin Globulin Ratio 1.1 (1.0-2.8); Alkaline Phosphatase 64 U/L (38-126); Aspartate Aminotransferase 28 IU/L (14-36); BUN Creatinine Ratio 17.9 (6-22); Bilirubin Total 0.4 mg/dL (0.2-1.3); Blood Urea Nitrogen 20 mg/dL (7-17); Calcium 8.7 mg/dL (8.4-10.2); Carbon Dioxide 25 mmol/L (22-32); Chloride 101 mmol/L (98-107); Estimated Glomerular Filt Rate 54 mL/min (>60); Globulin 2.8 g/dL (1.7-4.1); Glucose 102 mg/dL (80-110); HEMOLYSIS < 15 (0-50); Sodium 129 mmol/L (137-145); Total Protein 5.8 g/dL (6.3-8.2)
[2023-10-13 05:31] LABS: Lactate (Lactic Acid) 0.6 mmol/L (0.7-2.1); Potassium 5.5 mmol/L (3.4-5.1)
--- NOTE | 2023-10-13 05:53 | PC.WOUNDPHOT ---
Pressure injury to left side of buttocks
--- NOTE | 2023-10-13 07:27 | P.PN_ITS ---
Subjective Subjective Interval history: Patient weaned from HFNC to 2L NC. Explained to her that her CT scan results show progression of cancer. She is ok that if no more chemo options remain for her, then she would pursue hospice. Exam Vital Signs (past 8 hours): - 10/13/23 03:57 10/13/23 03:58 Temperature 97.7 F Pulse Rate 87 79 Respiratory Rate 18 22 Blood Pressure 115/68 115/68 Pulse Oximetry 99 96 Oxygen Flow Rate 35 Fraction of Inspired Oxygen 49 Fraction of Inspired Oxygen 49 SaO2/FiO2 Ratio 202 Oxygen Delivery Method High Flow Nasal Cannula Oxygen Flow Rate 35 Narrative Exam Narrative: GEN: ill-appearing HEENT: moist mucous membranes, PERRL NECK: trachea midline, no JVD CV: regular rate and rhythm, no murmurs PULM: clear bilaterally ABD: soft, tender in epigastric region, nondistended, no organomegaly EXT: warm and well perfused with no edema NEURO: awake, alert, oriented, no focal deficits Objective Labs 10/13/23 05:00 10/13/23 12:20 Labs: Laboratory Results - last 24 hr 10/12/23 10/12/23 10/12/23 11:40 12:07 15:05 WBC 12.3 H RBC 3.80 L Hgb 10.2 L Hct 30.6 L MCV 80.7 D MCH 26.8 MCHC 33.2 RDW 14.6 Plt Count 253 Neut % (Auto) 71.7 Lymph % (Auto) 11.0 L Wheeler % (Auto) 13.9 Eos % (Auto) 3.0 Baso % (Auto) 0.4 Neut # (Auto) 8800 H Lymph # (Auto) 1400 Wheeler # (Auto) 1700 H Eos # (Auto) 400 Baso # (Auto) 100 PT 11.7 INR 1.0 D-Dimer Sodium 128 L 129 L Potassium 4.9 5.2 H Chloride 98 99 Carbon Dioxide 20 L 20 L BUN 26 H 24 H Creatinine 1.48 H 1.42 H Estimated GFR 39 L 41 L BUN/Creatinine Ratio 17.6 16.9 Glucose 135 H 108 Lactate 1.0 Calcium 9.4 9.2 Total Bilirubin 0.6 AST 29 ALT 14 Alkaline Phosphatase 86 Troponin I < 0.012 NT-Pro-B Natriuret Pep 167 H Total Protein 7.1 Albumin 3.8 Globulin 3.3 Albumin/Globulin Ratio 1.2 Urine Color Urine Appearance Urine pH Ur Specific Malden Urine Protein Urine Glucose (UA) Urine Ketones Urine Occult Blood Urine Nitrate Urine Bilirubin Urine Urobilinogen Ur Leukocyte Esterase Urine RBC Urine WBC Ur Squamous Epith Cells Urine Bacteria Ur Culture Indicated? Vol Urine Centrifuged SARS-CoV-2 (PCR) Negative Influenza A (RT-PCR) Flu a negative Influenza B (RT-PCR) Flu b negative RSV (PCR) Negative 10/12/23 10/12/23 10/13/23 15:56 16:31 05:00 WBC 9.8 RBC 3.47 L Hgb 9.5 L Hct 27.9 L MCV 80.4 MCH 27.4 MCHC 34.1 RDW 14.6 Plt Count 240 Neut % (Auto) 74.1 Lymph % (Auto) 7.5 L Wheeler % (Auto) 15.6 H Eos % (Auto) 2.2 Baso % (Auto) 0.6 Neut # (Auto) 7300 H Lymph # (Auto) 700 L Wheeler # (Auto) 1500 H Eos # (Auto) 200 Baso # (Auto) 100 PT INR D-Dimer 56039 H Sodium 129 L Potassium 5.5 H Chloride 101 Carbon Dioxide 25 BUN 20 H Creatinine 1.12 H Estimated GFR 54 L BUN/Creatinine Ratio 17.9 Glucose 102 Lactate 0.6 L Calcium 8.7 Total Bilirubin 0.4 AST 28 ALT 13 Alkaline Phosphatase 64 Troponin I NT-Pro-B Natriuret Pep Total Protein 5.8 L Albumin 3.0 L Globulin 2.8 Albumin/Globulin Ratio 1.1 Urine Color Yellow Urine Appearance Clear Urine pH 5.5 Ur Specific Malden 1.015 Urine Protein Negative Urine Glucose (UA) Negative Urine Ketones Negative Urine Occult Blood Negative Urine Nitrate Negative Urine Bilirubin Negative Urine Urobilinogen 0.2 Ur Leukocyte Esterase Negative Urine RBC None seen Urine WBC None seen Ur Squamous Epith Cells None seen Urine Bacteria None seen Ur Culture Indicated? Cult not indicated Vol Urine Centrifuged 10ml (spun) SARS-CoV-2 (PCR) Influenza A (RT-PCR) Influenza B (RT-PCR) RSV (PCR) [facility] Medical History (Updated 10/12/23 @ 19:36 by Hung Gupta DO) Malignant ascites GERD without esophagitis Chronic, continuous use of opioids Osteoarthritis of right hip Essential hypertension IT band syndrome Painful menstrual periods Fibroids Migraines Fibromyalgia Chronic back pain Mumps Measles Chicken pox Surgical History H/O total hysterectomy with bilateral salpingo-oophorectomy (BSO) (10/04/22) Anesthesia History of laparoscopy (~1991) History of foot surgery (~2000) History of neck surgery (~1997) Family History Father Cancer Family/Other No problems noted. 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 Acute hypoxic resp failure. Patient during recent hospitalization had acute bronchitis with wheezing and I am not sure if there was an element of acute bronchitis with exposure to secondhand smoking while growing up. Oxygen supplementation with nebulizers for now. CT chest is negative for pulm embolism. Treatment is conservative and monitor closely. -weaned to 2L Oxymask 2. Generalized weakness with gait instability and the patient with endometrial cancer that appears to be progressing. Likely multifactorial due to an underlying cancer etiology that is progressive 3. Endometrial cancer stage IVb with cancer pain. Resume the home morphine/oxycodone and baclofen. Oxy and dilaudid PRN. Will try to speak with her oncologist Dr. Medina to gauge her treatment options. Abd US without ascites. 4 GERD resume the home medication 5 neuropathy resume the home Neurontin 6 abdominal discomfort likely secondary to underlying constipation. Initiate a bowel regimen especially while on narcotic pain medications. Enema attempted on 10/12 without BM. Lactulose added. 7 tachycardia sinus. Treat the reversible factors including hypoxemia and trend for now DVT prophylaxis will be with Lovenox For now patient is a full code. Dispo: 2 days pending improvement in hypoxia and abd pain.
--- NOTE | 2023-10-13 07:37 | DI.US.S_ITS ---
PROCEDURE: US ABDOMEN LIMITED INDICATIONS: assess if enough fluid to tap and corrine spot if so TECHNIQUE: Real-time scanning was performed of the abdominal for ascites, with image documentation. COMPARISON: [facility], CT, CT ABDOMEN PELVIS W CON, 10/12/2023, 12:22. FINDINGS: Lower abdominal quadrants are evaluated for ascites. There is scant ascites visualized. No pocket for paracentesis identified. IMPRESSION: No pocket for paracentesis identified in the lower abdomen. Dictated by: Sharan Arias M.D. on 10/13/2023 at 8:32 Approved by: Sharan Arias M.D. on 10/13/2023 at 8:33
[2023-10-13] MEDS: PANTOPRAZOLE DR 40 MG TABLET PO (08:15)
[2023-10-13] MEDS: SENNOSIDES 8.6 MG TABLET 17.2 MG PO (08:15)
[2023-10-13] MEDS: polyethylene glycoL 3350 17 GM POWD.PACK PO (08:15)
[2023-10-13] MEDS: DULOXETINE 30 MG CAPSULE 60 MG PO (08:16)
[2023-10-13] MEDS: GABAPENTIN 600 MG TABLET 900 MG PO ×2 (08:16→15:21)
[2023-10-13] MEDS: MORPHINE ER 15 MG TABLET 30 MG PO ×2 (08:16→15:24)
[2023-10-13] MEDS: ENOXAPARIN 40 MG/0.4 ML SYRINGE SUBCUT (08:16)
[2023-10-13] MEDS: SODIUM ZIRCONIUM CYCLOSILICATE 10 GM POWD.PACK PO ×2 (08:24→15:25)
[2023-10-13] MEDS: SODIUM CHLORIDE 0.9% 1,000 ML 100 ML IV (08:37)
[2023-10-13] MEDS: SODIUM CHLORIDE 0.9% FLUSH 10 ML IV (08:45)
[2023-10-13 09:23] LABS: Acinetobacter calcoa-baumannii Not Detected (Not Detect); Bacteroides fragilis Not Detected (Not Detect); Candida albicans Not Detected (Not Detect); Candida auris Not Detected (Not Detect); Candida glabrata Not Detected (Not Detect); Candida krusei Not Detected (Not Detect); Candida parapsilosis Not Detected (Not Detect); Candida tropicalis Not Detected (Not Detect); Cryptococcus neoformans/gatti Not Detected (Not Detect); Enterobacter cloacae complex Not Detected (Not Detect); Enterobacterales Not Detected (Not Detect); Enterococcus faecalis Not Detected (Not Detect); Enterococcus faecium Not Detected (Not Detect); Haemophilus influenzae Not Detected (Not Detect); Klebsiella aerogenes Not Detected (Not Detect); Listeria monocytogenes Not Detected (Not Detect); Neisseria meningitidis Not Detected (Not Detect); Proteus species Not Detected (Not Detect); Pseudomonas aeruginosa Not Detected (Not Detect); Salmonella species Not Detected (Not Detect); Serratia marcescens Not Detected (Not Detect); Staphylococcus epidermidis Detected (Not Detect); Staphylococcus lugdunensis Not Detected (Not Detect); Staphylococcus species Detected (Not Detect); Stenotrophomonas maltophilia Not Detected (Not Detect); Streptococcus agalactiae (Gr B Not Detected (Not Detect); Streptococcus pneumonia Not Detected (Not Detect); Streptococcus pyogenes (Gr A) Not Detected (Not Detect); Streptococcus species Not Detected (Not Detect); mecA/C Resistance Detected (Not Detect)
[2023-10-13] MEDS: HYDROMORPHONE 0.5 MG INJ IV (10:06)
[2023-10-13] MEDS: MAGNESIUM HYDROXIDE 30 ML UDC PO (11:04)
--- NOTE | 2023-10-13 11:15 | PT.IIE ---
Current Diagnoses Hypoxemia (10/12/23) Surgical History (Last Reviewed 10/09/23 @ 05:37 by Mo Moseley MD) Anesthesia H/O total hysterectomy with bilateral salpingo-oophorectomy (BSO) (10/04/22) History of foot surgery (~2000) History of laparoscopy (~1991) History of neck surgery (~1997) Medical History (Last Updated 10/09/23 @ 11:51 by Mo Moseley MD) Chicken pox Chronic back pain Chronic, continuous use of opioids Essential hypertension Fibroids Fibromyalgia GERD without esophagitis IT band syndrome Malignant ascites Measles Migraines Mumps Osteoarthritis of right hip Painful menstrual periods Physical Therapy Inpatient Evaluation/Re-Eval M1 PT/OT-IP Prior Functional Status Start: 10/13/23 11:04 Freq: NEEDED Status: Active Protocol: Document 10/13/23 11:04 SAK (Rec: 10/13/23 11:14 SAK [id number]) Medical Review Prior Functional Status Medical History Reviewed Yes Communication A and O x 4 Mobility and Gait gait with assist of son and use of cane, FWW, or 4WW Activities of Daily Living and IADL's Assist from son Social History Household Members children Living Arrangements Apartment/Condo Number of Stairs To Enter/Railing? 18, 1 railing Home Environment High Toilet Home Equipment Front Wheel Walker,Four Wheel Walker,Straight Cane,Raised Toilet Seat w/Armrests M2 PT-IP Current Condition Start: 10/13/23 11:04 Freq: NEEDED Status: Active Protocol: Document 10/13/23 11:04 SAK (Rec: 10/13/23 11:14 SAK [id number]) Physical Therapy Current Condition Current Condition Evaluation Date 10/13/23 M3 PT-IP Subjective Start: 10/13/23 11:04 Freq: NEEDED Status: Active Protocol: Document 10/13/23 11:04 SAK (Rec: 10/13/23 11:14 SAK [id number]) Subjective Physical Therapy Visit Type Visit Start Time 11:39 Visit Stop Time 11:06 Physical Therapy Visit Comments Patient Comments Patient uncomfortable, hasn't had a BM in about a week. My hip is bone on bone. States she doesn't think she can get up Patient Goals improve strength to allow her to discharge home Therapy Pain Assessment Pain When Pain Assessed At Rest Pain Present Pain Present Pain Reported Location Left buttock Intensity 8 Scale Used Numeric (0 - 10) Description Sharp Abdomen Intensity 8 Scale Used Numeric (0 - 10) Description Sharp Pain Management Techniques Re-positioning,Timing of Activity with Medications Right hip Intensity 8 Scale Used Numeric (0 - 10) Description Sharp Pain Management Techniques Re-positioning,Timing of Activity with Medications M4 PT-IP Mobility and Gait Start: 10/13/23 11:04 Freq: NEEDED Status: Active Protocol: Document 10/13/23 11:04 MARCELLO (Rec: 10/13/23 11:14 [facility] [id number]) PT-Bed Mobility Assessment Rolling Type of Rolling Roll to Right Level of Assist Maximal Assistance Supine to Sit Supine to Sit Maximum Assistance,2 Person Assistance Sit to Supine Sit to Supine Moderate Assistance,2 Person Assistance Scooting Scooting to Edge of Bed Maximum Assistance Scooting Up and Down in Bed Maximum Assistance PT-Transfer Assessment Comments Mobility Comments Sat at edge of bed 5 min with mod assist due to tendency to lean backward, pulse inc to 122, O2 sats variable, mostly above 90 Gait Assessment Comments Gait Comments unable to stand Stair Climbing Assessment Comments Stair Climbing Comments NA PT-Balance Assessment Sitting Balance and Reactions Static Sitting Balance Ability Poor Dynamic Sitting Balance Ability Poor M5 PT-IP Objective Assessments Start: 10/13/23 11:04 Freq: NEEDED Status: Active Protocol: Document 10/13/23 11:04 MARCELLO (Rec: 10/13/23 11:14 [facility] [id number]) Orientation Orientation/Cognition Level of Alertness Alert Orientation Name,Place,Situation Language Function Ability No Deficits Noted Safety Awareness Understands Safety Issues Memory Description No Deficits Noted Gross Range of Motion Upper Extremity ROM Assessment Within Functional Limits Lower Extremity ROM Assessment Within Functional Limits Strength Comments Strength Comments Not tested Sensation Assessment Sensation Gross Sensation WNL M7 PT-IP Assessment and Plan Start: 10/13/23 11:04 Freq: NEEDED Status: Active Protocol: Document 10/13/23 11:04 MARCELLO (Rec: 10/13/23 11:14 [facility] [id number]) PT Summary Assessment and Plan Potential Rehabilitation Potential Good Status of Condition at Evaluation Evolving Summary Impairments Pain,Strength,Bed Mobility, Transfers,Gait,Activity Tolerance Assessment Summary Patient admitted to hospital with weakness after recent discharge home from the hospital. Patient unable to stand or walk at home. Now on oxygen, c/o abdominal and right hip pain. Hasn't had a bowel movement in over 1 week per her report. Patient reluctant to try PT but willing to try to sit at edge of bed with PT and nursing assist. Required mod assist of 2 to move from supine to sit, mod assist of 1-2 to maintain seated balance for 5 min, mod assist of 2 to return to supine, and max of 2 to scoot her up in bed. Will benefit from PT to help her improve her bed mobility, transfers, gait, and functional strength. Goals Bed Mobility Goal Contact Guard Assistance Transfer Goal Minimal Assistance Gait Goal Minimal Assistance Days to Meet Goals 5 Frequency of Treatment Frequency Of Treatment Once a Day Treatment Plan Physical Therapy Treatment Plan Bed Mobility Training,Transfer Training,Gait Training, Therapeutic Exercise,Balance Retraining,Neuromuscular Re-ed Other Recommendations and Next Treatment Attempt stand as tolerated, Focus may need mechanical standing equipment. Weight Bearing Status Weight Bearing Status Full Weight Bearing Recommendations To Nursing Amount of Assist Needed 2 Person Assist,Mechanical Lift Discharge Recommendations PT Discharge Recommendations Home with 03/03 Assist Available,Home Health,SNF Rehab,Home vs SNF
--- NOTE | 2023-10-13 12:54 | CM.DANOTE ---
Addendum entered by CLAY Godinez 10/13/23 15:05: DRYWALL STRIPPER emailed signed transit form to Saleem. Saleem/ECHO at [facility] will cancel appt for tomorrow in hopes to reschedule appt sooner in month. Appreciative of updates on dcp to help coordinate f/u appt. Plan: DCP pending. Anticipate home with son/friend. Follow closely for more comprehensive DCP/resources. DERIK Original Note: DCP Assessment Note Pt is a 68yo F here with a PMH of endometrial cancer getting chemo at [facility]. Pt was recently here 10/03/23-10/05/23 for HAL and UTI. Pt dc'd home with son support- denied HH and other resources from our CM team. PCP [facility] Oncologist Adam. Payer [employer] Medicare and self pay DRYWALL STRIPPER reviewed EMR. This DRYWALL STRIPPER met with pt briefly in ED yesterday. Pt admitted for weakness/hyponatremia. Per chart review, friend Daja assists with transport for pt to appointments but pt missing a lot of appointments. Friend concerned about second level apartment and pt unable to navigate stairs. Per chart review, pt on high flow oxygen. Pt unable to mobilize with PT today- rec Home with assist vs SNF. [facility]- [facility] accept pt due to need and [employer] rate. [facility]- spoke with saira. Agreed to review- acceptance pending. JAVIER Harrison kindly agreed to send clinicals for review for RN/PT/OT/COORDINATOR OF GENETIC SERVICES/DRYWALL STRIPPER. DRYWALL STRIPPER spoke with Saleem, medical social consultant from [facility] oncology. Reports have not worked with pt before for social work needs but pt has an appt with [employer] tomorrow sugar mill worker and he was going to meet with her then. Reports he would work on getting her set up with transport and other needs in the home. Saleem emailed [facility] transit form for pt to get to appointments. DRYWALL STRIPPER entered room and introduced self and role. Pt accompanied by friend Daja and son at bedside. Reports she cannot go home due to not being able to navigate stairs into apt. DRYWALL STRIPPER updated them on MANUELA Kidd reviewing. DRYWALL STRIPPER updated pt on SNF placement- would not be able to continue chemo treatment/infusions while at SNF and barriers to get accepting facility with insurance. Pt and family report understanding. Pt reports wanting hip surg but needing to be off chemo meds for two months prior to being able to operate. Pt signed para transit form. Son/pt interested in meals on wheels. Plan: POC pending. unclear if attempt to dc home later today to make onc appt 3/5 or keep pt overnight. Friend daja would provide transport if pt able to ambulate later in day. [facility] acceptance pending. CM team will continue to follow closely CLAY Godinez Discharge Planning/Care Management CM Discharge Assessment Start: 10/13/23 12:53 Freq: Status: Active Protocol: Document 10/13/23 12:53 SL (Rec: 10/13/23 12:54 [id number]) Discharge Planning Assessment Assigned Wash Operator CLAY Oviedo DPOA/Assigned Designee Name gibran Arevalo Contact Information [phone] Advance Directives? No History Provided By Patient,Medical Record Prior Living Arrangements Apartment/Condo Household Members children Type of transporation used prior to Relies on Others admit Independent with ADL's No Is patient alert and oriented? Yes Needs Assistance With Meal Prep,Home Chores / Shopping DME Already Rented / Owned FWW / Walker Patient/Family Preference Home with Home Health Comment Son provides all assist and can resume care once patient is discharged home. patient may be a good candidate for if agreeable and HH agency will accept her [employer] MCR. Discharge Plan Home with Home Health Transportation Arrangement friend Daja If patient plan is home with home health Yes : Has signed face to face form been completed? SNF/HH Preference [facility] reviewing Whiteboard Updated in Patient Room with Yes name and ext. # of Wash Operator Review Status In Process Next Review Type Continued Stay Review
[2023-10-13 12:58] LABS: BUN Creatinine Ratio 18.1 (6-22); Blood Urea Nitrogen 17 mg/dL (7-17); Calcium 8.7 mg/dL (8.4-10.2); Carbon Dioxide 24 mmol/L (22-32); Chloride 102 mmol/L (98-107); Estimated Glomerular Filt Rate > 60 mL/min (>60); Glucose 125 mg/dL (80-110); HEMOLYSIS < 15 (0-50); Potassium 5.7 mmol/L (3.4-5.1); Sodium 133 mmol/L (137-145)
[2023-10-13] MEDS: ONDANSETRON 4 MG/2 ML INJ IV ×3 (13:50→22:26)
[2023-10-13] MEDS: MINERAL OIL 1 EACH ENEMA PR (13:54)
[2023-10-13] MEDS: CALCIUM GLUCONATE 9.3 MEQ in SODIUM CHLORIDE 0.9% 50 ML 140 MEQ IV (14:00)
[2023-10-13] MEDS: DEXTROSE 10 % IN WATER 250 ML 50 ML IV (14:16)
[2023-10-13] MEDS: INSULIN REGULAR 100 UNIT/ML 3 ML VIAL 10 UNIT IV (15:06)
[2023-10-13] MEDS: DEXTROSE 50 % IN WATER 25 GM/50 ML SYRINGE IV (15:08)
[2023-10-13] MEDS: PROMETHAZINE 25 MG TABLET PO (16:14)
[2023-10-13] MEDS: HYDROMORPHONE 0.5 MG INJ 1 MG IV ×3 (16:17→22:26)
[2023-10-13 17:12] LABS: HEMOLYSIS < 15 (0-50); Potassium 5.3 mmol/L (3.4-5.1)
[2023-10-13] MEDS: OXYCODONE IR 10 MG TABLET 25 MG PO (18:33)
[2023-10-13] MEDS: METOCLOPRAMIDE 10 MG/2 ML INJ 5 MG IV (19:49)
[2023-10-14] MEDS: METOCLOPRAMIDE 10 MG/2 ML INJ 5 MG IV ×2 (01:35→10:13)
[2023-10-14] MEDS: HYDROMORPHONE 0.5 MG INJ 1 MG IV ×6 (01:36→22:25)
[2023-10-14] MEDS: SODIUM CHLORIDE 0.9% 1,000 ML 100 ML IV ×3 (04:22→21:06)
[2023-10-14] MEDS: ONDANSETRON 4 MG/2 ML INJ IV ×4 (04:39→23:55)
[2023-10-14 04:55] LABS: BUN Creatinine Ratio 14.3 (6-22); Blood Urea Nitrogen 12 mg/dL (7-17); Calcium 9.3 mg/dL (8.4-10.2); Carbon Dioxide 27 mmol/L (22-32); Chloride 102 mmol/L (98-107); Estimated Glomerular Filt Rate > 60 mL/min (>60); Glucose 119 mg/dL (80-110); HEMOLYSIS < 15 (0-50); Potassium 5.2 mmol/L (3.4-5.1); Sodium 135 mmol/L (137-145)
[2023-10-14 05:57] VITALS: BP 123/54; PULSE 78; RESP 16; TEMP 36.4; O2SAT 94
--- NOTE | 2023-10-14 07:00 | PC.NURSE ---
Pt c/o nausea and vomiting throughout the night. this nurse sugested pt that she might need an NGT which pt denied. Pt now NPO and on IVF NS 100. NO BM tonight, BT diminished and abdomen is hard and distended.
[2023-10-14 08:00] VITALS: BP 118/72; PULSE 90; RESP 18; TEMP 36.6; O2SAT 85
[2023-10-14] MEDS: SODIUM CHLORIDE 0.9% FLUSH 10 ML IV (10:11)
[2023-10-14] MEDS: MORPHINE ER 15 MG TABLET 30 MG PO ×3 (11:03→21:06)
[2023-10-14] MEDS: GABAPENTIN 600 MG TABLET 900 MG PO ×2 (11:05→21:05)
[2023-10-14] MEDS: DULOXETINE 30 MG CAPSULE 60 MG PO (11:05)
[2023-10-14] MEDS: PANTOPRAZOLE DR 40 MG TABLET PO (11:06)
[2023-10-14] MEDS: ENOXAPARIN 40 MG/0.4 ML SYRINGE SUBCUT (11:07)
[2023-10-14] MEDS: LACTULOSE 20 GM/30 ML SOLUTION PO (11:08)
[2023-10-14] MEDS: polyethylene glycoL 3350 17 GM POWD.PACK PO (11:08)
[2023-10-14] MEDS: SENNOSIDES 8.6 MG TABLET 17.2 MG PO ×2 (11:08→21:05)
[2023-10-14] MEDS: OXYCODONE IR 10 MG TABLET 25 MG PO ×2 (11:14→18:46)
--- NOTE | 2023-10-14 11:16 | PT-IP ANOTE ---
Pt on hold for PT today. per nurse, pt has been vomiting and not able to tolerate oral intake. per hospitalist, hold to day but check tomorrow. hospitalist plans to have a plan of care meeting with family on interventions and d/c plans.
--- NOTE | 2023-10-14 11:46 | PM.PN.1 ---
Subjective Subjective Interval history: Spoke with Dr. Medina oncologist who recommended goals of care discussion given chemo would only be palliative at this point. Son to arrive from [place] at 1830 on 10/14 so waiting for his arrival to do this. Patient passing gas, still having some NV. Pain in belly and hip improved with higher pain med doses. She understands that if she doesn't improve enough, she wouldn't be able to handle chemo and hospice would be appropriate. Exam Vital Signs (past 8 hours): - 10/14/23 05:57 10/14/23 07:00 10/14/23 08:00 Temperature 97.6 F 97.9 F Pulse Rate 78 90 Respiratory Rate 16 18 Blood Pressure 123/54 L 118/72 Pulse Oximetry 94 85 L Oxygen Delivery Method Oximask Oxygen Flow Rate 0 2 Fraction of Inspired Oxygen 28 SaO2/FiO2 Ratio 342 Oxygen Delivery Method Oximask Oxygen Flow Rate 2 Narrative Exam Narrative: GEN: ill-appearing HEENT: moist mucous membranes, PERRL NECK: trachea midline, no JVD CV: regular rate and rhythm, no murmurs PULM: clear bilaterally ABD: soft, diffuse tenderness, nondistended, no organomegaly EXT: warm and well perfused with no edema NEURO: awake, alert, oriented, no focal deficits Objective Labs 10/13/23 05:00 10/14/23 04:22 Labs: Laboratory Results - last 24 hr 10/13/23 10/13/23 10/14/23 12:20 16:55 04:22 Sodium 133 L 135 L Potassium 5.7 H 5.3 H 5.2 H Chloride 102 102 Carbon Dioxide 24 27 BUN 17 12 Creatinine 0.94 0.84 Estimated GFR > 60 > 60 BUN/Creatinine Ratio 18.1 14.3 Glucose 125 H 119 H Calcium 8.7 9.3 PFSH Medical History (Updated 10/12/23 @ 19:36 by Hung Gupta DO) Malignant ascites GERD without esophagitis Chronic, continuous use of opioids Osteoarthritis of right hip Essential hypertension IT band syndrome Painful menstrual periods Fibroids Migraines Fibromyalgia Chronic back pain Mumps Measles Chicken pox Surgical History H/O total hysterectomy with bilateral salpingo-oophorectomy (BSO) (10/04/22) Anesthesia History of laparoscopy (~1991) History of foot surgery (~2000) History of neck surgery (~1997) Family History Father Cancer Family/Other No problems noted. 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 Acute hypoxic resp failure. Patient during recent hospitalization had acute bronchitis with wheezing and I am not sure if there was an element of acute bronchitis with exposure to secondhand smoking while growing up. Oxygen supplementation with nebulizers for now. CT chest is negative for pulm embolism. Treatment is conservative and monitor closely. -weaned to 2L Oxymask 2. Generalized weakness with gait instability and the patient with endometrial cancer that appears to be progressing. Likely multifactorial due to an underlying cancer etiology that is progressive. PT eval to hold until 10/14. 3. 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 Resume the home morphine/oxycodone and baclofen. Oxy and dilaudid PRN. Abd US without ascites. Spoke with her oncologist Dr. Medina who said there is options for palliative chemo, but she would need to be strong enough to handle this. He says palliative care and hospice would be the other best option if not. Awaiting son to arrive from [facility] then will have goals of care talk about hospice vs trying to get better for palliative chemo. 4 GERD resume the home medication 5 neuropathy resume the home Neurontin 6 abdominal discomfort likely secondary to underlying constipation. Initiate a bowel regimen especially while on narcotic pain medications. Enema attempted on 10/12 without BM. Lactulose added. Patient passing lots of gas. CT abd without obstruction. 7 tachycardia sinus. Improving. DVT prophylaxis will be with Lovenox For now patient is a full code. Dispo: Pending [facility] talk on 10/14 with sons. Hospice vs home to try to do chemo.
[2023-10-14 12:22] VITALS: BP 123/73; PULSE 107; RESP 20; TEMP 36.3; O2SAT 90
--- NOTE | 2023-10-14 13:17 | CM.DPC ---
DCP Cont. Reviewed EMR and team rounds for status updates. Pt's son is flying in from [place], will be here later this evening. Dr. Melendez is planning to have a goals of care conversation to clarify if pt will continue with active chemo treatment, or if she is open to initiating hospice services at d/c. Met with pt, her local son, and other family member to discuss her concerns and preferences for d/c, as well as initiated the goals of care conversation. Pt states that Dr. Medina was hopeful that continued chemo tx could prolong her life, although it's palliative in focus. She feels like she would like to continue tx, but needs help with transportation to and from [facility]. Her local son lives with her and can assist with care, but is not able to be a full-time caregiver. Discussed what it would look like in the home with hospice services, and that she would need 24-hour caregiving. She would not be able to afford this. She makes just over the financial limit to qualify for Medicaid for either in-home care or long-term placement in a facility. We will plan to complete the Medicaid application tomorrow when is feeling less nauseous, so at least she will have this as another option for when she will definitively need end of life care. She expressed feeling that this was a good beginning for decision making needs.
[2023-10-14] MEDS: METOCLOPRAMIDE 10 MG/2 ML INJ IV ×2 (15:10→21:06)
[2023-10-14 16:00] VITALS: BP 134/77; PULSE 99; RESP 22; TEMP 36.2; O2SAT 93
[2023-10-14] MEDS: PROMETHAZINE 25 MG TABLET PO (16:49)
[2023-10-14] MEDS: OLANZapine ODT 10 MG TAB 5 MG PO (18:31)
[2023-10-14] MEDS: BISACODYL 10 MG SUPP PR (18:32)
[2023-10-14 20:00] VITALS: BP 126/72; PULSE 99; RESP 16; TEMP 36.3; O2SAT 95
[2023-10-14] MEDS: BACLOFEN 10 MG TABLET PO (21:05)
--- NOTE | 2023-10-14 22:54 | PC.NURSE ---
Patient is alert and oriented. Breath sounds CTA with RA sat of 95%; on continuous oximetry. HRR w/telemetry reading of SR-ST. Persistent nausea but without emesis medicated with Reglan. BT present but hypoactive and has not had a BM since 10/08 despite multiple medications. Given suppository toward end of previous shift and had a smear of stool; incontinent. Has abdominal pain especially across upper abdomen which is more firm than lower abdomen; is on scheduled Morphine and was medicated with baclofen as well as dilaudid for 7-03/20 pain. Indwelling catheter is patent and urine is clear yellow. Needs assist to reposition q2h as unable to move herself and has pressure area on left buttock. Has not been out of bed since admission related to weakness; PT is working with her. Has right hip pain for which she was medicated earlier. Bilateral calf SCD's placed. Placed on contact isolation as blood is growing gm + cocci on the gram stain; she and son verbalize understanding. Fall risk score is high and bed alarm is activated.
[2023-10-15] VITALS: BP 119/61; PULSE 77; RESP 16; TEMP 36.7; O2SAT 91
[2023-10-15] MEDS: HYDROMORPHONE 0.5 MG INJ 1 MG IV ×2 (03:12→19:51)
[2023-10-15] MEDS: METOCLOPRAMIDE 10 MG/2 ML INJ IV ×3 (03:12→19:53)
[2023-10-15 03:41] VITALS: BP 137/84; PULSE 112; RESP 16; TEMP 36.8; O2SAT 93
[2023-10-15] MEDS: ONDANSETRON 4 MG/2 ML INJ IV (05:02)
[2023-10-15] MEDS: OXYCODONE IR 10 MG TABLET 25 MG PO ×2 (05:02→13:46)
[2023-10-15] MEDS: SODIUM CHLORIDE 0.9% FLUSH 10 ML IV ×3 (05:03→19:54)
[2023-10-15 05:38] LABS: BUN Creatinine Ratio 15.7 (6-22); Blood Urea Nitrogen 13 mg/dL (7-17); Calcium 8.9 mg/dL (8.4-10.2); Carbon Dioxide 23 mmol/L (22-32); Chloride 107 mmol/L (98-107); Estimated Glomerular Filt Rate > 60 mL/min (>60); Glucose 107 mg/dL (80-110); HEMOLYSIS < 15 (0-50); Sodium 137 mmol/L (137-145)
[2023-10-15 05:40] LABS: Potassium 5.4 mmol/L (3.4-5.1)
[2023-10-15 08:00] VITALS: BP 152/84; PULSE 108; RESP 18; TEMP 37.2; O2SAT 94
[2023-10-15] MEDS: MORPHINE ER 15 MG TABLET 30 MG PO ×3 (09:32→21:07)
[2023-10-15] MEDS: polyethylene glycoL 3350 17 GM POWD.PACK PO (09:33)
[2023-10-15] MEDS: OLANZapine ODT 10 MG TAB 5 MG PO (09:36)
[2023-10-15] MEDS: PANTOPRAZOLE DR 40 MG TABLET PO (09:39)
[2023-10-15] MEDS: MAGNESIUM HYDROXIDE 30 ML UDC PO (09:39)
[2023-10-15] MEDS: DULOXETINE 30 MG CAPSULE 60 MG PO (09:40)
[2023-10-15] MEDS: SENNOSIDES 8.6 MG TABLET 17.2 MG PO ×2 (09:40→21:06)
[2023-10-15] MEDS: GABAPENTIN 600 MG TABLET 900 MG PO ×3 (09:40→21:06)
[2023-10-15] MEDS: ENOXAPARIN 40 MG/0.4 ML SYRINGE SUBCUT (09:41)
[2023-10-15] MEDS: ONDANSETRON 4 MG ODT PO (13:25)
--- NOTE | 2023-10-15 14:20 | PT.IPTN ---
Current Diagnoses Hypoxemia (10/12/23) Physical Therapy Treatment Note M2 PT-IP Current Condition Start: 10/13/23 11:04 Freq: NEEDED Status: Active Protocol: Document 10/13/23 11:04 SAK (Rec: 10/13/23 11:14 SAK [id number]) Physical Therapy Current Condition Current Condition Evaluation Date 10/13/23 Treatment Diagnosis weakness Onset Date 10/12/23 M3 PT-IP Subjective Start: 10/13/23 11:04 Freq: NEEDED Status: Active Protocol: Document 10/15/23 14:46 TS (Rec: 10/15/23 15:04 TS [id number]) Subjective Physical Therapy Visit Type Type Treatment Note Visit Start Time 14:20 Visit Stop Time 14:45 Notes Vitals: BP sitting 160/102, MAP 128, HR 140's with mobility. Number of DOCTOR OF AUDIOLOGY Visits 1 Physical Therapy Visit Comments Patient Comments Pt found resting in bed, family in room, pt agreeable to PT. M4 PT-IP Mobility and Gait Start: 10/13/23 11:04 Freq: NEEDED Status: Active Protocol: Document 10/15/23 14:46 TS (Rec: 10/15/23 15:04 TS [id number]) PT-Bed Mobility Assessment Supine to Sit Supine to Sit Maximum Assistance,1 Person Assistance Sit to Supine Sit to Supine Contact Guard Assistance PT-Transfer Assessment Sit to and From Stand Sit to and from Stand Contact Guard Assistance,1 Person Assistance,Use of Upper Extremities Equipment Transfer Assistive Device Gait Belt,Front Wheeled Walker Orthotic/Prosthetic Devices or Brace: No Comments Mobility Comments Supine to sit MaxA with HOB elevated, pt required cues for use of handrails. STS from bed with FWW CGA, pt reported feeling nauseous, requested to sit back down. pt reports feeling dizzy and nauseous sitting EOB, HR 140, BP 160/ 102 and MAP 128. Pt agreed to try and stand again, STS from bed CGA with use of FWW, she sidestepped x5 towards HOB CGA with FWW. Sit to supine into bed CGA, pt uses rails to reposition trunk in bed. pt was left in bed, son in room, RN notified. Gait Assessment Gait Gait Assistance Required: Contact Guard Assist,1 Person Assist Distance (Feet) 2 Assistive Devices Assistive Device Gait Belt,Front Wheeled Walker Orthotic/Prosthetic Devices or Brace: No Comments Gait Comments Sidestepped to HOB. PT-Balance Assessment Sitting Balance and Reactions Static Sitting Balance Ability Fair Dynamic Sitting Balance Ability Fair Standing Balance and Reactions Static Standing Balance Ability Fair Dynamic Standing Balance Ability Fair Device Used FWW M5 PT-IP Objective Assessments Start: 10/13/23 11:04 Freq: NEEDED Status: Active Protocol: Document 10/13/23 11:04 SAK (Rec: 10/13/23 11:14 SAK [id number]) Orientation Orientation/Cognition Level of Alertness Alert Orientation Name,Place,Situation Language Function Ability No Deficits Noted Safety Awareness Understands Safety Issues Memory Description No Deficits Noted Gross Range of Motion Upper Extremity ROM Assessment Within Functional Limits Lower Extremity ROM Assessment Within Functional Limits Strength Comments Strength Comments Not tested Sensation Assessment Sensation Gross Sensation WNL M7 PT-IP Assessment and Plan Start: 10/13/23 11:04 Freq: NEEDED Status: Active Protocol: Document 10/15/23 14:46 TS (Rec: 10/15/23 15:04 TS [id number]) PT Summary Assessment and Plan Potential Rehabilitation Potential Fair Summary Impairments Pain,Strength,Bed Mobility, Transfers,Gait,Activity Tolerance Progress Towards Goals Slow Progress due to Pain,Slow Progress due to Medical Issues,Slow Progress due to Activity Tolerance Assessment Summary Sheldon made some progress with her mobility but remains limited by pain, ongoing medical issues and activity tolerance. She required MaxA for sitting up to EOB. She performed STS x2 CGA with FWW. She performed sidesteps x5 CGA with FWW, After standing she became nauseous, fatigued and dizzy, pt could not continue with therapy. PT continues to recommend Home 24 /7 w/HHPT vs SNF at this time. Goals Bed Mobility Goal Contact Guard Assistance Transfer Goal Minimal Assistance Gait Goal Minimal Assistance Days to Meet Goals 5 Frequency of Treatment Frequency Of Treatment Once a Day Treatment Plan Physical Therapy Treatment Plan Bed Mobility Training,Transfer Training,Gait Training, Therapeutic Exercise,Balance Retraining,Neuromuscular Re-ed Weight Bearing Status Weight Bearing Status Full Weight Bearing Recommendations To Nursing Amount of Assist Needed 2 Person Assist Discharge Recommendations PT Discharge Recommendations Home with 24/7 Assist Available,Home Health,SNF Rehab,Home vs SNF Transportation Needs at Discharge Private Vehicle,Wheelchair/ Cabulance
[2023-10-15] MEDS: PROMETHAZINE 25 MG TABLET PO (14:40)
--- NOTE | 2023-10-15 15:18 | CM.DPC ---
DCP Cont. Reviewed EMR and team rounds for status updates. VETERINARY PHARMACOLOGIST met with patient and patient's son, Mickey, at bedside. Pt discussed with pt plans for completing Medicaid application as another option for when she will be in need of end of life or in-home care. Pt and son were agreeable to plan. VETERINARY PHARMACOLOGIST assisted pt with completing application and referral forms then faxed to [facility] office. VETERINARY PHARMACOLOGIST returned original forms to pt at bedside.
--- NOTE | 2023-10-15 16:49 | PM.PN.1 ---
Subjective Subjective Interval history: Patient feeling better today. Less nauseous since starting the po zyprexa last night. Now on room air as well. Son will arrive tonight and plan for GOC talk tomorrow. Exam Vital Signs (past 8 hours): Fraction of Inspired Oxygen 28 SaO2/FiO2 Ratio 342 Oxygen Delivery Method Room Air Oxygen Flow Rate 0 Narrative Exam Narrative: GEN: improved appearance today, looks less ill HEENT: moist mucous membranes, PERRL NECK: trachea midline, no JVD CV: regular rate and rhythm, no murmurs PULM: clear bilaterally ABD: soft, diffuse tenderness, nondistended, no organomegaly EXT: warm and well perfused with no edema NEURO: awake, alert, oriented, no focal deficits Objective Labs 10/13/23 05:00 10/15/23 05:20 Labs: Laboratory Results - last 24 hr 10/12/23 10/15/23 12:13 05:20 Sodium 137 Potassium 5.4 H Chloride 107 Carbon Dioxide 23 BUN 13 Creatinine 0.83 Estimated GFR > 60 BUN/Creatinine Ratio 15.7 Glucose 107 Calcium 8.9 A.calcoaceticus-baumannii cmplx PCR Not detected Bacteroides fragilis Not detected Almita albicans (PCR) Not detected Almita auris (PCR) Not detected C. glabrata (PCR) Not detected C. krusei (PCR) Not detected C. parapsilosis (PCR) Not detected C. tropicalis (PCR) Not detected C. neoform/gattii (PCR) Not detected Enterobacterales (PCR) Not detected E. cloacae complex PCR Not detected Enterococc faecalis PCR Not detected Enterococc faecium PCR Not detected E. coli (PCR) Not detected H. influenzae (PCR) Not detected Klebsiella aerogenes (PCR) Not detected Klebsiella oxytoca PCR Not detected Klebsiella pneumoniae Not detected List. monocytogenes PCR Not detected N. meningitidis (PCR) Not detected Proteus species (PCR) Not detected Salmonella spp. (PCR) Not detected Serratia marcescens PCR Not detected Staphylococcus sp PCR Detected Staph aureus (PCR) Not detected mecA/C & MREJ Resist Gene Not applicable mecA/C-Methicil Resis Gene Detected mcr-1 Colistin Res Gene PCR Not applicable Staph epidermidis (PCR) Detected Staph lugdunensis PCR Not detected S. maltophilia (PCR) Not detected Streptococcus sp PCR Not detected Group A Strep (PCR) Not detected Strep agalactiae (PCR) Not detected Strep pneumoniae (PCR) Not detected P. aeruginosa (PCR) Not detected Kevin/B-Vanco Res Genes Not applicable blaIMP Car res Gene PCR Not applicable KPC-Carbap Res Gene PCR Not applicable blaNDM Car Res Gene PCR Not applicable OXA-48 Carbapenem Resis Gene (PCR) Not applicable blaVIM Car Res Gene PCR Not applicable CTX-M Gene Resistance (PCR) Not applicable [facility] Medical History (Updated 10/12/23 @ 19:36 by Hung Gupta DO) Malignant ascites GERD without esophagitis Chronic, continuous use of opioids Osteoarthritis of right hip Essential hypertension IT band syndrome Painful menstrual periods Fibroids Migraines Fibromyalgia Chronic back pain Mumps Measles Chicken pox Surgical History H/O total hysterectomy with bilateral salpingo-oophorectomy (BSO) (10/04/22) Anesthesia History of laparoscopy (~1991) History of foot surgery (~2000) History of neck surgery (~1997) Family History Father Cancer Family/Other No problems noted. 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 Acute hypoxic resp failure. Patient during recent hospitalization had acute bronchitis with wheezing and I am not sure if there was an element of acute bronchitis with exposure to secondhand smoking while growing up. Oxygen supplementation with nebulizers for now. CT chest is negative for pulm embolism. Treatment is conservative and monitor closely. -weaned to room air 2. Generalized weakness with gait instability and the patient with endometrial cancer that appears to be progressing. Likely multifactorial due to an underlying cancer etiology that is progressive. PT eval to hold until 10/14. 3. 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 Resume the home morphine/oxycodone and baclofen. Oxy and dilaudid PRN. Abd US without ascites. Spoke with her oncologist Dr. Medina who said there is options for palliative chemo, but she would need to be strong enough to handle this. He says palliative care and hospice would be the other best option if not. Awaiting son to arrive from [facility] then will have goals of care talk about hospice vs trying to get better for palliative chemo. Patient seems to be improving some now. 4 GERD resume the home medication 5 neuropathy resume the home Neurontin 6 abdominal discomfort and NV, likely secondary to underlying constipation. Initiate a bowel regimen especially while on narcotic pain medications. Enema attempted on 10/12 without BM. Lactulose added. Patient passing lots of gas. CT abd without obstruction. NV improved with zyprexa ODT. Plan to continue on discharge. 7 tachycardia sinus. Improving. 8. Hyperkalemia -K up to 5.7, now at 5.4 -unclear etiology, Cr normal. possibly due to tumor burden. -low potassium diet -continue lokelma -no EKG changes DVT prophylaxis will be with Lovenox For now patient is a full code. Dispo: Pending [facility] talk on 10/15 with sons. Hospice vs home to try to do palliative chemo. PT/OT evals ordered.
[2023-10-15 18:00] VITALS: BP 144/86; PULSE 109; RESP 18; TEMP 37; O2SAT 95
--- NOTE | 2023-10-15 18:50 | PC.NURSE ---
Day shift: Ok to take off of contact precautions per Dr Melendez.
[2023-10-15 20:00] VITALS: BP 122/81; PULSE 103; RESP 16; TEMP 36.7; O2SAT 96
--- NOTE | 2023-10-15 22:14 | PC.NURSE ---
Patient is alert and oriented. Breath sounds diminished at bases but CTA with RA sat of 96%. HRR w/telemetry reading of ST w/rate of 100. Still complains of slight nausea but states improved; medicated with Reglan. BT present and is passing flatus and had a small stool earlier today. Has had some fecal incontinence. Indwelling catheter is patent; urine is clear yellow. Is being repositioned q2h as she will allow; sometimes states she is comfortable but does have pressure injury/excoriation on left buttock and has allevyn dressing over area. Was out of bed with PT today but tolerated poorly with HR elevating into 140's and BP also elevated along with increased nausea and fatigue. Did complain of right hip pain and abdominal discomfort and was medicated with Dilaudid as well as scheduled Morphine. Son, Tyrell, from [place] arrived this evening and both sons are rooming in tonight. Is wearing bilateral calf SCD's. Fall risk score is high but since both sons in room and patient is calling appropriately for assistance, the alarm is not currently in use.
[2023-10-16] VITALS (9 sets, daily range): BP systolic 120–154; BP diastolic 72–93; PULSE 92–120; RESP 16–20; TEMP 36.7–37.5; O2SAT 92–96
[2023-10-16] MEDS: OXYCODONE IR 10 MG TABLET 25 MG PO ×3 (02:21→21:06)
[2023-10-16] MEDS: SODIUM CHLORIDE 0.9% FLUSH 10 ML IV ×3 (05:41→22:28)
[2023-10-16 06:18] LABS: BUN Creatinine Ratio 15.9 (6-22); Blood Urea Nitrogen 13 mg/dL (7-17); Calcium 8.9 mg/dL (8.4-10.2); Carbon Dioxide 22 mmol/L (22-32); Chloride 105 mmol/L (98-107); Estimated Glomerular Filt Rate > 60 mL/min (>60); Glucose 116 mg/dL (80-110); HEMOLYSIS < 15 (0-50); Potassium 4.9 mmol/L (3.4-5.1); Sodium 137 mmol/L (137-145)
[2023-10-16] MEDS: ACETAMINOPHEN 325 MG TABLET 650 MG PO ×2 (08:11→21:07)
[2023-10-16] MEDS: MORPHINE ER 15 MG TABLET 30 MG PO ×3 (08:13→20:34)
[2023-10-16] MEDS: GABAPENTIN 600 MG TABLET 900 MG PO ×3 (08:13→20:34)
[2023-10-16] MEDS: PANTOPRAZOLE DR 40 MG TABLET PO (08:15)
[2023-10-16] MEDS: OLANZapine ODT 10 MG TAB 5 MG PO (08:15)
[2023-10-16] MEDS: METOCLOPRAMIDE 10 MG/2 ML INJ IV ×2 (08:15→18:02)
[2023-10-16] MEDS: SENNOSIDES 8.6 MG TABLET 17.2 MG PO ×2 (08:15→20:34)
[2023-10-16] MEDS: DULOXETINE 30 MG CAPSULE 60 MG PO (08:15)
[2023-10-16] MEDS: polyethylene glycoL 3350 17 GM POWD.PACK PO (08:16)
[2023-10-16] MEDS: ENOXAPARIN 40 MG/0.4 ML SYRINGE SUBCUT (08:16)
[2023-10-16] MEDS: ONDANSETRON 4 MG/2 ML INJ IV ×3 (09:43→21:07)
[2023-10-16] MEDS: HYDROMORPHONE 0.5 MG INJ 1 MG IV ×3 (09:43→22:28)
[2023-10-16] MEDS: PROMETHAZINE 25 MG TABLET PO ×3 (11:22→22:28)
--- NOTE | 2023-10-16 11:49 | PT.IPTN ---
Current Diagnoses Hypoxemia (10/12/23) Physical Therapy Treatment Note M2 PT-IP Current Condition Start: 10/13/23 11:04 Freq: NEEDED Status: Active Protocol: Document 10/13/23 11:04 SAK (Rec: 10/13/23 11:14 SAK [id number]) Physical Therapy Current Condition Current Condition Evaluation Date 10/13/23 Treatment Diagnosis weakness Onset Date 10/12/23 M3 PT-IP Subjective Start: 10/13/23 11:04 Freq: NEEDED Status: Active Protocol: Document 10/16/23 12:17 TS (Rec: 10/16/23 12:30 TS [id number]) Subjective Physical Therapy Visit Type Type Treatment Note Visit Start Time 11:49 Visit Stop Time 12:16 Notes Vitals: 130/86 supine, 160/98 sitting. HR 112 supine, 138 after mobility. Number of CLIENT SUPPORT REPRESENTATIVE Visits 2 Physical Therapy Visit Comments Patient Comments Pt found resting in bed, would like to try and walk today, has been having nausea this morning. M4 PT-IP Mobility and Gait Start: 10/13/23 11:04 Freq: NEEDED Status: Active Protocol: Document 10/16/23 12:17 TS (Rec: 10/16/23 12:30 TS [id number]) PT-Bed Mobility Assessment Supine to Sit Supine to Sit Maximum Assistance,1 Person Assistance Sit to Supine Sit to Supine Moderate Assistance,2 Person Assistance Scooting Scooting to Edge of Bed Maximum Assistance Scooting Up and Down in Bed Maximum Assistance PT-Transfer Assessment Comments Mobility Comments Supine to sit MaxA x1 for uprighting trunk into sitting position. Pt began to c/o increasing nausea, pain in R hip and dizziness. Pt sat EOB for ~5mins, did not progress to standing due to dizziness and nausea. Sit to supine ModA x2, pt required MaxA for scooting to HOB. Pt was left in bed with all needs met. PT-Balance Assessment Sitting Balance and Reactions Static Sitting Balance Ability Fair Dynamic Sitting Balance Ability Fair M5 PT-IP Objective Assessments Start: 10/13/23 11:04 Freq: NEEDED Status: Active Protocol: Document 10/13/23 11:04 SAK (Rec: 10/13/23 11:14 SAK [id number]) Orientation Orientation/Cognition Level of Alertness Alert Orientation Name,Place,Situation Language Function Ability No Deficits Noted Safety Awareness Understands Safety Issues Memory Description No Deficits Noted Gross Range of Motion Upper Extremity ROM Assessment Within Functional Limits Lower Extremity ROM Assessment Within Functional Limits Strength Comments Strength Comments Not tested Sensation Assessment Sensation Gross Sensation WNL M7 PT-IP Assessment and Plan Start: 10/13/23 11:04 Freq: NEEDED Status: Active Protocol: Document 10/16/23 12:17 TS (Rec: 10/16/23 12:30 TS [id number]) PT Summary Assessment and Plan Potential Rehabilitation Potential Fair Summary Impairments Pain,Strength,Bed Mobility, Transfers,Gait,Activity Tolerance Progress Towards Goals Slow Progress due to Pain,Slow Progress due to Medical Issues,Slow Progress due to Activity Tolerance Assessment Summary Sheldon continues to make slow progress with her mobility. She requires MaxA x1 for sitting up to EOB. Once EOB pt continues to c/o increasing nausea and dizziness. She did not progress to standing this session. Her BP and HR continues to increase with mobility, see vitals above. PT continues to recommend Home 24/7 w/HHPT vs SNF. Goals Bed Mobility Goal Contact Guard Assistance Transfer Goal Minimal Assistance Gait Goal Minimal Assistance Days to Meet Goals 5 Frequency of Treatment Frequency Of Treatment Once a Day Treatment Plan Physical Therapy Treatment Plan Bed Mobility Training,Transfer Training,Gait Training, Therapeutic Exercise,Balance Retraining,Neuromuscular Re-ed Weight Bearing Status Weight Bearing Status Full Weight Bearing Recommendations To Nursing Amount of Assist Needed 2 Person Assist Discharge Recommendations PT Discharge Recommendations Home with 24/7 Assist Available,Home Health,SNF Rehab,Home vs SNF Transportation Needs at Discharge Private Vehicle,Wheelchair/ Cabulance
--- NOTE | 2023-10-16 12:22 | OT.IP.EVAL ---
Current Diagnoses Hypoxemia (10/12/23) Past Medical History (Last Updated 10/09/23 @ 11:51 by Mo Moseley MD) Chicken pox Chronic back pain Chronic, continuous use of opioids Essential hypertension Fibroids Fibromyalgia GERD without esophagitis IT band syndrome Malignant ascites Measles Migraines Mumps Osteoarthritis of right hip Painful menstrual periods Surgical History (Last Reviewed 10/09/23 @ 05:37 by Mo Moseley MD) Anesthesia H/O total hysterectomy with bilateral salpingo-oophorectomy (BSO) (10/04/22) History of foot surgery (~2000) History of laparoscopy (~1991) History of neck surgery (~1997) Occupational Therapy Inpatient Evaluation/Re-Eval M1 PT/OT-IP Prior Functional Status Start: 10/16/23 12:47 Freq: NEEDED Status: Active Protocol: Document 10/16/23 12:47 [facility] (Rec: 10/16/23 13:08 [facility] [id number]) Medical Review Prior Functional Status Medical History Reviewed Yes Communication A and O x 4 Mobility and Gait gait with assist of son and use of cane, FWW, or 4WW Activities of Daily Living and IADL's Assist from son for IADL needs . Social History Household Members children Living Arrangements Apartment/Condo Number of Stairs To Enter/Railing? 18, 1 railing right side Home Environment High Toilet Home Equipment Front Wheel Walker,Four Wheel Walker,Straight Cane,Raised Toilet Seat w/Armrests,Long Handled Shoe Horn,Middle School Art Teacher,Sock Aid M2 OT-IP Current Condition Start: 10/16/23 12:47 Freq: Status: Active Protocol: Document 10/16/23 12:47 [facility] (Rec: 10/16/23 13:08 [facility] [id number]) Occupational Therapy Current Condition Current Condition Evaluation Date 10/16/23 Treatment Diagnosis Acute Hypoxia Respiratory FAilure. Diagnosis Onset Date 10/12/23 M3 OT- IP Subjective and Pain Start: 10/16/23 12:47 Freq: Status: Active Protocol: Document 10/16/23 12:47 [facility] (Rec: 10/16/23 13:08 [facility] [id number]) OT- Subjective Occupational Therapy Visit Type Type Initial Evaluation Visit Start Time 11:45 Visit Stop Time 12:23 Occupational Therapy Visit Comments Patient Comments Pt agreed to try to get up. Patient/Caregiver Goals TO be able to walk and get better. OT Pain Assessment Pain When Pain Assessed During Mobility Pain Present Pain Present Denied Pain M4 OT- IP ADL's Start: 10/16/23 12:47 Freq: Status: Active Protocol: Document 10/16/23 12:47 [facility] (Rec: 10/16/23 13:08 [facility] [id number]) OT [id number] Comments OT Self-Feeding Comments Pt able to drink jason breana. OT ADL-Grooming General Evaluation Grooming Ability Standby Assistance Areas Needing Assistance Retrieving/Set-up of Grooming Items Comments OT Grooming Comments Pt able to do while seated in bed. OT ADL-Oral Care General Eval Oral Care Ability Independent Comments Oral Care Comments While in bed. OT ADL-Dressing General Eval Upper Body Dressing Ability Minimal Assistance Lower Body Dressing Ability Maximum Assistance Comments OT Dressing Comments ZACKERY for the gown and assist for the socks. OT ADL-Toileting General Evaluation Toileting Ability Total Assistance Areas Needing Assistance Empty Catheter or Colostomy OT ADL-Bathing Comments OT Bathing Comments Sponge bath more appropriate at this time. M5 OT- IP IADL's Start: 10/16/23 12:47 Freq: Status: Active Protocol: Document 10/16/23 12:47 [facility] (Rec: 10/16/23 13:08 [facility] [id number]) OT-Instrumental Activities of Daily Living Deficits IADL Deficits Identified Deficits Medication Management Medication Management Caregiver Administers Meal Preparation Meal Preparation Caregiver Provides Assist Brine Well Operator Brine Well Operator Caregiver Provides Assist M6 OT- IP Functional Cognition Start: 10/16/23 12:47 Freq: Status: Active Protocol: Document 10/16/23 12:47 [facility] (Rec: 10/16/23 13:08 [facility] [id number]) Cognitive Factors Limiting Selfcare Function Cognitive Ability Level of Alertness Alert Patient Orientation Name,Place,Situation Attention Span Ability Capable of Focused Attention, Capable of Sustained Attention Ability to Follow Commands Able to Follow One Step Commands Cognitive Tests ACL Pt able to follow commands for ADl and mobility needs. OT- Vision and Hearing OT- Hearing Assessment OT- Hearing Assessment WFL OT- Vision Assessment Vision Assessment Comments Pt able to read the clock. M7 OT- IP Mobility and Balance Start: 10/16/23 12:47 Freq: Status: Active Protocol: Document 10/16/23 12:47 [facility] (Rec: 10/16/23 13:08 [facility] [id number]) OT- Bed Mobility Assessment Supine to Sit Supine to Sit Assist Maximum Assistance,1 Person Assistance Sit to Supine Sit to Supine Assist Maximum Assistance,2 Person Assistance Scooting Scooting to Edge of Bed Maximum Assistance,1 Person Assistance OT-Transfer Assessment Comments Mobility Comments BP supine 130/86 HR 112 and after sitting upright with movement 160/93 HR 138. OT- Balance Assessment Sitting Balance and Reactions Static Sitting Balance Ability Good M8 OT- IP Objective Assessments Start: 10/16/23 12:47 Freq: Status: Active Protocol: Document 10/16/23 12:47 [facility] (Rec: 10/16/23 13:08 [facility] [id number]) OT Gross Range of Motion Upper Extremity Range of Motion Assessment Within Functional Limits OT Strength Upper Extremity Strength Assessment Within Functional Limits OT- Coordination Assessment Upper Extremity Finger to Nose Test Bilateral UE Impaired Comments Coordination Comments Pt has tremors with both hands. M9 OT- IP Assessment and Plan Start: 10/16/23 12:47 Freq: Status: Active Protocol: Document 10/16/23 12:47 [facility] (Rec: 10/16/23 13:08 [facility] [id number]) OT Summary Assessment and Plan Potential Rehabilitation Potential Fair Analytic Complexity at Evaluation Moderate Summary OT Impairments Pain,Balance,Functional Mobility,Grooming,Dressing, Toileting,Bathing,Toilet Transfers,Shower Transfers, Activity Tolerance Progress Towards Goals Slow Progress due to Pain,Slow Progress due to Medical Issues,Slow Progress due to Activity Tolerance Assessment Summary Pt MOD complexity and main barriers are pain ,nausea, increased HR and BP during movements, also pt and family looking to have goals of care meeting today to discuss her disposition as pt has cancer in which the medical chart implies is progressing. If pt to go home would benefit from 24/7 assist. OT services pending pt and family's decision after goals of care. Goals Self-Feeding Goal Independent Grooming Goal Independent Dressing Goal Independent Toileting Goal Minimal Assistance Bathing Goal Moderate Assistance Toilet Transfer Goal Minimal Assistance Shower Transfer Goal Moderate Assistance Frequency of Treatment Frequency Of Treatment Once a Day Treatment Plan OT Treatment Plan ADL Training,Functional Mobility,Patient/Family Education,Discharge Planning Discharge Recommendations OT Discharge Recommendations Home with 24/7 Assist Available,Home Health Transportation Needs at Discharge Stretcher/Ambulance
--- NOTE | 2023-10-16 13:41 | CM.DPC ---
DCP Cont. Reviewed EMR and team rounds for pt's status updates. Met with pt and her son from [place] to discuss goals of care, and resources to assist with OP supports. Explained again that Medicaid, once approved, can also pay for Adult Family Home placement, which would be a good environment for end of life care with Hospice services on the horizon. Discussed options for her son, Mickey, who lives with her to obtain insurance and mental health assistance. Her son from [place] will be here for the next 2-weeks, and will help her with getting back to her Oncology tx visits. Plan is to d/c home today, family providing transport, once discharge orders are in. No further DCP needs identified at this time.
--- NOTE | 2023-10-16 14:02 | PM.DS.1 ---
History of Present Illness History of Present Illness Chief complaint: Weakness Narrative: 68 years old female with a past medical history of endometrial cancer stage IVb status post surgery currently on chemotherapy, hypertension, depression, anxiety, GERD, chronic opiate use, fibromyalgia, migraine, recent hospitalization for acute kidney injury/dehydration with UTI and multiple other medical issues now was brought to the emergency room for generalized weakness and feeling shaky with dyspnea on exertion. Also has generalized abdominal discomfort with a slightly worsening distention in the setting of malignant ascites. Denies any shortness of breath cough wheezing headache but does have generalized body ache. Has had constipation episodes. No dysuria. She had recently completed antibiotic course for urinary tract infection. In the ED, noted to be tachycardic with a heart rate in the 100s and respiration in the mid 20s at times. Patient was noted to be persistently hypoxemic and also noted to be hyponatremic. Chest x-ray shows no acute process. Abdominal CT shows worsening peritoneal carcinomatosis with moderate fecal debris's in the right colon. CT angio of the chest shows no evidence of pulmonary embolism dissection. Urine analysis is negative for leukocyte esterase. Patient was admitted for persistent hypoxemia with generalized weakness Discharge Providers Provider Date of admission: 10/12/23 19:37 Discharge Date: 10/16/23 Primary care physician: Mo Moseley MD Consults: 10/12/23 16:08 Consult to Home Health Stat Comment: Reason For Exam: RN/PT/OT/MANUFACTURING TEAM LEADER/JOB COACH/JOB DEVELOPER 10/12/23 21:25 Consult to JOB COACH/JOB DEVELOPER - Technician Chemical Cleaning Routine Comment: JOB COACH/JOB DEVELOPER Consult needed for:: [facility] Res Need 10/13/23 07:34 Consult to Physical Therapy Evaluate & Treat Comment: Physician Instructions: Evaluate and Treat 10/15/23 16:54 Consult to Occupational Therapy Evaluate & Treat Comment: Physician Instructions: Evaluate and treat Discharge provider: Zurdo Mcknight MD Summary Hospital Course Discharge Diagnosis: 1. Acute hypoxic resp failure. Patient during recent hospitalization had acute bronchitis with wheezing and I am not sure if there was an element of acute bronchitis with exposure to secondhand smoking while growing up. Oxygen supplementation with nebulizers for now. CT chest is negative for pulm embolism. Treatment is conservative and monitor closely. -weaned to room air 2. Generalized weakness with gait instability and the patient with endometrial cancer that appears to be progressing. Likely multifactorial due to an underlying cancer etiology that is progressive. PT eval to hold until 10/14. 3. 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 Resume the home morphine/oxycodone and baclofen. Oxy and dilaudid PRN. Abd US without ascites. Spoke with her oncologist Dr. Medina who said there is options for palliative chemo, but she would need to be strong enough to handle this. He says palliative care and hospice would be the other best option if not. Awaiting son to arrive from [place] then will have goals of care talk about hospice vs trying to get better for palliative chemo. Patient seems to be improving some now. 4 GERD resume the home medication 5 neuropathy resume the home Neurontin 6 abdominal discomfort and NV, likely secondary to underlying constipation. Initiate a bowel regimen especially while on narcotic pain medications. Enema attempted on 10/12 without BM. Lactulose added. Patient passing lots of gas. CT abd without obstruction. NV improved with zyprexa ODT. Plan to continue on discharge. 7 tachycardia sinus. Improving. 8. Hyperkalemia -K up to 5.7 admission, now at 5.4 -unclear etiology, Cr normal. possibly due to tumor burden. -low potassium diet -continue lokelma -no EKG changes Hospital Course: She was admitted with dyspnea and weakness as well as hyperkalemia in context of progressive recurrent metastatic uterine cancer with peritoneal carcinomatosis. The patient improved with symptomatic treatment and weaned off from oxygen. She also improved with regards to her hyperkalemia. She lives with her son, who has some mental health challenges. Her other son has just arrived from [place]. He will be here for 2 weeks. Social work and I spent a extensive amount of time discussing options with the patient which includes discharge home with ongoing efforts at palliative care with her oncologist versus long-term facility for rehab in which case palliative chemo may not be feasible due to rehabilitation restrictions. We have also discussed hospice which continues to be an option. At this time the patient is adamant that she will return home and continue palliative efforts. The patient is advised that she could qualify for long-term facility. In addition a Medicaid application has been supported and completed which will open the door for the option of an adult family home in the near future. Electronic message was sent to her oncologist, Dr. Medina, on the day of her discharge to request that he contact her as soon as possible for an opening in his schedule. Status at Discharge Cognitive/behavioral status at discharge: oriented Functional status at discharge: uses cane/walker Overall status at discharge: patient is progressing back to baseline Exam Vital Signs (past 8 hours): - 10/16/23 08:00 10/16/23 08:11 10/16/23 09:30 Temperature 99.5 F 99.5 F 98.3 F Pulse Rate 120 H Respiratory Rate 20 Blood Pressure 154/93 H Pulse Oximetry 92 Oxygen Flow Rate 0 10/16/23 09:44 10/16/23 12:00 Temperature 98.3 F 98.1 F Pulse Rate 104 H Respiratory Rate 20 Blood Pressure 120/78 Pulse Oximetry 92 Oxygen Flow Rate 0 Fraction of Inspired Oxygen 28 SaO2/FiO2 Ratio 342 Oxygen Delivery Method Room Air Oxygen Flow Rate 0 Narrative Exam Narrative: NAD, alert and oriented. Fluent speech. Lungs are clear, normal rate and effort. Heart is regular, no murmur gallop or rub. Abdomen is soft, non distended. Extremities are free of edema. Objective Labs 10/13/23 05:00 10/16/23 05:50 Labs: Laboratory Results - last 24 hr 10/16/23 05:50 Sodium 137 Potassium 4.9 Chloride 105 Carbon Dioxide 22 BUN 13 Creatinine 0.82 Estimated GFR > 60 BUN/Creatinine Ratio 15.9 Glucose 116 H Calcium 8.9 PFSH Medical History Malignant ascites GERD without esophagitis Chronic, continuous use of opioids Osteoarthritis of right hip Essential hypertension IT band syndrome Painful menstrual periods Fibroids Migraines Fibromyalgia Chronic back pain Mumps Measles Chicken pox Surgical History H/O total hysterectomy with bilateral salpingo-oophorectomy (BSO) (10/04/22) Anesthesia History of laparoscopy (~1991) History of foot surgery (~2000) History of neck surgery (~1997) Family History Father Cancer Family/Other No problems noted. 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 Acute hypoxic respiratory failure, present on admission and resolved. 2. Generalized weakness with gait instability endometrial cancer that appears to be progressing. Present on admission and active. 3. 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 Present on admission and active. 4 GERD. Present on admission and active. 5 Neuropathy. Present on admission and active. 6. Hyperkalemia. Present on admission and resolved. Plan of Treatment: She is discharged home to the care of her 2 sons. They will obtain a wheelchair locally today. The patient is encouraged to discuss her current situation with her oncologist. Her current choices appear to include staying at home and pursuing palliative chemotherapy, rehabilitation at long-term facility, hospice whether be at home or at a facility, or consideration of transition to an adult family home. Discharge Plan Discharge Plan Patient Disposition: Home Provider Discharge Comment: Stable for discharge Discharge orders & Medications Prescriptions: Continued promethazine 25 mg tablet 25 mg PO Q4-6H PRN (Reason: Nausea) Qty: 30 1RF prochlorperazine maleate [Compazine] 10 mg tablet 10 mg PO Q6H PRN (Reason: Nausea) Qty: 30 1RF duloxetine [Cymbalta] 60 mg capsule,delayed release(DR/EC) 60 mg PO DAILY Qty: 90 1RF olanzapine 5 mg tablet 5 mg PO BEDTIME Qty: 30 5RF amlodipine 10 mg tablet 10 mg PO DAILY Qty: 90 3RF gabapentin 600 mg tablet 900 mg PO TID Qty: 135 5RF Rx Instructions: take with 1 300 mg tab morphine 30 mg tablet extended release 30 mg PO TID Qty: 90 0RF Excedrin Extra Strength 250-250-65 mg tablet 2 tab PO Q4-6H PRN (Reason: Headache, pain) loperamide 2 mg capsule 2 mg PO DAILY PRN (Reason: As directed) baclofen 10 mg tablet 10 mg PO TID PRN (Reason: muscle spasm) Qty: 90 5RF lidocaine-prilocaine 2.5-2.5 % Cream 1 applic topical PRN PRN (Reason: Port/Catheter Care) Qty: 30 1RF Rx Instructions: apply to the skin over the port at least 2 hours before planned use of the port. Cover the cream with a small piece of plastic wrap and leave in place until the port is accessed ondansetron 4 mg tablet,disintegrating 4 mg PO Q8H PRN (Reason: nausea and vomiting) Qty: 10 0RF benzonatate 100 mg Capsule 100 mg PO TID PRN (Reason: Cough) Qty: 20 0RF omeprazole 40 mg Capsule,Delayed Release(Dr/Ec) 40 mg PO DAILY oxycodone 20 mg tablet 20 mg PO 3XD PRN (Reason: pain) Discontinued lisinopril 10 mg tablet 10 mg PO DAILY Qty: 90 3RF cephalexin 500 mg capsule 500 mg PO QID Qty: 20 0RF Follow up/Referrals: Mo Moseley MD [Primary Care Provider] - Discharge Health Status Multidrug resistant organism: No MDRO Diet/Activity/Treatments Diet: Diet as Tolerated Skin/Wound/Dressing Care Report to your healthcare provider any signs of infection, such as:: chills, fever, night sweats and increased pain Visit Report/Discharge Packet Stand Alone Forms: Patient Portal/API Discharge Data Primary Care Provider: Mo Moseley V
[2023-10-16] MEDS: BENZONATATE 100 MG CAPSULE PO (16:40)
--- NOTE | 2023-10-16 17:27 | PC.NURSE ---
Discussed with patient referral to [facility]. Patient gave permission to share her contact information with program and research coordinator.
--- NOTE | 2023-10-16 18:51 | PC.NURSE ---
Day shift: Pt had persistent nausea and vomiting throughout the shift. CLAY Hagan and MD Mcknight planned to d/c patient home this afternoon. Jain removed at 1500. At 1900, no void yet. Purewic now in place. Pt not tolerating much fluid or food - persistent nausea and vomiting. Will continue to monitor.
[2023-10-17] VITALS (8 sets, daily range): BP systolic 162–178; BP diastolic 98–110; PULSE 100–130; RESP 16–19; TEMP 36.9–37.7; O2SAT 91–95
--- NOTE | 2023-10-17 00:03 | PC.NURSE ---
Addendum entered by Kari Gilman R.N. 10/17/23 04:35: HR continuing to sustain in 120's, notified MD Villarreal, 5mg IV Metoprolol ordered & given. Continuous tele monitoring in place. Addendum entered by Kari Gilman R.N. 10/17/23 02:21: no urine output since domingo removal @ 1500. Bladder scan showing <200cc. MD Villarreal notified, order for straight cath, 350cc dark orange urine out. Original Note: third shift lieutenant: Patient is nauseous and throwing up, not able to tolerate PO fluids, ordered anti-nausea medications given w/ minimal effect. HR tachy in the 120's. Notified MD Villarreal, NS @ 75/hr started. Pain is moderate 7-8/10, patient states IV Dilaudid is effective. Plan of care ongoing.
[2023-10-17] MEDS: SODIUM CHLORIDE 0.9% 1,000 ML 75 ML IV ×2 (00:07→12:18)
[2023-10-17] MEDS: METOCLOPRAMIDE 10 MG/2 ML INJ IV ×2 (00:51→07:40)
[2023-10-17] MEDS: ONDANSETRON 4 MG/2 ML INJ IV ×4 (01:37→17:07)
[2023-10-17] MEDS: HYDROMORPHONE 0.5 MG INJ 1 MG IV ×6 (01:37→21:57)
[2023-10-17] MEDS: CALCIUM CARBONATE 500 MG TAB 1000 MG PO (01:54)
[2023-10-17] MEDS: ONDANSETRON 4 MG ODT PO (04:11)
[2023-10-17] MEDS: METOPROLOL TARTRATE 5 MG/5 ML INJ IV (04:29)
[2023-10-17 04:58] LABS: Blood Urea Nitrogen 16 mg/dL (7-17); Calcium 9.2 mg/dL (8.4-10.2); Carbon Dioxide 24 mmol/L (22-32); Chloride 104 mmol/L (98-107); Estimated Glomerular Filt Rate > 60 mL/min (>60); Glucose 127 mg/dL (80-110); HEMOLYSIS < 15 (0-50); Potassium 4.8 mmol/L (3.4-5.1); Sodium 137 mmol/L (137-145)
[2023-10-17] MEDS: ENOXAPARIN 40 MG/0.4 ML SYRINGE SUBCUT (08:17)
[2023-10-17] MEDS: SODIUM CHLORIDE 0.9% FLUSH 10 ML IV (09:00)
[2023-10-17] MEDS: fentaNYL 25 MCG/PATCH TOP (09:26)
[2023-10-17] MEDS: LORazepam 2 MG/ML INJ 1 MG IV ×3 (09:27→22:47)
--- NOTE | 2023-10-17 10:28 | OT.IPNOTE ---
Per Hospitalist pt not medically appropriate for therapy services and okay to discharge orders.
--- NOTE | 2023-10-17 13:06 | P.PN_ITS ---
Subjective Subjective Interval history: She did very poorly yesterday was not able to discharge. She would recalcitrant and vomiting and weakness. She had really been unwilling to accept the idea of hospice or comfort care because of her progressive uterine sarcoma. Unfortunately she was not able to discharge home yesterday and has been vomiting throughout the night. Ativan did assist with her nausea but made her somnolent. I did speak with her oncologist, Dr Medina. It seems as though she is likely on able to be strong enough for ongoing chemotherapy unless she somehow improves over the next week or 2. She is now open to the possibility of [facility]. It is unclear if she would be able to improve to any degree but is worth trying. Exam Vital Signs (past 8 hours): - 10/17/23 08:00 10/17/23 09:00 10/17/23 12:00 Temperature 99.8 F H 99 F 99.7 F H Pulse Rate 120 H 122 H 126 H Respiratory Rate 18 16 16 Blood Pressure 178/98 H 163/102 H 177/109 H Pulse Oximetry 95 91 94 Oxygen Flow Rate 0 Fraction of Inspired Oxygen 28 SaO2/FiO2 Ratio 342 Oxygen Delivery Method Room Air Oxygen Flow Rate 0 Narrative Exam Narrative: Somnolent, no distress. Lungs are clear with normal rate and effort. Heart is regular. No murmur. Abdomen is soft, distended. No leg edema. Objective Labs 10/13/23 05:00 10/17/23 04:20 Labs: Laboratory Results - last 24 hr 10/17/23 04:20 Sodium 137 Potassium 4.8 Chloride 104 Carbon Dioxide 24 BUN 16 Creatinine 0.94 Estimated GFR > 60 BUN/Creatinine Ratio 17.0 Glucose 127 H Calcium 9.2 PFSH Medical History Malignant ascites GERD without esophagitis Chronic, continuous use of opioids Osteoarthritis of right hip Essential hypertension IT band syndrome Painful menstrual periods Fibroids Migraines Fibromyalgia Chronic back pain Mumps Measles Chicken pox Surgical History H/O total hysterectomy with bilateral salpingo-oophorectomy (BSO) (10/04/22) Anesthesia History of laparoscopy (~1991) History of foot surgery (~2000) History of neck surgery (~1997) Family History Father Cancer Family/Other No problems noted. 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 Acute hypoxic respiratory failure. Present on admission and resolved. -Patient during recent hospitalization had acute bronchitis with wheezing and I am not sure if there was an element of acute bronchitis with exposure to secondhand smoking while growing up. Oxygen supplementation with nebulizers for now. CT chest is negative for pulmonary embolism. -weaned to room air 2. Recurrent and persistent vomiting over last 2 days, present on admission and worse. -Ativan is helping. Will try Zofran ODT. 3. Generalized weakness with gait instability and the patient with endometrial cancer that appears to be progressing. Present on admission and active. -Likely multifactorial due to an underlying cancer etiology that is progressive. PT eval to hold until 10/14. 4. 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 Present on admission and active. -Start a Duragesic 25 patch as she needs non-IV solutions for SNF or hospice. 5 GERD, stable. 6. Underlying constipation. Initiated a bowel regimen especially while on narcotic pain medications. Enema attempted on 10/12 without BM. Lactulose added. Patient passing lots of gas. CT abdomen without obstruction. Try Dulcolax HI today. 7. Hyperkalemia, present on admission and resolved. She is 2 sons, she lives with 1 who is got severe mental health challenges. The other is visiting as of October 14 from [place] and is here for 2 weeks.
--- NOTE | 2023-10-17 13:30 | PT.IPTN ---
Current Diagnoses Hypoxemia (10/12/23) Physical Therapy Treatment Note M2 PT-IP Current Condition Start: 10/13/23 11:04 Freq: NEEDED Status: Active Protocol: Document 10/13/23 11:04 SAK (Rec: 10/13/23 11:14 SAK [id number]) Physical Therapy Current Condition Current Condition Evaluation Date 10/13/23 Treatment Diagnosis weakness Onset Date 10/12/23 M3 PT-IP Subjective Start: 10/13/23 11:04 Freq: NEEDED Status: Active Protocol: Document 10/17/23 12:13 AB (Rec: 10/17/23 13:30 AB [id number]) Subjective Physical Therapy Visit Type Type Administrative Note Notes per hospitalist during rounds: d/c PT due to pt not medically stable at this time. M7 PT-IP Assessment and Plan Start: 10/13/23 11:04 Freq: NEEDED Status: Active Protocol: Document 10/17/23 12:13 AB (Rec: 10/17/23 13:30 AB [id number]) PT Summary Assessment and Plan Frequency of Treatment Frequency Of Treatment Discharge
[2023-10-17] MEDS: BISACODYL 10 MG SUPP PR (13:42)
--- NOTE | 2023-10-17 14:58 | CM.DPC ---
DCP Cont. Reviewed EMR and team rounds for status updates. Unfortunately, pt was unable to d/c yesterday due to rapidly worsening nausea/vomiting which went on all last night and throughout the day today. Plan now is to focus on SNF Rehab once pt is medically stable, she is not currently functionally strong enough to tolerate any palliative chemotherapy, which Dr. Medina (Oncologist) also communicated with our Hospitalist, Dr. Mcknight earlier today. Both sons are rooming in with her and providing support. Will plan to meet with her tomorrow to discuss SNF preferences for when she is ready to d/c.
--- NOTE | 2023-10-17 15:32 | DIET.CONS ---
Dietary Consultation Note Admission Date: 10/12/2023 19:37 Assessment: 68 y F admitted for dyspnea and generalized weakness. Nutrition screened for LOS day 5. RD met with pt at bedside. Pt and sons report nausea and emesis resulting in lower PO intake. Health care team aware. Ht: 165.1 cm Wt: 90.718 kg BMI: 33.3 UBW: Last BM: 10/17/23 (10/17/23 02:20) MNA: 9 Yohannes Score: 15 Diet: 10/15/23 Dinner General (Regular) Diet Diet Modifications: low potassium Food Texture: Level 7 - Regular Liquid Consistency: Level 0 - Thin Labs: RBC 3.47 X10^6/uL (4.0-5.2) L 10/13/23 05:00 Hgb 9.5 g/dL (12.0-16.0) L 10/13/23 05:00 Hct 27.9 % (36-46) L 10/13/23 05:00 Creatinine 0.94 mg/dL (0.52-1.04) 10/17/23 04:20 Lactate 0.6 mmol/L (0.7-2.1) L 10/13/23 05:00 NT-Pro-B Natriuret Pep 167 pg/mL (<125) H 10/12/23 15:05 Nutrition Diagnosis: Inadequate energy intake r/t GI distress as evidenced by GI symptoms of nausea/emesis and peritoneal carcinomatosis Interventions: Provided oral nutrition supplement support of Ensure Clears per pt preference for pt as tolerated. EER: [id number] kcals/day (25 kcals/kg) 90-100 grams of protein/day (1.2-1.4 grams/kg with adjusted IBW of 73 kg) Monitoring/Evaluations: POs, ONS tolerance Will follow up in 3 days to assess nutrition needs. Electronically Signed by: Jessika Quigley 10/17/23 15:32 Clinical Dietitian [address] [id number]
[2023-10-17 17:24] LABS: Add Manual Diff / Slide Review NO; Basophils Absolute Auto 100 /uL (0-100); Basophils Percent Auto 0.4 % (0-2); Eosinophils Absolute Auto 0 /uL (0-450); Hematocrit 32.8 % (36-46); Hemoglobin 10.9 g/dL (12.0-16.0); Lymphocytes Absolute Auto 600 /uL (1100-4500); Lymphocytes Percent Auto 4.5 % (25-40); Mean Corpuscular HGB Conc 33.1 % (30-36); Mean Corpuscular Hemoglobin 26.8 PG (26-34); Monocytes Absolute Auto 1600 /uL (0-900); Monocytes Percent Auto 11.3 % (3-14); Neutrophils Absolute Auto 11600 /uL (1500-7000); Neutrophils Percent Auto 83.8 % (50-75); Platelet Count 291 X10^3/uL (150-400); Red Blood Cell Count 4.06 X10^6/uL (4.0-5.2); Red Cell Distribution Width 15.1 % (11.6-14.8); White Blood Cell Count 13.9 X10^3/uL (4.5-11.0)
--- NOTE | 2023-10-17 17:39 | PC.NURSE ---
Day shift: Notified MD Mcknight of patient's consistent hypertension, tachycardia, hyperapnea, cough, and diaphoresis. Pt finally able to have BM at 1730 this evening and voided x 1. Nausea persistent throughout the day with multiple emesis this AM. IV ativan provided some relief. MD Mcknight plans to talk with patient and her sons this evening regarding comfort care and/or hospice. Will continue to monitor.
[2023-10-17] MEDS: GABAPENTIN 600 MG TABLET 900 MG PO (21:12)
[2023-10-17] MEDS: MORPHINE ER 15 MG TABLET 30 MG PO (21:12)
--- NOTE | 2023-10-17 23:40 | PC.NURSE ---
Patient's sons Tyrell & Mickey requested to change patient code status from full code to DNR. Message sent to Dr. Villarreal, ordered DNR status.
[2023-10-18] VITALS: BP 170/110; PULSE 133; RESP 16; TEMP 37.2; O2SAT 92
--- NOTE | 2023-10-18 00:48 | PC.NURSE ---
B/P 170/110 & HR [address] Villarreal, awaiting response.
[2023-10-18] MEDS: SODIUM CHLORIDE 0.9% 1,000 ML 75 ML IV (01:40)
[2023-10-18 04:00] VITALS: BP 161/111; PULSE 133; RESP 22; TEMP 37.2; O2SAT 92
[2023-10-18] MEDS: ONDANSETRON 4 MG/2 ML INJ IV ×2 (04:58→19:36)
[2023-10-18] MEDS: HYDROMORPHONE 1 MG INJ IV (04:58)
[2023-10-18 06:07] LABS: Hematocrit 31.4 % (36-46); Hemoglobin 10.3 g/dL (12.0-16.0); Mean Corpuscular HGB Conc 32.7 % (30-36); Mean Corpuscular Volume 82.5 fL (80-100); Platelet Count 405 X10^3/uL (150-400); Red Cell Distribution Width 15.2 % (11.6-14.8); White Blood Cell Count 18.7 X10^3/uL (4.5-11.0)
[2023-10-18 06:22] LABS: Alanine Aminotransferase 18 IU/L (<35); Albumin 3.6 g/dL (3.5-5.0); Albumin Globulin Ratio 1.2 (1.0-2.8); Alkaline Phosphatase 69 U/L (38-126); Aspartate Aminotransferase 31 IU/L (14-36); BUN Creatinine Ratio 29.1 (6-22); Bilirubin Total 0.6 mg/dL (0.2-1.3); Blood Urea Nitrogen 25 mg/dL (7-17); Calcium 8.8 mg/dL (8.4-10.2); Carbon Dioxide 25 mmol/L (22-32); Chloride 108 mmol/L (98-107); Estimated Glomerular Filt Rate > 60 mL/min (>60); Globulin 3.1 g/dL (1.7-4.1); Glucose 160 mg/dL (80-110); HEMOLYSIS < 15 (0-50); Sodium 142 mmol/L (137-145); Total Protein 6.7 g/dL (6.3-8.2)
[2023-10-18 08:00] VITALS: BP 165/106; PULSE 133; RESP 20; TEMP 36.9; O2SAT 91
[2023-10-18] MEDS: ENOXAPARIN 40 MG/0.4 ML SYRINGE SUBCUT (08:47)
[2023-10-18] MEDS: MORPHINE ER 15 MG TABLET 30 MG PO (08:47)
--- NOTE | 2023-10-18 10:53 | CM.DPC ---
DCP Cont. Reviewed EMR and team rounds for status updates. Pt is continuing to rapidly decline, demonstrated by persistent hypertension, tachycardia, no PO intake, intractable vomiting when not adequately medicated. Met with family to discuss goals of care further to include pt being changed over to comfort measures only, they were in total agreement, and feel that she is getting close to passing in a matter of days. They also shared that pt is now visioning, and is verbalizing out loud while sleeping that she's on a visionquest, which was comforting to her. She spoke to her sister yesterday and they both expressed their love for each other and said their goodbyes. This ELECTRICAL MACHINIST shared with the two sons that the Hospitalist is recommending for ELECTRICAL MACHINIST to place a referral to the [facility] for transfer if they will accept. Both boys became very upset by this plan, as the one son is here from [place], and neither one of them have transportation to get to [place] to be with her, and her friends and protestant community would lose access to her as well. Furthermore, the protestant is planning on doing the Prayer for the Sick and anointing as part of final blessings within the next day or so. Sons are ademant that they do not want her moved, and that this would prevent everyone who needs to be with her from being able to do that. This ELECTRICAL MACHINIST was in agreement, and at this time we will not submit a referral to the hospice house. [facility] does not do admissions on the weekends anyway. ELECTRICAL MACHINIST will continue to monitor and provide anticipatory grief support and assistance to the family as they swanson over the next coming days. Pt's life expectancy is considered limited.
--- NOTE | 2023-10-18 11:13 | PC.NURSE ---
Addendum entered by Rodrigo Henson R.N. 10/18/23 18:11: Pt switched to comfort care after discussion with kwasi and Dr. Paulson. Pt taking some pudding occasionally but is having nausea. no emesis. Pt then settles to sleep. Pt presently is using a perwick catheter. Discussed continuing this and not placing a domingo. Per Dr's request we will bladder scan Pt and if it's showing little retained we will continue with the perwick and not use the domingo. Original Note: Pt rouses but, verbal responses are sluggish and hard to understand. Pt does follow commands. Kwasi attentive at bedside.
[2023-10-18 13:00] VITALS: BP 180/95; PULSE 132; RESP 20; TEMP 37.2; O2SAT 94
[2023-10-18] MEDS: MORPHINE 2 MG/ML INJ IV ×4 (14:06→23:28)
--- NOTE | 2023-10-18 17:24 | PM.PN.1 ---
Subjective Subjective Interval history: 65-year-old female with stage IV endometrial cancer with progressive peritoneal carcinomatosis with omental studding. Patient has had progressively worsening clinical status. Oncology has advised she has no further palliative treatment available due to her poor performance status. Overnight, she made the decision to transition to DNR code status. This morning, she and family elected to transition to comfort care. Patient does complain of some shortness of breath presently. She denies any nausea. She is asking for chocolate ice cream. Both sons are present. Her younger son notes his [id number] recently secondary to progressive malignancy. Feels comfortable with understanding what to expect. Her older son has lived with her for the last 14 years. He reports that he is having some struggles with her decline. Exam Vital Signs (past 8 hours): - 10/18/23 13:00 Temperature 98.9 F Pulse Rate 132 H Respiratory Rate 20 Blood Pressure 180/95 H Pulse Oximetry 94 Oxygen Flow Rate 1 Fraction of Inspired Oxygen 28 SaO2/FiO2 Ratio 342 Oxygen Delivery Method Room Air Oxygen Flow Rate 1 Narrative Exam Narrative: GEN: Acutely and chronically ill-appearing middle-aged female, Alert and oriented x 3, dyspneic HEENT:NC, Face symmetric CHEST: Respiratory excursions symmetric, coarse but CTAB CV: Tachycardic with regular rhythm ABD: Firm, distended, absent bowel tone EXTR: warm, well perfused, no C/C SKIN: warm and dry, no rash NEURO: Alert and oriented x 3, nonfocal Objective Labs 10/18/23 05:55 10/18/23 05:55 Labs: Laboratory Results - last 24 hr 10/17/23 10/18/23 17:15 05:55 WBC 13.9 H 18.7 H RBC 4.06 3.80 L Hgb 10.9 L 10.3 L Hct 32.8 L 31.4 L MCV 81.0 82.5 MCH 26.8 27.0 MCHC 33.1 32.7 RDW 15.1 H 15.2 H Plt Count 291 405 H Neut % (Auto) 83.8 H Lymph % (Auto) 4.5 L [place] % (Auto) 11.3 Eos % (Auto) 0.0 L Baso % (Auto) 0.4 Neut # (Auto) 90783 H Lymph # (Auto) 600 L [place] # (Auto) 1600 H Eos # (Auto) 0 Baso # (Auto) 100 Sodium 142 Potassium 4.0 Chloride 108 H Carbon Dioxide 25 BUN 25 H Creatinine 0.86 Estimated GFR > 60 BUN/Creatinine Ratio 29.1 H Glucose 160 H Calcium 8.8 Total Bilirubin 0.6 AST 31 ALT 18 Alkaline Phosphatase 69 Total Protein 6.7 Albumin 3.6 Globulin 3.1 Albumin/Globulin Ratio 1.2 PFSH Medical History Malignant ascites GERD without esophagitis Chronic, continuous use of opioids Osteoarthritis of right hip Essential hypertension IT band syndrome Painful menstrual periods Fibroids Migraines Fibromyalgia Chronic back pain Mumps Measles Chicken pox Surgical History H/O total hysterectomy with bilateral salpingo-oophorectomy (BSO) (10/04/22) Anesthesia History of laparoscopy (~1991) History of foot surgery (~2000) History of neck surgery (~1997) Family History Father Cancer Family/Other No problems noted. 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 Stage IV endometrial cancer 2. Acute hypoxic respiratory failure 3. Generalized weakness 4. Intractable nausea/emesis Patient was transitioned to comfort care measures today. Will continue fentanyl patch. Increase morphine frequency as needed. Increase lorazepam frequency as needed. Encouraged patient's son locally to seek bereavement counseling after her and to consider doing so through hospice of [facility]. He agrees. It is unlikely patient will be able to discharge from hospital as there is no appropriate disposition for her and her care needs remain very high.
[2023-10-18 19:30] VITALS: RESP 24
[2023-10-18] MEDS: SCOPOLAMINE 1 PATCH TOP (19:37)
[2023-10-18] MEDS: SODIUM CHLORIDE 0.9% FLUSH 10 ML IV ×2 (19:48→21:17)
[2023-10-19] MEDS: MORPHINE 2 MG/ML INJ IV ×5 (01:42→11:55)
[2023-10-19] MEDS: LORazepam 2 MG/ML INJ 1 MG IV ×5 (01:42→23:55)
[2023-10-19] MEDS: SODIUM CHLORIDE 0.9% FLUSH 10 ML IV ×3 (01:49→09:40)
[2023-10-19 04:25] VITALS: RESP 26
[2023-10-19 06:25] VITALS: RESP 22
[2023-10-19] MEDS: SCOPOLAMINE 1 PATCH TOP ×2 (09:39→19:32)
--- NOTE | 2023-10-19 10:31 | PC.NURSE ---
Addendum entered by Margaret Geiger R.N. 10/19/23 16:48: Morphine drip increased to 8mls/hr (8mg/hr). Patient was wincing with movement and having some facial discomfort. She was again repositioned and is more comfortable now. She does have some ascites to her abdomen, domingo is patent with yellow urine. Addendum entered by Margaret Geiger R.N. 10/19/23 14:44: Patient was just repositioned with pillows under hips and scooted up in bed, she is getting morphine drip at 5cc/hr. We may need to increase dosage soon as she does not appear to be comfortable. Will notify DrDomenica and see what he would like to do. Addendum entered by Margaret Geiger R.N. 10/19/23 13:51: Patient was complaining of some nausea, given ativan. She was also started on a Morphine drip at 5cc/hr. She is tolerating this well and her boys are attentive to her needs. She is resting comfortably. Original Note: Assess- Patient was given some IV morphine at 0940, this has helped to rest more and assist in better respirations and breathing. She sounded gurgley, put on another scopolomine patch behind her l.ear. Both of patients sons are in the room and attentive to her needs. We are repositioning patient when needed and she is uncomfortable. Dressing in place to lower buttocks.
--- NOTE | 2023-10-19 10:47 | CM.DPC ---
Addendum entered by CLAY Landis 10/19/23 12:49: ADD: Call from [facility] and updated them that pt still admitted and now switched to Comfort Care and they will hold her referral in case something changes. BF Original Note: DCP Comfort Care Per MD, pt was switched to Comfort Measures and put on comfort meds and remains on O2NC and somewhat responsive but mostly sleeping. Supportive 2 sons remain bedside and pt anticipated to be imminent in the next 48-72 hours and since today is a Sun then no facility to accept today on Comfort. Family declined transfer to [facility]. Plan: SW to follow very closely in the AM to determine if pt medically stable then plan of home vs facility with Hospice. CLAY Landis
[2023-10-19] MEDS: MORPHINE 50 MG in DEXTROSE 5 % IN WATER 45 ML IV (13:32)
--- NOTE | 2023-10-19 15:23 | PM.PN.1 ---
Subjective Subjective Interval history: Patient in pain and asking for more pain medication. She is also anxious and scared. Sons are at bedside. Exam Vital Signs (past 8 hours): Fraction of Inspired Oxygen 24 SaO2/FiO2 Ratio 342 Oxygen Delivery Method Nasal Cannula Oxygen Flow Rate 1 Narrative Exam Narrative: GEN: Acutely and chronically ill-appearing middle-aged female, Alert and oriented x 3, dyspneic HEENT:NC, Face symmetric CHEST: Respiratory excursions symmetric, coarse but CTAB CV: Tachycardic with regular rhythm ABD: Firm, distended, absent bowel tone EXTR: warm, well perfused, no C/C SKIN: warm and dry, no rash NEURO: Alert and oriented x 3, nonfocal Objective Labs 10/18/23 05:55 10/18/23 05:55 PFSH Medical History Malignant ascites GERD without esophagitis Chronic, continuous use of opioids Osteoarthritis of right hip Essential hypertension IT band syndrome Painful menstrual periods Fibroids Migraines Fibromyalgia Chronic back pain Mumps Measles Chicken pox Surgical History H/O total hysterectomy with bilateral salpingo-oophorectomy (BSO) (10/04/22) Anesthesia History of laparoscopy (~1991) History of foot surgery (~2000) History of neck surgery (~1997) Family History Father Cancer Family/Other No problems noted. 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 Stage IV endometrial cancer 2. Acute hypoxic respiratory failure 3. Generalized weakness 4. Intractable nausea/emesis Patient was transitioned to comfort care measures. Patient still in pain so will transition from a fentanyl patch to morphine drip. Continue IV ativan PRN for anxiety. Encouraged patient's son locally to seek bereavement counseling after her and to consider doing so through hospice of the [place]. He agrees. It is unlikely patient will be able to discharge from hospital as there is no appropriate disposition for her and her care needs remain very high. Dispo: Comfort care. Passing is likely imminent and within 48 hours.
[2023-10-19] MEDS: OLANZapine ODT 10 MG TAB 5 MG PO (18:34)
[2023-10-19] MEDS: MORPHINE 50 MG in DEXTROSE 5 % IN WATER 45 ML 8 MG IV (20:20)
[2023-10-19 23:56] VITALS: RESP 24
[2023-10-20] MEDS: LORazepam 2 MG/ML INJ 1 MG IV (01:06)
[2023-10-20] MEDS: MORPHINE 50 MG in DEXTROSE 5 % IN WATER 45 ML 8 MG IV ×2 (02:24→08:12)
[2023-10-20 06:00] VITALS: RESP 20
--- NOTE | 2023-10-20 07:19 | P.PN_ITS ---
Subjective Subjective Interval history: She is somnolent on a morphine infusion. Narrative is not obtainable. Exam Vital Signs (past 8 hours): - 10/19/23 23:56 10/20/23 06:00 Respiratory Rate 24 20 Fraction of Inspired Oxygen 24 SaO2/FiO2 Ratio 342 Oxygen Delivery Method Nasal Cannula Oxygen Flow Rate 1 Narrative Exam Narrative: She is somnolent, NAD Breathing normal rate Abdomen is distended, Her legs are nontender. She does have gurgling. Sons are at bedside. Objective Labs 10/18/23 05:55 10/18/23 05:55 [facility] Medical History Malignant ascites GERD without esophagitis Chronic, continuous use of opioids Osteoarthritis of right hip Essential hypertension IT band syndrome Painful menstrual periods Fibroids Migraines Fibromyalgia Chronic back pain Mumps Measles Chicken pox Surgical History H/O total hysterectomy with bilateral salpingo-oophorectomy (BSO) (10/04/22) Anesthesia History of laparoscopy (~1991) History of foot surgery (~2000) History of neck surgery (~1997) Family History Father Cancer Family/Other No problems noted. 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 Stage IV endometrial cancer 2. Acute hypoxic respiratory failure 3. Generalized weakness 4. Intractable nausea/emesis Comfort measures. We will continue comfort based care including a morphine infusion as well as atropine drops as needed secretions. Dispo: Comfort care. Passing is likely imminent and within 48 hours.
[2023-10-20] MEDS: ATROPINE 1% OPHTH 2 DROPS SL ×4 (08:48→20:15)
--- NOTE | 2023-10-20 09:13 | PC.NURSE ---
Assess- Patient is alert and oriented x4, 3 small incisions with large bandaides all cdi. Patient has been up to the bathroom with SBA. She has LR at 100cc/hr infusing. [place] has been helpful for discomfort.
[2023-10-20] MEDS: SODIUM CHLORIDE 0.9% FLUSH 10 ML IV (10:35)
[2023-10-20] MEDS: MORPHINE 50 MG in SODIUM CHLORIDE 0.9% 45 ML 8 MG IV (14:03)
--- NOTE | 2023-10-20 15:06 | CM.DPC ---
DCP Cont: Per MD, pt was increased morphine drip and obtunded and no oral intake for fluids or foods but still producing some urine and MD anticipates that pt is imminent within the next 48 hours. Currently no family bedside but they have been bedside off and on during pt's admission. SW spoke to [facility] and updated them that sons currently decline pt going to [facility] and [facility] currently has one opening but already a waitlist in place. yesterday discussed grief counseling with pt's sons and encouraged they reach out to [facility] regarding grief suppoert. CLAY Landis
--- NOTE | 2023-10-20 15:29 | PC.NURSE ---
Patient cleaned up, and oral care done. Suctioned patient and put 2 atropine drops in patients cheeks x2 this morning. She is a bit gurgly but is comfortable and doing well with Mophine drip at 8mg/hr.
[2023-10-20] MEDS: MORPHINE 50 MG in SODIUM CHLORIDE 0.9% 45 ML 9 MG IV (21:06)
[2023-10-20 21:30] VITALS: O2SAT 93
[2023-10-21] MEDS: MORPHINE 50 MG in SODIUM CHLORIDE 0.9% 45 ML 10 MG IV ×2 (02:25→08:26)
--- NOTE | 2023-10-21 10:08 | PM.PN.1 ---
Subjective Subjective Interval history: Comfortable and obtunded. Exam Vital Signs (past 8 hours): Fraction of Inspired Oxygen 24 SaO2/FiO2 Ratio 342 Oxygen Delivery Method Nasal Cannula Oxygen Flow Rate 2 Narrative Exam Narrative: Obtunded and appears comfortable Increased rate of breathing with periods of apnea. Abdomen distended Gurgling Sons and Spiritual at the bedside. Objective Labs 10/18/23 05:55 10/18/23 05:55 [facility] Medical History Malignant ascites GERD without esophagitis Chronic, continuous use of opioids Osteoarthritis of right hip Essential hypertension IT band syndrome Painful menstrual periods Fibroids Migraines Fibromyalgia Chronic back pain Mumps Measles Chicken pox Surgical History H/O total hysterectomy with bilateral salpingo-oophorectomy (BSO) (10/04/22) Anesthesia History of laparoscopy (~1991) History of foot surgery (~2000) History of neck surgery (~1997) Family History Father Cancer Family/Other No problems noted. 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 Stage IV endometrial cancer 2. Acute hypoxic respiratory failure 3. Generalized weakness 4. Intractable nausea/emesis Comfort measures. We will continue comfort based care including a morphine infusion as well as atropine drops as needed secretions. Dispo: Comfort care. Passing is likely imminent and within 48 hours.
[2023-10-21] MEDS: LORazepam 2 MG/ML INJ 1 MG IV (13:56)
[2023-10-21] MEDS: MORPHINE 50 MG in SODIUM CHLORIDE 0.9% 45 ML 15 MG IV (14:04)
--- NOTE | 2023-10-21 15:55 | PC.NURSE ---
Pt time of was at 1542 10/21/23 - Son's Mickey and Tyrell at the bedside as well as Katja GALVAN and Charlene CHRISTIANSEN. Last breath observed. Pt confirmed without respiration or pulse. Notified Dr. Mcknight, cdl bulk driver Adrian. Pt's family has already set up with [facility]. Family has now left and has taken Pt belongings with them including Pt's necklace with 3 hanging symbols. Morphine drip wasted with cdl bulk driver Adrian and [facility] will be contacted for pickup.
--- NOTE | 2023-10-21 16:01 | CM.DPNOTE ---
DCP PROFESSOR OF PHILOSOPHY received notice from RN that pt at 1542. Family at bedside, took belongings, made arrangements with [facility]. RN reports no CM needs. CM team will follow as needed. CLAY Godinez
--- NOTE | 2023-10-21 16:10 | P.DN_ITS ---
Discharge Summary History of Illness Narrative: She is a 68 year old female with a past medical history of endometrial cancer stage IVb status post surgery currently on chemotherapy, hypertension, depression, anxiety, GERD, chronic opiate use, fibromyalgia, migraine, recent hospitalization for acute kidney injury/dehydration with UTI and multiple other medical issues now was brought to the emergency room for generalized weakness and feeling shaky with dyspnea on exertion. Also has generalized abdominal discomfort with a slightly worsening distention in the setting of malignant ascites. Denies any shortness of breath cough wheezing headache but does have generalized body ache. Has had constipation episodes. No dysuria. She had recently completed antibiotic course for urinary tract infection. In the ED, noted to be tachycardic with a heart rate in the 100s and respiration in the mid 20s at times. Patient was noted to be persistently hypoxemic and also noted to be hyponatremic. Chest x-ray shows no acute process. Abdominal CT shows worsening peritoneal carcinomatosis with moderate fecal debris's in the right colon. CT angio of the chest shows no evidence of pulmonary embolism dissection. Urine analysis is negative for leukocyte esterase. Patient was admitted for persistent hypoxemia with generalized weakness Hospital Course Date of Admission: 10/12/23 19:37 Primary care provider: Mo Moseley MD Consults: 10/12/23 21:25 Consult to ZOO KEEPER - Laundry Sorter Routine Comment: ZOO KEEPER Consult needed for:: Community Health Res Need 10/13/23 07:34 Consult to Physical Therapy Evaluate & Treat Comment: Physician Instructions: Evaluate and Treat 10/15/23 16:54 Consult to Occupational Therapy Evaluate & Treat Comment: Physician Instructions: Evaluate and treat 10/18/23 13:03 Consult to Discharge Planning Routine Comment: Consult to Hospice Referral Urgent Comment: Discharge provider: Zudro Mcknight MD Discharge Diagnosis: 1. Expiration on comfort care, progressive uterine cancer with peritoneal carcinomatosis and malignant ascites. 2. Acute hypoxic respiratory failure 3. Generalized weakness 4. Intractable nausea/emesis 5. Uterine cancer. Hospital Course: She was admitted with weakness and nausea and vomiting. Imaging indicated probable recurrence of her uterine cancer with peritoneal carcinomatosis. The patient had persistent nausea and vomiting and weakness. She was not able to really sit up or stand up. It became clear that she was having increased suffering and that she likely not functional enough for more cancer therapy. Was given pain medication and nausea medication. Ultimately she continued to deteriorate and was made comfort care. Her 2 sons spent the last 2 days in the room at her bedside and she comfortably on the late morning of October 20. Her oncologist was aware of her admission and deterioration, as was her primary care doctor. Objective Imaging CT scan - abdomen: Radiologist's impression: 1. Worsening peritoneal carcinomatosis shows increasing peritoneal/omental nodular studding and ascites 2. Moderate fecal debris in the right colon. No obstruction CT scan - chest: Radiologist's impression: 1. No evidence of pulmonary embolism, aortic dissection or aneurysm. 2. Moderate hiatal hernia with wall thickening may reflect distal esophagitis/gastritis 3. Upper abdominal ascites and peritoneal/omental studding. Please refer to concurrent CT abdomen and pelvis report Labs 10/18/23 05:55 10/18/23 05:55
== END 2023-10-21 18:51 | disposition expired | DRG 754 ==
LOC: ED 19:36 → AC 20:39
PROVIDERS: Emergency Medicine; Hospitalist; Student in an Organized Health Care Education/Training Program; Admitting Provider Internal Medicine; Emergency Provider Emergency Medicine; PCP Internal Medicine; Referring Provider Emergency Medicine; Visit Provider Internal Medicine
DX: C54.1 Malignant neoplasm of endometrium (principal); J96.01 Acute respiratory failure with hypoxia; C78.6 Secondary malignant neoplasm of retroperitoneum and peritoneum; R18.0 Malignant ascites; G89.3 Neoplasm related pain (acute) (chronic); K21.9 Gastro-esophageal reflux disease without esophagitis; G62.9 Polyneuropathy, unspecified; R53.1 Weakness; K59.00 Constipation, unspecified; R00.0 Tachycardia, unspecified; E87.5 Hyperkalemia; R11.2 Nausea with vomiting, unspecified; I10 Essential (primary) hypertension; Z66 Do not resuscitate; Z77.22 Contact with and (suspected) exposure to environmental tobacco smoke (acute) (chronic); Z51.5 Encounter for palliative care
CPT/HCPCS: 0241U; 36415; 36591; 51701; 71045; 71275; 74177; 76705; 80048; 80053; 81001; 82962; 83605; 83735; 83880; 84132; 84484; 85025; 85027; 85379; 85610; 87040; 87077; 87154; 93005; 93010; 94762; 96365; 96375; 97162; 97166; 97530; 97535; 99284; 99285; J0612; J1170; J1642; J1650; J2060; J2270; J2405; J2543; J2765; Q9967